=== PATIENT | female | born 1960 | race Hispanic/Latino ===

== ENCOUNTER 2020-07-28 09:36 | Outpatient (CLI) | payer BC ==
--- NOTE | 2020-07-28 12:35 | XRay Report ---
LEFT HIP 5 VIEW(S) INDICATION / CLINICAL INFORMATION: S72.22XADisplaced subtrochanteric fracture of left femur, initial COMPARISON: None available. FINDINGS: Left femoral intramedullary chelsey with proximal head/neck component is seen. There is no evid ence of periprosthetic fracture, dislocation, or hardware loosening. Heterotopic ossification seen al bowen the medial aspect of the proximal femur. There is mild bilateral femoroacetabular joint degenerat rich arthrosis. Signer Name: Yahir Wagner MD Signed: 07/28/2020 12:30 PM Workstation Name: [id number]
== END 2020-07-28 09:37 | disposition home or self-care (01) ==
LOC: XRAY 09:36
PROVIDERS: ATTEND Orthopaedic Surgery
DX: S72.22XD Displaced subtrochanteric fracture of left femur, subsequent encounter for closed fracture with routine healing (principal); M16.0 Bilateral primary osteoarthritis of hip; X58.XXXD Exposure to other specified factors, subsequent encounter
CPT/HCPCS: 73521

== ENCOUNTER 2020-09-09 09:58 | Outpatient (CLI) | payer BC ==
--- NOTE | 2020-09-09 11:11 | XRay Report ---
HISTORY:DISPLACED SUBTROCHANTERIC FRACTURE OF LEFT FEMUR COMPARISON: None. TECHNIQUE: AP lateral and obliques views were obtained FINDINGS: Exam is compared to July 28, 2020 Bones: Evidence of previous fracture intertrochanteric region left hip femur with medullary chelsey and h ip nail in place Joint spaces: Maintained. Soft tissues: No significant abnormality. Additional findings: None. IMPRESSION: 1. No interval change in the appearance of the surgical stabilization left hip fracture with intramed ullary chelsey Signer Name: Lester Mckay MD Signed: 09/09/2020 11:07 AM Workstation Name: [id number]
== END 2020-09-09 09:59 | disposition home or self-care (01) ==
LOC: XRAY 09:58
PROVIDERS: ATTEND Orthopaedic Surgery
DX: S72.22XA Displaced subtrochanteric fracture of left femur, initial encounter for closed fracture (principal); X58.XXXA Exposure to other specified factors, initial encounter; Y93.89 Activity, other specified; Y92.89 Other specified places as the place of occurrence of the external cause; Y99.8 Other external cause status

== ENCOUNTER 2020-11-27 11:34 | Emergency (ER) | payer BC ==
--- NOTE | 2020-11-27 11:46 | Event Note ---
ED Screening Note ED Screening Note: Patient is a 60-year-old female presents emergency room with complaints of a left hip wound that began in September. She states over the last 2 weeks it began having purulent drainage and a foul odor and has increased in pain. She states that she had a left hip arthroplasty on May [address] Coughlin. She has not seen anybody for this wound. She states that she does not have a primary care doctor. She has a past medical history of depression anxiety. Allergy to haloperidol. She denies any other past medical history. This initial assessment/diagnostic orders/clinical plan/treatment(s) is/are subject to change based on patients health status, clinical progression and re- assessment by fellow clinical providers in the ED. Further treatment and workup at subsequent clinical providers discretion. Patient/guardian urged not to elope from the ED as their condition may be serious if not clinically assessed and managed. Initial orders include: labs, XR
--- NOTE | 2020-11-27 12:22 | XRay Report ---
LEFT HIP 3 VIEW(S) INDICATION / CLINICAL INFORMATION: left hip wound COMPARISON: 09/09/2020 FINDINGS: BONES / JOINT(S): No acute fracture or subluxation. Intramedullary chelsey and transcervical screw fixati on of remote left proximal femoral trauma stable since prior exam without evidence of hardware loosen ing or failure. There has been minimal interval healing of the proximal femoral trauma. Mild bilatera l hip arthrosis. Moderate lumbar spondylosis. Partially visualized posterior fixation of lumbar spine . SOFT TISSUES: Superficial soft tissue swelling and edema noted over the left hip. ADDITIONAL FINDINGS: None. Signer Name: Lloyd Lazaro MD Signed: 11/27/2020 12:18 PM Workstation Name: [id number]
[2020-11-27 13:25] LABS: Basophils # (Auto) 0.1 K/mm3 (0.0-0.1); Basophils % (Auto) 1.2 % (0.0-1.8); Eosinophils # (Auto) 0.1 K/mm3 (0.0-0.4); Eosinophils % (Auto) 0.9 % (0.0-4.3); Hematocrit 39.5 % (30.3-42.9); Hemoglobin 13.5 gm/dl (10.1-14.3); Lymphocytes # (Auto) 1.1 K/mm3 (1.2-5.4); Lymphocytes % (Auto) 12.6 % (13.4-35.0); Mean Corpuscular HGB Conc 34 % (30-34); Mean Corpuscular Volume 88 fl (79-97); Monocytes # (Auto) 0.6 K/mm3 (0.0-0.8); Monocytes % (Auto) 7.3 % (0.0-7.3); Platelet Count 225 K/mm3 (140-440); Red Cell Distribution Width 17.6 % (13.2-15.2)
[2020-11-27 13:43] LABS: Alanine Aminotransferase 8 units/L (7-56); Albumin 3.9 g/dL (3.9-5); BUN/Creatinine Ratio 9; Blood Urea Nitrogen 8 mg/dL (7-17); Calcium 9.4 mg/dL (8.4-10.2); Hemolysis Index 2
[2020-11-27] MEDS ORDERED: HYDROcodone/ACETAMINOPHEN 10-325MG TAB PO ONE (17:28)
[2020-11-27] MEDS ORDERED: ONDANSETRON 4 MG ODT TAB PO ONE (17:29)
[2020-11-27] MEDS ORDERED: SULFAMETHOXAZOLE/TRIMETHOPRIM 800/160MG DS TAB PO ONE (17:29)
--- NOTE | 2020-11-27 17:33 | Emergency Department Report ---
ED General Adult HPI - General Chief complaint: Wound/Laceration Stated complaint: INFECTED SORE Time Seen by Provider: 11/27/20 11:44 Source: patient Mode of arrival: Ambulatory Limitations: No Limitations - History of Present Illness Initial comments: The patient presents to the emergency department the chief complaint of the left hip wound has been present since September with purulent drainage. Patient states she had her left hip replaced in May. Patient states that time she has pain in that left leg but is able to move it without issue. Patient denies fever, cough, chest pain, headache, abdominal pain. -: month(s) (2) Location: lower extremity Radiation: non-radiation, extremity Severity scale (0 -10): 5 Quality: aching Improves with: none Worsens with: none Associated Symptoms: denies other symptoms Treatments Prior to Arrival: none - Related Data Previous Rx's Medication Instructions Recorded Last Taken Type Naproxen [Naprosyn] 500 mg PO BID #20 tablet 05/11/20 Unknown Rx HYDROcodone/APAP 5-325 [Truman 1 each PO Q6HR PRN #12 tablet 11/27/20 Unknown Rx 5/325] Sulfamethoxazole/Trimethoprim 2 each PO BID #28 tablet 11/27/20 Unknown Rx [Bactrim DS TAB] Allergies Allergy/AdvReac Type Severity Reaction Status Date / Time haloperidol [From Haldol] Allergy Unknown Verified 05/11/20 14:59 ED Review of Systems ROS: Stated complaint: INFECTED SORE Other details as noted in HPI Constitutional: denies: chills, fever Eyes: denies: eye pain, eye discharge, vision change ENT: denies: ear pain, throat pain Respiratory: denies: cough, shortness of breath, wheezing Cardiovascular: denies: chest pain, palpitations Endocrine: no symptoms reported Gastrointestinal: denies: abdominal pain, nausea, diarrhea Genitourinary: denies: urgency, dysuria, discharge Musculoskeletal: other (left hip wound). denies: back pain, joint swelling, arthralgia Skin: denies: rash, lesions Neurological: denies: headache, weakness, paresthesias Psychiatric: denies: anxiety, depression Hematological/Lymphatic: denies: easy bleeding, easy bruising ED Past Medical Hx - Past Medical History Previous Medical History?: Yes Hx Psychiatric Treatment: Yes (BIPOLAR) - Surgical History Past Surgical History?: No - Social History Smoking Status: Never Smoker Substance Use Type: None - Medications Home Medications: Home Medications Medication Instructions Recorded Confirmed Last Taken Type Naproxen [Naprosyn] 500 mg PO BID #20 tablet 05/11/20 Unknown Rx HYDROcodone/APAP 5-325 [Truman 1 each PO Q6HR PRN #12 tablet 11/27/20 Unknown Rx 5/325] Sulfamethoxazole/Trimethoprim 2 each PO BID #28 tablet 11/27/20 Unknown Rx [Bactrim DS TAB] ED Physical Exam - General Limitations: No Limitations General appearance: alert, in no apparent distress - Head Head exam: Present: atraumatic, normocephalic - Eye Eye exam: Present: normal appearance, PERRL, EOMI - ENT ENT exam: Present: mucous membranes moist - Neck Neck exam: Present: normal inspection - Respiratory Respiratory exam: Present: normal lung sounds bilaterally. Absent: respiratory distress - Cardiovascular Cardiovascular Exam: Present: regular rate, normal rhythm. Absent: systolic murmur, diastolic murmur, rubs, gallop - GI/Abdominal GI/Abdominal exam: Present: soft, normal bowel sounds. Absent: distended, tenderness - Extremities Exam Extremities exam: Present: other (Stage I decubitus ulcer with healing tissue with mild purulent drainage from the left hip just inferior to the surgical site) - Back Exam Back exam: Present: normal inspection - Neurological Exam Neurological exam: Present: alert, oriented X3 - Psychiatric Psychiatric exam: Present: normal affect, normal mood - Skin Skin exam: Present: warm, dry, intact, normal color. Absent: rash ED Course Vital Signs 11/27/20 11:37 Temperature 97.7 F Pulse Rate 96 H Respiratory 18 Rate Blood Pressure 139/82 [Right] O2 Sat by Pulse 98 Oximetry ED Medical Decision Making - Lab Data Result diagrams: 11/27/20 12:53 11/27/20 12:53 Lab Results 11/27/20 11/27/20 11/27/20 Range/Units 12:53 12:53 12:53 WBC 8.5 (4.5-11.0) K/mm3 RBC 4.50 (3.65-5.03) M/mm3 Hgb 13.5 (10.1-14.3) gm/dl Hct 39.5 (30.3-42.9) % MCV 88 (79-97) fl MCH 30 (28-32) pg MCHC 34 (30-34) % RDW 17.6 H (13.2-15.2) % Plt Count 225 (140-440) K/mm3 Lymph % (Auto) 12.6 L (13.4-35.0) % [place] % (Auto) 7.3 (0.0-7.3) % Eos % (Auto) 0.9 (0.0-4.3) % Baso % (Auto) 1.2 (0.0-1.8) % Lymph # (Auto) 1.1 L (1.2-5.4) K/mm3 [place] # (Auto) 0.6 (0.0-0.8) K/mm3 Eos # (Auto) 0.1 (0.0-0.4) K/mm3 Baso # (Auto) 0.1 (0.0-0.1) K/mm3 Seg Neutrophils % 78.0 H (40.0-70.0) % Seg Neutrophils # 6.6 (1.8-7.7) K/mm3 Sodium 135 L (137-145) mmol/L Potassium 4.2 (3.6-5.0) mmol/L Chloride 97.4 L (98-107) mmol/L Carbon Dioxide 28 (22-30) mmol/L Anion Gap 14 mmol/L BUN 8 (7-17) mg/dL Creatinine 0.9 (0.6-1.2) mg/dL Estimated GFR > 60 ml/min BUN/Creatinine Ratio 9 % Glucose 93 (65-100) mg/dL Lactic Acid 1.30 (0.7-2.0) mmol/L Calcium 9.4 (8.4-10.2) mg/dL Total Bilirubin 0.40 (0.1-1.2) mg/dL AST 13 (5-40) units/L ALT 8 (7-56) units/L Alkaline Phosphatase 108 (35-129) units/L Total Protein 8.1 (6.3-8.2) g/dL Albumin 3.9 (3.9-5) g/dL Albumin/Globulin Ratio 0.9 % - Radiology Data Radiology results: report reviewed - Medical Decision Making Discussed plans with patient Critical care attestation.: If time is entered above; I have spent that time in minutes in the direct care of this critically ill patient, excluding procedure time. ED Disposition Clinical Impression: Leg wound, left Disposition: DC-01 TO HOME OR SELFCARE Is pt being admited?: No Does the pt Need Aspirin: No Condition: Stable Instructions: Sutured Wound Care Additional Instructions: return if worse Prescriptions: Sulfamethoxazole/Trimethoprim [Bactrim DS TAB] 2 each PO BID #28 tablet HYDROcodone/APAP 5-325 [Truman 5/325] 1 each PO Q6HR PRN #12 tablet PRN Reason: Pain Referrals: [facility] [Provider Group] - 3-5 Days [facility] [Provider Group] - 3-5 Days [facility] [Outside] - 3-5 Days ABDI HARMON MD [Staff Physician] - 3-5 Days [facility] [Primary Care Provider] - 3-5 Days LYDIA GRAYSON MD [Staff Physician] - 3-5 Days Time of Disposition: 17:31
[2020-11-27 18:02] VITALS: BP 144/73
== END 2020-11-27 18:01 | disposition home or self-care (01) ==
LOC: ED 11:34
DX: L89.221 Pressure ulcer of left hip, stage 1 (principal); F31.9 Bipolar disorder, unspecified; Z79.899 Other long term (current) drug therapy; Z88.8 Allergy status to other drugs, medicaments and biological substances
CPT/HCPCS: 36415; 80053; 82140; 85025; 87040; Q0162

== ENCOUNTER 2020-12-11 13:29 | Emergency (ER) | payer BC ==
[2020-12-11 13:53] VITALS: BP 141/70
--- NOTE | 2020-12-11 13:58 | Emergency Department Report ---
Chief Complaint: Extremity Injury, Lower Stated Complaint: LT HIP PAIN Time Seen by Provider: 12/11/20 13:39 - HPI History of Present Illness: 60-year-old female presents to the emergency room for left hip pain. Patient states that she has a sore on her left hip after having surgery by Dr. Coughlin in May. Patient is not taking anything for pain. Patient states that there is a hole there. She denies any fever chills no nausea no vomiting. Patient is currently walking on a cane which is her normal. - Exam Physical Exam: Patient is alert and oriented x3 no acute distress nontoxic in appearance. Patient is ambulatory with cane. Left hip full range of motion there is a nickel sized open wound with mild purulent discharge. No erythematous appreciated. MSE screening note: Focused history and physical exam performed. Due to findings the following was ordered: 60-year-old female presents to the emergency room for left hip pain. Patient states that she has a sore on her left hip after having surgery by Dr. Coughlin in May. Patient is not taking anything for pain. Patient states that there is a hole there. She denies any fever chills no nausea no vomiting. Patient is currently walking on a cane which is her normal. Call wound care clinic spoke to staff they states that patient can come at 9:00 AM at [facility] wound clinic. Patient is informed of her appointment. ED Disposition for [facility] [place]position: MED SCREENING EXAM-LEFT Is pt being admited?: No Does the pt Need Aspirin: No Condition: Stable Additional Instructions: Visit appointment for [facility] wound care clinic has been moved up to Monday, December 14, 2020 at 9 AM. Be sure to bring your insurance card in your ID. You can take Tylenol or ibuprofen for pain management.
== END 2020-12-11 17:48 | disposition left against medical advice (07) ==
LOC: ED 13:29
DX: M25.552 Pain in left hip (principal); Z53.21 Procedure and treatment not carried out due to patient leaving prior to being seen by health care provider

== ENCOUNTER 2020-12-14 08:44 | Outpatient (CLI) | payer BC ==
[2020-12-14] MEDS ORDERED: LIDOCAINE (4%) 40 MG/ML TOPICAL SOLN 50 ML BOTTLE TP ONE (09:46)
[2020-12-14] MEDS ORDERED: SODIUM CHLORIDE 0.9% IRR 500 ML BOTTLE IR ONE (10:30)
== END 2020-12-14 08:45 | disposition home or self-care (01) ==
LOC: WOUND 08:44
PROVIDERS: ATTEND Surgery
DX: T81.89XA Other complications of procedures, not elsewhere classified, initial encounter (principal); L98.492 Non-pressure chronic ulcer of skin of other sites with fat layer exposed; S71.002A Unspecified open wound, left hip, initial encounter; F41.9 Anxiety disorder, unspecified; F32.9 Major depressive disorder, single episode, unspecified; F17.210 Nicotine dependence, cigarettes, uncomplicated; Z90.49 Acquired absence of other specified parts of digestive tract; Z90.710 Acquired absence of both cervix and uterus; X58.XXXA Exposure to other specified factors, initial encounter; Y93.89 Activity, other specified; Y92.89 Other specified places as the place of occurrence of the external cause; Y99.8 Other external cause status; Y83.8 Other surgical procedures as the cause of abnormal reaction of the patient, or of later complication, without mention of misadventure at the time of the procedure; Y92.238 Other place in hospital as the place of occurrence of the external cause
CPT/HCPCS: 11042; G0463; 99204; 99214

== ENCOUNTER 2020-12-28 08:29 | Outpatient (CLI) | payer BC ==
[2020-12-28] MEDS ORDERED: LIDOCAINE (4%) 40 MG/ML TOPICAL SOLN 50 ML BOTTLE TP ONE (10:00)
== END 2020-12-28 08:30 | disposition home or self-care (01) ==
LOC: WOUND 08:29
PROVIDERS: ATTEND Surgery
DX: T81.89XD Other complications of procedures, not elsewhere classified, subsequent encounter (principal); L98.492 Non-pressure chronic ulcer of skin of other sites with fat layer exposed; S71.002D Unspecified open wound, left hip, subsequent encounter; F41.9 Anxiety disorder, unspecified; F32.9 Major depressive disorder, single episode, unspecified; F17.210 Nicotine dependence, cigarettes, uncomplicated; Z90.49 Acquired absence of other specified parts of digestive tract; Z90.710 Acquired absence of both cervix and uterus; X58.XXXD Exposure to other specified factors, subsequent encounter; Y83.8 Other surgical procedures as the cause of abnormal reaction of the patient, or of later complication, without mention of misadventure at the time of the procedure
CPT/HCPCS: 87075; 87116

== ENCOUNTER 2021-01-04 08:08 | Outpatient (CLI) | payer BC ==
[2021-01-04] MEDS ORDERED: LIDOCAINE (4%) 40 MG/ML TOPICAL SOLN 50 ML BOTTLE TP SCH (08:30)
== END 2021-01-04 08:09 | disposition home or self-care (01) ==
LOC: WOUND 08:08
PROVIDERS: ATTEND Surgery
DX: T81.89XD Other complications of procedures, not elsewhere classified, subsequent encounter (principal); L98.492 Non-pressure chronic ulcer of skin of other sites with fat layer exposed; S71.002D Unspecified open wound, left hip, subsequent encounter; F41.9 Anxiety disorder, unspecified; F32.9 Major depressive disorder, single episode, unspecified; Z90.49 Acquired absence of other specified parts of digestive tract; Z90.710 Acquired absence of both cervix and uterus; X58.XXXD Exposure to other specified factors, subsequent encounter; Y83.8 Other surgical procedures as the cause of abnormal reaction of the patient, or of later complication, without mention of misadventure at the time of the procedure

== ENCOUNTER 2021-01-18 10:33 | Outpatient (CLI) | payer BC ==
[2021-01-18] MEDS ORDERED: LIDOCAINE (4%) 40 MG/ML TOPICAL SOLN 50 ML BOTTLE TP ONE (10:56)
== END 2021-01-18 10:34 | disposition home or self-care (01) ==
LOC: WOUND 10:33
PROVIDERS: ATTEND Surgery
DX: T81.89XD Other complications of procedures, not elsewhere classified, subsequent encounter (principal); L98.492 Non-pressure chronic ulcer of skin of other sites with fat layer exposed; S71.002D Unspecified open wound, left hip, subsequent encounter; F41.9 Anxiety disorder, unspecified; F32.9 Major depressive disorder, single episode, unspecified; Z90.49 Acquired absence of other specified parts of digestive tract; Z90.710 Acquired absence of both cervix and uterus; X58.XXXD Exposure to other specified factors, subsequent encounter; Y83.8 Other surgical procedures as the cause of abnormal reaction of the patient, or of later complication, without mention of misadventure at the time of the procedure
CPT/HCPCS: 97605

== ENCOUNTER 2021-01-21 08:25 | Outpatient (CLI) | payer BC | END 2021-01-21 08:26 | disposition home or self-care (01) | LOC: WOUND 08:25 | PROVIDERS: ATTEND Surgery | DX: T81.89XD Other complications of procedures, not elsewhere classified, subsequent encounter (principal); S71.002D Unspecified open wound, left hip, subsequent encounter; F41.9 Anxiety disorder, unspecified; F32.9 Major depressive disorder, single episode, unspecified; Z90.49 Acquired absence of other specified parts of digestive tract; Z90.710 Acquired absence of both cervix and uterus; X58.XXXD Exposure to other specified factors, subsequent encounter; Y83.8 Other surgical procedures as the cause of abnormal reaction of the patient, or of later complication, without mention of misadventure at the time of the procedure | CPT/HCPCS: 97605 ==

== ENCOUNTER 2021-01-25 09:43 | Outpatient (CLI) | payer BC ==
[2021-01-25] MEDS ORDERED: LIDOCAINE (4%) 40 MG/ML TOPICAL SOLN 50 ML BOTTLE TP ONE (10:16)
== END 2021-01-25 09:44 | disposition home or self-care (01) ==
LOC: WOUND 09:43
PROVIDERS: ATTEND Surgery
DX: T81.89XD Other complications of procedures, not elsewhere classified, subsequent encounter (principal); S71.002D Unspecified open wound, left hip, subsequent encounter; F41.9 Anxiety disorder, unspecified; F32.9 Major depressive disorder, single episode, unspecified; Z90.49 Acquired absence of other specified parts of digestive tract; Z90.710 Acquired absence of both cervix and uterus; X58.XXXD Exposure to other specified factors, subsequent encounter; Y83.8 Other surgical procedures as the cause of abnormal reaction of the patient, or of later complication, without mention of misadventure at the time of the procedure

== ENCOUNTER 2021-04-29 05:47 | Inpatient (IN) | payer BC ==
[~2021-04-29 05:47] MED LIST: ceFAZolin/STERILE WATER 2 GM/20 ML SYRINGE IV NR
[2021-04-29] MEDS ORDERED: CELECOXIB 200 MG CAP PO NR (06:00)
[2021-04-29] MEDS ORDERED: ACETAMINOPHEN 500 MG TAB PO SCH (06:00)
[2021-04-29] MEDS ORDERED: MIDAZOLAM 2 MG/2 ML INJ IV NR (06:00)
[2021-04-29] MEDS ORDERED: GABAPENTIN 300 MG CAP PO NR (06:00)
[2021-04-29] MEDS ORDERED: SUCCINYLCHOLINE CHLORIDE 200 MG/10 ML INJ MDV ONE (07:00)
[2021-04-29] MEDS ORDERED: PHENYLEPHRINE/NS 1,000 MCG/10 ML SYRINGE (OR USE) IV ONE (07:00)
[2021-04-29] MEDS ORDERED: ROCURONIUM 50 MG/5 ML INJ IV ONE (07:00)
[2021-04-29] MEDS ORDERED: labetaloL 100 MG/20 ML INJ MDV IV ONE (07:00)
[2021-04-29] MEDS ORDERED: dexAMETHasone 20 MG/5 ML VIAL ONE (07:00)
[2021-04-29] MEDS ORDERED: NEOMY 40 MG/POLYMYXIN B 200,000 UNITS/ML (GU) AMPULE IR ONE ×3 (07:03→08:55)
[2021-04-29] MEDS ORDERED: ePHEDrine SULFATE 50 MG/1 ML INJ ONE (07:05)
[2021-04-29] MEDS ORDERED: LIDOCAINE MPF (2%) 20 MG/1 ML VIAL 5 ML ONE (07:05)
[2021-04-29] MEDS ORDERED: propofoL 200 MG/20 ML VIAL IV ONE (07:05)
[2021-04-29] MEDS ORDERED: ONDANSETRON 4 MG/2 ML INJ ONE (07:05)
[2021-04-29] MEDS ORDERED: fentaNYL 100 MCG/2 ML INJ ONE ×2 (07:05→08:31)
--- NOTE | 2021-04-29 07:11 | Anesthesia Consultation ---
Anesthesia Consult and Med Hx Date of service: 04/29/21 - Airway Anesthetic Teeth Evaluation: Edentulous ROM Head & Neck: Adequate Mental/Hyoid Distance: Inadequate Mallampati Class: Class III Intubation Access Assessment: Possibly Difficult (small mouth opening) - Pre-Operative Health Status ASA Pre-Surgery Classification: ASA3 Proposed Anesthetic Plan: General - Pulmonary Hx Smoking: Yes (long hx smoking 1/2 PPPD) Hx Respiratory Symptoms: No Hx Sleep Apnea: No (JONATHON PRE SCTRREN LOW RISK) - Cardiovascular System Hx Hypertension: No Hx Heart Attack/AMI: No Hx Percutaneous Transluminal Coronary Angioplasty (PTCA): No - Central Nervous System CVA: No Hx Psychiatric Problems: Yes (schizophrenia, PTSD, anxiety/depression) - Endocrine Hx Renal Disease: No Hx Liver Disease: No Hx Insulin Dependent Diabetes: No Hx Non-Insulin Dependent Diabetes: No Hx Thyroid Disease: No - Other Systems Hx Obesity: Yes (BMI 36) - Additional Comments Anesthesia Medical History Comments: No hx anesthetic complications.
--- NOTE | 2021-04-29 07:11 | Anesthesia Day of Surgery ---
Anesthesia Day of Surgery - Day of Surgery Patient Examined: Yes Patient H&P Reviewed: Yes Patient is NPO: Yes
[2021-04-29] MEDS: LACTATED RINGERS 1,000 ML IV SCH ×3 (07:15→23:16)
[2021-04-29 07:17] LABS: Hematocrit 35.4 % (30.3-42.9); Hemoglobin 11.5 gm/dl (10.1-14.3); Mean Corpuscular HGB Conc 32 % (30-34); Mean Corpuscular Volume 82 fl (79-97); Platelet Count 311 K/mm3 (140-440); Red Blood Count 4.31 M/mm3 (3.65-5.03)
[2021-04-29] MEDS ORDERED: KETOROLAC 30 MG/1 ML INJ ONE (07:21)
[2021-04-29] MEDS ORDERED: SODIUM CHLORIDE 0.9% 0 ML ONE (07:22)
[2021-04-29] MEDS ORDERED: SODIUM CHLORIDE 0.9% 50 ML ONE (07:22)
[2021-04-29] MEDS ORDERED: BUPIVACAINE/PF (0.5%) 5 MG/1 ML 10 ML VIAL INFILTRATI ONE ×2 (07:22→10:10)
[2021-04-29] MEDS ORDERED: ONDANSETRON 4 MG/2 ML INJ IV PRN (07:30)
[2021-04-29 07:37] LABS: BUN/Creatinine Ratio 12; Blood Urea Nitrogen 11 mg/dL (7-17); Calcium 9.1 mg/dL (8.4-10.2); Hemolysis Index 1
[2021-04-29] MEDS ORDERED: HYDROmorphone 1 MG/1 ML INJ ONE (08:13)
[2021-04-29] MEDS ORDERED: MORPHINE 10 MG/1 ML INJ ONE (08:18)
[2021-04-29] MEDS ORDERED: MORPHINE 10 MG/1 ML INJ IM ONE (10:10)
[2021-04-29] MEDS ORDERED: KETOROLAC 30 MG/1 ML INJ IV ONE (10:10)
[2021-04-29] MEDS ORDERED: SODIUM CHLORIDE 0.9% 100 ML IVPB IV ONE (10:10)
--- NOTE | 2021-04-29 10:52 | XRay Report ---
XR femur 1V LT Technique: Intraoperative fluoroscopic guidance was provided. Fluoroscopy time: 34 second. Fluoroscopy images: 4. Findings/Impression: Intraoperative fluoroscopic guidance for removal of left femoral hardware. Milana carrion see procedure report for further details. Signer Name: Ean Kilpatrick MD Signed: 04/29/2021 10:47 AM Workstation Name: [id number]
[2021-04-29] MEDS: HYDROmorphone 1 MG/1 ML INJ IV PRN ×2 (11:12→11:23)
--- NOTE | 2021-04-29 15:53 | Procedure Note ---
Date of procedure: 04/29/21 Pre-op diagnosis: infected left hip, s/p IM nail left femur Post-op diagnosis: same Procedure: Removal of hardware left femur Procedure The patient was brought to the OR and placed in the OR table in supine position following induction intubation by anesthesia patient was placed into the right lateral decubitus position care was taken to protect bony areas as well as an axillary roll placed in the right axilla next the left hip was then prepped and draped in the routine sterile manner. A timeout procedure was done to identify the patient and the correct operative site. Utilizing the previous incision this was then taken down sharply through skin and subcu using C arm visualization the IM nail was located after extensive debridement proximally the head of the nail was is seen the extraction device was then applied next the wound was extended distally and the helical blade was located again using the extraction device the helical blade was removed without incident next attention was turned to the distal screw again under C-arm visualization the head of the screw was identified the incision was enlarged followed by removal of the distal screw the patient was noted to have a fairly loose distal screw as well with the extraction device still attached to the IM nail the nail was removed easily next a 13.5 reamer was inserted within the canal and the canal was then debrided this was then followed by copious irrigation using pulse lavage following lavage the deep soft tissue were closed with #1 Vicryl followed by closure of the subcutaneous tissues with 0 and 2-0 Vicryl routine postop dressings were applied patient tolerated the procedure there were no complications she was sent to postanesthesia recovery in a stable condition Anesthesia: GETA Surgeon: LYDIA GRAYSON (Waleska Rawls, 1st assist) Estimated blood loss: other (300cc) Pathology: list (IM nail and fluid for C&S) Specimen disposition: to lab Condition: stable Disposition: PACU
--- NOTE | 2021-04-29 15:54 | Post Anesthesia Evaluation ---
- Post Anesthesia Evaluation Patient Participated: Yes Airway Patent: Yes Stable Respiratory Function: Yes Nausea/Vomiting: No Temp > 96.8F: Yes Pain Manageable: Yes Adequeate Hydration: Yes Anesthesia Complications: No
[2021-04-29] MEDS: MORPHINE 4 MG/1 ML INJ IV PRN ×2 (17:07→20:02)
[2021-04-29] MEDS: KETOROLAC 30 MG/1 ML INJ IV PRN (23:16)
[2021-04-30] MEDS: MORPHINE 4 MG/1 ML INJ IV PRN ×5 (04:57→22:04)
[2021-04-30 05:07] LABS: Hematocrit 26.5 % (30.3-42.9)
--- NOTE | 2021-04-30 09:23 | Event Note ---
Date: 04/30/21 Patient appeared to have shown up on my list. No consult noted. Notified floor. Will defer management to Orthopedic surgeon. Consult if hospitalist medicine needed. Will remove from list for now.
[2021-04-30] MEDS: KETOROLAC 30 MG/1 ML INJ IV PRN (12:22)
--- NOTE | 2021-04-30 15:23 | Progress Note ---
Assessment and Plan s/p removal infected IM nail left femur doing ok Subjective Date of service: 04/30/21 Interval history: c/o incisional pain, PT started today... Objective Vital signs: Vital Signs - 12hr 04/30/21 04/30/21 04/30/21 04:36 07:43 12:00 Temperature 98.3 F 98.0 F 98.9 F Pulse Rate 80 75 70 Respiratory 16 18 18 Rate Blood Pressure 117/46 Blood Pressure 120/54 118/76 [Left] O2 Sat by Pulse 95 95 92 Oximetry Incision: healing Weight bearing status: partial - Labs CBC & BMP: 04/30/21 04:29 04/29/21 07:05 Labs: Abnormal lab results 04/30/21 Range/Units 04:29 Hgb 9.0 L (10.1-14.3) gm/dl Hct 26.5 L D (30.3-42.9) %
[2021-04-30] MEDS: traZODone 100 MG TAB PO SCH (22:26)
[2021-04-30] MEDS: CYCLOBENZAPRINE 10 MG TAB PO PRN (22:26)
[2021-05-01] MEDS: KETOROLAC 30 MG/1 ML INJ IV PRN ×2 (00:20→17:28)
[2021-05-01] MEDS: oxyCODONE /ACETAMINOPHEN 5-325MG TAB PO PRN (08:18)
[2021-05-01] MEDS: MORPHINE 4 MG/1 ML INJ IV PRN ×3 (10:32→20:32)
[2021-05-01] MEDS: GABAPENTIN 300 MG CAP PO SCH ×2 (14:31→20:32)
[2021-05-01] MEDS: traZODone 100 MG TAB PO SCH (22:30)
[2021-05-02] MEDS: oxyCODONE /ACETAMINOPHEN 5-325MG TAB PO PRN (05:24)
[2021-05-02] MEDS: GABAPENTIN 300 MG CAP PO SCH ×3 (08:46→21:26)
[2021-05-02] MEDS: MORPHINE 4 MG/1 ML INJ IV PRN ×3 (10:03→21:26)
--- NOTE | 2021-05-02 11:41 | Progress Note ---
Assessment and Plan s/p removal infected IM nail left femur doing ok Subjective Date of service: 05/02/21 Interval history: Sitting up in the chair having breakfast, complains of left thigh pain otherwise okay Objective Vital signs: Vital Signs - 12hr 05/02/21 05/02/21 05/02/21 00:03 05:11 05:24 Temperature 97.7 F 97.7 F Pulse Rate 73 72 Respiratory 18 18 17 Rate Blood Pressure 107/49 128/59 O2 Sat by Pulse 95 94 Oximetry 05/02/21 05/02/21 06:24 07:46 Temperature 98.4 F Pulse Rate 69 Respiratory 17 18 Rate Blood Pressure 135/60 O2 Sat by Pulse 95 Oximetry - Labs CBC & BMP: 04/30/21 04:29 04/29/21 07:05
[2021-05-02] MEDS: KETOROLAC 30 MG/1 ML INJ IV PRN ×2 (13:02→19:10)
[2021-05-02] MEDS: traZODone 100 MG TAB PO SCH (21:26)
[2021-05-03] MEDS: CYCLOBENZAPRINE 10 MG TAB PO PRN (05:19)
[2021-05-03] MEDS: oxyCODONE /ACETAMINOPHEN 5-325MG TAB PO PRN ×2 (05:19→19:51)
[2021-05-03] MEDS: GABAPENTIN 300 MG CAP PO SCH ×2 (09:54→19:51)
--- NOTE | 2021-05-03 10:51 | Consultation ---
History of Present Illness - Reason for Consult Consult date: 05/03/21 Medical management Requesting physician: LYDIA COUGHLIN - History of Present Illness 36 YO Female with Obesity, PTSD, DASHA, Depression, Schizophremia, Nicotine Dependence, HTN admitted for removal of infected ortho hardware. Consult placed by Dr. Coughlin for medical management. Patient seen and evaluated in her room. Patient resting calmly. Patient denies fever, chills, chest pain, palpitation, productive cough, skin rash, recent ill contacts, or known exposure to COVID-19. No reported nursing events. Past History Past Medical History: hypertension, other (see HPI) Past Surgical History: Other (Ortho surgery) Social history: single. denies: smoking, alcohol abuse Family history: diabetes, hypertension Medications and Allergies Allergies Allergy/AdvReac Type Severity Reaction Status Date / Time haloperidol [From Haldol] Allergy Seizure Verified 04/26/21 13:02 Home Medications Medication Instructions Recorded Confirmed Last Taken Type Buspirone HCl [busPIRone] 15 mg PO DAILY 04/26/21 04/29/21 04/28/21 09:00 History Citalopram Hydrobromide 40 mg PO DAILY 04/26/21 04/29/21 04/28/21 09:00 History [Citalopram HBr] Citalopram Hydrobromide 40 mg PO DAILY 04/26/21 04/29/21 04/28/21 09:00 History [Citalopram HBr] Cyclobenzaprine [Flexeril] 10 mg PO TID PRN 04/26/21 04/26/21 Unknown History Gabapentin [Neurontin] 300 mg PO TID 04/26/21 04/29/21 04/28/21 17:00 History Hydroxyzine HCl [hydrOXYzine] 50 mg PO QID 04/26/21 04/29/21 04/28/21 21:00 History OLANZapine [Zyprexa] 5 mg PO QHS 04/26/21 04/29/21 04/28/21 21:00 History Trazodone HCl 200 mg PO QHS 04/26/21 04/29/21 04/28/21 21:00 History clonazePAM [KlonoPIN] 2 mg PO QHS 04/26/21 04/29/21 04/28/21 21:00 History Active Meds: Active Medications Clonazepam (Clonazepam 2 Mg Tab) 2 mg PO HS [facility] Last Admin: 05/02/21 21:26 Dose: 2 mg Documented by: Cyclobenzaprine HCl (Cyclobenzaprine 10 Mg Tab) 10 mg PO Q8H PRN PRN Reason: Muscle Spasm Last Admin: 05/03/21 05:19 Dose: 10 mg Documented by: Gabapentin (Gabapentin 300 Mg Cap) 300 mg PO TID [facility] Last Admin: 05/03/21 09:54 Dose: 300 mg Documented by: Ibuprofen (Ibuprofen 800 Mg Tab) 800 mg PO Q8H PRN PRN Reason: Pain, Moderate (4-6) Ketorolac Tromethamine (Ketorolac 30 Mg/1 Ml Inj) 15 mg IV Q6H PRN PRN Reason: Pain, Moderate (4-6) Stop: 05/04/21 14:21 Last Admin: 05/02/21 19:10 Dose: 15 mg Documented by: Morphine Sulfate (Morphine 4 Mg/1 Ml Inj) 4 mg IV Q4H PRN PRN Reason: Pain , Severe (7-10) Last Admin: 05/02/21 21:26 Dose: 4 mg Documented by: Oxycodone/Acetaminophen (Oxycodone /Acetaminophen 5-325mg Tab) 1 tab PO Q6H PRN PRN Reason: Pain, Moderate (4-6) Last Admin: 05/03/21 05:19 Dose: 1 tab Documented by: Trazodone HCl (Trazodone 100 Mg Tab) 200 mg PO QHS [facility] Last Admin: 05/02/21 21:26 Dose: 200 mg Documented by: Review of Systems Constitutional: no weight loss, no weight gain, no fever, no chills Ears, nose, mouth and throat: no ear pain, no ear discharge, no tinnitis, no decreased hearing, no nasal congestion, no sinus pressure Breasts: no change in shape, no swelling, no mass Cardiovascular: no chest pain, no orthopnea, no palpitations, no rapid/irregular heart beat Respiratory: no cough, no cough with sputum, no excessive sputum, no hemoptysis, no shortness of breath Gastrointestinal: no abdominal pain, no nausea, no vomiting, no constipation, no hematemesis Genitourinary Female: no pelvic pain, no flank pain, no dysuria, no urinary frequency, no urgency Rectal: no pain, no incontinence, no bleeding Musculoskeletal: no neck stiffness, no neck pain, no shooting arm pain, no arm numbness/tingling, no low back pain, no leg numbness/tingling Integumentary: no rash, no pruritis, no redness, no sores, no wounds Neurological: no head injury, no transient paralysis, no paralysis, no parathesias, no numbness, no seizures, no syncope, no tremors Psychiatric: anxiety, no memory loss, no change in sleep habits, no hypersomnia, no change in appetite, no disorientation Endocrine: no cold intolerance, no heat intolerance, no polyphagia, no excessive thirst, no polyuria Hematologic/Lymphatic: no easy bruising, no easy bleeding Allergic/Immunologic: no urticaria, no allergic rhinitis Exam - Constitutional Vitals: Temp Pulse Resp BP Pulse Ox 97.8 F 71 18 103/43 97 05/03/21 07:18 05/03/21 07:18 05/03/21 07:18 05/03/21 07:18 05/03/21 07:18 General appearance: Present: no acute distress, obese - EENT Eyes: Present: PERRL ENT: hearing intact, clear oral mucosa - Neck Neck: Present: supple, normal ROM - Respiratory Respiratory effort: normal Respiratory: bilateral: CTA - Cardiovascular Heart Sounds: Present: S1 & S2. Absent: rub, click - Extremities Extremities: pulses symmetrical, No edema Peripheral Pulses: within normal limits - Abdominal General gastrointestinal: Present: soft, non-tender, non-distended, normal bowel sounds Female genitourinary: Present: normal - Integumentary Integumentary: Present: clear, warm, dry - Musculoskeletal Musculoskeletal: gait normal, strength equal bilaterally - Psychiatric Psychiatric: appropriate mood/affect, intact judgment & insight - Neurologic Neurologic: CNII-XII intact, moves all extremities Results - Labs CBC & Chem 7: 04/30/21 04:29 04/29/21 07:05 Assessment and Plan - Patient Problems (1) HTN (hypertension) Current Visit: Yes Status: Acute Qualifiers: Hypertension type: essential hypertension Qualified Code(s): I10 - Essential (primary) hypertension Plan to address problem: Monitor BP q shift, continue medical management (2) Anxiety Current Visit: Yes Status: Acute Plan to address problem: Continue benzodiazepine therapy, (3) Obesity (BMI 30-39.9) Current Visit: Yes Status: Acute Plan to address problem: Balanced diet, increased physical activity at discharge (4) Depression Current Visit: Yes Status: Acute Qualifiers: Depression Type: major depressive disorder Plan to address problem: Continue medical management, outpatient psychiatry F/U.
[2021-05-03] MEDS: MORPHINE 4 MG/1 ML INJ IV PRN (11:52)
[2021-05-03] MEDS ORDERED: NON-FORMULARY EACH (Hydroxyzine Hcl [Hydroxyzine] 50 MG Tablet) PO SCH (14:00)
[2021-05-03] MEDS: KETOROLAC 30 MG/1 ML INJ IV PRN (15:37)
[2021-05-03] MEDS: hydrOXYzine HCL 25 MG TAB PO SCH (18:41)
[2021-05-03] MEDS: traZODone 100 MG TAB PO SCH (21:34)
[2021-05-04] MEDS: oxyCODONE /ACETAMINOPHEN 5-325MG TAB PO PRN ×3 (03:31→20:26)
[2021-05-04] MEDS: hydrOXYzine HCL 25 MG TAB PO SCH ×5 (05:23→22:29)
[2021-05-04] MEDS: CYCLOBENZAPRINE 10 MG TAB PO PRN (05:37)
--- NOTE | 2021-05-04 08:28 | Progress Note ---
Assessment and Plan Assessment and plan: (1) HTN (hypertension) Current Visit: Yes Status: Acute Qualifiers: Hypertension type: essential hypertension Qualified Code(s): I10 - Essential (primary) hypertension Plan to address problem: Monitor BP q shift, continue medical management (2) Anxiety Current Visit: Yes Status: Acute Plan to address problem: Continue benzodiazepine therapy, (3) Obesity (BMI 30-39.9) Current Visit: Yes Status: Acute Plan to address problem: Balanced diet, increased physical activity at discharge (4) Depression Current Visit: Yes Status: Acute Qualifiers: Depression Type: major depressive disorder Plan to address problem: Continue medical management, outpatient psychiatry F/U. Discharge planning as per primary/orthopedics. History Interval history: Patient was seen and evaluated this morning Patient does not have any complaints Hospitalist Physical - Physical exam Narrative exam: Not in cardiopulmonary distress. The patient appeared well nourished and normally developed. Vital signs as documented. Head exam is unremarkable. No scleral icterus . Neck is without jugular venous distension, thyromegaly, or carotid bruits. Lungs are clear to auscultation. Cardiac exam reveals regular rate and Rhythm. Abdominal exam reveals normal bowel sounds, nontender, no organomegaly. Extremities are nonedematous and both femoral and pedal pulses are normal. 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 No focal weakness. - Constitutional Vitals: Temp Pulse Resp BP Pulse Ox 97.6 F 60 16 106/46 98 05/04/21 07:12 05/04/21 07:12 05/04/21 07:12 05/04/21 07:12 05/04/21 07:12 General appearance: Present: no acute distress, obese Results - Labs CBC & Chem 7: 04/30/21 04:29 04/29/21 07:05 Labs: Laboratory Last Values WBC 7.7 K/mm3 (4.5-11.0) 04/29/21 07:05 RBC 4.31 M/mm3 (3.65-5.03) 04/29/21 07:05 Hgb 9.0 gm/dl (10.1-14.3) L 04/30/21 04:29 Hct 26.5 % (30.3-42.9) L D 04/30/21 04:29 MCV 82 fl (79-97) 04/29/21 07:05 MCH 27 pg (28-32) L 04/29/21 07:05 MCHC 32 % (30-34) 04/29/21 07:05 RDW 16.0 % (13.2-15.2) H 04/29/21 07:05 Plt Count 311 K/mm3 (140-440) 04/29/21 07:05 Sodium 138 mmol/L (137-145) 04/29/21 07:05 Potassium 3.9 mmol/L (3.6-5.0) 04/29/21 07:05 Chloride 102.8 mmol/L (98-107) 04/29/21 07:05 Carbon Dioxide 27 mmol/L (22-30) 04/29/21 07:05 Anion Gap 12 mmol/L 04/29/21 07:05 BUN 11 mg/dL (7-17) 04/29/21 07:05 Creatinine 0.9 mg/dL (0.6-1.2) 04/29/21 07:05 Estimated GFR > 60 ml/min 04/29/21 07:05 BUN/Creatinine Ratio 12 % 04/29/21 07:05 Glucose 94 mg/dL (65-100) 04/29/21 07:05 Calcium 9.1 mg/dL (8.4-10.2) 04/29/21 07:05 Land/IV: Voiding Method Bedpan Active Medications - Current Medications Current Medications: Generic Name Dose Route Start Last Admin Trade Name Freq PRN Reason Stop Dose Admin Buspirone HCl 10 mg 05/04/21 10:00 Buspirone 10 Mg Tab PO DAILY NIKKI Buspirone HCl 5 mg 05/04/21 10:00 Buspirone 5 Mg Tab PO DAILY NIKKI Citalopram Hydrobromide 40 mg 05/04/21 10:00 Citalopram 20 Mg Tab PO DAILY NIKKI Clonazepam 2 mg 05/03/21 22:00 05/03/21 21:34 Clonazepam 2 Mg Tab PO 2 mg QHS NIKKI Administration Cyclobenzaprine HCl 10 mg 05/03/21 15:30 05/04/21 05:37 Cyclobenzaprine 10 Mg Tab PO 10 mg TID PRN Administration Muscle Spasm Gabapentin 300 mg 05/03/21 20:00 05/03/21 19:51 Gabapentin 300 Mg Cap PO 300 mg TID NIKKI Administration Hydroxyzine HCl 50 mg 05/03/21 18:00 05/04/21 05:23 Hydroxyzine Hcl 25 Mg Tab PO Not Given QID NIKKI Ibuprofen 800 mg 04/29/21 14:22 Ibuprofen 800 Mg Tab PO Q8H PRN Pain, Moderate (4-6) Ketorolac Tromethamine 15 mg 04/29/21 14:22 05/03/21 15:37 Ketorolac 30 Mg/1 Ml Inj IV 05/04/21 14:21 15 mg Q6H PRN Administration Pain, Moderate (4-6) Morphine Sulfate 4 mg 04/29/21 14:22 05/03/21 11:52 Morphine 4 Mg/1 Ml Inj IV 4 mg Q4H PRN Administration Pain , Severe (7-10) Olanzapine 5 mg 05/03/21 22:00 05/04/21 05:22 Olanzapine 5 Mg Tab PO Not Given QHS NIKKI Oxycodone/Acetaminophen 1 tab 04/29/21 14:22 05/04/21 03:31 Oxycodone /Acetaminophen 5-325mg Tab PO 1 tab Q6H PRN Administration Pain, Moderate (4-6) Trazodone HCl 200 mg 05/03/21 22:00 05/03/21 21:34 Trazodone 100 Mg Tab PO 200 mg QHS NIKKI Administration Nutrition/Malnutrition Assess - Dietary Evaluation Nutrition/Malnutrition Findings: Nutrition Notes Start: 04/30/21 14:33 Freq: Status: Active Protocol: Document 04/30/21 14:33 CW (Rec: 04/30/21 14:36 CW [email or web address]) Nutrition Notes Need for Assessment 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 Logan score of 18. Pt reports having a good appetite adn eating well. Intake is approximately 75% of meals. Pt instructed to ensure she focuses on eating protein source to support healing. Current % PO Good (75-100%) Minimum of two criteria No physical signs of malnutrition Nutrition Intervention Anticipated Discharge Needs: Regular diet high in protein Revisit per MD consult or patient Sign Off request: Additional Comments S/O for excellent intake and appetite
[2021-05-04] MEDS: CITALOPRAM 20 MG TAB PO SCH (09:58)
[2021-05-04] MEDS: busPIRone 5 MG TAB PO SCH (09:59)
[2021-05-04] MEDS: busPIRone 10 MG TAB PO SCH (09:59)
[2021-05-04] MEDS: GABAPENTIN 300 MG CAP PO SCH ×3 (09:59→20:22)
[2021-05-04] MEDS ORDERED: CITALOPRAM HYDROBROMIDE 40 MG PO SCH (10:00)
[2021-05-04] MEDS ORDERED: NON-FORMULARY EACH (Buspirone Hcl [Buspirone] 15 MG Tablet) PO SCH (10:00)
--- NOTE | 2021-05-04 10:15 | XRay Report ---
LEFT FEMUR 5 VIEWS INDICATION / CLINICAL INFORMATION: s/p removal of hardware left femur. COMPARISON: None available. FINDINGS: Intramedullary nail and compression screw have been removed from the left femur. There is a fracture of the proximal left femur with marked angulation at fracture site. Signer Name: Jerman Wagner MD FACEdgardo Signed: 05/04/2021 10:10 AM Workstation Name: [employer]
--- NOTE | 2021-05-04 13:17 | Progress Note ---
Assessment and Plan awaiting placement to rehab continue PT and observation Subjective Date of service: 05/04/21 Interval history: resting in bed eating lunch, c/o pain otherwise ok Objective Vital signs: Vital Signs - 12hr 05/04/21 05/04/21 05/04/21 03:31 04:45 05:21 Temperature 97.2 F L Pulse Rate 66 68 Respiratory 17 16 17 Rate Blood Pressure Blood Pressure 91/34 101/46 [Left] O2 Sat by Pulse 96 Oximetry 05/04/21 07:12 Temperature 97.6 F Pulse Rate 60 Respiratory 16 Rate Blood Pressure 106/46 Blood Pressure [Left] O2 Sat by Pulse 98 Oximetry - Labs CBC & BMP: 04/30/21 04:29 04/29/21 07:05
[2021-05-04] MEDS: KETOROLAC 30 MG/1 ML INJ IV PRN (14:12)
[2021-05-04] MEDS: traZODone 100 MG TAB PO SCH (22:31)
--- NOTE | 2021-05-05 08:10 | Progress Note ---
Assessment and Plan Assessment and plan: (1) HTN (hypertension) Current Visit: Yes Status: Acute Qualifiers: Hypertension type: essential hypertension Qualified Code(s): I10 - Essential (primary) hypertension Plan to address problem: Monitor BP q shift, continue medical management (2) Anxiety Current Visit: Yes Status: Acute Plan to address problem: Continue benzodiazepine therapy, (3) Obesity (BMI 30-39.9) Current Visit: Yes Status: Acute Plan to address problem: Balanced diet, increased physical activity at discharge (4) Depression Current Visit: Yes Status: Acute Qualifiers: Depression Type: major depressive disorder Plan to address problem: Continue medical management, outpatient psychiatry F/U. Discharge planning as per primary/orthopedics. 05/05/2021 -Patient is medically stable and pending rehab placement. History Interval history: Patient was seen and evaluated this morning Patient does not have any complaints Hospitalist Physical - Physical exam Narrative exam: Not in cardiopulmonary distress. The patient appeared well nourished and normally developed. Vital signs as documented. Head exam is unremarkable. No scleral icterus . Neck is without jugular venous distension, thyromegaly, or carotid bruits. Lungs are clear to auscultation. Cardiac exam reveals regular rate and Rhythm. Abdominal exam reveals normal bowel sounds, nontender, no organomegaly. Extremities are nonedematous and both femoral and pedal pulses are normal. 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 No focal weakness. - Constitutional Vitals: Temp Pulse Resp BP Pulse Ox 97.5 F L 55 L 16 115/46 97 05/05/21 07:16 05/05/21 07:16 05/05/21 07:16 05/05/21 07:16 05/05/21 07:16 General appearance: Present: no acute distress, obese Results - Labs CBC & Chem 7: 04/30/21 04:29 04/29/21 07:05 Labs: Laboratory Last Values WBC 7.7 K/mm3 (4.5-11.0) 04/29/21 07:05 RBC 4.31 M/mm3 (3.65-5.03) 04/29/21 07:05 Hgb 9.0 gm/dl (10.1-14.3) L 04/30/21 04:29 Hct 26.5 % (30.3-42.9) L D 04/30/21 04:29 MCV 82 fl (79-97) 04/29/21 07:05 MCH 27 pg (28-32) L 04/29/21 07:05 MCHC 32 % (30-34) 04/29/21 07:05 RDW 16.0 % (13.2-15.2) H 04/29/21 07:05 Plt Count 311 K/mm3 (140-440) 04/29/21 07:05 Sodium 138 mmol/L (137-145) 04/29/21 07:05 Potassium 3.9 mmol/L (3.6-5.0) 04/29/21 07:05 Chloride 102.8 mmol/L (98-107) 04/29/21 07:05 Carbon Dioxide 27 mmol/L (22-30) 04/29/21 07:05 Anion Gap 12 mmol/L 04/29/21 07:05 BUN 11 mg/dL (7-17) 04/29/21 07:05 Creatinine 0.9 mg/dL (0.6-1.2) 04/29/21 07:05 Estimated GFR > 60 ml/min 04/29/21 07:05 BUN/Creatinine Ratio 12 % 04/29/21 07:05 Glucose 94 mg/dL (65-100) 04/29/21 07:05 Calcium 9.1 mg/dL (8.4-10.2) 04/29/21 07:05 Land/IV: Voiding Method External Female Catheter Active Medications - Current Medications Current Medications: Generic Name Dose Route Start Last Admin Trade Name Freq PRN Reason Stop Dose Admin Buspirone HCl 10 mg 05/04/21 10:00 05/04/21 09:59 Buspirone 10 Mg Tab PO 10 mg DAILY NIKKI Administration Buspirone HCl 5 mg 05/04/21 10:00 05/04/21 09:59 Buspirone 5 Mg Tab PO 5 mg DAILY NIKKI Administration Citalopram Hydrobromide 40 mg 05/04/21 10:00 05/04/21 09:58 Citalopram 20 Mg Tab PO 40 mg DAILY NIKKI Administration Clonazepam 2 mg 05/03/21 22:00 05/04/21 22:27 Clonazepam 2 Mg Tab PO 2 mg QHS NIKKI Administration Cyclobenzaprine HCl 10 mg 05/03/21 15:30 05/04/21 05:37 Cyclobenzaprine 10 Mg Tab PO 10 mg TID PRN Administration Muscle Spasm Gabapentin 300 mg 05/03/21 20:00 05/04/21 20:22 Gabapentin 300 Mg Cap PO 300 mg TID NIKKI Administration Hydroxyzine HCl 50 mg 05/03/21 18:00 05/04/21 22:29 Hydroxyzine Hcl 25 Mg Tab PO 50 mg QID NIKKI Administration Ibuprofen 800 mg 04/29/21 14:22 Ibuprofen 800 Mg Tab PO Q8H PRN Pain, Moderate (4-6) Morphine Sulfate 4 mg 04/29/21 14:22 05/03/21 11:52 Morphine 4 Mg/1 Ml Inj IV 4 mg Q4H PRN Administration Pain , Severe (7-10) Olanzapine 5 mg 05/03/21 22:00 05/04/21 22:27 Olanzapine 5 Mg Tab PO 5 mg QHS NIKKI Administration Oxycodone/Acetaminophen 1 tab 04/29/21 14:22 05/04/21 20:26 Oxycodone /Acetaminophen 5-325mg Tab PO 1 tab Q6H PRN Administration Pain, Moderate (4-6) Trazodone HCl 200 mg 05/03/21 22:00 05/04/21 22:31 Trazodone 100 Mg Tab PO 200 mg QHS NIKKI Administration Nutrition/Malnutrition Assess - Dietary Evaluation Nutrition/Malnutrition Findings: Nutrition Notes Start: 04/30/21 14:33 Freq: Status: Active Protocol: Document 04/30/21 14:33 CW (Rec: 04/30/21 14:36 CW [email or web address]) Nutrition Notes Need for Assessment generated from: applications administrator Initial or Follow up Brief Note Other Pertinent Diagnosis s/p surgery Current Diet Regular Diet Height 5 ft 1 in Weight 88.451 kg [place] Body Weight (kg) 47.72 BMI 36.8 Subjective/Other Information RN screen for Skin risk. Logan score of 18. Pt reports having a good appetite adn eating well. Intake is approximately 75% of meals. Pt instructed to ensure she focuses on eating protein source to support healing. Current % PO Good (75-100%) Minimum of two criteria No physical signs of malnutrition Nutrition Intervention Anticipated Discharge Needs: Regular diet high in protein Revisit per MD consult or patient Sign Off request: Additional Comments S/O for excellent intake and appetite
[2021-05-05] MEDS: CITALOPRAM 20 MG TAB PO SCH (10:11)
[2021-05-05] MEDS: busPIRone 5 MG TAB PO SCH (10:11)
[2021-05-05] MEDS: busPIRone 10 MG TAB PO SCH (10:11)
[2021-05-05] MEDS: GABAPENTIN 300 MG CAP PO SCH ×3 (10:12→21:10)
[2021-05-05] MEDS: oxyCODONE /ACETAMINOPHEN 5-325MG TAB PO PRN ×2 (10:12→17:57)
[2021-05-05] MEDS: hydrOXYzine HCL 25 MG TAB PO SCH ×4 (10:12→21:09)
[2021-05-05] MEDS: MORPHINE 4 MG/1 ML INJ IV PRN (14:49)
[2021-05-05] MEDS: traZODone 100 MG TAB PO SCH (21:10)
--- NOTE | 2021-05-06 09:01 | Progress Note ---
Assessment and Plan Assessment and plan: (1) HTN (hypertension) Current Visit: Yes Status: Acute Qualifiers: Hypertension type: essential hypertension Qualified Code(s): I10 - Essential (primary) hypertension Plan to address problem: Monitor BP q shift, continue medical management (2) Anxiety Current Visit: Yes Status: Acute Plan to address problem: Continue benzodiazepine therapy, (3) Obesity (BMI 30-39.9) Current Visit: Yes Status: Acute Plan to address problem: Balanced diet, increased physical activity at discharge (4) Depression Current Visit: Yes Status: Acute Qualifiers: Depression Type: major depressive disorder Plan to address problem: Continue medical management, outpatient psychiatry F/U. Discharge planning as per primary/orthopedics. 05/05/2021 -Patient is medically stable and pending rehab placement. 05/06/2021 -Pending rehab placement. History Interval history: Patient was seen and evaluated this morning Patient does not have any complaints Hospitalist Physical - Physical exam Narrative exam: Not in cardiopulmonary distress. The patient appeared well nourished and normally developed. Vital signs as documented. Head exam is unremarkable. No scleral icterus . Neck is without jugular venous distension, thyromegaly, or carotid bruits. Lungs are clear to auscultation. Cardiac exam reveals regular rate and Rhythm. Abdominal exam reveals normal bowel sounds, nontender, no organomegaly. Extremities are nonedematous and both femoral and pedal pulses are normal. 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 No focal weakness. - Constitutional Vitals: Temp Pulse Resp BP Pulse Ox 97.2 F L 59 L 18 109/46 98 05/06/21 07:34 05/06/21 07:34 05/06/21 07:34 05/06/21 07:34 05/06/21 07:34 General appearance: Present: no acute distress, obese Results - Labs CBC & Chem 7: 04/30/21 04:29 04/29/21 07:05 Labs: Laboratory Last Values WBC 7.7 K/mm3 (4.5-11.0) 04/29/21 07:05 RBC 4.31 M/mm3 (3.65-5.03) 04/29/21 07:05 Hgb 9.0 gm/dl (10.1-14.3) L 04/30/21 04:29 Hct 26.5 % (30.3-42.9) L D 04/30/21 04:29 MCV 82 fl (79-97) 04/29/21 07:05 MCH 27 pg (28-32) L 04/29/21 07:05 MCHC 32 % (30-34) 04/29/21 07:05 RDW 16.0 % (13.2-15.2) H 04/29/21 07:05 Plt Count 311 K/mm3 (140-440) 04/29/21 07:05 Sodium 138 mmol/L (137-145) 04/29/21 07:05 Potassium 3.9 mmol/L (3.6-5.0) 04/29/21 07:05 Chloride 102.8 mmol/L (98-107) 04/29/21 07:05 Carbon Dioxide 27 mmol/L (22-30) 04/29/21 07:05 Anion Gap 12 mmol/L 04/29/21 07:05 BUN 11 mg/dL (7-17) 04/29/21 07:05 Creatinine 0.9 mg/dL (0.6-1.2) 04/29/21 07:05 Estimated GFR > 60 ml/min 04/29/21 07:05 BUN/Creatinine Ratio 12 % 04/29/21 07:05 Glucose 94 mg/dL (65-100) 04/29/21 07:05 Calcium 9.1 mg/dL (8.4-10.2) 04/29/21 07:05 Microbiology: Microbiology 04/29/21 Unknown Hip - Left Anaerobic Culture - Final Land/IV: Voiding Method External Female Catheter Active Medications - Current Medications Current Medications: Generic Name Dose Route Start Last Admin Trade Name Freq PRN Reason Stop Dose Admin Buspirone HCl 10 mg 05/04/21 10:00 05/05/21 10:11 Buspirone 10 Mg Tab PO 10 mg DAILY NIKKI Administration Buspirone HCl 5 mg 05/04/21 10:00 05/05/21 10:11 Buspirone 5 Mg Tab PO 5 mg DAILY NIKKI Administration Citalopram Hydrobromide 40 mg 05/04/21 10:00 05/05/21 10:11 Citalopram 20 Mg Tab PO 40 mg DAILY NIKKI Administration Clonazepam 2 mg 05/03/21 22:00 05/05/21 21:09 Clonazepam 2 Mg Tab PO 2 mg QHS NIKKI Administration Cyclobenzaprine HCl 10 mg 05/03/21 15:30 05/04/21 05:37 Cyclobenzaprine 10 Mg Tab PO 10 mg TID PRN Administration Muscle Spasm Gabapentin 300 mg 05/03/21 20:00 05/05/21 21:10 Gabapentin 300 Mg Cap PO 300 mg TID NIKKI Administration Hydroxyzine HCl 50 mg 05/03/21 18:00 05/05/21 21:09 Hydroxyzine Hcl 25 Mg Tab PO 50 mg QID NIKKI Administration Ibuprofen 800 mg 04/29/21 14:22 Ibuprofen 800 Mg Tab PO Q8H PRN Pain, Moderate (4-6) Morphine Sulfate 4 mg 04/29/21 14:22 05/05/21 14:49 Morphine 4 Mg/1 Ml Inj IV 4 mg Q4H PRN Administration Pain , Severe (7-10) Olanzapine 5 mg 05/03/21 22:00 05/05/21 21:10 Olanzapine 5 Mg Tab PO 5 mg QHS NIKKI Administration Oxycodone/Acetaminophen 1 tab 04/29/21 14:22 05/05/21 17:57 Oxycodone /Acetaminophen 5-325mg Tab PO 1 tab Q6H PRN Administration Pain, Moderate (4-6) Trazodone HCl 200 mg 05/03/21 22:00 05/05/21 21:10 Trazodone 100 Mg Tab PO 200 mg QHS NIKKI Administration Nutrition/Malnutrition Assess - Dietary Evaluation Nutrition/Malnutrition Findings: Nutrition Notes Start: 04/30/21 14:33 Freq: Status: Active Protocol: Document 04/30/21 14:33 CW (Rec: 04/30/21 14:36 CW [id number]) Nutrition Notes Need for Assessment generated from: molecular biology professor Initial or Follow up Brief Note Other Pertinent Diagnosis s/p surgery Current Diet Regular Diet Height 5 ft 1 in Weight 88.451 kg [place] Body Weight (kg) 47.72 BMI 36.8 Subjective/Other Information RN screen for Skin risk. Logan score of 18. Pt reports having a good appetite adn eating well. Intake is approximately 75% of meals. Pt instructed to ensure she focuses on eating protein source to support healing. Current % PO Good (75-100%) Minimum of two criteria No physical signs of malnutrition Nutrition Intervention Anticipated Discharge Needs: Regular diet high in protein Revisit per MD consult or patient Sign Off request: Additional Comments S/O for excellent intake and appetite
[2021-05-06] MEDS: oxyCODONE /ACETAMINOPHEN 5-325MG TAB PO PRN ×2 (10:31→22:40)
[2021-05-06] MEDS: GABAPENTIN 300 MG CAP PO SCH ×3 (10:31→22:36)
[2021-05-06] MEDS: busPIRone 5 MG TAB PO SCH (10:31)
[2021-05-06] MEDS: CITALOPRAM 20 MG TAB PO SCH (10:31)
[2021-05-06] MEDS: busPIRone 10 MG TAB PO SCH (10:31)
[2021-05-06] MEDS: hydrOXYzine HCL 25 MG TAB PO SCH ×4 (10:32→22:32)
[2021-05-06] MEDS: CYCLOBENZAPRINE 10 MG TAB PO PRN (12:20)
[2021-05-06] MEDS: MORPHINE 4 MG/1 ML INJ IV PRN ×2 (14:33→15:40)
--- NOTE | 2021-05-06 17:41 | Progress Note ---
Assessment and Plan discussed treatment options with the patient, due to previous infection would defer putting new hardware into infected area at this time Subjective Date of service: 05/06/21 Interval history: c/o left hip pain Objective Vital signs: Vital Signs - 12hr 05/06/21 05/06/21 05/06/21 07:34 14:59 15:14 Temperature 97.2 F L 98.0 F 98 F Pulse Rate 59 L 77 76 Respiratory 18 18 18 Rate Blood Pressure 108/46 Blood Pressure 109/46 108/46 [Left] O2 Sat by Pulse 98 94 93 Oximetry Narrative Exam: plain xrays left hip reviewed and show interval fracture proximal femur - Labs CBC & BMP: 04/30/21 04:29 04/29/21 07:05
[2021-05-06] MEDS: traZODone 100 MG TAB PO SCH (22:33)
[2021-05-07] MEDS: GABAPENTIN 300 MG CAP PO SCH ×3 (10:18→21:45)
[2021-05-07] MEDS: CITALOPRAM 20 MG TAB PO SCH (11:16)
[2021-05-07] MEDS: busPIRone 10 MG TAB PO SCH (11:17)
[2021-05-07] MEDS: hydrOXYzine HCL 25 MG TAB PO SCH ×4 (11:17→21:45)
[2021-05-07] MEDS: busPIRone 5 MG TAB PO SCH (12:15)
[2021-05-07] MEDS: MORPHINE 4 MG/1 ML INJ IV PRN (12:15)
--- NOTE | 2021-05-07 13:00 | Progress Note ---
Assessment and Plan Assessment and plan: (1) HTN (hypertension) Current Visit: Yes Status: Acute Qualifiers: Hypertension type: essential hypertension Qualified Code(s): I10 - Essential (primary) hypertension Plan to address problem: Monitor BP q shift, continue medical management (2) Anxiety Current Visit: Yes Status: Acute Plan to address problem: Continue benzodiazepine therapy, (3) Obesity (BMI 30-39.9) Current Visit: Yes Status: Acute Plan to address problem: Balanced diet, increased physical activity at discharge (4) Depression Current Visit: Yes Status: Acute Qualifiers: Depression Type: major depressive disorder Plan to address problem: Continue medical management, outpatient psychiatry F/U. Discharge planning as per primary/orthopedics. 05/05/2021 -Patient is medically stable and pending rehab placement. 05/06/2021 -Pending rehab placement. History Interval history: Patient was seen and evaluated this morning Patient does not have any complaints Hospitalist Physical - Physical exam Narrative exam: Not in cardiopulmonary distress. The patient appeared well nourished and normally developed. Vital signs as documented. Head exam is unremarkable. No scleral icterus . Neck is without jugular venous distension, thyromegaly, or carotid bruits. Lungs are clear to auscultation. Cardiac exam reveals regular rate and Rhythm. Abdominal exam reveals normal bowel sounds, nontender, no organomegaly. Extremities are nonedematous and both femoral and pedal pulses are normal. ARCHEOLOGIST CLASSICAL: Alert and oriented 3. No focal weakness. - Constitutional Vitals: Temp Pulse Resp BP Pulse Ox 98.2 F 62 16 103/36 90 05/07/21 08:15 05/07/21 08:15 05/07/21 08:15 05/07/21 08:15 05/07/21 08:15 General appearance: Present: no acute distress, obese Results - Labs CBC & Chem 7: 04/30/21 04:29 04/29/21 07:05 Labs: Laboratory Last Values WBC 7.7 K/mm3 (4.5-11.0) 04/29/21 07:05 RBC 4.31 M/mm3 (3.65-5.03) 04/29/21 07:05 Hgb 9.0 gm/dl (10.1-14.3) L 04/30/21 04:29 Hct 26.5 % (30.3-42.9) L D 06/11/21 04:29 MCV 82 fl (79-97) 04/29/21 07:05 MCH 27 pg (28-32) L 04/29/21 07:05 MCHC 32 % (30-34) 04/29/21 07:05 RDW 16.0 % (13.2-15.2) H 04/29/21 07:05 Plt Count 311 K/mm3 (140-440) 04/29/21 07:05 Sodium 138 mmol/L (137-145) 04/29/21 07:05 Potassium 3.9 mmol/L (3.6-5.0) 04/29/21 07:05 Chloride 102.8 mmol/L (98-107) 04/29/21 07:05 Carbon Dioxide 27 mmol/L (22-30) 04/29/21 07:05 Anion Gap 12 mmol/L 04/29/21 07:05 BUN 11 mg/dL (7-17) 04/29/21 07:05 Creatinine 0.9 mg/dL (0.6-1.2) 04/29/21 07:05 Estimated GFR > 60 ml/min 04/29/21 07:05 BUN/Creatinine Ratio 12 % 04/29/21 07:05 Glucose 94 mg/dL (65-100) 04/29/21 07:05 Calcium 9.1 mg/dL (8.4-10.2) 04/29/21 07:05 Land/IV: Voiding Method External Female Catheter Active Medications - Current Medications Current Medications: Generic Name Dose Route Start Last Admin Trade Name Freq PRN Reason Stop Dose Admin Buspirone HCl 10 mg 05/04/21 10:00 05/07/21 11:17 Buspirone 10 Mg Tab PO 10 mg DAILY NIKKI Administration Buspirone HCl 5 mg 05/04/21 10:00 05/07/21 12:15 Buspirone 5 Mg Tab PO 5 mg DAILY NIKKI Administration Citalopram Hydrobromide 40 mg 05/04/21 10:00 05/07/21 11:16 Citalopram 20 Mg Tab PO 40 mg DAILY NIKKI Administration Clonazepam 2 mg 05/03/21 22:00 05/06/21 22:32 Clonazepam 2 Mg Tab PO 2 mg QHS NIKKI Administration Cyclobenzaprine HCl 10 mg 05/03/21 15:30 05/06/21 12:20 Cyclobenzaprine 10 Mg Tab PO 10 mg TID PRN Administration Muscle Spasm Gabapentin 300 mg 05/03/21 20:00 05/07/21 10:18 Gabapentin 300 Mg Cap PO 300 mg TID NIKKI Administration Hydroxyzine HCl 50 mg 05/03/21 18:00 05/07/21 11:17 Hydroxyzine Hcl 25 Mg Tab PO 50 mg QID NIKKI Administration Ibuprofen 800 mg 04/29/21 14:22 Ibuprofen 800 Mg Tab PO Q8H PRN Pain, Moderate (4-6) Morphine Sulfate 4 mg 04/29/21 14:22 05/07/21 12:15 Morphine 4 Mg/1 Ml Inj IV 4 mg Q4H PRN Administration Pain , Severe (7-10) Olanzapine 5 mg 05/03/21 22:00 05/06/21 22:33 Olanzapine 5 Mg Tab PO 5 mg QHS NIKKI Administration Oxycodone/Acetaminophen 1 tab 04/29/21 14:22 05/06/21 22:40 Oxycodone /Acetaminophen 5-325mg Tab PO 1 tab Q6H PRN Administration Pain, Moderate (4-6) Trazodone HCl 200 mg 05/03/21 22:00 05/06/21 22:33 Trazodone 100 Mg Tab PO 200 mg QHS NIKKI Administration Nutrition/Malnutrition Assess - Dietary Evaluation Nutrition/Malnutrition Findings: Nutrition Notes Start: 04/30/21 14:33 Freq: Status: Active Protocol: Document 05/07/21 10:23 CW (Rec: 05/07/21 10:33 [email or web address]) Nutrition Notes Need for Assessment generated from: LOS Initial or Follow up Assessment Current Diet NPO, Regular diet at dinner tonight Labs/Tests reviewed Pertinent Medications reviewed Height 5 ft 1 in Weight 88.451 kg [place] Body Weight (kg) 47.72 BMI 36.8 Weight change and time frame weight stable x5 months (past chart hx) (90 kg on 12/11/2020) Weight Status Obese Subjective/Other Information Screen for LOS. PO itnake has slightly decreased. Now at 50% of meals. Recommend ONS to increase caloric intake. Burn Absent Trauma Absent GI Symptoms None Skin Integrity/Comment Surgical wound Current % PO Fair (50-74%) Minimum of two criteria No physical signs of malnutrition #1 Nutrition Diagnosis Inadequate oral intake Etiology poor appetite As Evidenced by Signs and Symptoms PO intake of 50% of meals provided Is patient on ventilator? No Is Patient Ambulatory and/or Out of Bed Yes REE-([place]-ambulatory/OOB) [ 1809.457 NUTR.[id number]] Kcal/Kg value to use for calculation 16 Approximate Energy Requirements Using 1415 kcal/Kg Calculation Used for Recommendations Kcal/kg Additional Notes protein needs:85 - 102g (1.25 - 1.5 g/kgAdjBW 68.0855) fluid needs: 1 ml/kcal Nutrition Intervention Change Diet Order: diet advancement at dinner Add Supplement/Snack (indicate name/kcal Ensure Enlive BID /protein ) Provides kCal: 700 Provides Protein (gm) 40 Goal #1 Meet at least 75% of kcal and protein needs via PO Anticipated Discharge Needs: Cardiac Diet Follow-Up By: 05/11/21 Additional Comments F/U for ONS tolerance and stable intakes
--- NOTE | 2021-05-07 13:06 | Progress Note ---
Assessment and Plan Status post removal of infected hardware left hip now with interval fracture proximal femur We will obtain infectious disease consult for long-term IVAB therapy prior to surgical correction with prosthesis Subjective Date of service: 05/07/21 Interval history: No new complaints noted Objective Vital signs: Vital Signs - 12hr 05/07/21 05/07/21 05:28 08:15 Temperature 98.5 F 98.2 F Pulse Rate 56 L 62 Respiratory 18 16 Rate Blood Pressure 94/37 103/36 O2 Sat by Pulse 96 90 Oximetry - Labs CBC & BMP: 04/30/21 04:29 04/29/21 07:05
[2021-05-07] MEDS: oxyCODONE /ACETAMINOPHEN 5-325MG TAB PO PRN (15:15)
[2021-05-07] MEDS: CYCLOBENZAPRINE 10 MG TAB PO PRN (15:16)
[2021-05-07] MEDS: traZODone 100 MG TAB PO SCH (21:45)
[2021-05-07] MEDS: IBUPROFEN 800 MG TAB PO PRN (21:46)
--- NOTE | 2021-05-08 08:34 | Progress Note ---
Assessment and Plan Assessment and plan: (1) HTN (hypertension) Current Visit: Yes Status: Acute Qualifiers: Hypertension type: essential hypertension Qualified Code(s): I10 - Essential (primary) hypertension Plan to address problem: Monitor BP q shift, continue medical management (2) Anxiety Current Visit: Yes Status: Acute Plan to address problem: Continue benzodiazepine therapy, (3) Obesity (BMI 30-39.9) Current Visit: Yes Status: Acute Plan to address problem: Balanced diet, increased physical activity at discharge (4) Depression Current Visit: Yes Status: Acute Qualifiers: Depression Type: major depressive disorder Plan to address problem: Continue medical management, outpatient psychiatry F/U. Discharge planning as per primary/orthopedics. 05/05/2021 -Patient is medically stable and pending rehab placement. 05/06/2021 -Pending rehab placement. 05/06/21 -Status post hardware removal -Orthopedics is considering ID consult History Interval history: Patient was seen and evaluated this morning Patient is complaining pain in the left knee and hip Hospitalist Physical - Physical exam Narrative exam: Not in cardiopulmonary distress. The patient appeared well nourished and normally developed. Vital signs as documented. Head exam is unremarkable. No scleral icterus . Neck is without jugular venous distension, thyromegaly, or carotid bruits. Lungs are clear to auscultation. Cardiac exam reveals regular rate and Rhythm. Abdominal exam reveals normal bowel sounds, nontender, no organomegaly. Extremities are nonedematous and both femoral and pedal pulses are normal. 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 - Constitutional Vitals: Temp Pulse Resp BP Pulse Ox 98.8 F 68 18 104/44 97 05/08/21 07:19 05/08/21 07:19 05/08/21 07:19 05/08/21 07:19 05/08/21 07:19 General appearance: Present: no acute distress, obese Results - Labs CBC & Chem 7: 04/30/21 04:29 04/29/21 07:05 Labs: Laboratory Last Values WBC 7.7 K/mm3 (4.5-11.0) 04/29/21 07:05 RBC 4.31 M/mm3 (3.65-5.03) 04/29/21 07:05 Hgb 9.0 gm/dl (10.1-14.3) L 04/30/21 04:29 Hct 26.5 % (30.3-42.9) L D 04/30/21 04:29 MCV 82 fl (79-97) 04/29/21 07:05 MCH 27 pg (28-32) L 04/29/21 07:05 MCHC 32 % (30-34) 04/29/21 07:05 RDW 16.0 % (13.2-15.2) H 04/29/21 07:05 Plt Count 311 K/mm3 (140-440) 04/29/21 07:05 Sodium 138 mmol/L (137-145) 04/29/21 07:05 Potassium 3.9 mmol/L (3.6-5.0) 04/29/21 07:05 Chloride 102.8 mmol/L (98-107) 04/29/21 07:05 Carbon Dioxide 27 mmol/L (22-30) 04/29/21 07:05 Anion Gap 12 mmol/L 04/29/21 07:05 BUN 11 mg/dL (7-17) 04/29/21 07:05 Creatinine 0.9 mg/dL (0.6-1.2) 04/29/21 07:05 Estimated GFR > 60 ml/min 04/29/21 07:05 BUN/Creatinine Ratio 12 % 04/29/21 07:05 Glucose 94 mg/dL (65-100) 04/29/21 07:05 Calcium 9.1 mg/dL (8.4-10.2) 04/29/21 07:05 Land/IV: Voiding Method External Female Catheter Active Medications - Current Medications Current Medications: Generic Name Dose Route Start Last Admin Trade Name Freq PRN Reason Stop Dose Admin Buspirone HCl 10 mg 05/04/21 10:00 05/07/21 11:17 Buspirone 10 Mg Tab PO 10 mg DAILY NIKKI Administration Buspirone HCl 5 mg 05/04/21 10:00 05/07/21 12:15 Buspirone 5 Mg Tab PO 5 mg DAILY NIKKI Administration Citalopram Hydrobromide 40 mg 05/04/21 10:00 05/07/21 11:16 Citalopram 20 Mg Tab PO 40 mg DAILY NIKKI Administration Clonazepam 2 mg 05/03/21 22:00 05/07/21 21:44 Clonazepam 2 Mg Tab PO 2 mg QHS NIKKI Administration Cyclobenzaprine HCl 10 mg 05/03/21 15:30 05/07/21 15:16 Cyclobenzaprine 10 Mg Tab PO 10 mg TID PRN Administration Muscle Spasm Gabapentin 300 mg 05/03/21 20:00 05/07/21 21:45 Gabapentin 300 Mg Cap PO 300 mg TID NIKKI Administration Hydroxyzine HCl 50 mg 05/03/21 18:00 05/07/21 21:45 Hydroxyzine Hcl 25 Mg Tab PO 50 mg QID NIKKI Administration Ibuprofen 800 mg 04/29/21 14:22 05/07/21 21:46 Ibuprofen 800 Mg Tab PO 800 mg Q8H PRN Administration Pain, Moderate (4-6) Morphine Sulfate 4 mg 04/29/21 14:22 05/07/21 12:15 Morphine 4 Mg/1 Ml Inj IV 4 mg Q4H PRN Administration Pain , Severe (7-10) Olanzapine 5 mg 05/03/21 22:00 05/07/21 21:48 Olanzapine 5 Mg Tab PO 5 mg QHS NIKKI Administration Oxycodone/Acetaminophen 1 tab 04/29/21 14:22 05/07/21 15:15 Oxycodone /Acetaminophen 5-325mg Tab PO 1 tab Q6H PRN Administration Pain, Moderate (4-6) Trazodone HCl 200 mg 05/03/21 22:00 05/07/21 21:45 Trazodone 100 Mg Tab PO 200 mg QHS NIKKI Administration Nutrition/Malnutrition Assess - Dietary Evaluation Nutrition/Malnutrition Findings: Nutrition Notes Start: 04/30/21 14:33 Freq: Status: Active Protocol: Document 05/07/21 10:23 CW (Rec: 05/07/21 10:33 [id number]) Nutrition Notes Need for Assessment generated from: LOS Initial or Follow up Assessment Current Diet NPO, Regular diet at dinner tonight Labs/Tests reviewed Pertinent Medications reviewed Height 5 ft 1 in Weight 88.451 kg [place] Body Weight (kg) 47.72 BMI 36.8 Weight change and time frame weight stable x5 months (past chart hx) (90 kg on 12/11/2020) Weight Status Obese Subjective/Other Information Screen for LOS. PO intake has slightly decreased. Now at 50% of meals. Recommend ONS to increase caloric intake. Burn Absent Trauma Absent GI Symptoms None Skin Integrity/Comment Surgical wound Current % PO Fair (50-74%) Minimum of two criteria No physical signs of malnutrition #1 Nutrition Diagnosis Inadequate oral intake Etiology poor appetite As Evidenced by Signs and Symptoms PO intake of 50% of meals provided Is patient on ventilator? No Is Patient Ambulatory and/or Out of Bed Yes [facility]) [ 1809.457 NUTR.MSJOOB] Kcal/Kg value to use for calculation 16 Approximate Energy Requirements Using 1415 kcal/Kg Calculation Used for Recommendations Kcal/kg Additional Notes protein needs:85 - 102g (1.25 - 1.5 g/kgAdjBW 68.0855) fluid needs: 1 ml/kcal Nutrition Intervention Change Diet Order: diet advancement at dinner Add Supplement/Snack (indicate name/kcal Ensure Enlive BID /protein ) Provides kCal: 700 Provides Protein (gm) 40 Goal #1 Meet at least 75% of kcal and protein needs via PO Anticipated Discharge Needs: Cardiac Diet Follow-Up By: 05/11/21 Additional Comments F/U for ONS tolerance and stable intakes
[2021-05-08] MEDS: busPIRone 10 MG TAB PO SCH (10:16)
[2021-05-08] MEDS: busPIRone 5 MG TAB PO SCH (10:16)
[2021-05-08] MEDS: hydrOXYzine HCL 25 MG TAB PO SCH ×4 (10:17→21:51)
[2021-05-08] MEDS: CITALOPRAM 20 MG TAB PO SCH (10:17)
[2021-05-08] MEDS: GABAPENTIN 300 MG CAP PO SCH ×3 (10:18→20:38)
--- NOTE | 2021-05-08 12:04 | Consultation ---
History of Present Illness - Reason for Consult Consult date: 05/08/21 Left hip infected IM femoral hardware Requesting physician: DEJAH DUNCAN - History of Present Illness 60-year-old female with history of PTSD, generalized anxiety, depression, schizophrenia, tobacco dependence, hypertension, admitted on 04/29/2020 for suspected infected left hip hardware. Patient reports she fell down in May 2020 and experienced left femoral fracture and underwent intramedullary nail placement. Details are unclear since patient is not the best historian and there is not documentation previous surgical procedures. Patient was complaining of persistent left hip pain. It seems like she has another fall was admitted for removal of the hardware. Patient denies any fever, chills, nausea, vomiting, diarrhea. Patient was taken to the OR on 04/29/2021 for infected left hip intramedullary nail removal. OR cultures did not grow. ID consulted for management of intravenous antibiotics before total hip replacement. Review of Systems: positive in bold print General: fever, chills, malaise Cutaneous: rash, pruritus Head: headaches or injury Eyes: changes in vision, eye pain, double vision Ears: ear pain, ear discharge, ringing or hearing loss Nose: nose bleeding, stuffiness Mouth & throat: bleeding gums, horseness, no dental problems, or swollen glands Neck: no pain, node enlargement/lumps, tyroid enlargement or tenderness Respiratory: SOB, cough, REEVES, wheezing, sputum, hemoptysis, pleuritic chest pain Cardiovascular: chest pain, leg edema, cyanosis, REEVES, orthopnea Musculoskeletal: Left hip pain Gastrointestinal: nausea, vomiting, hematemesis, diarrhea, constipation, melena, bright red blood in stools, fecal incontinence, jaundice Genitourinary/Reproductive: frequent urination, dysuria, hematuria, incontinence Neurogical: seizures, headaches, weakness, paresthesias, loss of speech or vision; memory loss, vertigo, tremors, numbness Psychiatric: stable mood; excessive anxiety, sadness or moodiness Past History Past Medical History: hypertension, other (see HPI) Past Surgical History: Other (Ortho surgery) Social history: single. denies: smoking, alcohol abuse Family history: diabetes, hypertension Medications and Allergies Allergies Allergy/AdvReac Type Severity Reaction Status Date / Time haloperidol [From Haldol] Allergy Seizure Verified 04/26/21 13:02 Home Medications Medication Instructions Recorded Confirmed Last Taken Type Buspirone HCl [busPIRone] 15 mg PO DAILY 04/26/21 04/29/21 04/28/21 09:00 History Citalopram Hydrobromide 40 mg PO DAILY 04/26/21 04/29/21 04/28/21 09:00 History [Citalopram HBr] Citalopram Hydrobromide 40 mg PO DAILY 04/26/21 04/29/21 04/28/21 09:00 History [Citalopram HBr] Cyclobenzaprine [Flexeril] 10 mg PO TID PRN 04/26/21 04/26/21 Unknown History Gabapentin [Neurontin] 300 mg PO TID 04/26/21 04/29/21 04/28/21 17:00 History Hydroxyzine HCl [hydrOXYzine] 50 mg PO QID 04/26/21 04/29/21 04/28/21 21:00 History OLANZapine [Zyprexa] 5 mg PO QHS 04/26/21 04/29/21 04/28/21 21:00 History Trazodone HCl 200 mg PO QHS 04/26/21 04/29/21 04/28/21 21:00 History clonazePAM [KlonoPIN] 2 mg PO QHS 04/26/21 04/29/21 04/28/21 21:00 History Active Meds: Active Medications Buspirone HCl (Buspirone 10 Mg Tab) 10 mg PO DAILY [facility] Last Admin: 05/08/21 10:16 Dose: 10 mg Documented by: Buspirone HCl (Buspirone 5 Mg Tab) 5 mg PO DAILY [facility] Last Admin: 05/08/21 10:16 Dose: 5 mg Documented by: Citalopram Hydrobromide (Citalopram 20 Mg Tab) 40 mg PO DAILY [facility] Last Admin: 05/08/21 10:17 Dose: 40 mg Documented by: Clonazepam (Clonazepam 2 Mg Tab) 2 mg PO QHS [facility] Last Admin: 05/07/21 21:44 Dose: 2 mg Documented by: Cyclobenzaprine HCl (Cyclobenzaprine 10 Mg Tab) 10 mg PO TID PRN PRN Reason: Muscle Spasm Last Admin: 05/07/21 15:16 Dose: 10 mg Documented by: Gabapentin (Gabapentin 300 Mg Cap) 300 mg PO TID [facility] Last Admin: 05/08/21 10:18 Dose: 300 mg Documented by: Hydroxyzine HCl (Hydroxyzine Hcl 25 Mg Tab) 50 mg PO QID [facility] Last Admin: 05/08/21 10:17 Dose: 50 mg Documented by: Ibuprofen (Ibuprofen 800 Mg Tab) 800 mg PO Q8H PRN PRN Reason: Pain, Moderate (4-6) Last Admin: 05/07/21 21:46 Dose: 800 mg Documented by: Morphine Sulfate (Morphine 4 Mg/1 Ml Inj) 4 mg IV Q4H PRN PRN Reason: Pain , Severe (7-10) Last Admin: 05/07/21 12:15 Dose: 4 mg Documented by: Olanzapine (Olanzapine 5 Mg Tab) 5 mg PO QHS [facility] Last Admin: 05/07/21 21:48 Dose: 5 mg Documented by: Oxycodone/Acetaminophen (Oxycodone /Acetaminophen 5-325mg Tab) 1 tab PO Q6H PRN PRN Reason: Pain, Moderate (4-6) Last Admin: 05/07/21 15:15 Dose: 1 tab Documented by: Trazodone HCl (Trazodone 100 Mg Tab) 200 mg PO QHS [facility] Last Admin: 05/07/21 21:45 Dose: 200 mg Documented by: Physical Examination - Physical Exam Narrative exam: General appearance: Alert in NAD pleasant Eyes: anicteric sclerae, moist conjunctivae; no lid-lag; PERRLA HENT: Normocephalic, Atraumatic; normal external ears, nares open, oropharynx clear with moist mucous membranes and no oral thrush; normal hard and soft palate. Neck: supple, tracheal midline, no JVD Lungs: CTA, with normal respiratory effort and no intercostal retractions CV: RRR no murmur Abdomen: Soft, non-tender; no masses or hepatosplenomegaly Extremities: Left hip tenderness, surgical wound covered with dressing Skin: No rash. Psych: no agitated Neuro: alert and oriented x 3. Moving all extermities - Constitutional Vitals: Vital Signs Temp Pulse Resp BP Pulse Ox 98.8 F 68 18 104/44 97 05/08/21 07:19 05/08/21 07:19 05/08/21 07:19 05/08/21 07:19 05/08/21 07:19 Temperature -Last 24 Hours Temperature 98.8 F Temperature 97.7 F Temperature 98.2 F Temperature 97.8 F Temperature 97.3 F Results - Labs CBC & Chem 7: 04/30/21 04:29 04/29/21 07:05 Assessment and Plan Cultures: OR left hip culture 04/29/2021 no growth Assessment: 60-year-old female with history of PTSD, generalized anxiety, depression, schizophrenia, tobacco dependence, hypertension, admitted on 04/29/2020 for suspected infected left hip hardware: #Presumed left hip hardware infection: Initially she experienced left femoral fracture after a fall in May 2020 and underwent intramedullary nail placement. Details are unclear since patient is not the best historian and there is not documentation previous surgical procedures. Patient was complaining of persistent left hip pain. It seems like she has another fall was admitted for removal of the hardware. S/p OR on 04/29/2021 for infected left hip intramedullary nail removal. OR cultures did not grow. Dr Coughlin requesting long-term IVAB therapy prior to surgical correction with prosthesis. Recommendations: -Check CRP, CBC, CMP, UA -Start vancomycin 1 g IV q 12h and cefepime 2 g IV q12 hour for now -Anticipate to discharge on vancomcyin 1 g IV q 12h and cefepime 2 g IV q12 hour total 6 weeks until 06/19/2021 -Target vancomycin trough 10 to 20 mcg/dL -Educated about abx side effects and PICC line complications -ID clinic at [facility] in 2 week Will follow. Gabriela Gaviria MD Infectious Diseases Sales Account Executive [facility] M [phone] O [phone]
[2021-05-08 13:49] LABS: Basophils % (Auto) 0.6 % (0.0-1.8); Eosinophils # (Auto) 0.3 K/mm3 (0.0-0.4); Eosinophils % (Auto) 3.6 % (0.0-4.3); Hematocrit 29.9 % (30.3-42.9); Hemoglobin 9.9 gm/dl (10.1-14.3); Lymphocytes % (Auto) 13.6 % (13.4-35.0); Mean Corpuscular HGB Conc 33 % (30-34); Mean Corpuscular Volume 85 fl (79-97); Monocytes # (Auto) 0.5 K/mm3 (0.0-0.8); Platelet Count 247 K/mm3 (140-440); Red Blood Count 3.54 M/mm3 (3.65-5.03); Red Cell Distribution Width 17.8 % (13.2-15.2)
[2021-05-08 13:53] LABS: Alanine Aminotransferase 5 units/L (7-56); Albumin 3.2 g/dL (3.9-5); BUN/Creatinine Ratio 20; Blood Urea Nitrogen 16 mg/dL (7-17); Calcium 9.1 mg/dL (8.4-10.2); Hemolysis Index 1
[2021-05-08] MEDS: oxyCODONE /ACETAMINOPHEN 5-325MG TAB PO PRN (13:56)
[2021-05-08 18:06] LABS: Amorphous Crystals,Urine Few; Bilirubin,Urine NEG (Negative); Blood,Urine NEG (Negative); Color,Urine Yellow (Yellow); Protein,Urine <15 mg/dL mg/dL (Negative); Urobilinogen,Urine < 2.0 mg/dL (<2.0)
[2021-05-08] MEDS: CYCLOBENZAPRINE 10 MG TAB PO PRN (18:39)
[2021-05-08] MEDS: MORPHINE 4 MG/1 ML INJ IV PRN (20:36)
[2021-05-08] MEDS: traZODone 100 MG TAB PO SCH (21:37)
[2021-05-09] MEDS: oxyCODONE /ACETAMINOPHEN 5-325MG TAB PO PRN ×4 (05:39→23:05)
[2021-05-09] MEDS: CYCLOBENZAPRINE 10 MG TAB PO PRN (06:16)
[2021-05-09] MEDS ORDERED: VANCOMYCIN 1,750 MG in SODIUM CHLORIDE 0.9% 500 ML 500 ML IV ONE (08:00)
[2021-05-09] MEDS ORDERED: VANCOMYCIN PHARMACY TO DOSE IV SCH (08:00)
--- NOTE | 2021-05-09 09:34 | Progress Note ---
Assessment and Plan Assessment and plan: (1) HTN (hypertension) Current Visit: Yes Status: Acute Qualifiers: Hypertension type: essential hypertension Qualified Code(s): I10 - Essential (primary) hypertension Plan to address problem: Monitor BP q shift, continue medical management (2) Anxiety Current Visit: Yes Status: Acute Plan to address problem: Continue benzodiazepine therapy, (3) Obesity (BMI 30-39.9) Current Visit: Yes Status: Acute Plan to address problem: Balanced diet, increased physical activity at discharge (4) Depression Current Visit: Yes Status: Acute Qualifiers: Depression Type: major depressive disorder Plan to address problem: Continue medical management, outpatient psychiatry F/U. Discharge planning as per primary/orthopedics. 05/05/2021 -Patient is medically stable and pending rehab placement. 05/06/2021 -Pending rehab placement. 05/08/21 -Status post hardware removal -Orthopedics is considering ID consult 05/09/21 -Patient is on IV vancomycin and cefepime and will continue for 6 weeks per ID recommendations -Disposition is per general surgery History Interval history: Patient was seen and evaluated this morning Patient is complaining pain in the left knee and hip Hospitalist Physical - Physical exam Narrative exam: Not in cardiopulmonary distress. The patient appeared well nourished and normally developed. Vital signs as documented. Head exam is unremarkable. No scleral icterus . Neck is without jugular venous distension, thyromegaly, or carotid bruits. Lungs are clear to auscultation. Cardiac exam reveals regular rate and Rhythm. Abdominal exam reveals normal bowel sounds, nontender, no organomegaly. Extremities are nonedematous and both femoral and pedal pulses are normal. 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 No focal weakness. - Constitutional Vitals: Temp Pulse Resp BP Pulse Ox 98.1 F 61 24 110/60 98 05/09/21 08:42 05/09/21 08:42 05/09/21 08:42 05/09/21 08:42 05/09/21 08:42 General appearance: Present: no acute distress, obese Results - Labs CBC & Chem 7: 05/08/21 13:13 05/08/21 13:13 Labs: Laboratory Last Values WBC 7.0 K/mm3 (4.5-11.0) 05/08/21 13:13 RBC 3.54 M/mm3 (3.65-5.03) L 05/08/21 13:13 Hgb 9.9 gm/dl (10.1-14.3) L 05/08/21 13:13 Hct 29.9 % (30.3-42.9) L 05/08/21 13:13 MCV 85 fl (79-97) 05/08/21 13:13 MCH 28 pg (28-32) 05/08/21 13:13 MCHC 33 % (30-34) 05/08/21 13:13 RDW 17.8 % (13.2-15.2) H 05/08/21 13:13 Plt Count 247 K/mm3 (140-440) 05/08/21 13:13 Lymph % (Auto) 13.6 % (13.4-35.0) 05/08/21 13:13 [place] % (Auto) 7.0 % (0.0-7.3) 05/08/21 13:13 Eos % (Auto) 3.6 % (0.0-4.3) 05/08/21 13:13 Baso % (Auto) 0.6 % (0.0-1.8) 05/08/21 13:13 Lymph # (Auto) 1.0 K/mm3 (1.2-5.4) L 05/08/21 13:13 [place] # (Auto) 0.5 K/mm3 (0.0-0.8) 05/08/21 13:13 Eos # (Auto) 0.3 K/mm3 (0.0-0.4) 05/08/21 13:13 Baso # (Auto) 0.0 K/mm3 (0.0-0.1) 05/08/21 13:13 Seg Neutrophils % 75.2 % (40.0-70.0) H 05/08/21 13:13 Seg Neutrophils # 5.3 K/mm3 (1.8-7.7) 05/08/21 13:13 Sodium 141 mmol/L (137-145) 05/08/21 13:13 Potassium 4.1 mmol/L (3.6-5.0) 05/08/21 13:13 Chloride 102.4 mmol/L (98-107) 05/08/21 13:13 Carbon Dioxide 31 mmol/L (22-30) H 05/08/21 13:13 Anion Gap 12 mmol/L 05/08/21 13:13 BUN 16 mg/dL (7-17) 05/08/21 13:13 Creatinine 0.8 mg/dL (0.6-1.2) 05/08/21 13:13 Estimated GFR > 60 ml/min 05/08/21 13:13 BUN/Creatinine Ratio 20 % 05/08/21 13:13 Glucose 128 mg/dL (65-100) H 05/08/21 13:13 Calcium 9.1 mg/dL (8.4-10.2) 05/08/21 13:13 Total Bilirubin 0.20 mg/dL (0.1-1.2) 05/08/21 13:13 AST 12 units/L (5-40) 05/08/21 13:13 ALT 5 units/L (7-56) L 05/08/21 13:13 Alkaline Phosphatase 142 units/L (35-129) H 05/08/21 13:13 C-Reactive Protein 2.70 mg/dL (0.00-1.30) H 05/08/21 13:13 Total Protein 6.5 g/dL (6.3-8.2) 05/08/21 13:13 Albumin 3.2 g/dL (3.9-5) L 05/08/21 13:13 Albumin/Globulin Ratio 1.0 % 05/08/21 13:13 Urine Color Yellow (Yellow) 05/08/21 Unknown Urine Turbidity Cloudy (Clear) 05/08/21 Unknown Urine pH 8.0 (5.0-7.0) H 05/08/21 Unknown Ur Specific [place] 1.012 (1.003-1.030) 05/08/21 Unknown Urine Protein <15 mg/dl mg/dL (Negative) 05/08/21 Unknown Urine Glucose (UA) Neg mg/dL (Negative) 05/08/21 Unknown Urine Ketones Neg mg/dL (Negative) 05/08/21 Unknown Urine Blood Neg (Negative) 05/08/21 Unknown Urine Nitrite Neg (Negative) 05/08/21 Unknown Urine Bilirubin Neg (Negative) 05/08/21 Unknown Urine Urobilinogen < 2.0 mg/dL (<2.0) 05/08/21 Unknown Ur Leukocyte Esterase Neg (Negative) 05/08/21 Unknown Urine WBC (Auto) 1.0 /HPF (0.0-6.0) 05/08/21 Unknown Urine RBC (Auto) 2.0 /HPF (0.0-6.0) 05/08/21 Unknown U Epithel Cells (Auto) < 1.0 /HPF (0-13.0) 05/08/21 Unknown Amorphous Crystals Few 05/08/21 Unknown Land/IV: Voiding Method External Female Catheter Active Medications - Current Medications Current Medications: Generic Name Dose Route Start Last Admin Trade Name Freq PRN Reason Stop Dose Admin Buspirone HCl 10 mg 05/04/21 10:00 05/08/21 10:16 Buspirone 10 Mg Tab PO 10 mg DAILY NIKKI Administration Buspirone HCl 5 mg 05/04/21 10:00 05/08/21 10:16 Buspirone 5 Mg Tab PO 5 mg DAILY NIKKI Administration Citalopram Hydrobromide 40 mg 05/04/21 10:00 05/08/21 10:17 Citalopram 20 Mg Tab PO 40 mg DAILY NIKKI Administration Clonazepam 2 mg 05/03/21 22:00 05/08/21 21:37 Clonazepam 2 Mg Tab PO 2 mg QHS NIKKI Administration Cyclobenzaprine HCl 10 mg 05/03/21 15:30 05/09/21 06:16 Cyclobenzaprine 10 Mg Tab PO 10 mg TID PRN Administration Muscle Spasm Gabapentin 300 mg 05/03/21 20:00 05/08/21 20:38 Gabapentin 300 Mg Cap PO 300 mg TID NIKKI Administration Hydroxyzine HCl 50 mg 05/03/21 18:00 05/08/21 21:51 Hydroxyzine Hcl 25 Mg Tab PO 50 mg QID NIKKI Administration Cefepime HCl 2 gm in 100 mls @ 200 mls/hr 05/09/21 08:00 Cefepime/Ns 2 Gm/100 Ml IV Q12H [facility] Protocol Vancomycin HCl 1,750 mg/ 535 mls @ 333.333 mls/hr 05/09/21 08:00 Sodium Chloride IV 05/09/21 09:36 ONCE ONE Vancomycin HCl 1,500 mg/ 530 mls @ 333.333 mls/hr 05/10/21 10:00 Sodium Chloride IV Q24H [facility] Ibuprofen 800 mg 04/29/21 14:22 05/07/21 21:46 Ibuprofen 800 Mg Tab PO 800 mg Q8H PRN Administration Pain, Moderate (4-6) Morphine Sulfate 4 mg 04/29/21 14:22 05/08/21 20:36 Morphine 4 Mg/1 Ml Inj IV 4 mg Q4H PRN Administration Pain , Severe (7-10) Olanzapine 5 mg 05/03/21 22:00 05/08/21 21:37 Olanzapine 5 Mg Tab PO 5 mg QHS NIKKI Administration Oxycodone/Acetaminophen 1 tab 04/29/21 14:22 05/09/21 05:39 Oxycodone /Acetaminophen 5-325mg Tab PO 1 tab Q6H PRN Administration Pain, Moderate (4-6) Trazodone HCl 200 mg 05/03/21 22:00 05/08/21 21:37 Trazodone 100 Mg Tab PO 200 mg QHS NIKKI Administration Nutrition/Malnutrition Assess - Dietary Evaluation Nutrition/Malnutrition Findings: Nutrition Notes Start: 04/30/21 14:33 Freq: Status: Active Protocol: Document 05/07/21 10:23 CW (Rec: 05/07/21 10:33 CW [id number]) Nutrition Notes Need for Assessment generated from: LOS Initial or Follow up Assessment Current Diet NPO, Regular diet at dinner tonight Labs/Tests reviewed Pertinent Medications reviewed Height 5 ft 1 in Weight 88.451 kg [place] Body Weight (kg) 47.72 BMI 36.8 Weight change and time frame weight stable x5 months (past chart hx) (90 kg on 12/11/2020) Weight Status Obese Subjective/Other Information Screen for LOS. PO intake has slightly decreased. Now at 50% of meals. Recommend ONS to increase caloric intake. Burn Absent Trauma Absent GI Symptoms None Skin Integrity/Comment Surgical wound Current % PO Fair (50-74%) Minimum of two criteria No physical signs of malnutrition #1 Nutrition Diagnosis Inadequate oral intake Etiology poor appetite As Evidenced by Signs and Symptoms PO intake of 50% of meals provided Is patient on ventilator? No Is Patient Ambulatory and/or Out of Bed Yes REE-([place]-ambulatory/OOB) [ 1809.457 NUTR.MSJOOB] Kcal/Kg value to use for calculation 16 Approximate Energy Requirements Using 1415 kcal/Kg Calculation Used for Recommendations Kcal/kg Additional Notes protein needs:85 - 102g (1.25 - 1.5 g/kgAdjBW 68.0855) fluid needs: 1 ml/kcal Nutrition Intervention Change Diet Order: diet advancement at dinner Add Supplement/Snack (indicate name/kcal Ensure Enlive BID /protein ) Provides kCal: 700 Provides Protein (gm) 40 Goal #1 Meet at least 75% of kcal and protein needs via PO Anticipated Discharge Needs: Cardiac Diet Follow-Up By: 05/11/21 Additional Comments F/U for ONS tolerance and stable intakes
[2021-05-09] MEDS: busPIRone 5 MG TAB PO SCH (11:18)
[2021-05-09] MEDS: hydrOXYzine HCL 25 MG TAB PO SCH ×4 (11:18→21:33)
[2021-05-09] MEDS: CITALOPRAM 20 MG TAB PO SCH (11:18)
[2021-05-09] MEDS: GABAPENTIN 300 MG CAP PO SCH ×3 (11:18→21:34)
[2021-05-09] MEDS: busPIRone 10 MG TAB PO SCH (11:19)
[2021-05-09] MEDS: CEFEPIME/NS 2 GM/100 ML 2 GM/100 ML BAG IV SCH ×2 (11:19→21:33)
[2021-05-09] MEDS: traZODone 100 MG TAB PO SCH (21:33)
[2021-05-10] MEDS: oxyCODONE /ACETAMINOPHEN 5-325MG TAB PO PRN ×3 (06:03→21:24)
[2021-05-10] MEDS: CYCLOBENZAPRINE 10 MG TAB PO PRN (06:03)
[2021-05-10] MEDS: CEFEPIME/NS 2 GM/100 ML 2 GM/100 ML BAG IV SCH ×2 (08:00→21:30)
[2021-05-10] MEDS: VANCOMYCIN 1,500 MG in SODIUM CHLORIDE 0.9% 500 ML 500 ML IV SCH (12:03)
[2021-05-10] MEDS: busPIRone 10 MG TAB PO SCH (12:04)
[2021-05-10] MEDS: hydrOXYzine HCL 25 MG TAB PO SCH ×4 (12:04→21:24)
[2021-05-10] MEDS: busPIRone 5 MG TAB PO SCH (12:04)
[2021-05-10] MEDS: GABAPENTIN 300 MG CAP PO SCH ×3 (12:05→21:24)
[2021-05-10] MEDS: CITALOPRAM 20 MG TAB PO SCH (12:06)
--- NOTE | 2021-05-10 14:10 | Progress Note ---
Assessment and Plan Assessment and plan: (1) HTN (hypertension) Current Visit: Yes Status: Acute Qualifiers: Hypertension type: essential hypertension Qualified Code(s): I10 - Essential (primary) hypertension Plan to address problem: Monitor BP q shift, continue medical management (2) Anxiety Current Visit: Yes Status: Acute Plan to address problem: Continue benzodiazepine therapy, (3) Obesity (BMI 30-39.9) Current Visit: Yes Status: Acute Plan to address problem: Balanced diet, increased physical activity at discharge (4) Depression Current Visit: Yes Status: Acute Qualifiers: Depression Type: major depressive disorder Plan to address problem: Continue medical management, outpatient psychiatry F/U. Discharge planning as per primary/orthopedics. 05/05/2021 -Patient is medically stable and pending rehab placement. 05/06/2021 -Pending rehab placement. 05/08/21 -Status post hardware removal -Orthopedics is considering ID consult 05/09/21 -Patient is on IV vancomycin and cefepime and will continue for 6 weeks per ID recommendations -Disposition is per orthopedics 05/10/2021; patient is on IV vancomycin and cefepime per ID recommendations. Disposition is per orthopedics. History Interval history: Patient was seen and evaluated this morning Patient is complaining pain in the left knee and hip Hospitalist Physical - Physical exam Narrative exam: Not in cardiopulmonary distress. The patient appeared well nourished and normally developed. Vital signs as documented. Head exam is unremarkable. No scleral icterus . Neck is without jugular venous distension, thyromegaly, or carotid bruits. Lungs are clear to auscultation. Cardiac exam reveals regular rate and Rhythm. Abdominal exam reveals normal bowel sounds, nontender, no organomegaly. Extremities are nonedematous and both femoral and pedal pulses are normal. 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 No focal weakness. - Constitutional Vitals: Temp Pulse Resp BP Pulse Ox 98.4 F 81 20 112/45 98 05/10/21 07:37 05/10/21 07:37 05/10/21 07:37 05/10/21 07:37 05/10/21 09:42 General appearance: Present: no acute distress, obese Results - Labs CBC & Chem 7: 05/08/21 13:13 05/08/21 13:13 Labs: Laboratory Last Values WBC 7.0 K/mm3 (4.5-11.0) 05/08/21 13:13 RBC 3.54 M/mm3 (3.65-5.03) L 05/08/21 13:13 Hgb 9.9 gm/dl (10.1-14.3) L 05/08/21 13:13 Hct 29.9 % (30.3-42.9) L 05/08/21 13:13 MCV 85 fl (79-97) 05/08/21 13:13 MCH 28 pg (28-32) 05/08/21 13:13 MCHC 33 % (30-34) 05/08/21 13:13 RDW 17.8 % (13.2-15.2) H 05/08/21 13:13 Plt Count 247 K/mm3 (140-440) 05/08/21 13:13 Lymph % (Auto) 13.6 % (13.4-35.0) 05/08/21 13:13 [place] % (Auto) 7.0 % (0.0-7.3) 05/08/21 13:13 Eos % (Auto) 3.6 % (0.0-4.3) 05/08/21 13:13 Baso % (Auto) 0.6 % (0.0-1.8) 05/08/21 13:13 Lymph # (Auto) 1.0 K/mm3 (1.2-5.4) L 05/08/21 13:13 [place] # (Auto) 0.5 K/mm3 (0.0-0.8) 05/08/21 13:13 Eos # (Auto) 0.3 K/mm3 (0.0-0.4) 05/08/21 13:13 Baso # (Auto) 0.0 K/mm3 (0.0-0.1) 05/08/21 13:13 Seg Neutrophils % 75.2 % (40.0-70.0) H 05/08/21 13:13 Seg Neutrophils # 5.3 K/mm3 (1.8-7.7) 05/08/21 13:13 Sodium 141 mmol/L (137-145) 05/08/21 13:13 Potassium 4.1 mmol/L (3.6-5.0) 05/08/21 13:13 Chloride 102.4 mmol/L (98-107) 05/08/21 13:13 Carbon Dioxide 31 mmol/L (22-30) H 05/08/21 13:13 Anion Gap 12 mmol/L 05/08/21 13:13 BUN 16 mg/dL (7-17) 05/08/21 13:13 Creatinine 0.8 mg/dL (0.6-1.2) 05/08/21 13:13 Estimated GFR > 60 ml/min 05/08/21 13:13 BUN/Creatinine Ratio 20 % 05/08/21 13:13 Glucose 128 mg/dL (65-100) H 05/08/21 13:13 Calcium 9.1 mg/dL (8.4-10.2) 05/08/21 13:13 Total Bilirubin 0.20 mg/dL (0.1-1.2) 05/08/21 13:13 AST 12 units/L (5-40) 05/08/21 13:13 ALT 5 units/L (7-56) L 05/08/21 13:13 Alkaline Phosphatase 142 units/L (35-129) H 05/08/21 13:13 C-Reactive Protein 2.70 mg/dL (0.00-1.30) H 05/08/21 13:13 Total Protein 6.5 g/dL (6.3-8.2) 05/08/21 13:13 Albumin 3.2 g/dL (3.9-5) L 05/08/21 13:13 Albumin/Globulin Ratio 1.0 % 05/08/21 13:13 Urine Color Yellow (Yellow) 05/08/21 Unknown Urine Turbidity Cloudy (Clear) 05/08/21 Unknown Urine pH 8.0 (5.0-7.0) H 05/08/21 Unknown Ur Specific [place] 1.012 (1.003-1.030) 05/08/21 Unknown Urine Protein <15 mg/dl mg/dL (Negative) 05/08/21 Unknown Urine Glucose (UA) Neg mg/dL (Negative) 05/08/21 Unknown Urine Ketones Neg mg/dL (Negative) 05/08/21 Unknown Urine Blood Neg (Negative) 05/08/21 Unknown Urine Nitrite Neg (Negative) 05/08/21 Unknown Urine Bilirubin Neg (Negative) 05/08/21 Unknown Urine Urobilinogen < 2.0 mg/dL (<2.0) 05/08/21 Unknown Ur Leukocyte Esterase Neg (Negative) 05/08/21 Unknown Urine WBC (Auto) 1.0 /HPF (0.0-6.0) 05/08/21 Unknown Urine RBC (Auto) 2.0 /HPF (0.0-6.0) 05/08/21 Unknown U Epithel Cells (Auto) < 1.0 /HPF (0-13.0) 05/08/21 Unknown Amorphous Crystals Few 05/08/21 Unknown Land/IV: Voiding Method External Female Catheter Active Medications - Current Medications Current Medications: Generic Name Dose Route Start Last Admin Trade Name Freq PRN Reason Stop Dose Admin Buspirone HCl 10 mg 05/04/21 10:00 05/10/21 12:04 Buspirone 10 Mg Tab PO 10 mg DAILY NIKKI Administration Buspirone HCl 5 mg 05/04/21 10:00 05/10/21 12:04 Buspirone 5 Mg Tab PO 5 mg DAILY NIKKI Administration Citalopram Hydrobromide 40 mg 05/04/21 10:00 05/10/21 12:06 Citalopram 20 Mg Tab PO 40 mg DAILY NIKKI Administration Clonazepam 2 mg 05/03/21 22:00 05/09/21 21:33 Clonazepam 2 Mg Tab PO 2 mg QHS NIKKI Administration Cyclobenzaprine HCl 10 mg 05/03/21 15:30 05/10/21 06:03 Cyclobenzaprine 10 Mg Tab PO 10 mg TID PRN Administration Muscle Spasm Gabapentin 300 mg 05/03/21 20:00 05/10/21 12:05 Gabapentin 300 Mg Cap PO 300 mg TID NIKKI Administration Hydroxyzine HCl 50 mg 05/03/21 18:00 05/10/21 12:04 Hydroxyzine Hcl 25 Mg Tab PO 50 mg QID NIKKI Administration Cefepime HCl 2 gm in 100 mls @ 200 mls/hr 05/09/21 08:00 05/10/21 08:00 Cefepime/Ns 2 Gm/100 Ml IV 06/19/21 20:29 200 mls/hr Q12H NIKKI Administration Protocol Vancomycin HCl 1,500 mg/ 530 mls @ 333.333 mls/hr 05/10/21 10:00 05/10/21 12:03 Sodium Chloride IV 333.333 mls/hr Q24H NIKKI Administration Ibuprofen 800 mg 04/29/21 14:22 05/07/21 21:46 Ibuprofen 800 Mg Tab PO 800 mg Q8H PRN Administration Pain, Moderate (4-6) Morphine Sulfate 4 mg 04/29/21 14:22 05/08/21 20:36 Morphine 4 Mg/1 Ml Inj IV 4 mg Q4H PRN Administration Pain , Severe (7-10) Olanzapine 5 mg 05/03/21 22:00 05/09/21 21:34 Olanzapine 5 Mg Tab PO 5 mg QHS NIKKI Administration Oxycodone/Acetaminophen 1 tab 04/29/21 14:22 05/10/21 12:20 Oxycodone /Acetaminophen 5-325mg Tab PO 1 tab Q6H PRN Administration Pain, Moderate (4-6) Trazodone HCl 200 mg 05/03/21 22:00 05/09/21 21:33 Trazodone 100 Mg Tab PO 200 mg QHS NIKKI Administration Nutrition/Malnutrition Assess - Dietary Evaluation Nutrition/Malnutrition Findings: Nutrition Notes Start: 04/30/21 14:33 Freq: Status: Active Protocol: Document 05/07/21 10:23 CW (Rec: 05/07/21 10:33 CW [id number]) Nutrition Notes Need for Assessment generated from: LOS Initial or Follow up Assessment Current Diet NPO, Regular diet at dinner tonight Labs/Tests reviewed Pertinent Medications reviewed Height 5 ft 1 in Weight 88.451 kg [place] Body Weight (kg) 47.72 BMI 36.8 Weight change and time frame weight stable x5 months (past chart hx) (90 kg on 12/11/2020) Weight Status Obese Subjective/Other Information Screen for LOS. PO intake has slightly decreased. Now at 50% of meals. Recommend ONS to increase caloric intake. Burn Absent Trauma Absent GI Symptoms None Skin Integrity/Comment Surgical wound Current % PO Fair (50-74%) Minimum of two criteria No physical signs of malnutrition #1 Nutrition Diagnosis Inadequate oral intake Etiology poor appetite As Evidenced by Signs and Symptoms PO intake of 50% of meals provided Is patient on ventilator? No Is Patient Ambulatory and/or Out of Bed Yes REE-([place]-St. Jeor-ambulatory/OOB) [ 1809.457 NUTR.MSJOOB] Kcal/Kg value to use for calculation 16 Approximate Energy Requirements Using 1415 kcal/Kg Calculation Used for Recommendations Kcal/kg Additional Notes protein needs:85 - 102g (1.25 - 1.5 g/kgAdjBW 68.0855) fluid needs: 1 ml/kcal Nutrition Intervention Change Diet Order: diet advancement at dinner Add Supplement/Snack (indicate name/kcal Ensure Enlive BID /protein ) Provides kCal: 700 Provides Protein (gm) 40 Goal #1 Meet at least 75% of kcal and protein needs via PO Anticipated Discharge Needs: Cardiac Diet Follow-Up By: 05/11/21 Additional Comments F/U for ONS tolerance and stable intakes
--- NOTE | 2021-05-10 14:23 | Event Note ---
Date: 05/10/21 Okay for discharge from ID standpoint once IV antibiotics have been arranged by CM and PICC line is placed. Orders were already placed by Dr. Cee. ID will sign off. Please call with questions
[2021-05-10] MEDS: traZODone 100 MG TAB PO SCH (21:24)
[2021-05-11 07:51] LABS: Blood Urea Nitrogen 15 mg/dL (7-17); Calcium 8.7 mg/dL (8.4-10.2); Hemolysis Index 2
[2021-05-11 08:34] LABS: BUN/Creatinine Ratio 21
--- NOTE | 2021-05-11 08:37 | Progress Note ---
Assessment and Plan Assessment and plan: (1) HTN (hypertension) Current Visit: Yes Status: Acute Qualifiers: Hypertension type: essential hypertension Qualified Code(s): I10 - Essential (primary) hypertension Plan to address problem: Monitor BP q shift, continue medical management (2) Anxiety Current Visit: Yes Status: Acute Plan to address problem: Continue benzodiazepine therapy, (3) Obesity (BMI 30-39.9) Current Visit: Yes Status: Acute Plan to address problem: Balanced diet, increased physical activity at discharge (4) Depression Current Visit: Yes Status: Acute Qualifiers: Depression Type: major depressive disorder Plan to address problem: Continue medical management, outpatient psychiatry F/U. Discharge planning as per primary/orthopedics. 05/05/2021 -Patient is medically stable and pending rehab placement. 05/06/2021 -Pending rehab placement. 05/08/21 -Status post hardware removal -Orthopedics is considering ID consult 05/09/21 -Patient is on IV vancomycin and cefepime and will continue for 6 weeks per ID recommendations -Disposition is per orthopedics 05/10/2021; patient is on IV vancomycin and cefepime per ID recommendations. Disposition is per orthopedics. 05/11: Patient seen and examined, cleared for discharge, per patient she does not have anyone to care for her. CM following and arrange. History Interval history: Patient seen and examined. Resting comfortable. Hospitalist Physical - Physical exam Narrative exam: Not in cardiopulmonary distress. The patient appeared well nourished and normally developed. Vital signs as documented. Head exam is unremarkable. No scleral icterus . Neck is without jugular venous distension, thyromegaly, or carotid bruits. Lungs are clear to auscultation. Cardiac exam reveals regular rate and Rhythm. Abdominal exam reveals normal bowel sounds, nontender, no organomegaly. Extremities are nonedematous and both femoral and pedal pulses are normal. 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 No focal weakness. - Constitutional Vitals: Temp Pulse Resp BP Pulse Ox 97.9 F 83 16 114/54 95 05/11/21 05:07 05/11/21 05:07 05/11/21 05:07 05/11/21 05:07 05/11/21 05:07 General appearance: Present: no acute distress, obese Results - Labs CBC & Chem 7: 05/08/21 13:13 05/11/21 06:37 Labs: Laboratory Last Values WBC 7.0 K/mm3 (4.5-11.0) 05/08/21 13:13 RBC 3.54 M/mm3 (3.65-5.03) L 05/08/21 13:13 Hgb 9.9 gm/dl (10.1-14.3) L 05/08/21 13:13 Hct 29.9 % (30.3-42.9) L 05/08/21 13:13 MCV 85 fl (79-97) 05/08/21 13:13 MCH 28 pg (28-32) 05/08/21 13:13 MCHC 33 % (30-34) 05/08/21 13:13 RDW 17.8 % (13.2-15.2) H 05/08/21 13:13 Plt Count 247 K/mm3 (140-440) 05/08/21 13:13 Lymph % (Auto) 13.6 % (13.4-35.0) 05/08/21 13:13 [place] % (Auto) 7.0 % (0.0-7.3) 05/08/21 13:13 Eos % (Auto) 3.6 % (0.0-4.3) 05/08/21 13:13 Baso % (Auto) 0.6 % (0.0-1.8) 05/08/21 13:13 Lymph # (Auto) 1.0 K/mm3 (1.2-5.4) L 05/08/21 13:13 [place] # (Auto) 0.5 K/mm3 (0.0-0.8) 05/08/21 13:13 Eos # (Auto) 0.3 K/mm3 (0.0-0.4) 05/08/21 13:13 Baso # (Auto) 0.0 K/mm3 (0.0-0.1) 05/08/21 13:13 Seg Neutrophils % 75.2 % (40.0-70.0) H 05/08/21 13:13 Seg Neutrophils # 5.3 K/mm3 (1.8-7.7) 05/08/21 13:13 Sodium 138 mmol/L (137-145) 05/11/21 06:37 Potassium 3.9 mmol/L (3.6-5.0) 05/11/21 06:37 Chloride 100.3 mmol/L (98-107) 05/11/21 06:37 Carbon Dioxide 31 mmol/L (22-30) H 05/11/21 06:37 Anion Gap 11 mmol/L 05/11/21 06:37 BUN 15 mg/dL (7-17) 05/11/21 06:37 Creatinine 0.7 mg/dL (0.6-1.2) 05/11/21 06:37 Estimated GFR > 60 ml/min 05/11/21 06:37 BUN/Creatinine Ratio 21 % 05/11/21 06:37 Glucose 95 mg/dL (65-100) 05/11/21 06:37 Calcium 8.7 mg/dL (8.4-10.2) 05/11/21 06:37 Total Bilirubin 0.20 mg/dL (0.1-1.2) 05/08/21 13:13 AST 12 units/L (5-40) 05/08/21 13:13 ALT 5 units/L (7-56) L 05/08/21 13:13 Alkaline Phosphatase 142 units/L (35-129) H 05/08/21 13:13 C-Reactive Protein 2.70 mg/dL (0.00-1.30) H 05/08/21 13:13 Total Protein 6.5 g/dL (6.3-8.2) 05/08/21 13:13 Albumin 3.2 g/dL (3.9-5) L 05/08/21 13:13 Albumin/Globulin Ratio 1.0 % 05/08/21 13:13 Urine Color Yellow (Yellow) 05/08/21 Unknown Urine Turbidity Cloudy (Clear) 05/08/21 Unknown Urine pH 8.0 (5.0-7.0) H 05/08/21 Unknown Ur Specific [place] 1.012 (1.003-1.030) 05/08/21 Unknown Urine Protein <15 mg/dl mg/dL (Negative) 05/08/21 Unknown Urine Glucose (UA) Neg mg/dL (Negative) 05/08/21 Unknown Urine Ketones Neg mg/dL (Negative) 05/08/21 Unknown Urine Blood Neg (Negative) 05/08/21 Unknown Urine Nitrite Neg (Negative) 05/08/21 Unknown Urine Bilirubin Neg (Negative) 05/08/21 Unknown Urine Urobilinogen < 2.0 mg/dL (<2.0) 05/08/21 Unknown Ur Leukocyte Esterase Neg (Negative) 05/08/21 Unknown Urine WBC (Auto) 1.0 /HPF (0.0-6.0) 05/08/21 Unknown Urine RBC (Auto) 2.0 /HPF (0.0-6.0) 05/08/21 Unknown U Epithel Cells (Auto) < 1.0 /HPF (0-13.0) 05/08/21 Unknown Amorphous Crystals Few 05/08/21 Unknown Land/IV: Voiding Method External Female Catheter Active Medications - Current Medications Current Medications: Generic Name Dose Route Start Last Admin Trade Name Freq PRN Reason Stop Dose Admin Buspirone HCl 10 mg 05/04/21 10:00 05/10/21 12:04 Buspirone 10 Mg Tab PO 10 mg DAILY NIKKI Administration Buspirone HCl 5 mg 05/04/21 10:00 05/10/21 12:04 Buspirone 5 Mg Tab PO 5 mg DAILY NIKKI Administration Citalopram Hydrobromide 40 mg 05/04/21 10:00 05/10/21 12:06 Citalopram 20 Mg Tab PO 40 mg DAILY NIKKI Administration Clonazepam 2 mg 05/03/21 22:00 05/10/21 21:24 Clonazepam 2 Mg Tab PO 2 mg QHS NIKKI Administration Cyclobenzaprine HCl 10 mg 05/03/21 15:30 05/10/21 06:03 Cyclobenzaprine 10 Mg Tab PO 10 mg TID PRN Administration Muscle Spasm Gabapentin 300 mg 05/03/21 20:00 05/10/21 21:24 Gabapentin 300 Mg Cap PO 300 mg TID NIKKI Administration Hydroxyzine HCl 50 mg 05/03/21 18:00 05/10/21 21:24 Hydroxyzine Hcl 25 Mg Tab PO 50 mg QID NIKKI Administration Cefepime HCl 2 gm in 100 mls @ 200 mls/hr 05/09/21 08:00 05/10/21 21:30 Cefepime/Ns 2 Gm/100 Ml IV 06/19/21 20:29 200 mls/hr Q12H NIKKI Administration Protocol Vancomycin HCl 1,500 mg/ 530 mls @ 333.333 mls/hr 05/10/21 10:00 05/10/21 12:03 Sodium Chloride IV 333.333 mls/hr Q24H NIKKI Administration Ibuprofen 800 mg 04/29/21 14:22 05/07/21 21:46 Ibuprofen 800 Mg Tab PO 800 mg Q8H PRN Administration Pain, Moderate (4-6) Morphine Sulfate 4 mg 04/29/21 14:22 05/08/21 20:36 Morphine 4 Mg/1 Ml Inj IV 4 mg Q4H PRN Administration Pain , Severe (7-10) Olanzapine 5 mg 05/03/21 22:00 05/10/21 21:30 Olanzapine 5 Mg Tab PO 5 mg QHS NIKKI Administration Oxycodone/Acetaminophen 1 tab 04/29/21 14:22 05/10/21 21:24 Oxycodone /Acetaminophen 5-325mg Tab PO 1 tab Q6H PRN Administration Pain, Moderate (4-6) Trazodone HCl 200 mg 05/03/21 22:00 05/10/21 21:24 Trazodone 100 Mg Tab PO 200 mg QHS NIKKI Administration Nutrition/Malnutrition Assess - Dietary Evaluation Nutrition/Malnutrition Findings: Nutrition Notes Start: 04/30/21 14:33 Freq: Status: Active Protocol: Document 05/07/21 10:23 CW (Rec: 05/07/21 10:33 CW [email or web address]) Nutrition Notes Need for Assessment generated from: LOS Initial or Follow up Assessment Current Diet NPO, Regular diet at dinner tonight Labs/Tests reviewed Pertinent Medications reviewed Height 5 ft 1 in Weight 88.451 kg [place] Body Weight (kg) 47.72 BMI 36.8 Weight change and time frame weight stable x5 months (past chart hx) (90 kg on 12/11/2020) Weight Status Obese Subjective/Other Information Screen for LOS. PO intake has slightly decreased. Now at 50% of meals. Recommend ONS to increase caloric intake. Burn Absent Trauma Absent GI Symptoms None Skin Integrity/Comment Surgical wound Current % PO Fair (50-74%) Minimum of two criteria No physical signs of malnutrition #1 Nutrition Diagnosis Inadequate oral intake Etiology poor appetite As Evidenced by Signs and Symptoms PO intake of 50% of meals provided Is patient on ventilator? No Is Patient Ambulatory and/or Out of Bed Yes REE-([place]-St. Jeor-ambulatory/OOB) [ 1809.457 NUTR.MSJOOB] Kcal/Kg value to use for calculation 16 Approximate Energy Requirements Using 1415 kcal/Kg Calculation Used for Recommendations Kcal/kg Additional Notes protein needs:85 - 102g (1.25 - 1.5 g/kgAdjBW 68.0855) fluid needs: 1 ml/kcal Nutrition Intervention Change Diet Order: diet advancement at dinner Add Supplement/Snack (indicate name/kcal Ensure Enlive BID /protein ) Provides kCal: 700 Provides Protein (gm) 40 Goal #1 Meet at least 75% of kcal and protein needs via PO Anticipated Discharge Needs: Cardiac Diet Follow-Up By: 05/11/21 Additional Comments F/U for ONS tolerance and stable intakes
[2021-05-11] MEDS: CEFEPIME/NS 2 GM/100 ML 2 GM/100 ML BAG IV SCH (09:00)
[2021-05-11] MEDS: GABAPENTIN 300 MG CAP PO SCH ×3 (09:31→19:46)
[2021-05-11] MEDS: busPIRone 10 MG TAB PO SCH (10:31)
[2021-05-11] MEDS: busPIRone 5 MG TAB PO SCH (10:31)
[2021-05-11] MEDS: CITALOPRAM 20 MG TAB PO SCH (10:31)
[2021-05-11] MEDS: hydrOXYzine HCL 25 MG TAB PO SCH ×3 (10:32→22:04)
[2021-05-11] MEDS: oxyCODONE /ACETAMINOPHEN 5-325MG TAB PO PRN (10:32)
[2021-05-11] MEDS: VANCOMYCIN 1,500 MG in SODIUM CHLORIDE 0.9% 500 ML 500 ML IV SCH (10:38)
[2021-05-11] MEDS: MORPHINE 4 MG/1 ML INJ IV PRN (16:59)
[2021-05-11] MEDS: CYCLOBENZAPRINE 10 MG TAB PO PRN (19:46)
[2021-05-11] MEDS: traZODone 100 MG TAB PO SCH (22:04)
[2021-05-12] MEDS: hydrOXYzine HCL 25 MG TAB PO SCH ×5 (06:23→21:37)
[2021-05-12] MEDS: CEFEPIME/NS 2 GM/100 ML 2 GM/100 ML BAG IV SCH ×3 (06:24→21:36)
[2021-05-12] MEDS: busPIRone 10 MG TAB PO SCH (10:18)
[2021-05-12] MEDS: CITALOPRAM 20 MG TAB PO SCH (10:18)
[2021-05-12] MEDS: GABAPENTIN 300 MG CAP PO SCH ×3 (10:18→21:36)
[2021-05-12] MEDS: busPIRone 5 MG TAB PO SCH (10:18)
[2021-05-12] MEDS ORDERED: MORPHINE 4 MG/1 ML INJ IV PRN (10:52)
[2021-05-12] MEDS ORDERED: SODIUM CHLORIDE 0.9% 1000 ML 1,000 ML IV ONE (11:00)
[2021-05-12] MEDS ORDERED: MORPHINE 2 MG/1 ML INJ IV PRN (12:00)
[2021-05-12] MEDS: VANCOMYCIN 1,500 MG in SODIUM CHLORIDE 0.9% 500 ML 500 ML IV SCH (13:28)
--- NOTE | 2021-05-12 13:58 | Progress Note ---
Assessment and Plan Assessment and plan: (1) HTN (hypertension) Current Visit: Yes Status: Acute Qualifiers: Hypertension type: essential hypertension Qualified Code(s): I10 - Essential (primary) hypertension Plan to address problem: Monitor BP q shift, continue medical management (2) Anxiety Current Visit: Yes Status: Acute Plan to address problem: Continue benzodiazepine therapy, (3) Obesity (BMI 30-39.9) Current Visit: Yes Status: Acute Plan to address problem: Balanced diet, increased physical activity at discharge (4) Depression Current Visit: Yes Status: Acute Qualifiers: Depression Type: major depressive disorder Plan to address problem: Continue medical management, outpatient psychiatry F/U. Discharge planning as per primary/orthopedics. 05/05/2021 -Patient is medically stable and pending rehab placement. 05/06/2021 -Pending rehab placement. 05/08/21 -Status post hardware removal -Orthopedics is considering ID consult 05/09/21 -Patient is on IV vancomycin and cefepime and will continue for 6 weeks per ID recommendations -Disposition is per orthopedics 05/10/2021; patient is on IV vancomycin and cefepime per ID recommendations. Disposition is per orthopedics. 05/11: Patient seen and examined, cleared for discharge, per patient she does not have anyone to care for her. CM following and arrange. 05/12: Patient with mild low BP today, will continue fluids, awaiting discharge placement. History Interval history: Patient seen and examined. Resting comfortable. Hospitalist Physical - Physical exam Narrative exam: Not in cardiopulmonary distress. The patient appeared well nourished and normally developed. Vital signs as documented. Head exam is unremarkable. No scleral icterus . Neck is without jugular venous distension, thyromegaly, or carotid bruits. Lungs are clear to auscultation. Cardiac exam reveals regular rate and Rhythm. Abdominal exam reveals normal bowel sounds, nontender, no organomegaly. Extremities are nonedematous and both femoral and pedal pulses are normal. 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 - Constitutional Vitals: Temp Pulse Resp BP Pulse Ox 97.6 F 86 18 107/48 96 05/12/21 12:00 05/12/21 12:00 05/12/21 12:00 05/12/21 12:00 05/12/21 12:00 General appearance: Present: no acute distress, obese Results - Labs CBC & Chem 7: 05/08/21 13:13 05/11/21 06:37 Labs: Laboratory Last Values WBC 7.0 K/mm3 (4.5-11.0) 05/08/21 13:13 RBC 3.54 M/mm3 (3.65-5.03) L 05/08/21 13:13 Hgb 9.9 gm/dl (10.1-14.3) L 05/08/21 13:13 Hct 29.9 % (30.3-42.9) L 05/08/21 13:13 MCV 85 fl (79-97) 05/08/21 13:13 MCH 28 pg (28-32) 05/08/21 13:13 MCHC 33 % (30-34) 05/08/21 13:13 RDW 17.8 % (13.2-15.2) H 05/08/21 13:13 Plt Count 247 K/mm3 (140-440) 05/08/21 13:13 Lymph % (Auto) 13.6 % (13.4-35.0) 05/08/21 13:13 [place] % (Auto) 7.0 % (0.0-7.3) 05/08/21 13:13 Eos % (Auto) 3.6 % (0.0-4.3) 05/08/21 13:13 Baso % (Auto) 0.6 % (0.0-1.8) 05/08/21 13:13 Lymph # (Auto) 1.0 K/mm3 (1.2-5.4) L 05/08/21 13:13 [place] # (Auto) 0.5 K/mm3 (0.0-0.8) 05/08/21 13:13 Eos # (Auto) 0.3 K/mm3 (0.0-0.4) 05/08/21 13:13 Baso # (Auto) 0.0 K/mm3 (0.0-0.1) 05/08/21 13:13 Seg Neutrophils % 75.2 % (40.0-70.0) H 05/08/21 13:13 Seg Neutrophils # 5.3 K/mm3 (1.8-7.7) 05/08/21 13:13 Sodium 138 mmol/L (137-145) 05/11/21 06:37 Potassium 3.9 mmol/L (3.6-5.0) 05/11/21 06:37 Chloride 100.3 mmol/L (98-107) 05/11/21 06:37 Carbon Dioxide 31 mmol/L (22-30) H 05/11/21 06:37 Anion Gap 11 mmol/L 05/11/21 06:37 BUN 15 mg/dL (7-17) 05/11/21 06:37 Creatinine 0.7 mg/dL (0.6-1.2) 05/11/21 06:37 Estimated GFR > 60 ml/min 05/11/21 06:37 BUN/Creatinine Ratio 21 % 05/11/21 06:37 Glucose 95 mg/dL (65-100) 05/11/21 06:37 Calcium 8.7 mg/dL (8.4-10.2) 05/11/21 06:37 Total Bilirubin 0.20 mg/dL (0.1-1.2) 05/08/21 13:13 AST 12 units/L (5-40) 05/08/21 13:13 ALT 5 units/L (7-56) L 05/08/21 13:13 Alkaline Phosphatase 142 units/L (35-129) H 05/08/21 13:13 C-Reactive Protein 2.70 mg/dL (0.00-1.30) H 05/08/21 13:13 Total Protein 6.5 g/dL (6.3-8.2) 05/08/21 13:13 Albumin 3.2 g/dL (3.9-5) L 05/08/21 13:13 Albumin/Globulin Ratio 1.0 % 05/08/21 13:13 Urine Color Yellow (Yellow) 05/08/21 Unknown Urine Turbidity Cloudy (Clear) 05/08/21 Unknown Urine pH 8.0 (5.0-7.0) H 05/08/21 Unknown Ur Specific [place] 1.012 (1.003-1.030) 05/08/21 Unknown Urine Protein <15 mg/dl mg/dL (Negative) 05/08/21 Unknown Urine Glucose (UA) Neg mg/dL (Negative) 05/08/21 Unknown Urine Ketones Neg mg/dL (Negative) 05/08/21 Unknown Urine Blood Neg (Negative) 05/08/21 Unknown Urine Nitrite Neg (Negative) 05/08/21 Unknown Urine Bilirubin Neg (Negative) 05/08/21 Unknown Urine Urobilinogen < 2.0 mg/dL (<2.0) 05/08/21 Unknown Ur Leukocyte Esterase Neg (Negative) 05/08/21 Unknown Urine WBC (Auto) 1.0 /HPF (0.0-6.0) 05/08/21 Unknown Urine RBC (Auto) 2.0 /HPF (0.0-6.0) 05/08/21 Unknown U Epithel Cells (Auto) < 1.0 /HPF (0-13.0) 05/08/21 Unknown Amorphous Crystals Few 05/08/21 Unknown Vancomycin Trough 14.6 ug/mL (5.0-20.0) 05/12/21 10:04 [place]/IV: Voiding Method External Female Catheter Active Medications - Current Medications Current Medications: Generic Name Dose Route Start Last Admin Trade Name Freq PRN Reason Stop Dose Admin Buspirone HCl 10 mg 05/04/21 10:00 05/12/21 10:18 Buspirone 10 Mg Tab PO 10 mg DAILY NIKKI Administration Buspirone HCl 5 mg 05/04/21 10:00 05/12/21 10:18 Buspirone 5 Mg Tab PO 5 mg DAILY NIKKI Administration Citalopram Hydrobromide 40 mg 05/04/21 10:00 05/12/21 10:18 Citalopram 20 Mg Tab PO 40 mg DAILY NIKKI Administration Clonazepam 2 mg 05/03/21 22:00 05/11/21 22:04 Clonazepam 2 Mg Tab PO 2 mg QHS NKIKI Administration Cyclobenzaprine HCl 10 mg 05/03/21 15:30 05/11/21 19:46 Cyclobenzaprine 10 Mg Tab PO 10 mg TID PRN Administration Muscle Spasm Gabapentin 300 mg 05/03/21 20:00 05/12/21 10:18 Gabapentin 300 Mg Cap PO 300 mg TID NIKKI Administration Hydroxyzine HCl 50 mg 05/03/21 18:00 05/12/21 10:18 Hydroxyzine Hcl 25 Mg Tab PO 50 mg QID NIKKI Administration Cefepime HCl 2 gm in 100 mls @ 200 mls/hr 05/09/21 08:00 05/12/21 10:17 Cefepime/Ns 2 Gm/100 Ml IV 06/19/21 20:29 200 mls/hr Q12H NIKKI Administration Protocol Vancomycin HCl 1,500 mg/ 530 mls @ 333.333 mls/hr 05/10/21 10:00 05/12/21 13:28 Sodium Chloride IV 333.333 mls/hr Q24H NIKKI Administration Ibuprofen 800 mg 04/29/21 14:22 05/07/21 21:46 Ibuprofen 800 Mg Tab PO 800 mg Q8H PRN Administration Pain, Moderate (4-6) Morphine Sulfate 2 mg 05/12/21 12:00 Morphine 2 Mg/1 Ml Inj IV Q4H PRN Pain , Severe (7-10) Olanzapine 5 mg 05/03/21 22:00 05/11/21 22:04 Olanzapine 5 Mg Tab PO 5 mg QHS NIKKI Administration Oxycodone/Acetaminophen 1 tab 04/29/21 14:22 05/11/21 10:32 Oxycodone /Acetaminophen 5-325mg Tab PO 1 tab Q6H PRN Administration Pain, Moderate (4-6) Trazodone HCl 200 mg 05/03/21 22:00 05/11/21 22:04 Trazodone 100 Mg Tab PO 200 mg QHS NIKKI Administration Nutrition/Malnutrition Assess - Dietary Evaluation Nutrition/Malnutrition Findings: Nutrition Notes Start: 04/30/21 14:33 Freq: Status: Active Protocol: Document 05/11/21 11:26 (Rec: 05/11/21 11:29 [email or web address]) Nutrition Notes Initial or Follow up Reassessment Current Diagnosis Hypertension Current Diet Regular Labs/Tests Reviewed Pertinent Medications reviewed Height 5 ft 1 in Weight 88.451 kg [place] Body Weight (kg) 47.72 BMI 36.8 Weight Status Obese Subjective/Other Information FU for intakes. Pt eating 50% of most meals and when she eats 0% of meal (typically breakfast) she is drinking an ONS. Percent of energy/protein needs met: 81%/52% Burn Absent Trauma Absent GI Symptoms None Skin Integrity/Comment Surgical wound Current % PO Fair (50-74%) Minimum of two criteria No physical signs of malnutrition #1 Nutrition Diagnosis Inadequate oral intake Diagnosis Progress(for reassessment Continues documentation) Is patient on ventilator? No Is Patient Ambulatory and/or Out of Bed Yes REE-(Bleck[place]-St. Jeor-ambulatory/OOB) [ 1809.457 NUTR.MSJOOB] Kcal/Kg value to use for calculation 16 Approximate Energy Requirements Using 1415 kcal/Kg Calculation Used for Recommendations Kcal/kg Additional Notes protein needs:85 - 102g (1.25 - 1.5 g/kgAdjBW 68.0855) fluid needs: 1 ml/kcal Nutrition Intervention Add Supplement/Snack (indicate name/kcal Ensure Enlive BID /protein ) Provides kCal: 700 Provides Protein (gm) 40 Goal #1 Meet at least 75% of kcal and protein needs via PO Anticipated Discharge Needs: Cardiac Diet Follow-Up By: 05/13/21 Additional Comments F/U for ONS tolerance and stable intakes
[2021-05-12] MEDS: oxyCODONE /ACETAMINOPHEN 5-325MG TAB PO PRN ×2 (17:16→21:37)
[2021-05-12] MEDS: traZODone 100 MG TAB PO SCH (21:36)
[2021-05-13] MEDS: CITALOPRAM 20 MG TAB PO SCH (09:00)
[2021-05-13] MEDS: oxyCODONE /ACETAMINOPHEN 5-325MG TAB PO PRN ×2 (09:00→14:36)
[2021-05-13] MEDS: busPIRone 5 MG TAB PO SCH (09:00)
[2021-05-13] MEDS: GABAPENTIN 300 MG CAP PO SCH ×3 (09:01→21:23)
[2021-05-13] MEDS: hydrOXYzine HCL 25 MG TAB PO SCH ×4 (09:01→21:23)
[2021-05-13] MEDS: CEFEPIME/NS 2 GM/100 ML 2 GM/100 ML BAG IV SCH ×2 (09:01→21:23)
--- NOTE | 2021-05-13 09:11 | Progress Note ---
Assessment and Plan Assessment and plan: (1) HTN (hypertension) Current Visit: Yes Status: Acute Qualifiers: Hypertension type: essential hypertension Qualified Code(s): I10 - Essential (primary) hypertension Plan to address problem: Monitor BP q shift, continue medical management (2) Anxiety Current Visit: Yes Status: Acute Plan to address problem: Continue benzodiazepine therapy, (3) Obesity (BMI 30-39.9) Current Visit: Yes Status: Acute Plan to address problem: Balanced diet, increased physical activity at discharge (4) Depression Current Visit: Yes Status: Acute Qualifiers: Depression Type: major depressive disorder Plan to address problem: Continue medical management, outpatient psychiatry F/U. Discharge planning as per primary/orthopedics. 05/05/2021 -Patient is medically stable and pending rehab placement. 05/06/2021 -Pending rehab placement. 05/08/21 -Status post hardware removal -Orthopedics is considering ID consult 05/09/21 -Patient is on IV vancomycin and cefepime and will continue for 6 weeks per ID recommendations -Disposition is per orthopedics 05/10/2021; patient is on IV vancomycin and cefepime per ID recommendations. Disposition is per orthopedics. 05/11: Patient seen and examined, cleared for discharge, per patient she does not have anyone to care for her. CM following and arrange. 05/12: Patient with mild low BP today, will continue fluids, awaiting discharge placement. 05/13: Patient in no acute distress, BP still low ?secondary to pain meds, No dizziness reported. Awaiting placment. will give IV fluid bolus and recheck History Interval history: Patient seen and examined. Resting comfortable. NO DIZZINESS Hospitalist Physical - Physical exam Narrative exam: Not in cardiopulmonary distress. The patient appeared well nourished and normally developed. Vital signs as documented. Head exam is unremarkable. No scleral icterus . Neck is without jugular venous distension, thyromegaly, or carotid bruits. Lungs are clear to auscultation. Cardiac exam reveals regular rate and Rhythm. Abdominal exam reveals normal bowel sounds, nontender, no organomegaly. Extremities are nonedematous and both femoral and pedal pulses are normal. 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 - Constitutional Vitals: Temp Pulse Resp BP Pulse Ox 98.5 F 76 18 102/46 91 05/13/21 08:12 05/13/21 08:12 05/13/21 08:12 05/13/21 08:12 05/13/21 08:12 General appearance: Present: no acute distress, obese Results - Labs CBC & Chem 7: 05/08/21 13:13 05/11/21 06:37 Labs: Laboratory Last Values WBC 7.0 K/mm3 (4.5-11.0) 05/08/21 13:13 RBC 3.54 M/mm3 (3.65-5.03) L 05/08/21 13:13 Hgb 9.9 gm/dl (10.1-14.3) L 05/08/21 13:13 Hct 29.9 % (30.3-42.9) L 05/08/21 13:13 MCV 85 fl (79-97) 05/08/21 13:13 MCH 28 pg (28-32) 05/08/21 13:13 MCHC 33 % (30-34) 05/08/21 13:13 RDW 17.8 % (13.2-15.2) H 05/08/21 13:13 Plt Count 247 K/mm3 (140-440) 05/08/21 13:13 Lymph % (Auto) 13.6 % (13.4-35.0) 05/08/21 13:13 [place] % (Auto) 7.0 % (0.0-7.3) 05/08/21 13:13 Eos % (Auto) 3.6 % (0.0-4.3) 05/08/21 13:13 Baso % (Auto) 0.6 % (0.0-1.8) 05/08/21 13:13 Lymph # (Auto) 1.0 K/mm3 (1.2-5.4) L 05/08/21 13:13 [place] # (Auto) 0.5 K/mm3 (0.0-0.8) 05/08/21 13:13 Eos # (Auto) 0.3 K/mm3 (0.0-0.4) 05/08/21 13:13 Baso # (Auto) 0.0 K/mm3 (0.0-0.1) 05/08/21 13:13 Seg Neutrophils % 75.2 % (40.0-70.0) H 05/08/21 13:13 Seg Neutrophils # 5.3 K/mm3 (1.8-7.7) 05/08/21 13:13 Sodium 138 mmol/L (137-145) 05/11/21 06:37 Potassium 3.9 mmol/L (3.6-5.0) 05/11/21 06:37 Chloride 100.3 mmol/L (98-107) 05/11/21 06:37 Carbon Dioxide 31 mmol/L (22-30) H 05/11/21 06:37 Anion Gap 11 mmol/L 05/11/21 06:37 BUN 15 mg/dL (7-17) 05/11/21 06:37 Creatinine 0.7 mg/dL (0.6-1.2) 05/11/21 06:37 Estimated GFR > 60 ml/min 05/11/21 06:37 BUN/Creatinine Ratio 21 % 05/11/21 06:37 Glucose 95 mg/dL (65-100) 05/11/21 06:37 Calcium 8.7 mg/dL (8.4-10.2) 05/11/21 06:37 Total Bilirubin 0.20 mg/dL (0.1-1.2) 05/08/21 13:13 AST 12 units/L (5-40) 05/08/21 13:13 ALT 5 units/L (7-56) L 05/08/21 13:13 Alkaline Phosphatase 142 units/L (35-129) H 05/08/21 13:13 C-Reactive Protein 2.70 mg/dL (0.00-1.30) H 05/08/21 13:13 Total Protein 6.5 g/dL (6.3-8.2) 05/08/21 13:13 Albumin 3.2 g/dL (3.9-5) L 05/08/21 13:13 Albumin/Globulin Ratio 1.0 % 05/08/21 13:13 Urine Color Yellow (Yellow) 05/08/21 Unknown Urine Turbidity Cloudy (Clear) 05/08/21 Unknown Urine pH 8.0 (5.0-7.0) H 05/08/21 Unknown Ur Specific [place] 1.012 (1.003-1.030) 05/08/21 Unknown Urine Protein <15 mg/dl mg/dL (Negative) 05/08/21 Unknown Urine Glucose (UA) Neg mg/dL (Negative) 05/08/21 Unknown Urine Ketones Neg mg/dL (Negative) 05/08/21 Unknown Urine Blood Neg (Negative) 05/08/21 Unknown Urine Nitrite Neg (Negative) 05/08/21 Unknown Urine Bilirubin Neg (Negative) 05/08/21 Unknown Urine Urobilinogen < 2.0 mg/dL (<2.0) 05/08/21 Unknown Ur Leukocyte Esterase Neg (Negative) 05/08/21 Unknown Urine WBC (Auto) 1.0 /HPF (0.0-6.0) 05/08/21 Unknown Urine RBC (Auto) 2.0 /HPF (0.0-6.0) 05/08/21 Unknown U Epithel Cells (Auto) < 1.0 /HPF (0-13.0) 05/08/21 Unknown Amorphous Crystals Few 05/08/21 Unknown Vancomycin Trough 14.6 ug/mL (5.0-20.0) 05/12/21 10:04 [place]/IV: Voiding Method External Female Catheter Active Medications - Current Medications Current Medications: Generic Name Dose Route Start Last Admin Trade Name Freq PRN Reason Stop Dose Admin Buspirone HCl 10 mg 05/04/21 10:00 05/12/21 10:18 Buspirone 10 Mg Tab PO 10 mg DAILY NIKKI Administration Buspirone HCl 5 mg 05/04/21 10:00 05/13/21 09:00 Buspirone 5 Mg Tab PO 5 mg DAILY NIKKI Administration Citalopram Hydrobromide 40 mg 05/04/21 10:00 05/13/21 09:00 Citalopram 20 Mg Tab PO 40 mg DAILY NIKKI Administration Clonazepam 2 mg 05/03/21 22:00 05/12/21 21:36 Clonazepam 2 Mg Tab PO 2 mg QHS NIKKI Administration Cyclobenzaprine HCl 10 mg 05/03/21 15:30 05/11/21 19:46 Cyclobenzaprine 10 Mg Tab PO 10 mg TID PRN Administration Muscle Spasm Gabapentin 300 mg 05/03/21 20:00 05/13/21 09:01 Gabapentin 300 Mg Cap PO 300 mg TID NIKKI Administration Hydroxyzine HCl 50 mg 05/03/21 18:00 05/13/21 09:01 Hydroxyzine Hcl 25 Mg Tab PO 50 mg QID NIKKI Administration Cefepime HCl 2 gm in 100 mls @ 200 mls/hr 05/09/21 08:00 05/13/21 09:01 Cefepime/Ns 2 Gm/100 Ml IV 06/19/21 20:29 200 mls/hr Q12H NIKKI Administration Protocol Vancomycin HCl 1,500 mg/ 530 mls @ 333.333 mls/hr 05/10/21 10:00 05/12/21 13:28 Sodium Chloride IV 333.333 mls/hr Q24H NIKKI Administration Ibuprofen 800 mg 04/29/21 14:22 05/07/21 21:46 Ibuprofen 800 Mg Tab PO 800 mg Q8H PRN Administration Pain, Moderate (4-6) Morphine Sulfate 2 mg 05/12/21 12:00 05/12/21 14:33 Morphine 2 Mg/1 Ml Inj IV 2 mg Q4H PRN Administration Pain , Severe (7-10) Olanzapine 5 mg 05/03/21 22:00 05/12/21 21:39 Olanzapine 5 Mg Tab PO 5 mg QHS NIKKI Administration Oxycodone/Acetaminophen 1 tab 04/29/21 14:22 05/13/21 09:00 Oxycodone /Acetaminophen 5-325mg Tab PO 1 tab Q6H PRN Administration Pain, Moderate (4-6) Trazodone HCl 200 mg 05/03/21 22:00 05/12/21 21:36 Trazodone 100 Mg Tab PO 200 mg QHS NIKKI Administration Nutrition/Malnutrition Assess - Dietary Evaluation Nutrition/Malnutrition Findings: Nutrition Notes Start: 04/30/21 14:33 Freq: Status: Active Protocol: Document 05/11/21 11:26 (Rec: 05/11/21 11:29 [email or web address]) Nutrition Notes Initial or Follow up Reassessment Current Diagnosis Hypertension Current Diet Regular Labs/Tests Reviewed Pertinent Medications reviewed Height 5 ft 1 in Weight 88.451 kg [place] Body Weight (kg) 47.72 BMI 36.8 Weight Status Obese Subjective/Other Information FU for intakes. Pt eating 50% of most meals and when she eats 0% of meal, typically breakfast, she is drinking an ONS. Percent of energy/protein needs met: 81%/52% Burn Absent Trauma Absent GI Symptoms None Skin Integrity/Comment Surgical wound Current % PO Fair (50-74%) Minimum of two criteria No physical signs of malnutrition #1 Nutrition Diagnosis Inadequate oral intake Diagnosis Progress(for reassessment Continues documentation) Is patient on ventilator? No Is Patient Ambulatory and/or Out of Bed Yes [facility]EE-([facility]-ambulatory/OOB) [ 1809.457 NUTR.MSJOOB] Kcal/Kg value to use for calculation 16 Approximate Energy Requirements Using 1415 kcal/Kg Calculation Used for Recommendations Kcal/kg Additional Notes protein needs:85 - 102g (1.25 - 1.5 g/kgAdjBW 68.0855) fluid needs: 1 ml/kcal Nutrition Intervention Add Supplement/Snack (indicate name/kcal Ensure Enlive BID /protein ) Provides kCal: 700 Provides Protein (gm) 40 Goal #1 Meet at least 75% of kcal and protein needs via PO Anticipated Discharge Needs: Cardiac Diet Follow-Up By: 05/13/21 Additional Comments F/U for ONS tolerance and stable intakes
[2021-05-13] MEDS: VANCOMYCIN 1,500 MG in SODIUM CHLORIDE 0.9% 500 ML 500 ML IV SCH (10:51)
[2021-05-13] MEDS: busPIRone 10 MG TAB PO SCH (10:52)
[2021-05-13] MEDS ORDERED: SODIUM CHLORIDE 0.9% 500 ML 500 ML IV ONE ×2 (12:37→16:14)
[2021-05-13 18:49] LABS: Basophils % (Auto) 0.6 % (0.0-1.8); Eosinophils # (Auto) 0.4 K/mm3 (0.0-0.4); Eosinophils % (Auto) 6.6 % (0.0-4.3); Hematocrit 26.1 % (30.3-42.9); Hemoglobin 8.6 gm/dl (10.1-14.3); Lymphocytes % (Auto) 16.5 % (13.4-35.0); Mean Corpuscular HGB Conc 33 % (30-34); Mean Corpuscular Volume 85 fl (79-97); Monocytes # (Auto) 0.4 K/mm3 (0.0-0.8); Monocytes % (Auto) 7.1 % (0.0-7.3); Platelet Count 220 K/mm3 (140-440); Red Blood Count 3.07 M/mm3 (3.65-5.03); Red Cell Distribution Width 18.8 % (13.2-15.2)
[2021-05-13] MEDS: traZODone 100 MG TAB PO SCH (21:23)
[2021-05-13] MEDS: IBUPROFEN 800 MG TAB PO PRN (22:19)
[2021-05-14] MEDS: busPIRone 5 MG TAB PO SCH (09:47)
[2021-05-14] MEDS: hydrOXYzine HCL 25 MG TAB PO SCH ×4 (09:47→22:12)
[2021-05-14] MEDS: CEFEPIME/NS 2 GM/100 ML 2 GM/100 ML BAG IV SCH ×2 (09:47→22:11)
[2021-05-14] MEDS: CITALOPRAM 20 MG TAB PO SCH (09:47)
[2021-05-14] MEDS: oxyCODONE /ACETAMINOPHEN 5-325MG TAB PO PRN ×2 (09:47→15:44)
[2021-05-14] MEDS: GABAPENTIN 300 MG CAP PO SCH ×3 (09:47→19:55)
--- NOTE | 2021-05-14 12:21 | Progress Note ---
Assessment and Plan Assessment and plan: (1) HTN (hypertension) Current Visit: Yes Status: Acute Qualifiers: Hypertension type: essential hypertension Qualified Code(s): I10 - Essential (primary) hypertension Plan to address problem: Monitor BP q shift, continue medical management (2) Anxiety Current Visit: Yes Status: Acute Plan to address problem: Continue benzodiazepine therapy, (3) Obesity (BMI 30-39.9) Current Visit: Yes Status: Acute Plan to address problem: Balanced diet, increased physical activity at discharge (4) Depression Current Visit: Yes Status: Acute Qualifiers: Depression Type: major depressive disorder Plan to address problem: Continue medical management, outpatient psychiatry F/U. Discharge planning as per primary/orthopedics. 05/05/2021 -Patient is medically stable and pending rehab placement. 05/06/2021 -Pending rehab placement. 05/08/21 -Status post hardware removal -Orthopedics is considering ID consult 05/09/21 -Patient is on IV vancomycin and cefepime and will continue for 6 weeks per ID recommendations -Disposition is per orthopedics 05/10/2021; patient is on IV vancomycin and cefepime per ID recommendations. Disposition is per orthopedics. 05/11: Patient seen and examined, cleared for discharge, per patient she does not have anyone to care for her. CM following and arrange. 05/12: Patient with mild low BP today, will continue fluids, awaiting discharge placement. 05/13: Patient in no acute distress, BP still low ?secondary to pain meds, No dizziness reported. Awaiting placment. will give IV fluid bolus and recheck 05/14/21 patient is seen and examined. Patient complained of left leg pain .no dizziness. Continue current management. Physical therapy ordered. Patient is waiting for placement. History Interval history: Patient is seen and examined. Lab and medication reviewed Patient complained of left leg pain. BP is 97 / 49. Pulse 59 No other complain Hospitalist Physical - Constitutional Vitals: Temp Pulse Resp BP Pulse Ox 97.0 F L 72 16 100/42 92 05/14/21 10:36 05/14/21 10:36 05/14/21 10:47 05/14/21 10:36 05/14/21 10:36 General appearance: Present: no acute distress, obese Results - Labs CBC & Chem 7: 05/13/21 18:20 05/11/21 06:37 Labs: Laboratory Last Values WBC 6.4 K/mm3 (4.5-11.0) 05/13/21 18:20 RBC 3.07 M/mm3 (3.65-5.03) L 05/13/21 18:20 Hgb 8.6 gm/dl (10.1-14.3) L 05/13/21 18:20 Hct 26.1 % (30.3-42.9) L 05/13/21 18:20 MCV 85 fl (79-97) 05/13/21 18:20 MCH 28 pg (28-32) 05/13/21 18:20 MCHC 33 % (30-34) 05/13/21 18:20 RDW 18.8 % (13.2-15.2) H 05/13/21 18:20 Plt Count 220 K/mm3 (140-440) 05/13/21 18:20 Lymph % (Auto) 16.5 % (13.4-35.0) 05/13/21 18:20 [place] % (Auto) 7.1 % (0.0-7.3) 05/13/21 18:20 Eos % (Auto) 6.6 % (0.0-4.3) H 05/13/21 18:20 Baso % (Auto) 0.6 % (0.0-1.8) 05/13/21 18:20 Lymph # (Auto) 1.0 K/mm3 (1.2-5.4) L 05/13/21 18:20 [place] # (Auto) 0.4 K/mm3 (0.0-0.8) 05/13/21 18:20 Eos # (Auto) 0.4 K/mm3 (0.0-0.4) 05/13/21 18:20 Baso # (Auto) 0.0 K/mm3 (0.0-0.1) 05/13/21 18:20 Seg Neutrophils % 69.2 % (40.0-70.0) 05/13/21 18:20 Seg Neutrophils # 4.4 K/mm3 (1.8-7.7) 05/13/21 18:20 Sodium 138 mmol/L (137-145) 05/11/21 06:37 Potassium 3.9 mmol/L (3.6-5.0) 05/11/21 06:37 Chloride 100.3 mmol/L (98-107) 05/11/21 06:37 Carbon Dioxide 31 mmol/L (22-30) H 05/11/21 06:37 Anion Gap 11 mmol/L 05/11/21 06:37 BUN 15 mg/dL (7-17) 05/11/21 06:37 Creatinine 0.7 mg/dL (0.6-1.2) 05/11/21 06:37 Estimated GFR > 60 ml/min 05/11/21 06:37 BUN/Creatinine Ratio 21 % 05/11/21 06:37 Glucose 95 mg/dL (65-100) 05/11/21 06:37 Calcium 8.7 mg/dL (8.4-10.2) 05/11/21 06:37 Total Bilirubin 0.20 mg/dL (0.1-1.2) 05/08/21 13:13 AST 12 units/L (5-40) 05/08/21 13:13 ALT 5 units/L (7-56) L 05/08/21 13:13 Alkaline Phosphatase 142 units/L (35-129) H 05/08/21 13:13 C-Reactive Protein 2.70 mg/dL (0.00-1.30) H 05/08/21 13:13 Total Protein 6.5 g/dL (6.3-8.2) 05/08/21 13:13 Albumin 3.2 g/dL (3.9-5) L 05/08/21 13:13 Albumin/Globulin Ratio 1.0 % 05/08/21 13:13 Urine Color Yellow (Yellow) 05/08/21 Unknown Urine Turbidity Cloudy (Clear) 05/08/21 Unknown Urine pH 8.0 (5.0-7.0) H 05/08/21 Unknown Ur Specific [place] 1.012 (1.003-1.030) 05/08/21 Unknown Urine Protein <15 mg/dl mg/dL (Negative) 05/08/21 Unknown Urine Glucose (UA) Neg mg/dL (Negative) 05/08/21 Unknown Urine Ketones Neg mg/dL (Negative) 05/08/21 Unknown Urine Blood Neg (Negative) 05/08/21 Unknown Urine Nitrite Neg (Negative) 05/08/21 Unknown Urine Bilirubin Neg (Negative) 05/08/21 Unknown Urine Urobilinogen < 2.0 mg/dL (<2.0) 05/08/21 Unknown Ur Leukocyte Esterase Neg (Negative) 05/08/21 Unknown Urine WBC (Auto) 1.0 /HPF (0.0-6.0) 05/08/21 Unknown Urine RBC (Auto) 2.0 /HPF (0.0-6.0) 05/08/21 Unknown U Epithel Cells (Auto) < 1.0 /HPF (0-13.0) 05/08/21 Unknown Amorphous Crystals Few 05/08/21 Unknown Vancomycin Trough 14.6 ug/mL (5.0-20.0) 05/12/21 10:04 Coronavirus (PCR) Negative (Negative) 05/12/21 Unknown Land/IV: Voiding Method External Female Catheter Active Medications - Current Medications Current Medications: Generic Name Dose Route Start Last Admin Trade Name Freq PRN Reason Stop Dose Admin Buspirone HCl 10 mg 05/04/21 10:00 05/13/21 10:52 Buspirone 10 Mg Tab PO 10 mg DAILY NIKKI Administration Buspirone HCl 5 mg 05/04/21 10:00 05/14/21 09:47 Buspirone 5 Mg Tab PO 5 mg DAILY NIKKI Administration Citalopram Hydrobromide 40 mg 05/04/21 10:00 05/14/21 09:47 Citalopram 20 Mg Tab PO 40 mg DAILY NIKKI Administration Clonazepam 2 mg 05/03/21 22:00 05/13/21 21:23 Clonazepam 2 Mg Tab PO 2 mg QHS NIKKI Administration Cyclobenzaprine HCl 10 mg 05/03/21 15:30 05/11/21 19:46 Cyclobenzaprine 10 Mg Tab PO 10 mg TID PRN Administration Muscle Spasm Gabapentin 300 mg 05/03/21 20:00 05/14/21 09:47 Gabapentin 300 Mg Cap PO 300 mg TID NIKKI Administration Hydroxyzine HCl 50 mg 05/03/21 18:00 05/14/21 09:47 Hydroxyzine Hcl 25 Mg Tab PO 50 mg QID NIKKI Administration Cefepime HCl 2 gm in 100 mls @ 200 mls/hr 05/09/21 08:00 05/14/21 09:47 Cefepime/Ns 2 Gm/100 Ml IV 06/19/21 20:29 200 mls/hr Q12H NIKKI Administration Protocol Vancomycin HCl 1,500 mg/ 530 mls @ 333.333 mls/hr 05/10/21 10:00 05/13/21 10:51 Sodium Chloride IV 333.333 mls/hr Q24H NIKKI Administration Ibuprofen 800 mg 04/29/21 14:22 05/13/21 22:19 Ibuprofen 800 Mg Tab PO 800 mg Q8H PRN Administration Pain, Moderate (4-6) Morphine Sulfate 2 mg 05/12/21 12:00 05/12/21 14:33 Morphine 2 Mg/1 Ml Inj IV 2 mg Q4H PRN Administration Pain , Severe (7-10) Olanzapine 5 mg 05/03/21 22:00 05/13/21 21:24 Olanzapine 5 Mg Tab PO 5 mg QHS NIKKI Administration Oxycodone/Acetaminophen 1 tab 04/29/21 14:22 05/14/21 09:47 Oxycodone /Acetaminophen 5-325mg Tab PO 1 tab Q6H PRN Administration Pain, Moderate (4-6) Trazodone HCl 200 mg 05/03/21 22:00 05/13/21 21:23 Trazodone 100 Mg Tab PO 200 mg QHS NIKKI Administration Nutrition/Malnutrition Assess - Dietary Evaluation Nutrition/Malnutrition Findings: Nutrition Notes Start: 04/30/21 14:33 Freq: Status: Active Protocol: Document 05/13/21 14:14 VICKIE (Rec: 05/13/21 14:17 VICKIE [email or web address]) Nutrition Notes Initial or Follow up Reassessment Current Diagnosis Hypertension Other Pertinent Diagnosis anxiety, depression Current Diet Regular Labs/Tests Reviewed Pertinent Medications reviewed Height 5 ft 1 in Weight 88.451 kg [place] Body Weight (kg) 47.72 BMI 36.8 Weight Status Obese Subjective/Other Information FU for intakes. Pt drinking 50 % of ONS and 50% of lunch and dinner. For breakfast this AM, she ate 25%. Percent of energy/protein needs met: 89%/65% Burn Absent Trauma Absent Current % PO Fair (50-74%) Minimum of two criteria No physical signs of malnutrition #1 Nutrition Diagnosis Inadequate oral intake Diagnosis Progress(for reassessment Continues documentation) Is patient on ventilator? No Is Patient Ambulatory and/or Out of Bed Yes REE-([place]-ambulatory/OOB) [ 1809.457 NUTR.MSJOOB] Kcal/Kg value to use for calculation 16 Approximate Energy Requirements Using 1415 kcal/Kg Calculation Used for Recommendations Kcal/kg Additional Notes protein needs:85 - 102g (1.25 - 1.5 g/kgAdjBW 68.0855) fluid needs: 1 ml/kcal Nutrition Intervention Change Diet Order: Continue Add Supplement/Snack (indicate name/kcal Ensure Enlive BID /protein ) Provides kCal: 700 Provides Protein (gm) 40 Goal #1 Meet at least 75% of kcal and protein needs via PO Anticipated Discharge Needs: Cardiac Diet Follow-Up By: 05/18/21 Additional Comments F/U for ONS tolerance and stable intakes - Malnutrition Assessment Minimum of two criteria: No - Attestation Statement I have reviewed and agreed w/ Malnutrition eval & tx plan: No
[2021-05-14] MEDS: busPIRone 10 MG TAB PO SCH (13:09)
[2021-05-14] MEDS: VANCOMYCIN 1,500 MG in SODIUM CHLORIDE 0.9% 500 ML 500 ML IV SCH (13:09)
[2021-05-14] MEDS: CYCLOBENZAPRINE 10 MG TAB PO PRN (18:46)
[2021-05-14] MEDS: IBUPROFEN 800 MG TAB PO PRN ×2 (20:07→23:10)
[2021-05-14] MEDS: traZODone 100 MG TAB PO SCH (22:11)
[2021-05-15] MEDS: oxyCODONE /ACETAMINOPHEN 5-325MG TAB PO PRN ×3 (03:33→16:20)
[2021-05-15] MEDS: CEFEPIME/NS 2 GM/100 ML 2 GM/100 ML BAG IV SCH ×2 (10:20→20:13)
[2021-05-15] MEDS: busPIRone 5 MG TAB PO SCH (10:20)
[2021-05-15] MEDS: hydrOXYzine HCL 25 MG TAB PO SCH ×4 (10:21→22:27)
[2021-05-15] MEDS: CITALOPRAM 20 MG TAB PO SCH (10:21)
[2021-05-15] MEDS: busPIRone 10 MG TAB PO SCH (10:21)
[2021-05-15] MEDS: GABAPENTIN 300 MG CAP PO SCH ×3 (10:21→20:13)
[2021-05-15] MEDS: VANCOMYCIN 1,500 MG in SODIUM CHLORIDE 0.9% 500 ML 500 ML IV SCH (11:09)
--- NOTE | 2021-05-15 12:02 | Progress Note ---
Assessment and Plan Assessment and plan: (1) HTN (hypertension) Current Visit: Yes Status: Acute Qualifiers: Hypertension type: essential hypertension Qualified Code(s): I10 - Essential (primary) hypertension Plan to address problem: Monitor BP q shift, continue medical management (2) Anxiety Current Visit: Yes Status: Acute Plan to address problem: Continue benzodiazepine therapy, (3) Obesity (BMI 30-39.9) Current Visit: Yes Status: Acute Plan to address problem: Balanced diet, increased physical activity at discharge (4) Depression Current Visit: Yes Status: Acute Qualifiers: Depression Type: major depressive disorder Plan to address problem: Continue medical management, outpatient psychiatry F/U. Discharge planning as per primary/orthopedics. 05/05/2021 -Patient is medically stable and pending rehab placement. 05/06/2021 -Pending rehab placement. 05/08/21 -Status post hardware removal -Orthopedics is considering ID consult 05/09/21 -Patient is on IV vancomycin and cefepime and will continue for 6 weeks per ID recommendations -Disposition is per orthopedics 05/10/2021; patient is on IV vancomycin and cefepime per ID recommendations. Disposition is per orthopedics. 05/11: Patient seen and examined, cleared for discharge, per patient she does not have anyone to care for her. CM following and arrange. 05/12: Patient with mild low BP today, will continue fluids, awaiting discharge placement. 05/13: Patient in no acute distress, BP still low ?secondary to pain meds, No dizziness reported. Awaiting placment. will give IV fluid bolus and recheck 05/14/21 patient is seen and examined. Patient complained of left leg pain .no dizziness. Continue current management. Physical therapy ordered. Patient is waiting for placement. 05/15/21 patient is seen and examined. Patient complained of left leg pain .BP stable 112/48 . physical therapy ordered. Pain management. Patient is waiting for placement. History Interval history: Patient is seen and examined. Lab and medication reviewed Patient complained of left leg pain. Hospitalist Physical - Constitutional Vitals: Temp Pulse Resp BP Pulse Ox 97.4 F L 77 16 112/48 97 05/15/21 11:38 05/15/21 11:38 05/15/21 11:38 05/15/21 11:38 05/15/21 11:38 General appearance: Present: no acute distress, obese - EENT Eyes: Present: PERRL, EOM intact ENT: hearing intact, clear oral mucosa, dentition normal - Neck Neck: Present: supple, normal ROM - Respiratory Respiratory effort: normal Respiratory: bilateral: diminished - Cardiovascular Rhythm: regular Heart Sounds: Present: S1 & S2 - Extremities Extremities: no ischemia Peripheral Pulses: within normal limits - Abdominal General gastrointestinal: soft, non-tender, normal bowel sounds - Integumentary Integumentary: Present: clear, warm, dry - Psychiatric Psychiatric: appropriate mood/affect, intact judgment & insight - Neurologic Neurologic: CNII-XII intact, moves all extremities - Allied Health Allied health notes reviewed: PT Results - Labs CBC & Chem 7: 05/13/21 18:20 05/11/21 06:37 Labs: Laboratory Last Values WBC 6.4 K/mm3 (4.5-11.0) 05/13/21 18:20 RBC 3.07 M/mm3 (3.65-5.03) L 05/13/21 18:20 Hgb 8.6 gm/dl (10.1-14.3) L 05/13/21 18:20 Hct 26.1 % (30.3-42.9) L 05/13/21 18:20 MCV 85 fl (79-97) 05/13/21 18:20 MCH 28 pg (28-32) 05/13/21 18:20 MCHC 33 % (30-34) 05/13/21 18:20 RDW 18.8 % (13.2-15.2) H 05/13/21 18:20 Plt Count 220 K/mm3 (140-440) 05/13/21 18:20 Lymph % (Auto) 16.5 % (13.4-35.0) 05/13/21 18:20 [place] % (Auto) 7.1 % (0.0-7.3) 05/13/21 18:20 Eos % (Auto) 6.6 % (0.0-4.3) H 05/13/21 18:20 Baso % (Auto) 0.6 % (0.0-1.8) 05/13/21 18:20 Lymph # (Auto) 1.0 K/mm3 (1.2-5.4) L 05/13/21 18:20 [place] # (Auto) 0.4 K/mm3 (0.0-0.8) 05/13/21 18:20 Eos # (Auto) 0.4 K/mm3 (0.0-0.4) 05/13/21 18:20 Baso # (Auto) 0.0 K/mm3 (0.0-0.1) 05/13/21 18:20 Seg Neutrophils % 69.2 % (40.0-70.0) 05/13/21 18:20 Seg Neutrophils # 4.4 K/mm3 (1.8-7.7) 05/13/21 18:20 Sodium 138 mmol/L (137-145) 05/11/21 06:37 Potassium 3.9 mmol/L (3.6-5.0) 05/11/21 06:37 Chloride 100.3 mmol/L (98-107) 05/11/21 06:37 Carbon Dioxide 31 mmol/L (22-30) H 05/11/21 06:37 Anion Gap 11 mmol/L 05/11/21 06:37 BUN 15 mg/dL (7-17) 05/11/21 06:37 Creatinine 0.7 mg/dL (0.6-1.2) 05/11/21 06:37 Estimated GFR > 60 ml/min 05/11/21 06:37 BUN/Creatinine Ratio 21 % 05/11/21 06:37 Glucose 95 mg/dL (65-100) 05/11/21 06:37 Calcium 8.7 mg/dL (8.4-10.2) 05/11/21 06:37 Total Bilirubin 0.20 mg/dL (0.1-1.2) 05/08/21 13:13 AST 12 units/L (5-40) 05/08/21 13:13 ALT 5 units/L (7-56) L 05/08/21 13:13 Alkaline Phosphatase 142 units/L (35-129) H 05/08/21 13:13 C-Reactive Protein 2.70 mg/dL (0.00-1.30) H 05/08/21 13:13 Total Protein 6.5 g/dL (6.3-8.2) 05/08/21 13:13 Albumin 3.2 g/dL (3.9-5) L 05/08/21 13:13 Albumin/Globulin Ratio 1.0 % 05/08/21 13:13 Urine Color Yellow (Yellow) 05/08/21 Unknown Urine Turbidity Cloudy (Clear) 05/08/21 Unknown Urine pH 8.0 (5.0-7.0) H 05/08/21 Unknown Ur Specific [place] 1.012 (1.003-1.030) 05/08/21 Unknown Urine Protein <15 mg/dl mg/dL (Negative) 05/08/21 Unknown Urine Glucose (UA) Neg mg/dL (Negative) 05/08/21 Unknown Urine Ketones Neg mg/dL (Negative) 05/08/21 Unknown Urine Blood Neg (Negative) 05/08/21 Unknown Urine Nitrite Neg (Negative) 05/08/21 Unknown Urine Bilirubin Neg (Negative) 05/08/21 Unknown Urine Urobilinogen < 2.0 mg/dL (<2.0) 05/08/21 Unknown Ur Leukocyte Esterase Neg (Negative) 05/08/21 Unknown Urine WBC (Auto) 1.0 /HPF (0.0-6.0) 05/08/21 Unknown Urine RBC (Auto) 2.0 /HPF (0.0-6.0) 05/08/21 Unknown U Epithel Cells (Auto) < 1.0 /HPF (0-13.0) 05/08/21 Unknown Amorphous Crystals Few 05/08/21 Unknown Vancomycin Trough 14.6 ug/mL (5.0-20.0) 05/12/21 10:04 Coronavirus (PCR) Negative (Negative) 05/12/21 Unknown Land/IV: Voiding Method External Female Catheter Active Medications - Current Medications Current Medications: Generic Name Dose Route Start Last Admin Trade Name Freq PRN Reason Stop Dose Admin Buspirone HCl 10 mg 05/04/21 10:00 05/15/21 10:21 Buspirone 10 Mg Tab PO 10 mg DAILY NIKKI Administration Buspirone HCl 5 mg 05/04/21 10:00 05/15/21 10:20 Buspirone 5 Mg Tab PO 5 mg DAILY NIKKI Administration Citalopram Hydrobromide 40 mg 05/04/21 10:00 05/15/21 10:21 Citalopram 20 Mg Tab PO 40 mg DAILY NIKKI Administration Clonazepam 2 mg 05/03/21 22:00 05/14/21 22:11 Clonazepam 2 Mg Tab PO 2 mg QHS NIKKI Administration Cyclobenzaprine HCl 10 mg 05/03/21 15:30 05/14/21 18:46 Cyclobenzaprine 10 Mg Tab PO 10 mg TID PRN Administration Muscle Spasm Gabapentin 300 mg 05/03/21 20:00 05/15/21 10:21 Gabapentin 300 Mg Cap PO 300 mg TID NIKKI Administration Hydroxyzine HCl 50 mg 05/03/21 18:00 05/15/21 10:21 Hydroxyzine Hcl 25 Mg Tab PO 50 mg QID NIKKI Administration Cefepime HCl 2 gm in 100 mls @ 200 mls/hr 05/09/21 08:00 05/15/21 10:20 Cefepime/Ns 2 Gm/100 Ml IV 06/19/21 20:29 200 mls/hr Q12H NIKKI Administration Protocol Vancomycin HCl 1,500 mg/ 530 mls @ 333.333 mls/hr 05/10/21 10:00 05/15/21 11:09 Sodium Chloride IV 333.333 mls/hr Q24H NIKKI Administration Ibuprofen 800 mg 04/29/21 14:22 05/14/21 20:07 Ibuprofen 800 Mg Tab PO 800 mg Q8H PRN Administration Pain, Moderate (4-6) Morphine Sulfate 2 mg 05/12/21 12:00 05/12/21 14:33 Morphine 2 Mg/1 Ml Inj IV 2 mg Q4H PRN Administration Pain , Severe (7-10) Olanzapine 5 mg 05/03/21 22:00 05/14/21 22:11 Olanzapine 5 Mg Tab PO 5 mg QHS NIKKI Administration Oxycodone/Acetaminophen 1 tab 04/29/21 14:22 05/15/21 10:21 Oxycodone /Acetaminophen 5-325mg Tab PO 1 tab Q6H PRN Administration Pain, Moderate (4-6) Trazodone HCl 200 mg 05/03/21 22:00 05/14/21 22:11 Trazodone 100 Mg Tab PO 200 mg QHS NIKKI Administration Nutrition/Malnutrition Assess - Dietary Evaluation Nutrition/Malnutrition Findings: Nutrition Notes Start: 04/30/21 14:33 Freq: Status: Active Protocol: Document 05/13/21 14:14 VICKIE (Rec: 05/13/21 14:17 VICKIE [email or web address]) Nutrition Notes Initial or Follow up Reassessment Current Diagnosis Hypertension Other Pertinent Diagnosis anxiety, depression Current Diet Regular Labs/Tests Reviewed Pertinent Medications reviewed Height 5 ft 1 in Weight 88.451 kg [place] Body Weight (kg) 47.72 BMI 36.8 Weight Status Obese Subjective/Other Information FU for intakes. Pt drinking 50 % of ONS and 50% of lunch and dinner. For breakfast this AM, she ate 25%. Percent of energy/protein needs met: 89%/65% Burn Absent Trauma Absent Current % PO Fair (50-74%) Minimum of two criteria No physical signs of malnutrition #1 Nutrition Diagnosis Inadequate oral intake Diagnosis Progress(for reassessment Continues documentation) Is patient on ventilator? No Is Patient Ambulatory and/or Out of Bed Yes REE-([place] or-ambulatory/OOB) [ 1809.457 NUTR.MSJOOB] Kcal/Kg value to use for calculation 16 Approximate Energy Requirements Using 1415 kcal/Kg Calculation Used for Recommendations Kcal/kg Additional Notes protein needs:85 - 102g (1.25 - 1.5 g/kgAdjBW 68.0855) fluid needs: 1 ml/kcal Nutrition Intervention Change Diet Order: Continue Add Supplement/Snack (indicate name/kcal Ensure Enlive BID /protein ) Provides kCal: 700 Provides Protein (gm) 40 Goal #1 Meet at least 75% of kcal and protein needs via PO Anticipated Discharge Needs: Cardiac Diet Follow-Up By: 05/18/21 Additional Comments F/U for ONS tolerance and stable intakes - Malnutrition Assessment Minimum of two criteria: Yes - Attestation Statement I have reviewed and agreed w/ Malnutrition eval & tx plan: Yes
[2021-05-15] MEDS: CYCLOBENZAPRINE 10 MG TAB PO PRN (12:44)
[2021-05-15] MEDS: traZODone 100 MG TAB PO SCH (22:28)
[2021-05-15] MEDS: IBUPROFEN 800 MG TAB PO PRN (23:10)
[2021-05-16] MEDS: oxyCODONE /ACETAMINOPHEN 5-325MG TAB PO PRN ×3 (00:32→13:14)
[2021-05-16] MEDS: busPIRone 5 MG TAB PO SCH (09:04)
[2021-05-16] MEDS: hydrOXYzine HCL 25 MG TAB PO SCH ×4 (09:04→22:10)
[2021-05-16] MEDS: GABAPENTIN 300 MG CAP PO SCH ×3 (09:05→20:21)
[2021-05-16] MEDS: CITALOPRAM 20 MG TAB PO SCH (09:05)
[2021-05-16] MEDS: busPIRone 10 MG TAB PO SCH (09:05)
--- NOTE | 2021-05-16 09:25 | Progress Note ---
Assessment and Plan Assessment and plan: (1) HTN (hypertension)/Hypotension/Bradycardia Current Visit: Yes Status: Acute Qualifiers: Hypertension type: essential hypertension Qualified Code(s): I10 - Essential (primary) hypertension Plan to address problem: Monitor BP q shift, continue medical management (2) Anxiety Current Visit: Yes Status: Acute Plan to address problem: Continue benzodiazepine therapy, (3) Obesity (BMI 30-39.9) Current Visit: Yes Status: Acute Plan to address problem: Balanced diet, increased physical activity at discharge (4) Depression Current Visit: Yes Status: Acute Qualifiers: Depression Type: major depressive disorder Plan to address problem: Continue medical management, outpatient psychiatry F/U. Discharge planning as per primary/orthopedics. 05/05/2021 -Patient is medically stable and pending rehab placement. 05/06/2021 -Pending rehab placement. 05/08/21 -Status post hardware removal -Orthopedics is considering ID consult 05/09/21 -Patient is on IV vancomycin and cefepime and will continue for 6 weeks per ID recommendations -Disposition is per orthopedics 05/10/2021; patient is on IV vancomycin and cefepime per ID recommendations. Disposition is per orthopedics. 05/11: Patient seen and examined, cleared for discharge, per patient she does not have anyone to care for her. CM following and arrange. 05/12: Patient with mild low BP today, will continue fluids, awaiting discharge placement. 05/13: Patient in no acute distress, BP still low ?secondary to pain meds, No dizziness reported. Awaiting placement. will give IV fluid bolus and recheck 05/14/21 patient is seen and examined. Patient complained of left leg pain .no dizziness. Continue current management. Physical therapy ordered. Patient is waiting for placement. 05/15/21 patient is seen and examined. Patient complained of left leg pain .BP stable 112/48 . physical therapy ordered. Pain management. Patient is waiting for placement. 05/16: Patient with persistent Hypotension and Brdaycardia, while these may be medication related, will check Echocardiogram and also start patient on Midorine. Still awaiting placement. COnitnue and complete abx. No other symptoms reported. Repeat labs PRN patient thinks he may have low blood pressure will check with orthopedic surgeon's office History Interval history: Patient seen and examined. Resting comfortable. NO DIZZINESS. She thinks her blood pressure may run low at home. Hospitalist Physical - Physical exam Narrative exam: Not in cardiopulmonary distress. The patient appeared well nourished and normally developed. Vital signs as documented. Head exam is unremarkable. No scleral icterus . Neck is without jugular venous distension, thyromegaly, or carotid bruits. Lungs are clear to auscultation. Cardiac exam reveals regular rate and Rhythm. Abdominal exam reveals normal bowel sounds, nontender, no organomegaly. Extremities are nonedematous and both femoral and pedal pulses are normal. 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 No focal weakness. - Constitutional Vitals: Temp Pulse Resp BP Pulse Ox 97.8 F 51 L 16 88/35 94 05/16/21 07:12 05/16/21 07:12 05/16/21 07:12 05/16/21 07:12 05/16/21 07:12 General appearance: Present: no acute distress, obese Results - Labs CBC & Chem 7: 05/13/21 18:20 05/11/21 06:37 Labs: Laboratory Last Values WBC 6.4 K/mm3 (4.5-11.0) 05/13/21 18:20 RBC 3.07 M/mm3 (3.65-5.03) L 05/13/21 18:20 Hgb 8.6 gm/dl (10.1-14.3) L 05/13/21 18:20 Hct 26.1 % (30.3-42.9) L 05/13/21 18:20 MCV 85 fl (79-97) 05/13/21 18:20 MCH 28 pg (28-32) 05/13/21 18:20 MCHC 33 % (30-34) 05/13/21 18:20 RDW 18.8 % (13.2-15.2) H 05/13/21 18:20 Plt Count 220 K/mm3 (140-440) 05/13/21 18:20 Lymph % (Auto) 16.5 % (13.4-35.0) 05/13/21 18:20 [place] % (Auto) 7.1 % (0.0-7.3) 05/13/21 18:20 Eos % (Auto) 6.6 % (0.0-4.3) H 05/13/21 18:20 Baso % (Auto) 0.6 % (0.0-1.8) 05/13/21 18:20 Lymph # (Auto) 1.0 K/mm3 (1.2-5.4) L 05/13/21 18:20 [place] # (Auto) 0.4 K/mm3 (0.0-0.8) 05/13/21 18:20 Eos # (Auto) 0.4 K/mm3 (0.0-0.4) 05/13/21 18:20 Baso # (Auto) 0.0 K/mm3 (0.0-0.1) 05/13/21 18:20 Seg Neutrophils % 69.2 % (40.0-70.0) 05/13/21 18:20 Seg Neutrophils # 4.4 K/mm3 (1.8-7.7) 05/13/21 18:20 Sodium 138 mmol/L (137-145) 05/11/21 06:37 Potassium 3.9 mmol/L (3.6-5.0) 05/11/21 06:37 Chloride 100.3 mmol/L (98-107) 05/11/21 06:37 Carbon Dioxide 31 mmol/L (22-30) H 05/11/21 06:37 Anion Gap 11 mmol/L 05/11/21 06:37 BUN 15 mg/dL (7-17) 05/11/21 06:37 Creatinine 0.7 mg/dL (0.6-1.2) 05/11/21 06:37 Estimated GFR > 60 ml/min 05/11/21 06:37 BUN/Creatinine Ratio 21 % 05/11/21 06:37 Glucose 95 mg/dL (65-100) 05/11/21 06:37 Calcium 8.7 mg/dL (8.4-10.2) 05/11/21 06:37 Total Bilirubin 0.20 mg/dL (0.1-1.2) 05/08/21 13:13 AST 12 units/L (5-40) 05/08/21 13:13 ALT 5 units/L (7-56) L 05/08/21 13:13 Alkaline Phosphatase 142 units/L (35-129) H 05/08/21 13:13 C-Reactive Protein 2.70 mg/dL (0.00-1.30) H 05/08/21 13:13 Total Protein 6.5 g/dL (6.3-8.2) 05/08/21 13:13 Albumin 3.2 g/dL (3.9-5) L 05/08/21 13:13 Albumin/Globulin Ratio 1.0 % 05/08/21 13:13 Urine Color Yellow (Yellow) 05/08/21 Unknown Urine Turbidity Cloudy (Clear) 05/08/21 Unknown Urine pH 8.0 (5.0-7.0) H 05/08/21 Unknown Ur Specific [place] 1.012 (1.003-1.030) 05/08/21 Unknown Urine Protein <15 mg/dl mg/dL (Negative) 05/08/21 Unknown Urine Glucose (UA) Neg mg/dL (Negative) 05/08/21 Unknown Urine Ketones Neg mg/dL (Negative) 05/08/21 Unknown Urine Blood Neg (Negative) 05/08/21 Unknown Urine Nitrite Neg (Negative) 05/08/21 Unknown Urine Bilirubin Neg (Negative) 05/08/21 Unknown Urine Urobilinogen < 2.0 mg/dL (<2.0) 05/08/21 Unknown Ur Leukocyte Esterase Neg (Negative) 05/08/21 Unknown Urine WBC (Auto) 1.0 /HPF (0.0-6.0) 05/08/21 Unknown Urine RBC (Auto) 2.0 /HPF (0.0-6.0) 05/08/21 Unknown U Epithel Cells (Auto) < 1.0 /HPF (0-13.0) 05/08/21 Unknown Amorphous Crystals Few 05/08/21 Unknown Vancomycin Trough 14.6 ug/mL (5.0-20.0) 05/12/21 10:04 Coronavirus (PCR) Negative (Negative) 05/12/21 Unknown [place]/IV: Voiding Method External Female Catheter Active Medications - Current Medications Current Medications: Generic Name Dose Route Start Last Admin Trade Name Freq PRN Reason Stop Dose Admin Buspirone HCl 10 mg 05/04/21 10:00 05/16/21 09:05 Buspirone 10 Mg Tab PO 10 mg DAILY NIKKI Administration Buspirone HCl 5 mg 05/04/21 10:00 05/16/21 09:04 Buspirone 5 Mg Tab PO 5 mg DAILY NIKKI Administration Citalopram Hydrobromide 40 mg 05/04/21 10:00 05/16/21 09:05 Citalopram 20 Mg Tab PO 40 mg DAILY NIKKI Administration Clonazepam 2 mg 05/03/21 22:00 05/15/21 22:28 Clonazepam 2 Mg Tab PO 2 mg QHS NIKKI Administration Cyclobenzaprine HCl 10 mg 05/03/21 15:30 05/15/21 12:44 Cyclobenzaprine 10 Mg Tab PO 10 mg TID PRN Administration Muscle Spasm Gabapentin 300 mg 05/03/21 20:00 05/16/21 09:05 Gabapentin 300 Mg Cap PO 300 mg TID NIKKI Administration Hydroxyzine HCl 50 mg 05/03/21 18:00 05/16/21 09:04 Hydroxyzine Hcl 25 Mg Tab PO 50 mg QID NIKKI Administration Cefepime HCl 2 gm in 100 mls @ 200 mls/hr 05/09/21 08:00 05/15/21 20:13 Cefepime/Ns 2 Gm/100 Ml IV 06/19/21 20:29 200 mls/hr Q12H NIKKI Administration Protocol Vancomycin HCl 1,500 mg/ 530 mls @ 333.333 mls/hr 05/10/21 10:00 05/15/21 11:09 Sodium Chloride IV 333.333 mls/hr Q24H NIKKI Administration Ibuprofen 800 mg 04/29/21 14:22 05/15/21 23:10 Ibuprofen 800 Mg Tab PO 800 mg Q8H PRN Administration Pain, Moderate (4-6) Midodrine 5 mg 05/16/21 10:00 Midodrine 5 Mg Tab PO TID NIKKI Morphine Sulfate 2 mg 05/12/21 12:00 05/12/21 14:33 Morphine 2 Mg/1 Ml Inj IV 2 mg Q4H PRN Administration Pain , Severe (7-10) Olanzapine 5 mg 05/03/21 22:00 05/15/21 22:28 Olanzapine 5 Mg Tab PO 5 mg QHS NIKKI Administration Oxycodone/Acetaminophen 1 tab 04/29/21 14:22 05/16/21 06:28 Oxycodone /Acetaminophen 5-325mg Tab PO 1 tab Q6H PRN Administration Pain, Moderate (4-6) Trazodone HCl 200 mg 05/03/21 22:00 05/15/21 22:28 Trazodone 100 Mg Tab PO 200 mg QHS NIKKI Administration Nutrition/Malnutrition Assess - Dietary Evaluation Nutrition/Malnutrition Findings: Nutrition Notes Start: 04/30/21 14:33 Freq: Status: Active Protocol: Document 05/13/21 14:14 VICKIE (Rec: 05/13/21 14:17 VICKIE [id number]) Nutrition Notes Initial or Follow up Reassessment Current Diagnosis Hypertension Other Pertinent Diagnosis anxiety, depression Current Diet Regular Labs/Tests Reviewed Pertinent Medications reviewed Height 5 ft 1 in Weight 88.451 kg [place] Body Weight (kg) 47.72 BMI 36.8 Weight Status Obese Subjective/Other Information FU for intakes. Pt drinking 50 % of ONS and 50% of lunch and dinner. For breakfast this AM, she ate 25%. Percent of energy/protein needs met: 89%/65% Burn Absent Trauma Absent Current % PO Fair (50-74%) Minimum of two criteria No physical signs of malnutrition #1 Nutrition Diagnosis Inadequate oral intake Diagnosis Progress(for reassessment Continues documentation) Is patient on ventilator? No Is Patient Ambulatory and/or Out of Bed Yes REE-([place] [facility]-ambulatory/OOB) [ 1809.457 NUTR.MSJOOB] Kcal/Kg value to use for calculation 16 Approximate Energy Requirements Using 1415 kcal/Kg Calculation Used for Recommendations Kcal/kg Additional Notes protein needs:85 - 102g (1.25 - 1.5 g/kgAdjBW 68.0855) fluid needs: 1 ml/kcal Nutrition Intervention Change Diet Order: Continue Add Supplement/Snack (indicate name/kcal Ensure Enlive BID /protein ) Provides kCal: 700 Provides Protein (gm) 40 Goal #1 Meet at least 75% of kcal and protein needs via PO Anticipated Discharge Needs: Cardiac Diet Follow-Up By: 05/18/21 Additional Comments F/U for ONS tolerance and stable intakes
[2021-05-16] MEDS: CEFEPIME/NS 2 GM/100 ML 2 GM/100 ML BAG IV SCH ×2 (10:07→22:16)
[2021-05-16] MEDS: VANCOMYCIN 1,500 MG in SODIUM CHLORIDE 0.9% 500 ML 500 ML IV SCH (10:07)
[2021-05-16] MEDS: MIDODRINE 5 MG TAB PO SCH ×3 (10:10→20:21)
[2021-05-16] MEDS: CYCLOBENZAPRINE 10 MG TAB PO PRN (20:21)
[2021-05-16] MEDS: traZODone 100 MG TAB PO SCH (22:09)
[2021-05-17] MEDS: oxyCODONE /ACETAMINOPHEN 5-325MG TAB PO PRN ×3 (07:16→18:48)
[2021-05-17 08:18] LABS: Blood Urea Nitrogen 17 mg/dL (7-17); Calcium 9.1 mg/dL (8.4-10.2); Hemolysis Index 0
[2021-05-17 08:27] LABS: BUN/Creatinine Ratio 24
[2021-05-17] MEDS: busPIRone 10 MG TAB PO SCH (10:39)
[2021-05-17] MEDS: busPIRone 5 MG TAB PO SCH (10:39)
[2021-05-17] MEDS: GABAPENTIN 300 MG CAP PO SCH ×3 (10:39→21:54)
[2021-05-17] MEDS: MIDODRINE 5 MG TAB PO SCH ×3 (10:39→21:54)
[2021-05-17] MEDS: hydrOXYzine HCL 25 MG TAB PO SCH ×4 (10:39→21:54)
[2021-05-17] MEDS: CITALOPRAM 20 MG TAB PO SCH (10:39)
[2021-05-17] MEDS: CEFEPIME/NS 2 GM/100 ML 2 GM/100 ML BAG IV SCH ×2 (10:40→22:01)
[2021-05-17] MEDS: VANCOMYCIN 1,500 MG in SODIUM CHLORIDE 0.9% 500 ML 500 ML IV SCH (11:26)
--- NOTE | 2021-05-17 12:47 | Progress Note ---
Assessment and Plan Assessment and plan: (1) HTN (hypertension)/Hypotension/Bradycardia Current Visit: Yes Status: Acute Qualifiers: Hypertension type: essential hypertension Qualified Code(s): I10 - Essential (primary) hypertension Plan to address problem: Monitor BP q shift, continue medical management (2) Anxiety Current Visit: Yes Status: Acute Plan to address problem: Continue benzodiazepine therapy, (3) Obesity (BMI 30-39.9) Current Visit: Yes Status: Acute Plan to address problem: Balanced diet, increased physical activity at discharge (4) Depression Current Visit: Yes Status: Acute Qualifiers: Depression Type: major depressive disorder Plan to address problem: Continue medical management, outpatient psychiatry F/U. Discharge planning as per primary/orthopedics. 05/05/2021 -Patient is medically stable and pending rehab placement. 05/06/2021 -Pending rehab placement. 05/08/21 -Status post hardware removal -Orthopedics is considering ID consult 05/09/21 -Patient is on IV vancomycin and cefepime and will continue for 6 weeks per ID recommendations -Disposition is per orthopedics 05/10/2021; patient is on IV vancomycin and cefepime per ID recommendations. Disposition is per orthopedics. 05/11: Patient seen and examined, cleared for discharge, per patient she does not have anyone to care for her. CM following and arrange. 05/12: Patient with mild low BP today, will continue fluids, awaiting discharge placement. 05/13: Patient in no acute distress, BP still low ?secondary to pain meds, No dizziness reported. Awaiting placement. will give IV fluid bolus and recheck 05/14/21 patient is seen and examined. Patient complained of left leg pain .no dizziness. Continue current management. Physical therapy ordered. Patient is waiting for placement. 05/15/21 patient is seen and examined. Patient complained of left leg pain .BP stable 112/48 . physical therapy ordered. Pain management. Patient is waiting for placement. 05/16: Patient with persistent Hypotension and Brdaycardia, while these may be medication related, will check Echocardiogram and also start patient on Midorine. Still awaiting placement. COnitnue and complete abx. No other symptoms reported. Repeat labs PRN patient thinks he may have low blood pressure will check with orthopedic surgeon's office 05/17: Continue supportive care, BP better with addition of Midodrine, Clinical stable for discharge once placement is available. History Interval history: Patient seen and examined. Resting comfortable. No new complaints Hospitalist Physical - Physical exam Narrative exam: Not in cardiopulmonary distress. The patient appeared well nourished and normally developed. Vital signs as documented. Head exam is unremarkable. No scleral icterus . Neck is without jugular venous distension, thyromegaly, or carotid bruits. Lungs are clear to auscultation. Cardiac exam reveals regular rate and Rhythm. Abdominal exam reveals normal bowel sounds, nontender, no organomegaly. Extremities are nonedematous and both femoral and pedal pulses are normal. 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 No focal weakness. - Constitutional Vitals: Temp Pulse Resp BP Pulse Ox 98.1 F 57 L 18 112/42 94 05/17/21 11:26 05/17/21 11:26 05/17/21 11:26 05/17/21 11:26 05/17/21 11:26 General appearance: Present: no acute distress, obese Results - Labs CBC & Chem 7: 05/13/21 18:20 05/17/21 07:47 Labs: Laboratory Last Values WBC 6.4 K/mm3 (4.5-11.0) 05/13/21 18:20 RBC 3.07 M/mm3 (3.65-5.03) L 05/13/21 18:20 Hgb 8.6 gm/dl (10.1-14.3) L 05/13/21 18:20 Hct 26.1 % (30.3-42.9) L 05/13/21 18:20 MCV 85 fl (79-97) 05/13/21 18:20 MCH 28 pg (28-32) 05/13/21 18:20 MCHC 33 % (30-34) 05/13/21 18:20 RDW 18.8 % (13.2-15.2) H 05/13/21 18:20 Plt Count 220 K/mm3 (140-440) 05/13/21 18:20 Lymph % (Auto) 16.5 % (13.4-35.0) 05/13/21 18:20 [place] % (Auto) 7.1 % (0.0-7.3) 05/13/21 18:20 Eos % (Auto) 6.6 % (0.0-4.3) H 05/13/21 18:20 Baso % (Auto) 0.6 % (0.0-1.8) 05/13/21 18:20 Lymph # (Auto) 1.0 K/mm3 (1.2-5.4) L 05/13/21 18:20 [place] # (Auto) 0.4 K/mm3 (0.0-0.8) 05/13/21 18:20 Eos # (Auto) 0.4 K/mm3 (0.0-0.4) 05/13/21 18:20 Baso # (Auto) 0.0 K/mm3 (0.0-0.1) 05/13/21 18:20 Seg Neutrophils % 69.2 % (40.0-70.0) 05/13/21 18:20 Seg Neutrophils # 4.4 K/mm3 (1.8-7.7) 05/13/21 18:20 Sodium 137 mmol/L (137-145) 05/17/21 07:47 Potassium 4.2 mmol/L (3.6-5.0) 05/17/21 07:47 Chloride 99.4 mmol/L (98-107) 05/17/21 07:47 Carbon Dioxide 33 mmol/L (22-30) H 05/17/21 07:47 Anion Gap 9 mmol/L 05/17/21 07:47 BUN 17 mg/dL (7-17) 05/17/21 07:47 Creatinine 0.7 mg/dL (0.6-1.2) 05/17/21 07:47 Estimated GFR > 60 ml/min 05/17/21 07:47 BUN/Creatinine Ratio 24 % 05/17/21 07:47 Glucose 82 mg/dL (65-100) 05/17/21 07:47 Calcium 9.1 mg/dL (8.4-10.2) 05/17/21 07:47 Total Bilirubin 0.20 mg/dL (0.1-1.2) 05/08/21 13:13 AST 12 units/L (5-40) 05/08/21 13:13 ALT 5 units/L (7-56) L 05/08/21 13:13 Alkaline Phosphatase 142 units/L (35-129) H 05/08/21 13:13 C-Reactive Protein 2.70 mg/dL (0.00-1.30) H 05/08/21 13:13 Total Protein 6.5 g/dL (6.3-8.2) 05/08/21 13:13 Albumin 3.2 g/dL (3.9-5) L 05/08/21 13:13 Albumin/Globulin Ratio 1.0 % 05/08/21 13:13 Urine Color Yellow (Yellow) 05/08/21 Unknown Urine Turbidity Cloudy (Clear) 05/08/21 Unknown Urine pH 8.0 (5.0-7.0) H 05/08/21 Unknown Ur Specific [place] 1.012 (1.003-1.030) 05/08/21 Unknown Urine Protein <15 mg/dl mg/dL (Negative) 05/08/21 Unknown Urine Glucose (UA) Neg mg/dL (Negative) 05/08/21 Unknown Urine Ketones Neg mg/dL (Negative) 05/08/21 Unknown Urine Blood Neg (Negative) 05/08/21 Unknown Urine Nitrite Neg (Negative) 05/08/21 Unknown Urine Bilirubin Neg (Negative) 05/08/21 Unknown Urine Urobilinogen < 2.0 mg/dL (<2.0) 05/08/21 Unknown Ur Leukocyte Esterase Neg (Negative) 05/08/21 Unknown Urine WBC (Auto) 1.0 /HPF (0.0-6.0) 05/08/21 Unknown Urine RBC (Auto) 2.0 /HPF (0.0-6.0) 05/08/21 Unknown U Epithel Cells (Auto) < 1.0 /HPF (0-13.0) 05/08/21 Unknown Amorphous Crystals Few 05/08/21 Unknown Vancomycin Trough 14.6 ug/mL (5.0-20.0) 05/12/21 10:04 Coronavirus (PCR) Negative (Negative) 05/12/21 Unknown [place]/IV: Voiding Method External Female Catheter Active Medications - Current Medications Current Medications: Generic Name Dose Route Start Last Admin Trade Name Freq PRN Reason Stop Dose Admin Buspirone HCl 10 mg 05/04/21 10:00 05/17/21 10:39 Buspirone 10 Mg Tab PO 10 mg DAILY NIKKI Administration Buspirone HCl 5 mg 05/04/21 10:00 05/17/21 10:39 Buspirone 5 Mg Tab PO 5 mg DAILY NIKKI Administration Citalopram Hydrobromide 40 mg 05/04/21 10:00 05/17/21 10:39 Citalopram 20 Mg Tab PO 40 mg DAILY NIKKI Administration Clonazepam 2 mg 05/03/21 22:00 05/16/21 22:11 Clonazepam 2 Mg Tab PO 2 mg QHS NIKKI Administration Cyclobenzaprine HCl 10 mg 05/03/21 15:30 05/16/21 20:21 Cyclobenzaprine 10 Mg Tab PO 10 mg TID PRN Administration Muscle Spasm Gabapentin 300 mg 05/03/21 20:00 05/17/21 10:39 Gabapentin 300 Mg Cap PO 300 mg TID NIKKI Administration Hydroxyzine HCl 50 mg 05/03/21 18:00 05/17/21 10:39 Hydroxyzine Hcl 25 Mg Tab PO 50 mg QID NIKKI Administration Cefepime HCl 2 gm in 100 mls @ 200 mls/hr 05/09/21 08:00 05/17/21 10:40 Cefepime/Ns 2 Gm/100 Ml IV 06/19/21 20:29 200 mls/hr Q12H NIKKI Administration Protocol Vancomycin HCl 1,500 mg/ 530 mls @ 333.333 mls/hr 05/10/21 10:00 05/17/21 11:26 Sodium Chloride IV 333.333 mls/hr Q24H NIKKI Administration Ibuprofen 800 mg 04/29/21 14:22 05/15/21 23:10 Ibuprofen 800 Mg Tab PO 800 mg Q8H PRN Administration Pain, Moderate (4-6) Midodrine 5 mg 05/16/21 10:00 05/17/21 10:39 Midodrine 5 Mg Tab PO 5 mg TID NIKKI Administration Morphine Sulfate 2 mg 05/12/21 12:00 05/12/21 14:33 Morphine 2 Mg/1 Ml Inj IV 2 mg Q4H PRN Administration Pain , Severe (7-10) Olanzapine 5 mg 05/03/21 22:00 05/16/21 22:10 Olanzapine 5 Mg Tab PO 5 mg QHS NIKKI Administration Oxycodone/Acetaminophen 1 tab 04/29/21 14:22 05/17/21 07:16 Oxycodone /Acetaminophen 5-325mg Tab PO 1 tab Q6H PRN Administration Pain, Moderate (4-6) Trazodone HCl 200 mg 05/03/21 22:00 05/16/21 22:09 Trazodone 100 Mg Tab PO 200 mg QHS NIKKI Administration Nutrition/Malnutrition Assess - Dietary Evaluation Nutrition/Malnutrition Findings: Nutrition Notes Start: 04/30/21 14:33 Freq: Status: Active Protocol: Document 05/13/21 14:14 (Rec: 05/13/21 14:17 [id number]) Nutrition Notes Initial or Follow up Reassessment Current Diagnosis Hypertension Other Pertinent Diagnosis anxiety, depression Current Diet Regular Labs/Tests Reviewed Pertinent Medications reviewed Height 5 ft 1 in Weight 88.451 kg [place] Body Weight (kg) 47.72 BMI 36.8 Weight Status Obese Subjective/Other Information FU for intakes. Pt drinking 50 % of ONS and 50% of lunch and dinner. For breakfast this AM, she ate 25%. Percent of energy/protein needs met: 89%/65% Burn Absent Trauma Absent Current % PO Fair (50-74%) Minimum of two criteria No physical signs of malnutrition #1 Nutrition Diagnosis Inadequate oral intake Diagnosis Progress(for reassessment Continues documentation) Is patient on ventilator? No Is Patient Ambulatory and/or Out of Bed Yes REE-([place]-ambulatory/OOB) [ 1809.457 NUTR.MSJOOB] Kcal/Kg value to use for calculation 16 Approximate Energy Requirements Using 1415 kcal/Kg Calculation Used for Recommendations Kcal/kg Additional Notes protein needs:85 - 102g (1.25 - 1.5 g/kgAdjBW 68.0855) fluid needs: 1 ml/kcal Nutrition Intervention Change Diet Order: Continue Add Supplement/Snack (indicate name/kcal Ensure Enlive BID /protein ) Provides kCal: 700 Provides Protein (gm) 40 Goal #1 Meet at least 75% of kcal and protein needs via PO Anticipated Discharge Needs: Cardiac Diet Follow-Up By: 05/18/21 Additional Comments F/U for ONS tolerance and stable intakes
--- NOTE | 2021-05-17 13:37 | Progress Note ---
Assessment and Plan Status post removal of infected hardware left hip now with interval fracture proximal femur awaiting placement, continue observation Subjective Date of service: 05/17/21 Interval history: no significant change, awaiting placement Objective Vital signs: Vital Signs - 12hr 05/17/21 05/17/21 05/17/21 04:30 07:54 08:16 Temperature 98.4 F 98.3 F Pulse Rate 75 66 Respiratory 16 18 18 Rate Blood Pressure 124/55 102/48 O2 Sat by Pulse 93 91 Oximetry 05/17/21 11:26 Temperature 98.1 F Pulse Rate 57 L Respiratory 18 Rate Blood Pressure 112/42 O2 Sat by Pulse 94 Oximetry - Labs CBC & BMP: 05/13/21 18:20 05/17/21 07:47 Labs: Abnormal lab results 05/17/21 Range/Units 07:47 Carbon Dioxide 33 H (22-30) mmol/L
[2021-05-17] MEDS: traZODone 100 MG TAB PO SCH (21:54)
[2021-05-18] MEDS: oxyCODONE /ACETAMINOPHEN 5-325MG TAB PO PRN ×3 (06:09→21:23)
[2021-05-18] MEDS: CEFEPIME/NS 2 GM/100 ML 2 GM/100 ML BAG IV SCH ×2 (08:33→21:04)
[2021-05-18] MEDS: MIDODRINE 5 MG TAB PO SCH ×3 (08:33→21:11)
[2021-05-18] MEDS: GABAPENTIN 300 MG CAP PO SCH ×3 (08:33→21:05)
--- NOTE | 2021-05-18 08:47 | Progress Note ---
Assessment and Plan Assessment and plan: (1) HTN (hypertension) Current Visit: Yes Status: Acute Qualifiers: Hypertension type: essential hypertension Qualified Code(s): I10 - Essential (primary) hypertension Plan to address problem: Monitor BP q shift, continue medical management (2) Anxiety Current Visit: Yes Status: Acute Plan to address problem: Continue benzodiazepine therapy, (3) Obesity (BMI 30-39.9) Current Visit: Yes Status: Acute Plan to address problem: Balanced diet, increased physical activity at discharge (4) Depression Current Visit: Yes Status: Acute Qualifiers: Depression Type: major depressive disorder Plan to address problem: Continue medical management, outpatient psychiatry F/U. Discharge planning as per primary/orthopedics. 05/05/2021 -Patient is medically stable and pending rehab placement. 05/06/2021 -Pending rehab placement. 05/08/21 -Status post hardware removal -Orthopedics is considering ID consult 05/09/21 -Patient is on IV vancomycin and cefepime and will continue for 6 weeks per ID recommendations -Disposition is per orthopedics 05/10/2021; patient is on IV vancomycin and cefepime per ID recommendations. Disposition is per orthopedics. 05/11: Patient seen and examined, cleared for discharge, per patient she does not have anyone to care for her. CM following and arrange. 05/12: Patient with mild low BP today, will continue fluids, awaiting discharge placement. 05/13: Patient in no acute distress, BP still low ?secondary to pain meds, No dizziness reported. Awaiting placement. will give IV fluid bolus and recheck 05/14/21 patient is seen and examined. Patient complained of left leg pain .no dizziness. Continue current management. Physical therapy ordered. Patient is waiting for placement. 05/15/21 patient is seen and examined. Patient complained of left leg pain .BP stable 112/48 . physical therapy ordered. Pain management. Patient is waiting for placement. 05/16: Patient with persistent Hypotension and Brdaycardia, while these may be medication related, will check Echocardiogram and also start patient on Midorine. Still awaiting placement. COnitnue and complete abx. No other symptoms reported. Repeat labs PRN patient thinks he may have low blood pressure will check with orthopedic surgeon's office 05/17: Continue supportive care, BP better with addition of Midodrine, Clinical stable for discharge once placement is available. 05/18/2021; patient is medically stable and discharge is per orthopedics. ID arranged outpatient antibiotics. Pending insurance authorization for placement. History Interval history: Patient was seen and evaluated this morning Patient did not have new complaints Hospitalist Physical - Physical exam Narrative exam: Not in cardiopulmonary distress. The patient appeared well nourished and normally developed. Vital signs as documented. Head exam is unremarkable. No scleral icterus . Neck is without jugular venous distension, thyromegaly, or carotid bruits. Lungs are clear to auscultation. Cardiac exam reveals regular rate and Rhythm. Abdominal exam reveals normal bowel sounds, nontender, no organomegaly. Extremities are nonedematous and both femoral and pedal pulses are normal. 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 - Constitutional Vitals: Temp Pulse Resp BP Pulse Ox 98.0 F 55 L 18 112/35 95 05/18/21 08:16 05/18/21 08:16 05/18/21 08:16 05/18/21 08:16 05/18/21 08:16 General appearance: Present: no acute distress, obese Results - Labs CBC & Chem 7: 05/13/21 18:20 05/17/21 07:47 Labs: Laboratory Last Values WBC 6.4 K/mm3 (4.5-11.0) 05/13/21 18:20 RBC 3.07 M/mm3 (3.65-5.03) L 05/13/21 18:20 Hgb 8.6 gm/dl (10.1-14.3) L 05/13/21 18:20 Hct 26.1 % (30.3-42.9) L 05/13/21 18:20 MCV 85 fl (79-97) 05/13/21 18:20 MCH 28 pg (28-32) 05/13/21 18:20 MCHC 33 % (30-34) 05/13/21 18:20 RDW 18.8 % (13.2-15.2) H 05/13/21 18:20 Plt Count 220 K/mm3 (140-440) 05/13/21 18:20 Lymph % (Auto) 16.5 % (13.4-35.0) 05/13/21 18:20 [place] % (Auto) 7.1 % (0.0-7.3) 05/13/21 18:20 Eos % (Auto) 6.6 % (0.0-4.3) H 05/13/21 18:20 Baso % (Auto) 0.6 % (0.0-1.8) 05/13/21 18:20 Lymph # (Auto) 1.0 K/mm3 (1.2-5.4) L 05/13/21 18:20 [place] # (Auto) 0.4 K/mm3 (0.0-0.8) 05/13/21 18:20 Eos # (Auto) 0.4 K/mm3 (0.0-0.4) 05/13/21 18:20 Baso # (Auto) 0.0 K/mm3 (0.0-0.1) 05/13/21 18:20 Seg Neutrophils % 69.2 % (40.0-70.0) 05/13/21 18:20 Seg Neutrophils # 4.4 K/mm3 (1.8-7.7) 05/13/21 18:20 Sodium 137 mmol/L (137-145) 05/17/21 07:47 Potassium 4.2 mmol/L (3.6-5.0) 05/17/21 07:47 Chloride 99.4 mmol/L (98-107) 05/17/21 07:47 Carbon Dioxide 33 mmol/L (22-30) H 05/17/21 07:47 Anion Gap 9 mmol/L 05/17/21 07:47 BUN 17 mg/dL (7-17) 05/17/21 07:47 Creatinine 0.7 mg/dL (0.6-1.2) 05/17/21 07:47 Estimated GFR > 60 ml/min 05/17/21 07:47 BUN/Creatinine Ratio 24 % 05/17/21 07:47 Glucose 82 mg/dL (65-100) 05/17/21 07:47 Calcium 9.1 mg/dL (8.4-10.2) 05/17/21 07:47 Total Bilirubin 0.20 mg/dL (0.1-1.2) 05/08/21 13:13 AST 12 units/L (5-40) 05/08/21 13:13 ALT 5 units/L (7-56) L 05/08/21 13:13 Alkaline Phosphatase 142 units/L (35-129) H 05/08/21 13:13 C-Reactive Protein 2.70 mg/dL (0.00-1.30) H 05/08/21 13:13 Total Protein 6.5 g/dL (6.3-8.2) 05/08/21 13:13 Albumin 3.2 g/dL (3.9-5) L 05/08/21 13:13 Albumin/Globulin Ratio 1.0 % 05/08/21 13:13 Urine Color Yellow (Yellow) 05/08/21 Unknown Urine Turbidity Cloudy (Clear) 05/08/21 Unknown Urine pH 8.0 (5.0-7.0) H 05/08/21 Unknown Ur Specific [place] 1.012 (1.003-1.030) 05/08/21 Unknown Urine Protein <15 mg/dl mg/dL (Negative) 05/08/21 Unknown Urine Glucose (UA) Neg mg/dL (Negative) 05/08/21 Unknown Urine Ketones Neg mg/dL (Negative) 05/08/21 Unknown Urine Blood Neg (Negative) 05/08/21 Unknown Urine Nitrite Neg (Negative) 05/08/21 Unknown Urine Bilirubin Neg (Negative) 05/08/21 Unknown Urine Urobilinogen < 2.0 mg/dL (<2.0) 05/08/21 Unknown Ur Leukocyte Esterase Neg (Negative) 05/08/21 Unknown Urine WBC (Auto) 1.0 /HPF (0.0-6.0) 05/08/21 Unknown Urine RBC (Auto) 2.0 /HPF (0.0-6.0) 05/08/21 Unknown U Epithel Cells (Auto) < 1.0 /HPF (0-13.0) 05/08/21 Unknown Amorphous Crystals Few 05/08/21 Unknown Vancomycin Trough 14.6 ug/mL (5.0-20.0) 05/12/21 10:04 Coronavirus (PCR) Negative (Negative) 05/12/21 Unknown [place]/IV: Voiding Method External Female Catheter Active Medications - Current Medications Current Medications: Generic Name Dose Route Start Last Admin Trade Name Freq PRN Reason Stop Dose Admin Buspirone HCl 10 mg 05/04/21 10:00 05/17/21 10:39 Buspirone 10 Mg Tab PO 10 mg DAILY NIKKI Administration Buspirone HCl 5 mg 05/04/21 10:00 05/17/21 10:39 Buspirone 5 Mg Tab PO 5 mg DAILY NIKKI Administration Citalopram Hydrobromide 40 mg 05/04/21 10:00 05/17/21 10:39 Citalopram 20 Mg Tab PO 40 mg DAILY NIKKI Administration Clonazepam 2 mg 05/03/21 22:00 05/17/21 21:54 Clonazepam 2 Mg Tab PO 2 mg QHS NIKKI Administration Cyclobenzaprine HCl 10 mg 05/03/21 15:30 05/16/21 20:21 Cyclobenzaprine 10 Mg Tab PO 10 mg TID PRN Administration Muscle Spasm Gabapentin 300 mg 05/03/21 20:00 05/18/21 08:33 Gabapentin 300 Mg Cap PO 300 mg TID NIKKI Administration Hydroxyzine HCl 50 mg 05/03/21 18:00 05/17/21 21:54 Hydroxyzine Hcl 25 Mg Tab PO 50 mg QID NIKKI Administration Cefepime HCl 2 gm in 100 mls @ 200 mls/hr 05/09/21 08:00 05/18/21 08:33 Cefepime/Ns 2 Gm/100 Ml IV 06/19/21 20:29 200 mls/hr Q12H NIKKI Administration Protocol Vancomycin HCl 1,500 mg/ 530 mls @ 333.333 mls/hr 05/10/21 10:00 05/17/21 11:26 Sodium Chloride IV 333.333 mls/hr Q24H NIKKI Administration Ibuprofen 800 mg 04/29/21 14:22 05/15/21 23:10 Ibuprofen 800 Mg Tab PO 800 mg Q8H PRN Administration Pain, Moderate (4-6) Midodrine 5 mg 05/16/21 10:00 05/18/21 08:33 Midodrine 5 Mg Tab PO 5 mg TID NIKKI Administration Morphine Sulfate 2 mg 05/12/21 12:00 05/12/21 14:33 Morphine 2 Mg/1 Ml Inj IV 2 mg Q4H PRN Administration Pain , Severe (7-10) Olanzapine 5 mg 05/03/21 22:00 05/17/21 21:55 Olanzapine 5 Mg Tab PO 5 mg QHS NIKKI Administration Oxycodone/Acetaminophen 1 tab 04/29/21 14:22 05/18/21 06:09 Oxycodone /Acetaminophen 5-325mg Tab PO 1 tab Q6H PRN Administration Pain, Moderate (4-6) Trazodone HCl 200 mg 05/03/21 22:00 05/17/21 21:54 Trazodone 100 Mg Tab PO 200 mg QHS NIKKI Administration Nutrition/Malnutrition Assess - Dietary Evaluation Nutrition/Malnutrition Findings: Nutrition Notes Start: 04/30/21 14:33 Freq: Status: Active Protocol: Document 05/13/21 14:14 (Rec: 05/13/21 14:17 [email or web address]) Nutrition Notes Initial or Follow up Reassessment Current Diagnosis Hypertension Other Pertinent Diagnosis anxiety, depression Current Diet Regular Labs/Tests Reviewed Pertinent Medications reviewed Height 5 ft 1 in Weight 88.451 kg [place] Body Weight (kg) 47.72 BMI 36.8 Weight Status Obese Subjective/Other Information FU for intakes. Pt drinking 50 % of ONS and 50% of lunch and dinner. For breakfast this AM, she ate 25%. Percent of energy/protein needs met: 89%/65% Burn Absent Trauma Absent Current % PO Fair (50-74%) Minimum of two criteria No physical signs of malnutrition #1 Nutrition Diagnosis Inadequate oral intake Diagnosis Progress(for reassessment Continues documentation) Is patient on ventilator? No Is Patient Ambulatory and/or Out of Bed Yes [facility] [ 1809.457 NUTR.MSJOOB] Kcal/Kg value to use for calculation 16 Approximate Energy Requirements Using 1415 kcal/Kg Calculation Used for Recommendations Kcal/kg Additional Notes protein needs:85 - 102g (1.25 - 1.5 g/kgAdjBW 68.0855) fluid needs: 1 ml/kcal Nutrition Intervention Change Diet Order: Continue Add Supplement/Snack (indicate name/kcal Ensure Enlive BID /protein ) Provides kCal: 700 Provides Protein (gm) 40 Goal #1 Meet at least 75% of kcal and protein needs via PO Anticipated Discharge Needs: Cardiac Diet Follow-Up By: 05/18/21 Additional Comments F/U for ONS tolerance and stable intakes
[2021-05-18] MEDS: VANCOMYCIN 1,500 MG in SODIUM CHLORIDE 0.9% 500 ML 500 ML IV SCH (09:10)
[2021-05-18] MEDS: busPIRone 5 MG TAB PO SCH (09:10)
[2021-05-18] MEDS: busPIRone 10 MG TAB PO SCH (09:11)
[2021-05-18] MEDS: hydrOXYzine HCL 25 MG TAB PO SCH ×4 (09:11→21:11)
[2021-05-18] MEDS: CITALOPRAM 20 MG TAB PO SCH (09:11)
[2021-05-18] MEDS: traZODone 100 MG TAB PO SCH (21:10)
[2021-05-19] MEDS: oxyCODONE /ACETAMINOPHEN 5-325MG TAB PO PRN ×3 (05:34→18:30)
--- NOTE | 2021-05-19 08:24 | Progress Note ---
Assessment and Plan Assessment and plan: (1) HTN (hypertension) Current Visit: Yes Status: Acute Qualifiers: Hypertension type: essential hypertension Qualified Code(s): I10 - Essential (primary) hypertension Plan to address problem: Monitor BP q shift, continue medical management (2) Anxiety Current Visit: Yes Status: Acute Plan to address problem: Continue benzodiazepine therapy, (3) Obesity (BMI 30-39.9) Current Visit: Yes Status: Acute Plan to address problem: Balanced diet, increased physical activity at discharge (4) Depression Current Visit: Yes Status: Acute Qualifiers: Depression Type: major depressive disorder Plan to address problem: Continue medical management, outpatient psychiatry F/U. Discharge planning as per primary/orthopedics. 05/05/2021 -Patient is medically stable and pending rehab placement. 05/06/2021 -Pending rehab placement. 05/08/21 -Status post hardware removal -Orthopedics is considering ID consult 05/09/21 -Patient is on IV vancomycin and cefepime and will continue for 6 weeks per ID recommendations -Disposition is per orthopedics 05/10/2021; patient is on IV vancomycin and cefepime per ID recommendations. Disposition is per orthopedics. 05/11: Patient seen and examined, cleared for discharge, per patient she does not have anyone to care for her. CM following and arrange. 05/12: Patient with mild low BP today, will continue fluids, awaiting discharge placement. 05/13: Patient in no acute distress, BP still low ?secondary to pain meds, No dizziness reported. Awaiting placement. will give IV fluid bolus and recheck 05/14/21 patient is seen and examined. Patient complained of left leg pain .no dizziness. Continue current management. Physical therapy ordered. Patient is waiting for placement. 05/15/21 patient is seen and examined. Patient complained of left leg pain .BP stable 112/48 . physical therapy ordered. Pain management. Patient is waiting for placement. 05/16: Patient with persistent Hypotension and Brdaycardia, while these may be medication related, will check Echocardiogram and also start patient on Midorine. Still awaiting placement. COnitnue and complete abx. No other symptoms reported. Repeat labs PRN patient thinks he may have low blood pressure will check with orthopedic surgeon's office 05/17: Continue supportive care, BP better with addition of Midodrine, Clinical stable for discharge once placement is available. 05/18/2021; patient is medically stable and discharge is per orthopedics. ID arranged outpatient antibiotics. Pending insurance authorization for placement. 05/19/2020; pending insurance authorization for placement. History Interval history: Patient was seen and evaluated this morning Patient did not have new complaints Hospitalist Physical - Physical exam Narrative exam: Not in cardiopulmonary distress. The patient appeared well nourished and normally developed. Vital signs as documented. Head exam is unremarkable. No scleral icterus . Neck is without jugular venous distension, thyromegaly, or carotid bruits. Lungs are clear to auscultation. Cardiac exam reveals regular rate and Rhythm. Abdominal exam reveals normal bowel sounds, nontender, no organomegaly. Extremities are nonedematous and both femoral and pedal pulses are normal. 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 - Constitutional Vitals: Temp Pulse Resp BP Pulse Ox 98.1 F 56 L 18 120/54 96 05/19/21 07:46 05/19/21 07:46 05/19/21 07:46 05/19/21 07:48 05/19/21 07:46 General appearance: Present: no acute distress, obese Results - Labs CBC & Chem 7: 05/13/21 18:20 05/17/21 07:47 Labs: Laboratory Last Values WBC 6.4 K/mm3 (4.5-11.0) 05/13/21 18:20 RBC 3.07 M/mm3 (3.65-5.03) L 05/13/21 18:20 Hgb 8.6 gm/dl (10.1-14.3) L 05/13/21 18:20 Hct 26.1 % (30.3-42.9) L 05/13/21 18:20 MCV 85 fl (79-97) 05/13/21 18:20 MCH 28 pg (28-32) 05/13/21 18:20 MCHC 33 % (30-34) 05/13/21 18:20 RDW 18.8 % (13.2-15.2) H 05/13/21 18:20 Plt Count 220 K/mm3 (140-440) 05/13/21 18:20 Lymph % (Auto) 16.5 % (13.4-35.0) 05/13/21 18:20 [place] % (Auto) 7.1 % (0.0-7.3) 05/13/21 18:20 Eos % (Auto) 6.6 % (0.0-4.3) H 05/13/21 18:20 Baso % (Auto) 0.6 % (0.0-1.8) 05/13/21 18:20 Lymph # (Auto) 1.0 K/mm3 (1.2-5.4) L 05/13/21 18:20 [place] # (Auto) 0.4 K/mm3 (0.0-0.8) 05/13/21 18:20 Eos # (Auto) 0.4 K/mm3 (0.0-0.4) 05/13/21 18:20 Baso # (Auto) 0.0 K/mm3 (0.0-0.1) 05/13/21 18:20 Seg Neutrophils % 69.2 % (40.0-70.0) 05/13/21 18:20 Seg Neutrophils # 4.4 K/mm3 (1.8-7.7) 05/13/21 18:20 Sodium 137 mmol/L (137-145) 05/17/21 07:47 Potassium 4.2 mmol/L (3.6-5.0) 05/17/21 07:47 Chloride 99.4 mmol/L (98-107) 05/17/21 07:47 Carbon Dioxide 33 mmol/L (22-30) H 05/17/21 07:47 Anion Gap 9 mmol/L 05/17/21 07:47 BUN 17 mg/dL (7-17) 05/17/21 07:47 Creatinine 0.7 mg/dL (0.6-1.2) 05/17/21 07:47 Estimated GFR > 60 ml/min 05/17/21 07:47 BUN/Creatinine Ratio 24 % 05/17/21 07:47 Glucose 82 mg/dL (65-100) 05/17/21 07:47 Calcium 9.1 mg/dL (8.4-10.2) 05/17/21 07:47 Total Bilirubin 0.20 mg/dL (0.1-1.2) 05/08/21 13:13 AST 12 units/L (5-40) 05/08/21 13:13 ALT 5 units/L (7-56) L 05/08/21 13:13 Alkaline Phosphatase 142 units/L (35-129) H 05/08/21 13:13 C-Reactive Protein 2.70 mg/dL (0.00-1.30) H 05/08/21 13:13 Total Protein 6.5 g/dL (6.3-8.2) 05/08/21 13:13 Albumin 3.2 g/dL (3.9-5) L 05/08/21 13:13 Albumin/Globulin Ratio 1.0 % 05/08/21 13:13 Urine Color Yellow (Yellow) 05/08/21 Unknown Urine Turbidity Cloudy (Clear) 05/08/21 Unknown Urine pH 8.0 (5.0-7.0) H 05/08/21 Unknown Ur Specific [place] 1.012 (1.003-1.030) 05/08/21 Unknown Urine Protein <15 mg/dl mg/dL (Negative) 05/08/21 Unknown Urine Glucose (UA) Neg mg/dL (Negative) 05/08/21 Unknown Urine Ketones Neg mg/dL (Negative) 05/08/21 Unknown Urine Blood Neg (Negative) 05/08/21 Unknown Urine Nitrite Neg (Negative) 05/08/21 Unknown Urine Bilirubin Neg (Negative) 05/08/21 Unknown Urine Urobilinogen < 2.0 mg/dL (<2.0) 05/08/21 Unknown Ur Leukocyte Esterase Neg (Negative) 05/08/21 Unknown Urine WBC (Auto) 1.0 /HPF (0.0-6.0) 05/08/21 Unknown Urine RBC (Auto) 2.0 /HPF (0.0-6.0) 05/08/21 Unknown U Epithel Cells (Auto) < 1.0 /HPF (0-13.0) 05/08/21 Unknown Amorphous Crystals Few 05/08/21 Unknown Vancomycin Trough 14.6 ug/mL (5.0-20.0) 05/12/21 10:04 Coronavirus (PCR) Negative (Negative) 05/12/21 Unknown [place]/IV: Voiding Method External Female Catheter Active Medications - Current Medications Current Medications: Generic Name Dose Route Start Last Admin Trade Name Freq PRN Reason Stop Dose Admin Buspirone HCl 10 mg 05/04/21 10:00 05/18/21 09:11 Buspirone 10 Mg Tab PO 10 mg DAILY NIKKI Administration Buspirone HCl 5 mg 05/04/21 10:00 05/18/21 09:10 Buspirone 5 Mg Tab PO 5 mg DAILY NIKKI Administration Citalopram Hydrobromide 40 mg 05/04/21 10:00 05/18/21 09:11 Citalopram 20 Mg Tab PO 40 mg DAILY NIKKI Administration Clonazepam 2 mg 05/03/21 22:00 05/18/21 21:11 Clonazepam 2 Mg Tab PO 2 mg QHS NIKKI Administration Cyclobenzaprine HCl 10 mg 05/03/21 15:30 05/16/21 20:21 Cyclobenzaprine 10 Mg Tab PO 10 mg TID PRN Administration Muscle Spasm Gabapentin 300 mg 05/03/21 20:00 05/18/21 21:05 Gabapentin 300 Mg Cap PO 300 mg TID NIKKI Administration Hydroxyzine HCl 50 mg 05/03/21 18:00 05/18/21 21:11 Hydroxyzine Hcl 25 Mg Tab PO 50 mg QID NIKKI Administration Cefepime HCl 2 gm in 100 mls @ 200 mls/hr 05/09/21 08:00 05/18/21 21:04 Cefepime/Ns 2 Gm/100 Ml IV 06/19/21 20:29 200 mls/hr Q12H NIKKI Administration Protocol Vancomycin HCl 1,500 mg/ 530 mls @ 333.333 mls/hr 05/10/21 10:00 05/18/21 09:10 Sodium Chloride IV 333.333 mls/hr Q24H NIKKI Administration Ibuprofen 800 mg 04/29/21 14:22 05/15/21 23:10 Ibuprofen 800 Mg Tab PO 800 mg Q8H PRN Administration Pain, Moderate (4-6) Midodrine 5 mg 05/16/21 10:00 05/18/21 21:11 Midodrine 5 Mg Tab PO 5 mg TID NIKKI Administration Morphine Sulfate 2 mg 05/12/21 12:00 05/12/21 14:33 Morphine 2 Mg/1 Ml Inj IV 2 mg Q4H PRN Administration Pain , Severe (7-10) Olanzapine 5 mg 05/03/21 22:00 05/18/21 21:11 Olanzapine 5 Mg Tab PO 5 mg QHS NIKKI Administration Oxycodone/Acetaminophen 1 tab 04/29/21 14:22 05/19/21 05:34 Oxycodone /Acetaminophen 5-325mg Tab PO 1 tab Q6H PRN Administration Pain, Moderate (4-6) Trazodone HCl 200 mg 05/03/21 22:00 05/18/21 21:10 Trazodone 100 Mg Tab PO 200 mg QHS NIKKI Administration Nutrition/Malnutrition Assess - Dietary Evaluation Nutrition/Malnutrition Findings: Nutrition Notes Start: 04/30/21 14:33 Freq: Status: Active Protocol: Document 05/18/21 10:43 (Rec: 05/18/21 10:49 [email or web address]) Nutrition Notes Initial or Follow up Reassessment Current Diagnosis Hypertension Other Pertinent Diagnosis anxiety, depression Current Diet Regular Labs/Tests Reviewed Pertinent Medications reviewed Height 5 ft 1 in Weight 88.451 kg [place] Body Weight (kg) 47.72 BMI 36.8 Weight Status Obese Subjective/Other Information FU for intakes. Pt drinking 100% of ONS and 50% meals. Percent of energy/protein needs met: 100%/100% Burn Absent Trauma Absent Current % PO Fair (50-74%) Minimum of two criteria No physical signs of malnutrition #1 Nutrition Diagnosis Inadequate oral intake As Evidenced by Signs and Symptoms pt meeting 100%/100% of needs Diagnosis Progress(for reassessment Improved documentation) Is patient on ventilator? No Is Patient Ambulatory and/or Out of Bed Yes REE-([facility]-ambulatory/OOB) [ 1809.457 NUTR.MSJOOB] Kcal/Kg value to use for calculation 16 Approximate Energy Requirements Using 1415 kcal/Kg Calculation Used for Recommendations Kcal/kg Additional Notes protein needs:85 - 102g (1.25 - 1.5 g/kgAdjBW 68.0855) fluid needs: 1 ml/kcal Nutrition Intervention Change Diet Order: Continue Add Supplement/Snack (indicate name/kcal Ensure Enlive BID /protein ) Provides kCal: 700 Provides Protein (gm) 40 Goal #1 Meet at least 75% of kcal and protein needs via PO Anticipated Discharge Needs: Cardiac Diet Follow-Up By: 05/25/21 Additional Comments F/U for ONS tolerance and stable intakes
[2021-05-19] MEDS: CEFEPIME/NS 2 GM/100 ML 2 GM/100 ML BAG IV SCH ×2 (08:56→20:03)
[2021-05-19] MEDS: MIDODRINE 5 MG TAB PO SCH ×3 (08:57→20:11)
[2021-05-19] MEDS: GABAPENTIN 300 MG CAP PO SCH ×3 (08:57→20:10)
[2021-05-19] MEDS: hydrOXYzine HCL 25 MG TAB PO SCH ×4 (09:00→21:38)
[2021-05-19] MEDS: CITALOPRAM 20 MG TAB PO SCH (09:00)
[2021-05-19] MEDS: VANCOMYCIN 1,500 MG in SODIUM CHLORIDE 0.9% 500 ML 500 ML IV SCH (09:00)
[2021-05-19] MEDS: busPIRone 5 MG TAB PO SCH (09:00)
[2021-05-19] MEDS: busPIRone 10 MG TAB PO SCH (09:00)
[2021-05-19 10:50] LABS: BUN/Creatinine Ratio 24; Blood Urea Nitrogen 19 mg/dL (7-17); Calcium 9.1 mg/dL (8.4-10.2); Hemolysis Index 0
[2021-05-19] MEDS: traZODone 100 MG TAB PO SCH (21:39)
[2021-05-19] MEDS: CYCLOBENZAPRINE 10 MG TAB PO PRN (22:30)
[2021-05-20] MEDS: oxyCODONE /ACETAMINOPHEN 5-325MG TAB PO PRN ×4 (00:50→20:03)
[2021-05-20] MEDS: CEFEPIME/NS 2 GM/100 ML 2 GM/100 ML BAG IV SCH ×2 (08:57→19:52)
[2021-05-20] MEDS: MIDODRINE 5 MG TAB PO SCH ×3 (08:58→18:42)
[2021-05-20] MEDS: GABAPENTIN 300 MG CAP PO SCH ×3 (08:58→19:52)
[2021-05-20] MEDS: hydrOXYzine HCL 25 MG TAB PO SCH ×4 (08:59→21:57)
[2021-05-20] MEDS: busPIRone 10 MG TAB PO SCH (08:59)
[2021-05-20] MEDS: CITALOPRAM 20 MG TAB PO SCH (08:59)
[2021-05-20] MEDS: busPIRone 5 MG TAB PO SCH (08:59)
[2021-05-20] MEDS: VANCOMYCIN 1,500 MG in SODIUM CHLORIDE 0.9% 500 ML 500 ML IV SCH (09:03)
--- NOTE | 2021-05-20 13:49 | Progress Note ---
Assessment and Plan (1) HTN (hypertension) Current Visit: Yes Status: Acute Qualifiers: Hypertension type: essential hypertension Qualified Code(s): I10 - Essential (primary) hypertension Plan to address problem: Monitor BP q shift, continue medical management (2) Anxiety Current Visit: Yes Status: Acute Plan to address problem: Continue benzodiazepine therapy, (3) Obesity (BMI 30-39.9) Current Visit: Yes Status: Acute Plan to address problem: Balanced diet, increased physical activity at discharge (4) Depression Current Visit: Yes Status: Acute Qualifiers: Depression Type: major depressive disorder Plan to address problem: Continue medical management, outpatient psychiatry F/U. Subjective Date of service: 05/20/21 Principal diagnosis: Sepsis infected joint. Interval history: Patient feels good today awaiting placement. Pain fairly well controlled. 05/05/2021 -Patient is medically stable and pending rehab placement. 05/06/2021 -Pending rehab placement. 05/08/21 -Status post hardware removal -Orthopedics is considering ID consult 05/09/21 -Patient is on IV vancomycin and cefepime and will continue for 6 weeks per ID recommendations -Disposition is per orthopedics 05/10/2021; patient is on IV vancomycin and cefepime per ID recommendations. Disposition is per orthopedics. 05/11: Patient seen and examined, cleared for discharge, per patient she does not have anyone to care for her. CM following and arrange. 05/12: Patient with mild low BP today, will continue fluids, awaiting discharge placement. 05/13: Patient in no acute distress, BP still low ?secondary to pain meds, No dizziness reported. Awaiting placement. will give IV fluid bolus and recheck 05/14/21 patient is seen and examined. Patient complained of left leg pain .no dizziness. Continue current management. Physical therapy ordered. Patient is waiting for placement. 05/15/21 patient is seen and examined. Patient complained of left leg pain .BP stable 112/48 . physical therapy ordered. Pain management. Patient is waiting for placement. 05/16: Patient with persistent Hypotension and Brdaycardia, while these may be medication related, will check Echocardiogram and also start patient on Midorine. Still awaiting placement. COnitnue and complete abx. No other symptoms reported. Repeat labs PRN patient thinks he may have low blood pressure will check with orthopedic surgeon's office 05/17: Continue supportive care, BP better with addition of Midodrine, Clinical stable for discharge once placement is available. 05/18/2021; patient is medically stable and discharge is per orthopedics. ID arranged outpatient antibiotics. Pending insurance authorization for placement. 05/19/2020; pending insurance authorization for placement. 05/20/2021 still pending authorization for placement. Objective - Constitutional Vitals: Vital Signs - 12hr 05/20/21 05/20/21 05/20/21 04:03 07:52 11:38 Temperature 97.9 F 97.4 F L 98.0 F Pulse Rate 53 L 60 56 L Respiratory 16 16 18 Rate Blood Pressure 108/46 103/47 94/44 O2 Sat by Pulse 94 93 95 Oximetry General appearance: Present: no acute distress, well-nourished - EENT Eyes: PERRL, EOM intact ENT: hearing intact, clear oral mucosa Ears: bilateral: normal - Neck Neck: supple, normal ROM - Respiratory Respiratory effort: normal Respiratory: bilateral: CTA - Breasts Breasts: normal - Cardiovascular Rhythm: regular Heart Sounds: Present: S1 & S2. Absent: gallop, rub Extremities: pulses intact, No edema, normal color, Full ROM Extremity abnormal: other (Surgical site bandaged no drainage.) - Gastrointestinal General gastrointestinal: Present: soft, non-tender, non-distended, normal bowel sounds - Genitourinary Female genitourinary: normal - Integumentary Integumentary: clear, warm, dry - Musculoskeletal Musculoskeletal: 1, strength equal bilaterally - Neurologic Neurologic: moves all extremities - Psychiatric Psychiatric: memory intact, appropriate mood/affect, intact judgment & insight - Labs CBC & Chem 7: 05/13/21 18:20 05/19/21 09:17
--- NOTE | 2021-05-20 16:07 | Progress Note ---
Assessment and Plan Status post removal of infected hardware left hip now with interval fracture proximal femur awaiting placement, continue observation Subjective Date of service: 05/20/21 Principal diagnosis: Sepsis infected joint. Objective Vital signs: Vital Signs - 12hr 05/20/21 05/20/21 07:52 11:38 Temperature 97.4 F L 98.0 F Pulse Rate 60 56 L Respiratory 16 18 Rate Blood Pressure 103/47 94/44 O2 Sat by Pulse 93 95 Oximetry - Labs CBC & BMP: 05/13/21 18:20 05/19/21 09:17
[2021-05-20] MEDS: traZODone 100 MG TAB PO SCH (21:58)
[2021-05-21] MEDS: MIDODRINE 5 MG TAB PO SCH ×2 (06:33→09:33)
[2021-05-21 07:35] VITALS: BP 107/51
[2021-05-21] MEDS: CEFEPIME/NS 2 GM/100 ML 2 GM/100 ML BAG IV SCH (09:32)
[2021-05-21] MEDS: CITALOPRAM 20 MG TAB PO SCH (09:33)
[2021-05-21] MEDS: GABAPENTIN 300 MG CAP PO SCH (09:33)
[2021-05-21] MEDS: hydrOXYzine HCL 25 MG TAB PO SCH (09:33)
[2021-05-21] MEDS: busPIRone 10 MG TAB PO SCH (09:33)
[2021-05-21] MEDS: busPIRone 5 MG TAB PO SCH (09:33)
[2021-05-21] MEDS: oxyCODONE /ACETAMINOPHEN 5-325MG TAB PO PRN (09:34)
[2021-05-21] MEDS: VANCOMYCIN 1,500 MG in SODIUM CHLORIDE 0.9% 500 ML 500 ML IV SCH (10:29)
--- NOTE | 2021-07-20 11:00 | Discharge Summary ---
Providers - Providers Date of Admission: 05/01/21 10:55 Date of discharge: 05/21/21 Attending physician: LYDIA GRAYSON MD 05/01/21 11:16 Physical Therapy Evaluation and Treat [CONS] Routine Comment: Reason For Exam: non weight bearing .only for tranferring , 05/01/21 11:25 Consult to Physician [CONS] Routine Comment: Consulting Provider: CARLOS HENDRIX Physician Instructions: Reason For Exam: medical management 05/08/21 10:37 Consult to Physician [CONS] Routine Comment: Consulting Provider: JOSE BERNSTEIN Physician Instructions: Reason For Exam: Status post infected hardware removal 05/08/21 12:21 Consult to Case Management [CONS] Stat Services Needed at Discharge: Other Notified:: gas operations analyst Additional Physician Instructions: [facility] ([facility]) [address] [place] [address] OUTPATIENT PARENTERAL ANTIBIOTIC THERAPY (OPAT) ORDERS Diagnoses: left hip hardware infection Administer: vancomcyin 1 g IV q 12h and cefepime 2 g IV q12 hour total 6 weeks until 06/19/2021.keep vancomycin trough 10 to 20 mcg/dL. Remove PICC line after last dose unless otherwise instructed. Line: Maintain IV access with weekly dressing changes and locks per protocol. Labs: Every Monday CBC, AST, ALT, Creatinine, CPK, vancomcyin trough. Please fax results to [phone] and call [phone] for critical lab results. Gabriela Cee MD Infectious Diseases Junior Software Developer [facility] ([facility]) O: [phone] F: [phone] 05/08/21 12:22 Consult to PICC Line RN [CONS] Stat Reason For Exam: IV antibiotics Type Line:: PICC 05/10/21 09:00 Consult to Wound/ET Nurse [CONS] Routine Reason For Exam: wound eval, see R abd fold also 05/14/21 12:21 Physical Therapy Evaluation and Treat [CONS] Routine Comment: Reason For Exam: Gait training 05/20/21 16:06 Occupational Therapy Evaluate and Treat [CONS] Routine Comment: Reason For Exam: Debility Primary care physician: SPORTS BETTING MANAGER Hospitalization Condition: Fair Procedures: Removal of infected hardware left hip Hospital course: 61 y/o female admitted for removal of chronically infected left hip, hx of previous IM nail May for fracture left hip. Treated conservatively for months without improvement therefore decision made to remove implant before sepsis became real possibility. Following admission to the hospital, taken to the OR where the IM nail removed without difficulty. Post op while undergoing therapy session began complaining of increased left hip pain, plain xrays taken reveal interval fracture left proximal femur. Infectious disease consult placed and patient started on IVAB. Arrangement made with case management services for long-term IVAB and placement in SNF... Disposition: [facility] Final Discharge Diagnosis (Prints w/discharge instructions): Infected left hip Core Measure Documentation - Palliative Care Palliative Care/ Comfort Measures: Not Applicable - Core Measures Any of the following diagnoses?: none - VTE Discharge Requirements Deep Vein Thrombosis/Pulmonary Embolism Present on Admission: No Has pt received <5 days of overlap therapy or INR<2.0: Yes Anticoagulant overlap therapy prescribed at discharge: Yes Contraindication No Overlap Therapy order at DC: Medical Contraindication - Acute NE Discharge Requirements Aspirin at discharge: No Reason for no aspirin on DC: Medical contraindication - Heart Failure Discharge Requirements CORINNE/ARB for LVSD if EF <40%: Not Applicable - Stroke Discharge Requirements Statin for LDL = or >70 mg/dl on DC: Not Applicable Exam - Physical Exam Narrative exam: plain xrays left hip reviewed and show interval fracture proximal femur - Constitutional Vitals: Temp Pulse Resp BP Pulse Ox 97.7 F 53 L 16 107/51 98 05/21/21 07:11 05/21/21 07:11 05/21/21 07:11 05/21/21 07:11 05/21/21 07:11 Plan Activity: advance as tolerated, fall precautions Weight Bearing Status: Non-Weight Bearing Diet: low fat, low carbohydrate Wound: change dressing Special Instructions: physical therapy, occupational therapy Durable Medical Equipment Needed Upon Discharge: Wheelchair, Bedside Commode Follow up with: PRIMARY CARE, [Primary Care Provider] - 7 Days
== END 2021-05-21 10:38 | DRG 498 ==
LOC: OR 05:47 → 3B-SURG 12:23 → OBSVTOIN 12:23 → INTOOBSV 12:23 → OBSVTOIN 05-01 10:55
PROVIDERS: ADMIT Orthopaedic Surgery; ATTEND Orthopaedic Surgery
PROC: 0QP704Z Removal of Internal Fixation Device from Left Upper Femur, Open Approach (ICD-10-PCS; principal; 2021-04-29)
PROC: 02HV33Z Insertion of Infusion Device into Superior Vena Cava, Percutaneous Approach (ICD-10-PCS; 2021-05-09)
DX: T84.52XA Infection and inflammatory reaction due to internal left hip prosthesis, initial encounter (principal); R71.0 Precipitous drop in hematocrit; I10 Essential (primary) hypertension; E66.9 Obesity, unspecified; F32.9 Major depressive disorder, single episode, unspecified; Z20.822 Contact with and (suspected) exposure to COVID-19; F41.9 Anxiety disorder, unspecified; F17.200 Nicotine dependence, unspecified, uncomplicated; Y83.8 Other surgical procedures as the cause of abnormal reaction of the patient, or of later complication, without mention of misadventure at the time of the procedure; Z79.899 Other long term (current) drug therapy; Z68.36 Body mass index [BMI] 36.0-36.9, adult; Z82.49 Family history of ischemic heart disease and other diseases of the circulatory system; Z83.3 Family history of diabetes mellitus; Y92.89 Other specified places as the place of occurrence of the external cause
CPT/HCPCS: 36415; 80048; 80053; 80202; 81001; 85014; 85018; 85025; 85027; 86140; 87075; 87116; 93306; G0378; J0330; J0690; J0692; J1100; J1170; J1885; J2250; J2270; J2370; J2405; J2704; J3010; J3370; J7030; J7040; J7120; U0003

== ENCOUNTER 2021-05-21 08:58 | Inpatient (IN) | payer BC ==
--- NOTE | 2021-05-21 09:42 | History and Physical Report ---
History of Present Illness Date: 05/21/21 Date of admission: 05/21/2021 Chief Complaint: Infection of IM nail at left hip History of present illness: 60-year-old female with a previous history of left IM nail with noted drainage and poor wound healing. Patient was admitted for further treatment and underwent explant of a previously placed IM nail. Patient tolerated procedure well. Infectious disease was consulted and placed the patient on IV antibiotics for approximately 6 weeks ending on 06/19. Patient is nonweightbearing at this time on the left lower extremity. Will need to clarify length of time with orthopedics. On examination, patient still has slight drainage at the proximal incision site of the left hip. I have alerted nursing. Patient was seen previously for the original hip fracture. We were initially asked to consider her for acute inpatient rehab however due to the prolonged period of time of nonweightbearing we opted to allow the primary team to pursue nursing home facility. Apparently her insurance does not like the idea of a nursing home facility for her and would prefer for her to undergo acute inpatient rehabilitation. Patient will not likely be able to be independent with mobility until she is able to weight-bear on her left lower extremity and will not be able to go home independently until the antibiotics are complete which is scheduled for 06/19/2021. We will take the patient on and continue to work with her for transfers, wound care, ADLs and mobility in order to improve her ability to transition home once IV antibiotics are complete. After the patient was medically stabilized they were transferred for further rehabilitation. All available medical records have been reviewed. Plan of care was discussed with patient. Past History Past Medical History: other (Depression, PTSD, fibromyalgia, scoliosis, hypotension) Past Surgical History: appendectomy, cholecystectomy, hysterectomy, Other (IM nail left hip, now status post explant, back surgery) Social history: other (Lives alone in a mcc, smoking). denies: alcohol abuse, IV drug use Family history: CAD, cancer, hypertension Medications and Allergies Allergies Allergy/AdvReac Type Severity Reaction Status Date / Time haloperidol [From Haldol] Allergy Seizure Verified 04/26/21 13:02 Home Medications Medication Instructions Recorded Confirmed Last Taken Type Buspirone HCl [busPIRone] 15 mg PO DAILY 04/26/21 04/29/21 04/28/21 09:00 History Citalopram Hydrobromide 40 mg PO DAILY 04/26/21 04/29/21 04/28/21 09:00 History [Citalopram HBr] Citalopram Hydrobromide 40 mg PO DAILY 04/26/21 04/29/21 04/28/21 09:00 History [Citalopram HBr] Cyclobenzaprine [Flexeril] 10 mg PO TID PRN 04/26/21 04/26/21 Unknown History Gabapentin [Neurontin] 300 mg PO TID 04/26/21 04/29/21 04/28/21 17:00 History Hydroxyzine HCl [hydrOXYzine] 50 mg PO QID 04/26/21 04/29/21 04/28/21 21:00 History OLANZapine [Zyprexa] 5 mg PO QHS 04/26/21 04/29/21 04/28/21 21:00 History Trazodone HCl 200 mg PO QHS 04/26/21 04/29/21 04/28/21 21:00 History clonazePAM [KlonoPIN] 2 mg PO QHS 04/26/21 04/29/21 04/28/21 21:00 History Review of Systems All systems: negative (ROS negative for 10 systems except as noted below with pertinent positives and negatives.) Constitutional: fatigue, no fever, no anorexia Ears, nose, mouth and throat: no decreased hearing, no dysphagia Cardiovascular: no chest pain, no palpitations Respiratory: no cough, no shortness of breath Gastrointestinal: no abdominal pain, no nausea, no vomiting, no diarrhea Musculoskeletal: limitation of motion, no shooting arm pain, no shooting leg pain Integumentary: wounds, no pruritis, no redness Neurological: no tingling, no seizures, no tremors Psychiatric: anxiety, sadness/tearfullness, other (PTSD) Exam - Exam Narrative exam: MUSCULOSKELETAL SPECIALTY EXAM CONSTITUTIONAL: Well developed, well nourished, appropriately groomed, obese LYMPHATIC: No appreciable abnormalities palpable in neck RESPIRATORY: Clear to auscultation bilaterally, no increased work of breathing CARDIOVASCULAR: Regular Rate/ Rhythm, no swelling, edema or tenderness in BUE or BLE. Pulses palpable in all extremities. All extremities warm. GI: + bowel sounds, soft, NTTP, nondistended. INTEGUMENTARY: Surgical wounds on left lower extremity, drainage noted at the superior incision. Normal, no lesion, rash, masses or bruising noted in extremities. MUSCULOSKELETAL: BUE and BLE normal without defect, crepitus, subluxation, effusion, arthritic changes or TTP. BUE 4+/5, good ROM, with normal tone. RLE 4-/5 good ROM, with normal tone. Left lower extremity weak with decreased range of motion, 3/5 at best NEURO: CN 2-12 grossly intact. Sensation intact in all extremities. Reflexes 2+ bilaterally at biceps, brachioradialis and right patella. No clonus at ankles. Coordination intact in BUE. No tremor noted in 4 extremities. POSTURE and GAIT: Sitting posture good. Balance and gait deferred until seen with therapy. PSYCH: Alert, oriented x3, affect appears blunted. Insight appears intact. Assessment and Plan Assessment and plan: Patient was assessed and evaluated for Acute Inpatient Rehab Unit. Due to the patients above-mentioned medical complexity, along with decreased functional mobility and self care, this patient continues to require and be appropriate for a comprehensive, multidisciplinary [id number] rehabilitation program. These needs cannot be met in an outpatient or other less intensive setting. The patient would continue to benefit from skilled therapy intervention for at least 3 hours per day, five days a week, with techniques specific to the needs of the patient to improve function, activities of daily living, and reintegration into the community. The patient continues to require: -- OT to improve ROM, self-care, and learn use of adaptive equipment -- PT to improve strength and balance, functional transfers, and ambulation with energy conservation techniques to improve functional mobility -- 24 hour RN to ensure and prevent skin breakdown, promote progressive independence while ensuring safety, ensure education regarding medications, and incorporation of the rehabilitation at the bedside -- 24 hour Drain Layer to coordinate this interdisciplinary program, and to manage/prevent complications as a result of the patients medical comorbidities. -Plan of care by day 4 -Weekly team conferences With such a program, there is a reasonable certainty that the goals individualized for this patient can be achieved within the specified length of stay. Infection of left hip IM nail status post explant: Continue IV antibiotics. Patient is nonweightbearing. Wound care for continued monitoring of wound and appropriate dressing changes. Patient currently has drainage from the superior aspect of the incision. Will discuss with orthopedics (Dr. Coughlin) his timeline for resuming weightbearing. Anemia: Postoperative, continue to monitor for improvement. Transfuse for hemoglobin less than 7. Will check anemia panel next week. PTSD: Combined with aspects of anxiety as well. Patient is on several medications including buspirone, clonazepam, hydroxyzine, Zyprexa. Continue current medications and monitor patient for any further issues. Known issue from patient's previous stay with us. Pain: Postsurgical, fairly well controlled on current medications. Patient does still have IV pain medications in addition to oral pain medications. We will look to wean down IV medications and stop them completely. Will also wean down oral opioids. Monitor and adjust as needed for functional pain control Fibromyalgia: Continue gabapentin and citalopram. Monitor Insomnia: Continue trazodone, monitor for effectiveness. Patient is currently on max dose of effective use of trazodone for insomnia. Hypotension: Continue midodrine and monitor for improvement in blood pressure. ADL dysfunction: OT will work on improving ability to perform ADLs (including assistive devices) to increase independence and decrease caregiver burden and improve functional transfers and mobility training. Difficulty walking: PT will work on gait training and proper use of assistive devices and advance as appropriate to use of stairs and outside ambulation on uneven surfaces. Unsteadiness on feet: PT will work on improving static and dynamic sitting and standing balance as well as proper use of assistive devices to decrease risk of falls. Abnormality of gait: PT will work to improve safety and efficiency of gait through neuromotor training and gait training along with instruction on proper use of assistive devices. Muscle weakness: PT & OT will work on strengthening exercises to improve functional strength including mixture of closed and open kinetic chain exercises. Debility: PT & OT will work on improving overall functional status to improve participation with ADLs, mobility and social involvement. Fatigue: PT & OT will work on improving endurance through aerobic exercises and therapeutic activity while monitoring patients tolerance for activity and vital signs as needed. DVT ppx: Patient not on anticoagulation currently due to anemia. We will reassess and look to restart chemical prophylaxis if able. Continue mechanical prophylaxis Pain: Continue physical modalities in therapy and pain medications as needed to achieve functional pain control. Sleep: Monitor and address as needed. Bowel: Monitor and address as needed. Appetite: Monitor and address as needed. Discharge planning: Pending therapy progress and care plan meeting. Will continue discussion with therapy team, SW, patient and family. Restrictions/ Precautions: Falls, infection, nonweightbearing left lower extremity WB status: Nonweightbearing left lower extremity Functional Hx: ADLs: Independent Cognition: Independent Mobility: RW Barriers to Discharge: Decreased mobility and ability to perform self care, balance deficits, weakness Estimated Length of Stay: 1418 days or longer depending on insurance companies desire for us to keep the patient throughout her needed antibiotics course. Last date for antibiotics is 06/19/2021 Discharge Destination: Home POST ADMISSION PHYSICIAN EVALUATION I have examined the patient and find that functional status, medical condition and appropriateness for IRF admission are essentially unchanged from those described in the preadmission screening. Will monitor for worsening wound infection, pain, antibiotics management, anemia, DVT/PE, bowel and bladder complications and complications due to hypotension and electrolyte abnormalities. Will attempt to avoid occurrence of these issues or treat them if they present themselves.
[2021-05-21] MEDS ORDERED: VANCOMYCIN PHARMACY TO DOSE IV SCH (12:00)
[2021-05-21] MEDS ORDERED: ONDANSETRON 4 MG ODT TAB PO PRN (12:30)
[2021-05-21] MEDS ORDERED: MORPHINE 2 MG/1 ML INJ IV PRN (12:30)
[2021-05-21] MEDS ORDERED: IBUPROFEN 800 MG TAB PO PRN (12:30)
[2021-05-21] MEDS: busPIRone 10 MG TAB PO SCH (12:37)
[2021-05-21] MEDS: CITALOPRAM 20 MG TAB PO SCH (12:38)
[2021-05-21] MEDS: GABAPENTIN 300 MG CAP PO SCH ×3 (12:54→22:11)
[2021-05-21] MEDS: MIDODRINE 2.5 MG TAB PO SCH ×2 (13:00→17:06)
[2021-05-21] MEDS ORDERED: POLYETHYLENE GLYCOL 3350 17 GM POWDER PO PRN (13:00)
[2021-05-21] MEDS ORDERED: ACETAMINOPHEN 325 MG TAB PO PRN (13:00)
[2021-05-21] MEDS ORDERED: ALBUTEROL 2.5 MG/3 ML NEBU IH PRN (13:00)
[2021-05-21] MEDS ORDERED: CEFEPIME/NS 2 GM/100 ML 2 GM/100 ML BAG IV ONE (13:00)
[2021-05-21] MEDS ORDERED: VANCOMYCIN 1,750 MG in SODIUM CHLORIDE 0.9% 500 ML 500 ML IV ONE (13:00)
[2021-05-21] MEDS ORDERED: hydrALAZINE 20 MG/1 ML INJ IV PRN (14:00)
[2021-05-21] MEDS: oxyCODONE /ACETAMINOPHEN 5-325MG TAB PO PRN (17:06)
[2021-05-21] MEDS ORDERED: traZODone 50 MG TAB PO SCH (22:00)
[2021-05-21] MEDS: CEFEPIME/NS 2 GM/100 ML 2 GM/100 ML BAG IV SCH (22:10)
[2021-05-21] MEDS: traZODone 100 MG TAB PO SCH (22:11)
[2021-05-22] MEDS: GABAPENTIN 300 MG CAP PO SCH ×3 (05:44→22:11)
[2021-05-22 07:28] LABS: Basophils % (Auto) 0.9 % (0.0-1.8); Eosinophils # (Auto) 0.5 K/mm3 (0.0-0.4); Eosinophils % (Auto) 9.4 % (0.0-4.3); Hemoglobin 9.6 gm/dl (10.1-14.3); Lymphocytes # (Auto) 1.4 K/mm3 (1.2-5.4); Lymphocytes % (Auto) 27.4 % (13.4-35.0); Mean Corpuscular HGB Conc 32 % (30-34); Mean Corpuscular Volume 85 fl (79-97); Monocytes # (Auto) 0.6 K/mm3 (0.0-0.8); Monocytes % (Auto) 10.9 % (0.0-7.3); Platelet Count 193 K/mm3 (140-440); Red Blood Count 3.55 M/mm3 (3.65-5.03); Red Cell Distribution Width 18.8 % (13.2-15.2)
[2021-05-22 07:42] LABS: Alanine Aminotransferase 8 units/L (7-56); Albumin 3.2 g/dL (3.9-5); BUN/Creatinine Ratio 26; Blood Urea Nitrogen 21 mg/dL (7-17); Calcium 9.5 mg/dL (8.4-10.2); Hemolysis Index 1
[2021-05-22] MEDS: MIDODRINE 2.5 MG TAB PO SCH ×3 (08:29→16:01)
[2021-05-22] MEDS: oxyCODONE /ACETAMINOPHEN 5-325MG TAB PO PRN ×3 (08:31→22:30)
[2021-05-22] MEDS ORDERED: VANCOMYCIN 1,500 MG in SODIUM CHLORIDE 0.9% 500 ML 500 ML IV SCH (10:00)
[2021-05-22] MEDS: CEFEPIME/NS 2 GM/100 ML 2 GM/100 ML BAG IV SCH ×2 (10:05→22:11)
[2021-05-22] MEDS: busPIRone 10 MG TAB PO SCH (10:05)
[2021-05-22] MEDS: VANCOMYCIN 1,250 MG in SODIUM CHLORIDE 0.9% 250ML 250 ML IV SCH (14:05)
--- NOTE | 2021-05-22 20:21 | IRU Plan of Care ---
Interdisciplinary Plan of Care - IP IRU INTERDISC[facility]LIN[facility] PLAN: [facility]hab Unit Plan of Care IRU Interdisciplinary Care Plan Start: 05/21/21 15:13 Freq: Status: Complete Protocol: Document 05/21/21 15:15 LUCIA (Rec: 05/21/21 16:00 LUCIA [id number]) Interdisciplinary Problem List Interdisciplinary Problem List Interdisciplinary Problem List Impaired Bathing/Grooming, Query Text:Answers will Trigger Problems Impaired Dressing,Impaired and Outcomes on Worklist. Mobility,Impaired Transfers, Impaired Problem Solving, Impaired Home Management, Impaired Safety Impaired Strength, Balance, ROM, Activity tolerance, Bed mobility, mobility, gait, MSK Pain IRU Interdisciplinary Care Plan Therapy Services Therapy Services Will Include: Occupational Therapy, Physical Therapy Query Text:Patient will be seen for a minimum of 3 hours of daily therapy 5 out of 7 days a week. Therapy intensity may be adjusted within a 7 consecutive day period to effectively serve the individual needs of the patient. Treatment Frequency/Intensity/Duration Treatment Frequency 5x/wk Treatment Intensity 180 mins/day Treatment Duration 10-14 days Problem Area: Eating/Swallowing Eating/Swallowing Outcomes Eating/Swallowing Interventions Problem Area: Bathing/Grooming Bathing/Grooming Outcomes Improve [place] w/ Grooming,Improve [place] w/ Bathing Bathing/Grooming Interventions ADL Training,Use of Assistive Devices,Therapeutic Exercise, Therapeutic Activity, Neuromuscular Re-Education, Balance Work,Activity Tolerance Work,Patient/ Caregiver Education Problem Area: Dressing Dressing Outcomes Improve [place] w/ UB Dressing,Improve [place] w/ LB Dressing Dressing Interventions ADL Training,Use of Assistive Devices,Neuromuscular Re- Education,Therapeutic Exercise ,Balance Work,Patient/ Caregiver Education Problem Area: Mobility Mobility Outcomes Improve [place] w/ Bed Mobility,Improve [place] w/ Ambulation Mobility Interventions Therapeutic Exercise, Neuromuscular Re-Ed.,Visual/ Perceptual Training,Activity Tolerance Work,Modalities,Use of Assistive Devices,Patient/ Caregiver Education,Bed Mobility Work,Household Mobility Work,W/C Mobility Work Problem Area: Transfers Transfers Outcomes Improve [place] w/ Bed Transfers,Improve [place] w/ Toilet Transfers,Improve [place] w/ Tub/Shower Transfers Transfers Interventions Transfer Training,Therapeutic Exercise,Neuromuscular Re- Education,Visual/Perceptual Training,Activity Tolerance Work,Use of Assistive Devices, Patient/Caregiver Education Problem Area: Bowel/Bladder Managment Bowel/Bladder Outcomes Bowel/Bladder Interventions Problem Area: Toileting Toileting Outcomes Improve [place] w/ Toileting Toileting Interventions ADL Training,Balance Work,Use of Assistive Devices,Patient/ Caregiver Education Problem Area: Nutrition Nutrition Outcomes Nutrition Interventions Problem Area: Comprehension Comprehension Outcomes Comprehension Interventions Problem Area: Expression Expression Outcomes Expression Interventions Problem Area: Problem Solving Problem Solving Outcomes Improve Problem Solving Problem Solving Interventions Cognitive Training,Visual/ Perceptual Training,Safety Education,Patient/Caregiver Education Problem Area: Memory Memory Outcomes Memory Interventions Problem Area: Pain Management Pain Management Outcomes Maintain functional pain control and work to de-escalate pain medications Pain Management Interventions Problem Area: Knowledge Deficits Knowledge Deficits Outcomes Knowledge Deficits Interventions Problem Area: Skin/Tissue Integrity Skin/Tissue Integrity Outcomes Monitor draining wound and keep dressed and clean until healed Skin/Tissue Integrity Interventions Problem Area: Social Interaction Social Interaction Outcomes Social Interaction Interventions Problem Area: Adjustment to Disability Adjustment to Disability Outcomes Adjustment to Disability Interventions Problem Area: Discharge Concerns Discharge Concerns Outcomes Discharge Concerns Interventions Problem Area: Community Reintegration Community Reintegration Outcomes Community Reintegration Interventions Problem Area: Home Management Home Management Outcomes Improve [place] w/ Home Management Home Management Interventions Money Management Tasks,Meal Preparation,Clothing Care, Activity Tolerance Work, Leisure Skills Development, House Cleaning,Patient/ Caregiver Education Problem Area: Safety Safety Outcomes Provide Safe Environment, Perform Selfcare Safely, Demonstrate Good Safety w/ Transfers/Mobility Safety Interventions Identify Fall Risk,[place] Pt. to Environment,Reduce Environmental Hazards,Neuro Check Assessment,Implement Mechanical Devices, i.e. Chair Alarm (Post Fall Update),Re- Educate Patient/Caregiver for Safety (Post Fall Update) Problem Area: Medication Education Medication Education Outcomes Medication Education Interventions Problem Area: Diabetes Education Diabetes Education Outcomes Diabetes Education Interventions Problem Area: Oxygenation Oxygenation Outcomes Oxygenation Interventions Problem Area: Cardiovascular Cardiovascular Outcomes Cardiovascular Interventions Physician Only Medical Prognosis and Rehabilitation Good Medical Prognosis, good rehab potential Potential (Completed by Physician) This plan of care has been developed based on the findings from the pre- admission assessment, post admission physician evaluation, information gathered from the assessments from all therapy disciplines and other pertinent clinicians. The plan of care has been reviewed and discussed in collaboration with the interdisciplinary team. The plan of care will be reviewed and updated at least weekly.
[2021-05-22] MEDS: traZODone 100 MG TAB PO SCH (22:11)
[2021-05-23] MEDS: GABAPENTIN 300 MG CAP PO SCH ×3 (05:42→22:27)
[2021-05-23] MEDS: oxyCODONE /ACETAMINOPHEN 5-325MG TAB PO PRN ×3 (06:04→20:00)
[2021-05-23] MEDS: MIDODRINE 2.5 MG TAB PO SCH ×3 (09:19→17:29)
[2021-05-23] MEDS: busPIRone 10 MG TAB PO SCH (09:19)
[2021-05-23] MEDS: CEFEPIME/NS 2 GM/100 ML 2 GM/100 ML BAG IV SCH ×2 (09:19→21:54)
[2021-05-23] MEDS: CITALOPRAM 20 MG TAB PO SCH (09:20)
[2021-05-23] MEDS: VANCOMYCIN 1,250 MG in SODIUM CHLORIDE 0.9% 250ML 250 ML IV SCH (13:50)
[2021-05-23] MEDS: traZODone 100 MG TAB PO SCH (21:55)
[2021-05-24] MEDS: GABAPENTIN 300 MG CAP PO SCH ×3 (05:39→22:21)
[2021-05-24] MEDS: oxyCODONE /ACETAMINOPHEN 5-325MG TAB PO PRN ×3 (05:40→19:12)
[2021-05-24 08:08] LABS: Hematocrit 31.6 % (30.3-42.9); Hemoglobin 10.4 gm/dl (10.1-14.3); Mean Corpuscular HGB Conc 33 % (30-34); Mean Corpuscular Volume 84 fl (79-97); Platelet Count 185 K/mm3 (140-440); Red Blood Count 3.75 M/mm3 (3.65-5.03); Red Cell Distribution Width 18.9 % (13.2-15.2)
[2021-05-24 08:41] LABS: Blood Urea Nitrogen 19 mg/dL (7-17); Calcium 9.6 mg/dL (8.4-10.2); Hemolysis Index 1
[2021-05-24 08:56] LABS: BUN/Creatinine Ratio 27
[2021-05-24] MEDS: MIDODRINE 2.5 MG TAB PO SCH (08:58)
[2021-05-24] MEDS: CITALOPRAM 20 MG TAB PO SCH (08:58)
[2021-05-24] MEDS: busPIRone 10 MG TAB PO SCH (08:59)
[2021-05-24] MEDS: CEFEPIME/NS 2 GM/100 ML 2 GM/100 ML BAG IV SCH ×2 (09:01→21:15)
[2021-05-24] MEDS: MIDODRINE 5 MG TAB PO SCH ×2 (13:09→17:11)
[2021-05-24] MEDS: VANCOMYCIN 1,250 MG in SODIUM CHLORIDE 0.9% 250ML 250 ML IV SCH (15:16)
[2021-05-24] MEDS: traZODone 100 MG TAB PO SCH (21:16)
[2021-05-25] MEDS: GABAPENTIN 300 MG CAP PO SCH ×3 (07:34→21:15)
[2021-05-25] MEDS: CEFEPIME/NS 2 GM/100 ML 2 GM/100 ML BAG IV SCH ×2 (08:15→21:16)
[2021-05-25] MEDS: oxyCODONE /ACETAMINOPHEN 5-325MG TAB PO PRN ×2 (08:16→18:35)
[2021-05-25] MEDS: MIDODRINE 5 MG TAB PO SCH ×3 (08:16→15:14)
[2021-05-25] MEDS: CITALOPRAM 20 MG TAB PO SCH (08:16)
[2021-05-25] MEDS: busPIRone 10 MG TAB PO SCH (11:46)
[2021-05-25] MEDS: IBUPROFEN 400 MG TAB PO PRN (11:46)
[2021-05-25] MEDS: VANCOMYCIN 1,250 MG in SODIUM CHLORIDE 0.9% 250ML 250 ML IV SCH (14:25)
--- NOTE | 2021-05-25 19:57 | Progress Note ---
Subjective Date of service: 05/25/21 Principal diagnosis: Infection of IM nail at left hip Interval history: 60-year-old female with a previous history of left IM nail with noted drainage and poor wound healing. Patient was admitted for further treatment and underwent explant of a previously placed IM nail. Patient tolerated procedure well. Infectious disease was consulted and placed the patient on IV antibiotics for approximately 6 weeks ending on 06/19. Patient is nonweightbearing at this time on the left lower extremity. Will need to clarify length of time with orthopedics. On examination, patient still has slight drainage at the proximal incision site of the left hip. I have alerted nursing. Patient was seen previously for the original hip fracture. We were initially asked to consider her for acute inpatient rehab however due to the prolonged period of time of nonweightbearing we opted to allow the primary team to pursue group home facility. Apparently her insurance does not like the idea of a group home facility for her and would prefer for her to undergo acute inpatient rehabilitation. Patient will not likely be able to be independent with mobility until she is able to weight-bear on her left lower extremity and will not be able to go home independently until the antibiotics are complete which is scheduled for 06/19/2021. We will take the patient on and continue to work with her for transfers, wound care, ADLs and mobility in order to improve her ability to transition home once IV antibiotics are complete. Interval History: Patient is participating in therapy and making reasonable progress. Taking rest breaks as needed. +BM. Denies palpitations, dyspnea, cough, N/V. Infection of left hip status post explant of IM nail: Continue IV antibiotics. Slight drainage seen from the superior aspect of the incision. Awaiting weightbearing upgrade per Ortho. Anemia: Improved and normalized currently. Continue to monitor and transfuse for hemoglobin less than 7. PTSD: Continue medications. Monitor for any episodes Pain: Patient has been weaned off of IV pain medications and is taking oral medications only currently. Continue to monitor for functional pain control and adjust as needed with the goal of weaning down medications as before. Fibromyalgia: Continue medications and monitor for any worsening symptoms Insomnia: Seems improved on current medications. Continue to monitor and adjust medications as needed. Hypotension: Continue medications, blood pressure within reasonable range currently. All records, vitals, labs and medications were reviewed. No other issues per patient, nursing or therapy. Patient discussed during team conference, making slower progress. We will continue IV antibiotics and monitor for opportunity to escalate weightbearing. Patient still having slight drainage out of wound. In discussion with the patient, she thinks that she will need another place to live at discharge, her current place is not handicap accessible. She is asking about possible group home facility stay which is where we originally suggested that she go. Insurance company did not want to send her to a SNF and instead opted for acute rehab. We will try and figure out a solution as we get closer to discharge. Objective - Exam Narrative Exam: MUSCULOSKELETAL SPECIALTY EXAM CONSTITUTIONAL: Well developed, well nourished, appropriately groomed, obese RESPIRATORY: Clear to auscultation bilaterally, no increased work of breathing CARDIOVASCULAR: Regular Rate/ Rhythm, no swelling, edema or tenderness in BUE or BLE. All extremities warm. GI: + bowel sounds, soft, NTTP, nondistended. INTEGUMENTARY: Surgical wounds on left lower extremity, drainage noted at the superior incision. Normal, no lesion, rash, masses or bruising noted in extremities. MUSCULOSKELETAL: BUE and BLE normal without defect, crepitus, subluxation, effusion, arthritic changes or TTP. BUE 4+/5, good ROM, with normal tone. RLE 4-/5 good ROM, with normal tone. Left lower extremity weak with decreased range of motion, 3/5 at best NEURO: CN 2-12 grossly intact. Sensation intact in all extremities. Coordination intact in BUE. No tremor noted in 4 extremities. POSTURE and GAIT: Sitting posture good. Balance and gait deferred until seen with therapy. PSYCH: Alert, oriented x3, affect appears blunted. Insight appears intact. - Constitutional Vitals: Vital Signs - 12hr 05/25/21 05/25/21 05/25/21 08:16 16:00 18:35 Respiratory 18 18 18 Rate - Allied health notes Allied health notes reviewed: nursing, PT, OT FIMS assessment as documented by PT/OT/ST: Social interaction/Memory/Problem solving Social Interaction FIM Score 6. Mod. [place] (Mostly appropriate. May need meds. No supv.) Memory FIM Score 6. Modified [place](Mild difficulty remembering people/routines.) Problem Solving FIM Score 6. Mod. [place] (Mild difficulty or needs more time w/ complex.) Transfers Mode of Locomotion: Wheelchair Bed/Chair/Wheelchair Transfers 5. Supervision (Needs supv. or set-up for FIM Score sliding board, foot rests.) Locomotion- walk/wheelchair Ambulation Distance 4 Dressing-lower body Lower Body Dressing Device Superintendent Local/Stick Patient retrieves clothing No items: Patient applies/removes LE No: n/a prosthesis or orthosis: Lower Body Dressing FIM Score 3. Moderate Assistance (Patient = 50% or more) - Labs CBC & Chem 7: 05/24/21 07:30 05/24/21 07:30 Labs: Laboratory Results - last 72 hr 05/24/21 05/24/21 07:30 07:30 WBC 5.1 RBC 3.75 Hgb 10.4 Hct 31.6 MCV 84 MCH 28 MCHC 33 RDW 18.9 H Plt Count 185 Sodium 139 Potassium 4.3 Chloride 101.4 Carbon Dioxide 30 Anion Gap 12 BUN 19 H Creatinine 0.7 Estimated GFR > 60 BUN/Creatinine Ratio 27 Glucose 80 Calcium 9.6 Assessment and Plan Infection of left hip IM nail status post explant: Continue IV antibiotics. Patient is nonweightbearing. Wound care for continued monitoring of wound and appropriate dressing changes. Patient currently has drainage from the superior aspect of the incision. Will discuss with orthopedics (Dr. Coughlin) his timeline for resuming weightbearing. Anemia: Postoperative, continue to monitor for improvement. Transfuse for hemoglobin less than 7. Will check anemia panel next week. PTSD: Combined with aspects of anxiety as well. Patient is on several medications including buspirone, clonazepam, hydroxyzine, Zyprexa. Continue current medications and monitor patient for any further issues. Known issue from patient's previous stay with us. Pain: Postsurgical, fairly well controlled on current medications. Patient does still have IV pain medications in addition to oral pain medications. We will look to wean down IV medications and stop them completely. Will also wean down oral opioids. Monitor and adjust as needed for functional pain control Fibromyalgia: Continue gabapentin and citalopram. Monitor Insomnia: Continue trazodone, monitor for effectiveness. Patient is currently on max dose of effective use of trazodone for insomnia. Hypotension: Continue midodrine and monitor for improvement in blood pressure. ADL dysfunction: OT will work on improving ability to perform ADLs (including assistive devices) to increase independence and decrease caregiver burden and improve functional transfers and mobility training. Difficulty walking: PT will work on gait training and proper use of assistive devices and advance as appropriate to use of stairs and outside ambulation on uneven surfaces. Unsteadiness on feet: PT will work on improving static and dynamic sitting and standing balance as well as proper use of assistive devices to decrease risk of falls. Abnormality of gait: PT will work to improve safety and efficiency of gait through neuromotor training and gait training along with instruction on proper use of assistive devices. Muscle weakness: PT & OT will work on strengthening exercises to improve functional strength including mixture of closed and open kinetic chain exercises. Debility: PT & OT will work on improving overall functional status to improve participation with ADLs, mobility and social involvement. Fatigue: PT & OT will work on improving endurance through aerobic exercises and therapeutic activity while monitoring patients tolerance for activity and vital signs as needed. DVT ppx: Patient not on anticoagulation currently due to anemia. We will reassess and look to restart chemical prophylaxis if able. Continue mechanical prophylaxis Pain: Continue physical modalities in therapy and pain medications as needed to achieve functional pain control. Sleep: Monitor and address as needed. Bowel: Monitor and address as needed. Appetite: Monitor and address as needed. Discharge planning: Pending therapy progress and care plan meeting. Will continue discussion with therapy team, SW, patient and family. Restrictions/ Precautions: Falls, infection, nonweightbearing left lower extremity WB status: Nonweightbearing left lower extremity Functional Hx: ADLs: Independent Cognition: Independent Mobility: RW Barriers to Discharge: Decreased mobility and ability to perform self care, balance deficits, weakness Estimated Length of Stay: 1418 days or longer depending on insurance companies desire for us to keep the patient throughout her needed antibiotics course. Last date for antibiotics is 06/19/2021 Discharge Destination: Home
[2021-05-25] MEDS: CYCLOBENZAPRINE 10 MG TAB PO PRN (21:15)
[2021-05-25] MEDS: traZODone 100 MG TAB PO SCH (21:15)
[2021-05-26] MEDS: GABAPENTIN 300 MG CAP PO SCH ×3 (06:39→21:58)
--- NOTE | 2021-05-26 07:27 | Progress Note ---
Subjective Date of service: 05/26/21 Principal diagnosis: Infection of IM nail at left hip Interval history: 60-year-old female with a previous history of left IM nail with noted drainage and poor wound healing. Patient was admitted for further treatment and underwent explant of a previously placed IM nail. Patient tolerated procedure well. Infectious disease was consulted and placed the patient on IV antibiotics for approximately 6 weeks ending on 06/19. Patient is nonweightbearing at this time on the left lower extremity. Will need to clarify length of time with orthopedics. On examination, patient still has slight drainage at the proximal incision site of the left hip. I have alerted nursing. Patient was seen previously for the original hip fracture. We were initially asked to consider her for acute inpatient rehab however due to the prolonged period of time of nonweightbearing we opted to allow the primary team to pursue retirement facility. Apparently her insurance does not like the idea of a retirement facility for her and would prefer for her to undergo acute inpatient rehabilitation. Patient will not likely be able to be independent with mobility until she is able to weight-bear on her left lower extremity and will not be able to go home independently until the antibiotics are complete which is scheduled for 06/19/2021. We will take the patient on and continue to work with her for transfers, wound care, ADLs and mobility in order to improve her ability to transition home once IV antibiotics are complete. Interval History: Patient is participating in therapy and making reasonable progress. Taking rest breaks as needed. +BM. Denies palpitations, dyspnea, cough, N/V. Infection of left hip status post explant of IM nail: Continue IV antibiotics. Slight drainage seen from the superior aspect of the incision. Awaiting weightbearing upgrade per Ortho. Anemia: Improved and normalized currently. Continue to monitor and transfuse for hemoglobin less than 7. PTSD: Continue medications. Monitor for any episodes Pain: Continue to monitor for functional pain control and adjust as needed with the goal of weaning down medications. Fibromyalgia: Continue medications and monitor for any worsening symptoms Insomnia: Seems improved on current medications. Continue to monitor and adjust medications as needed. Hypotension: Continue medications, blood pressure within reasonable range currently. All records, vitals, labs and medications were reviewed. No other issues per patient, nursing or therapy. Objective - Exam Narrative Exam: MUSCULOSKELETAL SPECIALTY EXAM CONSTITUTIONAL: Well developed, well nourished, appropriately groomed, obese RESPIRATORY: Clear to auscultation bilaterally, no increased work of breathing CARDIOVASCULAR: Regular Rate/ Rhythm, no swelling, edema or tenderness in BUE or BLE. All extremities warm. GI: + bowel sounds, soft, NTTP, nondistended. INTEGUMENTARY: Surgical wounds on left lower extremity, drainage noted at the superior incision. Normal, no lesion, rash, masses or bruising noted in extremities. MUSCULOSKELETAL: BUE and BLE normal without defect, crepitus, subluxation, effusion, arthritic changes or TTP. BUE 4+/5, good ROM, with normal tone. RLE 4-/5 good ROM, with normal tone. Left lower extremity weak with decreased range of motion, 3/5 at best NEURO: CN 2-12 grossly intact. Sensation intact in all extremities. Coordination intact in BUE. No tremor noted in 4 extremities. POSTURE and GAIT: Sitting posture good. PSYCH: Alert, oriented x3, affect appears blunted. Insight appears intact. - Constitutional Vitals: Vital Signs - 12hr 05/25/21 19:41 Temperature 97.6 F Pulse Rate 68 Respiratory 18 Rate Blood Pressure 126/50 O2 Sat by Pulse 95 Oximetry - Allied health notes Allied health notes reviewed: nursing, PT, OT FIMS assessment as documented by PT/OT/ST: Social interaction/Memory/Problem solving Social Interaction FIM Score 6. Mod. [place] (Mostly appropriate. May need meds. No supv.) Memory FIM Score 6. Modified [place](Mild difficulty remembering people/routines.) Problem Solving FIM Score 6. Mod. [place] (Mild difficulty or needs more time w/ complex.) Transfers Mode of Locomotion: Wheelchair Bed/Chair/Wheelchair Transfers 5. Supervision (Needs supv. or set-up for FIM Score sliding board, foot rests.) Locomotion- walk/wheelchair Ambulation Distance 4 Dressing-lower body Lower Body Dressing Device Business Operations Director/Stick Patient retrieves clothing No items: Patient applies/removes LE No: n/a prosthesis or orthosis: Lower Body Dressing FIM Score 3. Moderate Assistance (Patient = 50% or more) - Labs CBC & Chem 7: 05/24/21 07:30 05/24/21 07:30 Labs: Laboratory Results - last 72 hr 05/24/21 05/24/21 07:30 07:30 WBC 5.1 RBC 3.75 Hgb 10.4 Hct 31.6 MCV 84 MCH 28 MCHC 33 RDW 18.9 H Plt Count 185 Sodium 139 Potassium 4.3 Chloride 101.4 Carbon Dioxide 30 Anion Gap 12 BUN 19 H Creatinine 0.7 Estimated GFR > 60 BUN/Creatinine Ratio 27 Glucose 80 Calcium 9.6 Assessment and Plan Infection of left hip IM nail status post explant: Continue IV antibiotics. Patient is nonweightbearing. Wound care for continued monitoring of wound and appropriate dressing changes. Patient currently has drainage from the superior aspect of the incision. Will discuss with orthopedics (Dr. Coughlin) his timeline for resuming weightbearing. Anemia: Postoperative, continue to monitor for improvement. Transfuse for he moglobin less than 7. Will check anemia panel next week. PTSD: Combined with aspects of anxiety as well. Patient is on several medications including buspirone, clonazepam, hydroxyzine, Zyprexa. Continue current medications and monitor patient for any further issues. Known issue from patient's previous stay with us. Pain: Postsurgical, fairly well controlled on current medications. Patient does still have IV pain medications in addition to oral pain medications. We will look to wean down IV medications and stop them completely. Will also wean down oral opioids. Monitor and adjust as needed for functional pain control Fibromyalgia: Continue gabapentin and citalopram. Monitor Insomnia: Continue trazodone, monitor for effectiveness. Patient is currently on max dose of effective use of trazodone for insomnia. Hypotension: Continue midodrine and monitor for improvement in blood pressure. ADL dysfunction: OT will work on improving ability to perform ADLs (including assistive devices) to increase independence and decrease caregiver burden and improve functional transfers and mobility training. Difficulty walking: PT will work on gait training and proper use of assistive de vices and advance as appropriate to use of stairs and outside ambulation on uneven surfaces. Unsteadiness on feet: PT will work on improving static and dynamic sitting and standing balance as well as proper use of assistive devices to decrease risk of falls. Abnormality of gait: PT will work to improve safety and efficiency of gait through neuromotor training and gait training along with instruction on proper use of assistive devices. Muscle weakness: PT & OT will work on strengthening exercises to improve functional strength including mixture of closed and open kinetic chain exercises. Debility: PT & OT will work on improving overall functional status to improve participation with ADLs, mobility and social involvement. Fatigue: PT & OT will work on improving endurance through aerobic exercises and therapeutic activity while monitoring patients tolerance for activity and vital signs as needed. DVT ppx: Patient not on anticoagulation currently due to anemia. We will reassess and look to restart chemical prophylaxis if able. Continue mechanical prophylaxis Pain: Continue physical modalities in therapy and pain medications as needed to achieve functional pain control. Sleep: Monitor and address as needed. Bowel: Monitor and address as needed. Appetite: Monitor and address as needed. Discharge planning: Pending therapy progress and care plan meeting. Will continue discussion with therapy team, SW, patient and family. Restrictions/ Precautions: Falls, infection, nonweightbearing left lower extremity WB status: Nonweightbearing left lower extremity Functional Hx: ADLs: Independent Cognition: Independent Mobility: RW Barriers to Discharge: Decreased mobility and ability to perform self care, balance deficits, weakness Estimated Length of Stay: 1418 days or longer depending on insurance companies desire for us to keep the patient throughout her needed antibiotics course. Last date for antibiotics is 06/19/2021 Discharge Destination: Home
[2021-05-26] MEDS: oxyCODONE /ACETAMINOPHEN 5-325MG TAB PO PRN ×2 (10:23→18:08)
[2021-05-26] MEDS: CITALOPRAM 20 MG TAB PO SCH (10:23)
[2021-05-26] MEDS: CEFEPIME/NS 2 GM/100 ML 2 GM/100 ML BAG IV SCH ×2 (10:23→21:58)
[2021-05-26] MEDS: busPIRone 10 MG TAB PO SCH (10:23)
[2021-05-26] MEDS: MIDODRINE 5 MG TAB PO SCH ×3 (10:23→18:08)
[2021-05-26] MEDS: VANCOMYCIN 1,250 MG in SODIUM CHLORIDE 0.9% 250ML 250 ML IV SCH (15:06)
[2021-05-26] MEDS: IBUPROFEN 400 MG TAB PO PRN (15:15)
[2021-05-26] MEDS: traZODone 100 MG TAB PO SCH (21:58)
[2021-05-27] MEDS: oxyCODONE /ACETAMINOPHEN 5-325MG TAB PO PRN ×3 (04:27→19:35)
[2021-05-27] MEDS: GABAPENTIN 300 MG CAP PO SCH ×3 (06:41→22:02)
[2021-05-27] MEDS: CITALOPRAM 20 MG TAB PO SCH (09:12)
[2021-05-27] MEDS: MIDODRINE 5 MG TAB PO SCH ×3 (09:12→18:45)
[2021-05-27] MEDS: busPIRone 10 MG TAB PO SCH (09:12)
[2021-05-27] MEDS: CEFEPIME/NS 2 GM/100 ML 2 GM/100 ML BAG IV SCH ×2 (09:12→22:08)
--- NOTE | 2021-05-27 09:40 | Progress Note ---
Subjective Date of service: 05/27/21 Principal diagnosis: Infection of IM nail at left hip Interval history: 60-year-old female with a previous history of left IM nail with noted drainage and poor wound healing. Patient was admitted for further treatment and underwent explant of a previously placed IM nail. Patient tolerated procedure well. Infectious disease was consulted and placed the patient on IV antibiotics for approximately 6 weeks ending on 06/19. Patient is nonweightbearing at this time on the left lower extremity. Will need to clarify length of time with orthopedics. On examination, patient still has slight drainage at the proximal incision site of the left hip. I have alerted nursing. Patient was seen previously for the original hip fracture. We were initially asked to consider her for acute inpatient rehab however due to the prolonged period of time of nonweightbearing we opted to allow the primary team to pursue [facility] facility. Apparently her insurance does not like the idea of a [facility] facility for her and would prefer for her to undergo acute inpatient rehabilitation. Patient will not likely be able to be independent with mobility until she is able to weight-bear on her left lower extremity and will not be able to go home independently until the antibiotics are complete which is scheduled for 06/19/2021. We will take the patient on and continue to work with her for transfers, wound care, ADLs and mobility in order to improve her ability to transition home once IV antibiotics are complete. Interval History: Patient is participating in therapy and making reasonable progress. Taking rest breaks as needed. +BM. Denies palpitations, dyspnea, cough, N/V. Patient discussed that she will need alternative arrangements more than likely because the personal long term that she lives and does not necessarily handicap accessible. Will discuss with therapy/social work team. Infection of left hip status post explant of IM nail: Continue IV antibiotics. Slight drainage seen from the superior aspect of the incision. Awaiting weightbearing upgrade per Ortho. Anemia: Improved and normalized currently. Continue to monitor and transfuse for hemoglobin less than 7. PTSD: Continue medications. Monitor for any episodes Pain: Continue to monitor for functional pain control and adjust as needed with the goal of weaning down medications. Morphine discontinued Fibromyalgia: Continue medications and monitor for any worsening symptoms Insomnia: Seems improved on current medications. Continue to monitor and adjust medications as needed. Hypotension: Continue medications, blood pressure within reasonable range cur rently. All records, vitals, labs and medications were reviewed. No other issues per patient, nursing or therapy. Objective - Exam Narrative Exam: MUSCULOSKELETAL SPECIALTY EXAM CONSTITUTIONAL: Well developed, well nourished, appropriately groomed, obese RESPIRATORY: Clear to auscultation bilaterally, no increased work of breathing CARDIOVASCULAR: Regular Rate/ Rhythm, no swelling, edema or tenderness in BUE or BLE. All extremities warm. GI: + bowel sounds, soft, NTTP, nondistended. INTEGUMENTARY: Surgical wounds on left lower extremity, decreased drainage noted at the superior incision. Normal, no lesion, rash, masses or bruising noted in extremities. MUSCULOSKELETAL: BUE and BLE normal without defect, crepitus, subluxation, effusion, arthritic changes or TTP. BUE 4+/5, good ROM, with normal tone. RLE 4-/5 good ROM, with normal tone. Left lower extremity weak with decreased range of motion, 4-/5 NEURO: CN 2-12 grossly intact. Sensation intact in all extremities. Coordination intact in BUE. No tremor noted in 4 extremities. POSTURE and GAIT: Sitting posture good. PSYCH: Alert, oriented x3, affect appears blunted. Insight appears intact. - Constitutional Vitals: Vital Signs - 12hr 05/27/21 05/27/21 06:08 08:00 Temperature 97.9 F 98.6 F Pulse Rate 67 61 Respiratory 18 18 Rate Blood Pressure 140/69 113/62 O2 Sat by Pulse 96 94 Oximetry - Allied health notes Allied health notes reviewed: nursing, PT, OT FIMS assessment as documented by PT/OT/ST: Social interaction/Memory/Problem solving Social Interaction FIM Score 6. Mod. [place] (Mostly appropriate. May need meds. No supv.) Memory FIM Score 6. Modified [place](Mild difficulty remembering people/routines.) Problem Solving FIM Score 6. Mod. [place] (Mild difficulty or needs more time w/ complex.) Transfers Mode of Locomotion: Wheelchair Bed/Chair/Wheelchair Transfers 5. Supervision (Needs supv. or set-up for FIM Score sliding board, foot rests.) Locomotion- walk/wheelchair Ambulation Distance 4 Dressing-lower body Lower Body Dressing Device Academic Affairs Specialist/Stick Patient retrieves clothing No items: Patient applies/removes LE No: n/a prosthesis or orthosis: Lower Body Dressing FIM Score 3. Moderate Assistance (Patient = 50% or more) - Labs CBC & Chem 7: 05/24/21 07:30 05/24/21 07:30 Assessment and Plan Infection of left hip IM nail status post explant: Continue IV antibiotics. Patient is nonweightbearing. Wound care for continued monitoring of wound and appropriate dressing changes. Patient currently has drainage from the superior aspect of the incision. Will discuss with orthopedics (Dr. Coughlin) his timeline for resuming weightbearing. Anemia: Postoperative, continue to monitor for improvement. Transfuse for hemoglobin less than 7. Will check anemia panel next week. PTSD: Combined with aspects of anxiety as well. Patient is on several medications including buspirone, clonazepam, hydroxyzine, Zyprexa. Continue current medications and monitor patient for any further issues. Known issue from patient's previous stay with us. Pain: Postsurgical, fairly well controlled on current medications. IV morphine discontinued, patient. Will wean down oral opioids. Monitor and adjust as needed for functional pain control Fibromyalgia: Continue gabapentin and citalopram. Monitor Insomnia: Continue trazodone, monitor for effectiveness. Patient is currently on max dose of effective use of trazodone for insomnia. Hypotension: Continue midodrine and monitor for improvement in blood pressure. ADL dysfunction: OT will work on improving ability to perform ADLs (including assistive devices) to increase independence and decrease caregiver burden and improve functional transfers and mobility training. Difficulty walking: PT will work on gait training and proper use of assistive devices and advance as appropriate to use of stairs and outside ambulation on uneven surfaces. Unsteadiness on feet: PT will work on improving static and dynamic sitting and standing balance as well as proper use of assistive devices to decrease risk of falls. Abnormality of gait: PT will work to improve safety and efficiency of gait through neuromotor training and gait training along with instruction on proper use of assistive devices. Muscle weakness: PT & OT will work on strengthening exercises to improve functional strength including mixture of closed and open kinetic chain exercises. Debility: PT & OT will work on improving overall functional status to improve participation with ADLs, mobility and social involvement. Fatigue: PT & OT will work on improving endurance through aerobic exercises and therapeutic activity while monitoring patients tolerance for activity and vital signs as needed. DVT ppx: Patient not on anticoagulation currently due to anemia. We will reassess and look to restart chemical prophylaxis if able. Continue mechanical prophylaxis Pain: Continue physical modalities in therapy and pain medications as needed to achieve functional pain control. Sleep: Monitor and address as needed. Bowel: Monitor and address as needed. Appetite: Monitor and address as needed. Discharge planning: Pending therapy progress and care plan meeting. Will continue discussion with therapy team, SW, patient and family. Restrictions/ Precautions: Falls, infection, nonweightbearing left lower extremity WB status: Nonweightbearing left lower extremity Functional Hx: ADLs: Independent Cognition: Independent Mobility: RW Barriers to Discharge: Decreased mobility and ability to perform self care, balance deficits, weakness Estimated Length of Stay: 1418 days or longer depending on insurance companies desire for us to keep the patient throughout her needed antibiotics course. Last date for antibiotics is 06/19/2021 Discharge Destination: Home
[2021-05-27] MEDS: VANCOMYCIN 1,250 MG in SODIUM CHLORIDE 0.9% 250ML 250 ML IV SCH (15:44)
[2021-05-27] MEDS: traZODone 100 MG TAB PO SCH (22:02)
[2021-05-28] MEDS: GABAPENTIN 300 MG CAP PO SCH ×3 (05:35→21:45)
[2021-05-28] MEDS: MIDODRINE 5 MG TAB PO SCH ×3 (08:47→16:27)
--- NOTE | 2021-05-28 08:57 | Progress Note ---
Subjective Date of service: 05/28/21 Principal diagnosis: Infection of IM nail at left hip Interval history: 60-year-old female with a previous history of left IM nail with noted drainage and poor wound healing. Patient was admitted for further treatment and underwent explant of a previously placed IM nail. Patient tolerated procedure well. Infectious disease was consulted and placed the patient on IV antibiotics for approximately 6 weeks ending on 06/19. Patient is nonweightbearing at this time on the left lower extremity. Will need to clarify length of time with orthopedics. On examination, patient still has slight drainage at the proximal incision site of the left hip. I have alerted nursing. Patient was seen previously for the original hip fracture. We were initially asked to consider her for acute inpatient rehab however due to the prolonged period of time of nonweightbearing we opted to allow the primary team to pursue [facility] facility. Apparently her insurance does not like the idea of a [facility] facility for her and would prefer for her to undergo acute inpatient rehabilitation. Patient will not likely be able to be independent with mobility until she is able to weight-bear on her left lower extremity and will not be able to go home independently until the antibiotics are complete which is scheduled for 06/19/2021. We will take the patient on and continue to work with her for transfers, wound care, ADLs and mobility in order to improve her ability to transition home once IV antibiotics are complete. Interval History: Patient is participating in therapy and making reasonable progress. Taking rest breaks as needed. +BM. Denies palpitations, dyspnea, cough, N/V. Patient discussed that she will need alternative arrangements more than likely because the personal retirement that she lives and does not necessarily handicap accessible. Will discuss with therapy/social work team. No acute events overnight, tolerating therapy Infection of left hip status post explant of IM nail: Continue IV antibiotics. Decreased drainage seen from the superior aspect of the incision. Awaiting weightbearing upgrade per Ortho. Anemia: Improved and normalized currently. Continue to monitor and transfuse for hemoglobin less than 7. PTSD: Continue medications. Monitor for any episodes Pain: Continue to monitor for functional pain control and adjust as needed with the goal of weaning down medications. Morphine discontinued Fibromyalgia: Continue medications and monitor for any worsening symptoms Insomnia: Seems improved on current medications. Continue to monitor and adjust medications as needed. Hypotension: Continue medications, blood pressure within reasonable range currently. All records, vitals, labs and medications were reviewed. No other issues per patient, nursing or therapy. Objective - Exam Narrative Exam: MUSCULOSKELETAL SPECIALTY EXAM CONSTITUTIONAL: Well developed, well nourished, appropriately groomed, obese RESPIRATORY: Clear to auscultation bilaterally, no increased work of breathing CARDIOVASCULAR: Regular Rate/ Rhythm, no swelling, edema or tenderness in BUE or BLE. All extremities warm. GI: + bowel sounds, soft, NTTP, nondistended. INTEGUMENTARY: Surgical wounds on left lower extremity, decreased drainage noted at the superior incision. Normal, no lesion, rash, masses or bruising noted in extremities. MUSCULOSKELETAL: BUE and BLE normal without defect, crepitus, subluxation, effusion, arthritic changes or TTP. BUE 4+/5, good ROM, with normal tone. RLE 4-/5 good ROM, with normal tone. Left lower extremity weak with decreased range of motion, 4-/5 NEURO: CN 2-12 grossly intact. Sensation intact in all extremities. Coordination intact in BUE. No tremor noted in 4 extremities. POSTURE and GAIT: Sitting posture good. PSYCH: Alert, oriented x3, affect appears blunted. Insight appears intact. - Constitutional Vitals: Vital Signs - 12hr 05/27/21 05/28/21 05/28/21 22:00 05:27 07:52 Temperature 97.8 F 98.0 F Pulse Rate 57 L 56 L Respiratory 18 18 Rate Respiratory 17 Rate [Left Hip] Blood Pressure 129/51 169/67 O2 Sat by Pulse 94 96 Oximetry 05/28/21 08:09 Temperature Pulse Rate 61 Respiratory Rate Respiratory Rate [Left Hip] Blood Pressure 133/52 O2 Sat by Pulse 95 Oximetry - Allied health notes Allied health notes reviewed: nursing, PT, OT FIMS assessment as documented by PT/OT/ST: Social interaction/Memory/Problem solving Social Interaction FIM Score 6. Mod. [place] (Mostly appropriate. May need meds. No supv.) Memory FIM Score 6. Modified [place](Mild difficulty remembering people/routines.) Problem Solving FIM Score 6. Mod. [place] (Mild difficulty or needs more time w/ complex.) Transfers Mode of Locomotion: Wheelchair Bed/Chair/Wheelchair Transfers 4. Minimal Assistance (Patient = 75% or more. FIM Score Needs touching.) Locomotion- walk/wheelchair Ambulation Distance 4 Dressing-lower body Lower Body Dressing Device Applications Systems Engineer/Stick Patient retrieves clothing No items: Patient applies/removes LE No: n/a prosthesis or orthosis: Lower Body Dressing FIM Score 3. Moderate Assistance (Patient = 50% or more) - Labs CBC & Chem 7: 05/24/21 07:30 05/24/21 07:30 Labs: Laboratory Results - last 72 hr 05/27/21 15:16 Vancomycin Trough 13.3 Assessment and Plan Infection of left hip IM nail status post explant: Continue IV antibiotics. Patient is nonweightbearing. Wound care for continued monitoring of wound and appropriate dressing changes. Patient currently has drainage from the superior aspect of the incision. Will discuss with orthopedics (Dr. Coughlin) his timeline for resuming weightbearing. Anemia: Postoperative, continue to monitor for improvement. Transfuse for hemoglobin less than 7. Will check anemia panel next week. PTSD: Combined with aspects of anxiety as well. Patient is on several medications including buspirone, clonazepam, hydroxyzine, Zyprexa. Continue current medications and monitor patient for any further issues. Known issue from patient's previous stay with us. Pain: Postsurgical, fairly well controlled on current medications. IV morphine discontinued, patient. Will wean down oral opioids. Monitor and adjust as needed for functional pain control Fibromyalgia: Continue gabapentin and citalopram. Monitor Insomnia: Continue trazodone, monitor for effectiveness. Patient is currently on max dose of effective use of trazodone for insomnia. Hypotension: Continue midodrine and monitor for improvement in blood pressure. ADL dysfunction: OT will work on improving ability to perform ADLs (including assistive devices) to increase independence and decrease caregiver burden and improve functional transfers and mobility training. Difficulty walking: PT will work on gait training and proper use of assistive devices and advance as appropriate to use of stairs and outside ambulation on uneven surfaces. Unsteadiness on feet: PT will work on improving static and dynamic sitting and s tanding balance as well as proper use of assistive devices to decrease risk of falls. Abnormality of gait: PT will work to improve safety and efficiency of gait through neuromotor training and gait training along with instruction on proper use of assistive devices. Muscle weakness: PT & OT will work on strengthening exercises to improve functional strength including mixture of closed and open kinetic chain exercises. Debility: PT & OT will work on improving overall functional status to improve participation with ADLs, mobility and social involvement. Fatigue: PT & OT will work on improving endurance through aerobic exercises and therapeutic activity while monitoring patients tolerance for activity and vital signs as needed. DVT ppx: Patient not on anticoagulation currently due to anemia. We will reassess and look to restart chemical prophylaxis if able. Continue mechanical prophylaxis Pain: Continue physical modalities in therapy and pain medications as needed to achieve functional pain control. Sleep: Monitor and address as needed. Bowel: Monitor and address as needed. Appetite: Monitor and address as needed. Discharge planning: Pending therapy progress and care plan meeting. Will continue discussion with therapy team, SW, patient and family. Restrictions/ Precautions: Falls, infection, nonweightbearing left lower extremity WB status: Nonweightbearing left lower extremity Functional Hx: ADLs: Independent Cognition: Independent Mobility: RW Barriers to Discharge: Decreased mobility and ability to perform self care, balance deficits, weakness Estimated Length of Stay: 1418 days or longer depending on insurance companies desire for us to keep the patient throughout her needed antibiotics course. Last date for antibiotics is 06/19/2021 Discharge Destination: Home
[2021-05-28] MEDS: busPIRone 10 MG TAB PO SCH (09:11)
[2021-05-28] MEDS: CITALOPRAM 20 MG TAB PO SCH (09:11)
[2021-05-28] MEDS: CEFEPIME/NS 2 GM/100 ML 2 GM/100 ML BAG IV SCH ×2 (09:11→21:45)
[2021-05-28] MEDS: oxyCODONE /ACETAMINOPHEN 5-325MG TAB PO PRN ×3 (09:11→21:44)
[2021-05-28 14:17] LABS: Hematocrit 32.3 % (30.3-42.9); Hemoglobin 10.4 gm/dl (10.1-14.3); Mean Corpuscular HGB Conc 32 % (30-34); Mean Corpuscular Volume 86 fl (79-97); Platelet Count 150 K/mm3 (140-440); Red Blood Count 3.78 M/mm3 (3.65-5.03); Red Cell Distribution Width 19.2 % (13.2-15.2)
[2021-05-28 14:43] LABS: BUN/Creatinine Ratio 19; Blood Urea Nitrogen 15 mg/dL (7-17); Calcium 9.1 mg/dL (8.4-10.2); Hemolysis Index 2
[2021-05-28] MEDS: VANCOMYCIN 1,250 MG in SODIUM CHLORIDE 0.9% 250ML 250 ML IV SCH (16:11)
[2021-05-28] MEDS: traZODone 100 MG TAB PO SCH (21:45)
[2021-05-29] MEDS: GABAPENTIN 300 MG CAP PO SCH ×3 (05:34→22:22)
[2021-05-29] MEDS ORDERED: ENOXAPARIN 30 MG/0.3 ML INJ SUB-Q SCH (08:00)
[2021-05-29] MEDS: CITALOPRAM 20 MG TAB PO SCH (08:59)
[2021-05-29] MEDS: ENOXAPARIN 40 MG/0.4 ML INJ SUB-Q SCH (08:59)
[2021-05-29] MEDS: CEFEPIME/NS 2 GM/100 ML 2 GM/100 ML BAG IV SCH ×2 (09:00→22:26)
[2021-05-29] MEDS: busPIRone 10 MG TAB PO SCH (09:00)
[2021-05-29] MEDS: MIDODRINE 5 MG TAB PO SCH ×3 (09:01→17:02)
[2021-05-29] MEDS: oxyCODONE /ACETAMINOPHEN 5-325MG TAB PO PRN ×3 (09:56→22:21)
[2021-05-29] MEDS: VANCOMYCIN 1,250 MG in SODIUM CHLORIDE 0.9% 250ML 250 ML IV SCH (14:27)
[2021-05-29] MEDS: traZODone 100 MG TAB PO SCH (22:21)
[2021-05-30] MEDS: GABAPENTIN 300 MG CAP PO SCH ×3 (05:43→22:37)
[2021-05-30] MEDS: ENOXAPARIN 40 MG/0.4 ML INJ SUB-Q SCH (09:29)
[2021-05-30] MEDS: CEFEPIME/NS 2 GM/100 ML 2 GM/100 ML BAG IV SCH ×2 (09:29→21:20)
[2021-05-30] MEDS: MIDODRINE 5 MG TAB PO SCH ×3 (09:30→16:20)
[2021-05-30] MEDS: CITALOPRAM 20 MG TAB PO SCH (09:30)
[2021-05-30] MEDS: busPIRone 10 MG TAB PO SCH (09:30)
[2021-05-30] MEDS: oxyCODONE /ACETAMINOPHEN 5-325MG TAB PO PRN ×2 (12:33→19:57)
[2021-05-30] MEDS: VANCOMYCIN 1,250 MG in SODIUM CHLORIDE 0.9% 250ML 250 ML IV SCH (14:17)
[2021-05-30] MEDS: traZODone 100 MG TAB PO SCH (21:20)
[2021-05-31] MEDS: oxyCODONE /ACETAMINOPHEN 5-325MG TAB PO PRN ×3 (03:59→23:46)
[2021-05-31] MEDS: GABAPENTIN 300 MG CAP PO SCH ×3 (06:15→21:08)
[2021-05-31 08:23] LABS: Hematocrit 33.2 % (30.3-42.9); Hemoglobin 10.7 gm/dl (10.1-14.3); Mean Corpuscular HGB Conc 32 % (30-34); Mean Corpuscular Volume 86 fl (79-97); Platelet Count 150 K/mm3 (140-440); Red Blood Count 3.86 M/mm3 (3.65-5.03); Red Cell Distribution Width 19.5 % (13.2-15.2)
[2021-05-31 08:57] LABS: Blood Urea Nitrogen 17 mg/dL (7-17); Calcium 9.2 mg/dL (8.4-10.2); Hemolysis Index 2
[2021-05-31 08:58] LABS: BUN/Creatinine Ratio 28
--- NOTE | 2021-05-31 08:59 | Progress Note ---
Subjective Date of service: 05/31/21 Principal diagnosis: Infection of IM nail at left hip Interval history: 60-year-old female with a previous history of left IM nail with noted drainage and poor wound healing. Patient was admitted for further treatment and underwent explant of a previously placed IM nail. Patient tolerated procedure well. Infectious disease was consulted and placed the patient on IV antibiotics for approximately 6 weeks ending on 06/19. Patient is nonweightbearing at this time on the left lower extremity. Will need to clarify length of time with orthopedics. On examination, patient still has slight drainage at the proximal incision site of the left hip. I have alerted nursing. Patient was seen previously for the original hip fracture. We were initially asked to consider her for acute inpatient rehab however due to the prolonged period of time of nonweightbearing we opted to allow the primary team to pursue group home facility. Apparently her insurance does not like the idea of a group home facility for her and would prefer for her to undergo acute inpatient rehabilitation. Patient will not likely be able to be independent with mobility until she is able to weight-bear on her left lower extremity and will not be able to go home independently until the antibiotics are complete which is scheduled for 06/19/2021. We will take the patient on and continue to work with her for transfers, wound care, ADLs and mobility in order to improve her ability to transition home once IV antibiotics are complete. Interval History: Patient is participating in therapy and making reasonable progress. Taking rest breaks as needed. +BM. Denies palpitations, dyspnea, cough, N/V. Patient discussed that she will need alternative arrangements more than likely because the personal long term that she lives and does not necessarily handicap accessible. No acute events overnight, tolerating therapy Infection of left hip status post explant of IM nail: Continue IV antibiotics. Decreased drainage seen from the superior aspect of the incision. Awaiting weightbearing upgrade per Ortho. CRP and WBCs within normal limits. Anemia: Improved and normalized currently. Continue to monitor and transfuse for hemoglobin less than 7. Stable currently. PTSD: Continue medications. Monitor for any episodes Pain: Continue to monitor for functional pain control and adjust as needed with the goal of weaning down medications. Morphine discontinued Fibromyalgia: Continue medications and monitor for any worsening symptoms Insomnia: Seems improved on current medications. Continue to monitor and adjust medications as needed. Hypotension: Continue medications, blood pressure within reasonable range currently. All records, vitals, labs and medications were reviewed. No other issues per patient, nursing or therapy. Objective - Exam Narrative Exam: MUSCULOSKELETAL SPECIALTY EXAM CONSTITUTIONAL: Well developed, well nourished, appropriately groomed, obese RESPIRATORY: Clear to auscultation bilaterally, no increased work of breathing CARDIOVASCULAR: Regular Rate/ Rhythm, no swelling, edema or tenderness in BUE or BLE. All extremities warm. GI: + bowel sounds, soft, NTTP, nondistended. INTEGUMENTARY: Surgical wounds on left lower extremity, decreased drainage noted at the superior incision. Normal, no lesion, rash, masses or bruising noted in extremities. MUSCULOSKELETAL: BUE and BLE normal without defect, crepitus, subluxation, effusion, arthritic changes or TTP. BUE 4+/5, good ROM, with normal tone. RLE 4-/5 good ROM, with normal tone. Left lower extremity weak with decreased range of motion, 4-/5 NEURO: CN 2-12 grossly intact. Sensation intact in all extremities. Coordination intact in BUE. No tremor noted in 4 extremities. POSTURE and GAIT: Sitting posture good. PSYCH: Alert, oriented x3, affect appears blunted. Insight appears intact. - Constitutional Vitals: Vital Signs - 12hr 05/31/21 05/31/21 03:26 07:34 Temperature 97.5 F L Pulse Rate 57 L 58 L Respiratory 16 Rate Blood Pressure 120/52 123/56 O2 Sat by Pulse 94 95 Oximetry - Allied health notes Allied health notes reviewed: nursing, PT, OT FIMS assessment as documented by PT/OT/ST: Grooming Patient cleans teeth/dentures: Yes Patient wall/brushes hair: Yes Patient washes, rinses and Yes dries face: Patient washes, rinses and Yes dries hands: Patient performs (no make-up/ / (100%) shaving): Grooming FIM Score 6. Modified [place] (Needs equipment/device . Extra time.) Social interaction/Memory/Problem solving Social Interaction FIM Score 6. Mod. [place] (Mostly appropriate. May need meds. No supv.) Memory FIM Score 6. Modified [place](Mild difficulty remembering people/routines.) Problem Solving FIM Score 6. Mod. [place] (Mild difficulty or needs more time w/ complex.) Transfers Mode of Locomotion: Wheelchair Bed/Chair/Wheelchair Transfers 4. Minimal Assistance (Patient = 75% or more. FIM Score Needs touching.) Locomotion- walk/wheelchair Ambulation Distance 4 Dressing-Upper body Patient retrieves clothing Yes items: Upper Body Dressing FIM Score 6. Modified [place] (Needs equipment, velcro or pros./orth.) Dressing-lower body Lower Body Dressing Device Data Coordinator/Stick Patient retrieves clothing Yes items: Patient applies/removes LE No: n/a prosthesis or orthosis: Lower Body Dressing FIM Score 4. Minimal Assistance (Patient = 75% or more. Needs touching.) - Labs CBC & Chem 7: 05/31/21 06:56 05/31/21 06:56 Labs: Laboratory Results - last 72 hr 05/28/21 05/28/21 05/31/21 13:23 13:23 06:56 WBC 5.6 5.2 RBC 3.78 3.86 Hgb 10.4 10.7 Hct 32.3 33.2 MCV 86 86 MCH 28 28 MCHC 32 32 RDW 19.2 H 19.5 H Plt Count 150 150 Sodium 141 Potassium 4.4 Chloride 104.2 Carbon Dioxide 28 Anion Gap 13 BUN 15 Creatinine 0.8 Estimated GFR > 60 BUN/Creatinine Ratio 19 Glucose 143 H Calcium 9.1 C-Reactive Protein 0.90 05/31/21 06:56 WBC RBC Hgb Hct MCV MCH MCHC RDW Plt Count Sodium 139 Potassium 3.9 Chloride 102.3 Carbon Dioxide 27 Anion Gap 14 BUN 17 Creatinine 0.6 Estimated GFR > 60 BUN/Creatinine Ratio 28 Glucose 73 Calcium 9.2 C-Reactive Protein Assessment and Plan Infection of left hip IM nail status post explant: Continue IV antibiotics. Patient is nonweightbearing. Wound care for continued monitoring of wound and appropriate dressing changes. Will discuss with orthopedics (Dr. Coughlin) his timeline for resuming weightbearing. Anemia: Postoperative, continue to monitor for improvement. Transfuse for hemoglobin less than 7. PTSD: Combined with aspects of anxiety as well. Patient is on several medications including buspirone, clonazepam, hydroxyzine, Zyprexa. Continue current medications and monitor patient for any further issues. Known issue fro m patient's previous stay with us. Pain: Postsurgical, fairly well controlled on current medications. Will wean down oral opioids. Monitor and adjust as needed for functional pain control Fibromyalgia: Continue gabapentin and citalopram. Monitor Insomnia: Continue trazodone, monitor for effectiveness. Patient is currently on max dose of effective use of trazodone for insomnia. Hypotension: Continue midodrine and monitor for improvement in blood pressure. ADL dysfunction: OT will work on improving ability to perform ADLs (including assistive devices) to increase independence and decrease caregiver burden and improve functional transfers and mobility training. Difficulty walking: PT will work on gait training and proper use of assistive devices and advance as appropriate to use of stairs and outside ambulation on uneven surfaces. Unsteadiness on feet: PT will work on improving static and dynamic sitting and standing balance as well as proper use of assistive devices to decrease risk of falls. Abnormality of gait: PT will work to improve safety and efficiency of gait through neuromotor training and gait training along with instruction on proper use of assistive devices. Muscle weakness: PT & OT will work on strengthening exercises to improve functional strength including mixture of closed and open kinetic chain exercises. Debility: PT & OT will work on improving overall functional status to improve participation with ADLs, mobility and social involvement. Fatigue: PT & OT will work on improving endurance through aerobic exercises and therapeutic activity while monitoring patients tolerance for activity and vital signs as needed. DVT ppx: Patient not on anticoagulation currently due to anemia. We will reassess and look to restart chemical prophylaxis if able. Continue mechanical prophylaxis Pain: Continue physical modalities in therapy and pain medications as needed to achieve functional pain control. Sleep: Monitor and address as needed. Bowel: Monitor and address as needed. Appetite: Monitor and address as needed. Discharge planning: Pending therapy progress and care plan meeting. Will continue discussion with therapy team, SW, patient and family. Restrictions/ Precautions: Falls, infection, nonweightbearing left lower extremity WB status: Nonweightbearing left lower extremity Functional Hx: ADLs: Independent Cognition: Independent Mobility: RW Barriers to Discharge: Decreased mobility and ability to perform self care, balance deficits, weakness Estimated Length of Stay: 1418 days or longer depending on insurance companies desire for us to keep the patient throughout her needed antibiotics course. Last date for antibiotics is 06/19/2021 Discharge Destination: Home
[2021-05-31] MEDS: MIDODRINE 5 MG TAB PO SCH ×3 (09:35→17:27)
[2021-05-31] MEDS: CITALOPRAM 20 MG TAB PO SCH (09:54)
[2021-05-31] MEDS: CEFEPIME/NS 2 GM/100 ML 2 GM/100 ML BAG IV SCH ×2 (10:05→21:07)
[2021-05-31] MEDS: busPIRone 10 MG TAB PO SCH (10:55)
[2021-05-31] MEDS: ENOXAPARIN 40 MG/0.4 ML INJ SUB-Q SCH (10:57)
[2021-05-31] MEDS: VANCOMYCIN 1,250 MG in SODIUM CHLORIDE 0.9% 250ML 250 ML IV SCH (15:29)
[2021-05-31] MEDS: traZODone 100 MG TAB PO SCH (21:08)
[2021-06-01] MEDS: GABAPENTIN 300 MG CAP PO SCH ×3 (06:25→21:01)
[2021-06-01] MEDS: MIDODRINE 5 MG TAB PO SCH ×3 (09:19→16:55)
--- NOTE | 2021-06-01 09:32 | Progress Note ---
Subjective Date of service: 06/01/21 Principal diagnosis: Infection of IM nail at left hip Interval history: 60-year-old female with a previous history of left IM nail with noted drainage and poor wound healing. Patient was admitted for further treatment and underwent explant of a previously placed IM nail. Patient tolerated procedure well. Infectious disease was consulted and placed the patient on IV antibiotics for approximately 6 weeks ending on 06/19. Patient is nonweightbearing at this time on the left lower extremity. Will need to clarify length of time with orthopedics. On examination, patient still has slight drainage at the proximal incision site of the left hip. I have alerted nursing. Patient was seen previously for the original hip fracture. We were initially asked to consider her for acute inpatient rehab however due to the prolonged period of time of nonweightbearing we opted to allow the primary team to pursue longterm facility. Apparently her insurance does not like the idea of a longterm facility for her and would prefer for her to undergo acute inpatient rehabilitation. Patient will not likely be able to be independent with mobility until she is able to weight-bear on her left lower extremity and will not be able to go home independently until the antibiotics are complete which is scheduled for 06/19/2021. We will take the patient on and continue to work with her for transfers, wound care, ADLs and mobility in order to improve her ability to transition home once IV antibiotics are complete. Interval History: Patient is participating in therapy and making reasonable progress. Taking rest breaks as needed. +BM. Denies palpitations, dyspnea, cough, N/V. Infection of left hip status post explant of IM nail: Continue IV antibiotics. No drainage seen from the superior aspect of the incision. Awaiting weightbearing upgrade per Ortho. Anemia: Improved and normalized currently. Continue to monitor and transfuse for hemoglobin less than 7. Stable currently. PTSD: Continue medications. Monitor for any episodes Pain: Continue to monitor for functional pain control and adjust as needed with the goal of weaning down medications. Morphine discontinued Fibromyalgia: Continue medications and monitor for any worsening symptoms Insomnia: Seems improved on current medications. Continue to monitor and adjust medications as needed. Hypotension: Continue medications, blood pressure within reasonable range curr ently. All records, vitals, labs and medications were reviewed. No other issues per patient, nursing or therapy. Patient discussed during team conference. Not being completely compliant with weightbearing status and is inconsistent with safety issues. Have requested weightbearing status evaluation by orthopedics. No signs of infection. Attempting to determine how long insurance is wanting us to keep the patient, if they want us to keep her throughout the remainder of her antibiotics or if they prefer us to discharge her to a longterm facility at some point. We will continue working with the patient as long as we can to improve mobility and ADL. Objective - Exam Narrative Exam: MUSCULOSKELETAL SPECIALTY EXAM CONSTITUTIONAL: Well developed, well nourished, appropriately groomed, obese RESPIRATORY: Clear to auscultation bilaterally, no increased work of breathing CARDIOVASCULAR: Regular Rate/ Rhythm, no swelling, edema or tenderness in BUE or BLE. All extremities warm. GI: + bowel sounds, soft, NTTP, nondistended. INTEGUMENTARY: Surgical wounds on left lower extremity, no drainage noted at the superior incision. Otherwise, normal, no lesion, rash, masses or bruising noted in extremities. MUSCULOSKELETAL: BUE and BLE normal without defect, crepitus, subluxation, effusion, arthritic changes or TTP. BUE 4+/5, good ROM, with normal tone. RLE 4-/5 good ROM, with normal tone. Left lower extremity weak with decreased range of motion, 4-/5 NEURO: CN 2-12 grossly intact. Sensation intact in all extremities. Coordination intact in BUE. No tremor noted in 4 extremities. POSTURE and GAIT: Sitting posture good. PSYCH: Alert, oriented x3, affect appears blunted. Insight appears intact. - Constitutional Vitals: Vital Signs - 12hr 06/01/21 06/01/21 04:12 07:53 Temperature 97.4 F L 97.3 F L Pulse Rate 55 L 61 Respiratory 16 18 Rate Blood Pressure 135/52 122/53 O2 Sat by Pulse 93 94 Oximetry - Allied health notes Allied health notes reviewed: nursing, PT, OT FIMS assessment as documented by PT/OT/ST: Grooming Patient cleans teeth/dentures: Yes Patient wall/brushes hair: Yes Patient washes, rinses and Yes dries face: Patient washes, rinses and Yes dries hands: Patient performs (no make-up/ 4/4 (100%) shaving): Grooming FIM Score 5. Supervision ([place] applies toothpaste or opens containers.) Toileting Toileting Device Commode over Toilet Patient able to: Adjust clothes before,Clean self Patient able to perform: 2/3 (67%) Toileting FIM Score 3. Moderate Assistance (Patient = 50% or more. Some lifting.) Social interaction/Memory/Problem solving Social Interaction FIM Score 6. Mod. [place] (Mostly appropriate. May need meds. No supv.) Memory FIM Score 6. Modified [place](Mild difficulty remembering people/routines.) Problem Solving FIM Score 5. [place] (Needs cueing <10% to solve routine problems.) Transfers Mode of Locomotion: Wheelchair Bed/Chair/Wheelchair Transfers 3. Moderate Assistance (Patient = 50% or more. FIM Score Some lifting.) Toilet Transfers FIM Score 3. Moderate Assistance (Patient = 50% or more. Some lifting.) Locomotion- walk/wheelchair Ambulation Distance 4 Eating Eating FIM Score 5. Supervision/Set-Up (Needs help w/ containers, cutting meat, etc.) Dressing-Upper body Patient retrieves clothing Yes items: Upper Body Dressing FIM Score 6. Modified [place] (Needs equipment, velcro or pros./orth.) Dressing-lower body Lower Body Dressing Device Staff Electrical Engineer/Stick Patient retrieves clothing Yes items: Patient applies/removes LE No: n/a prosthesis or orthosis: Lower Body Dressing FIM Score 3. Moderate Assistance (Patient = 50% or more) - Labs CBC & Chem 7: 05/31/21 06:56 05/31/21 06:56 Labs: Laboratory Results - last 72 hr 05/31/21 05/31/21 06:56 06:56 WBC 5.2 RBC 3.86 Hgb 10.7 Hct 33.2 MCV 86 MCH 28 MCHC 32 RDW 19.5 H Plt Count 150 Sodium 139 Potassium 3.9 Chloride 102.3 Carbon Dioxide 27 Anion Gap 14 BUN 17 Creatinine 0.6 Estimated GFR > 60 BUN/Creatinine Ratio 28 Glucose 73 Calcium 9.2 Assessment and Plan Infection of left hip IM nail status post explant: Continue IV antibiotics. Patient is nonweightbearing. Wound care for continued monitoring of wound and appropriate dressing changes. Will discuss with orthopedics (Dr. Coughlin) his timeline for resuming weightbearing. Anemia: Postoperative, continue to monitor for improvement. Transfuse for hemoglobin less than 7. PTSD: Combined with aspects of anxiety as well. Patient is on several medications including buspirone, clonazepam, hydroxyzine, Zyprexa. Continue current medications and monitor patient for any further issues. Known issue from patient's previous stay with us. Pain: Postsurgical, fairly well controlled on current medications. Will wean down oral opioids. Monitor and adjust as needed for functional pain control Fibromyalgia: Continue gabapentin and citalopram. Monitor Insomnia: Continue trazodone, monitor for effectiveness. Patient is currently on max dose of effective use of trazodone for insomnia. Hypotension: Continue midodrine and monitor for improvement in blood pressure. ADL dysfunction: OT will work on improving ability to perform ADLs (including assistive devices) to increase independence and decrease caregiver burden and improve functional transfers and mobility training. Difficulty walking: PT will work on gait training and proper use of assistive devices and advance as appropriate to use of stairs and outside ambulation on uneven surfaces. Unsteadiness on feet: PT will work on improving static and dynamic sitting and standing balance as well as proper use of assistive devices to decrease risk of falls. Abnormality of gait: PT will work to improve safety and efficiency of gait through neuromotor training and gait training along with instruction on proper use of assistive devices. Muscle weakness: PT & OT will work on strengthening exercises to improve functional strength including mixture of closed and open kinetic chain exercises. Debility: PT & OT will work on improving overall functional status to improve participation with ADLs, mobility and social involvement. Fatigue: PT & OT will work on improving endurance through aerobic exercises and therapeutic activity while monitoring patients tolerance for activity and vital signs as needed. DVT ppx: Patient not on anticoagulation currently due to anemia. We will reassess and look to restart chemical prophylaxis if able. Continue mechanical prophylaxis Pain: Continue physical modalities in therapy and pain medications as needed to achieve functional pain control. Sleep: Monitor and address as needed. Bowel: Monitor and address as needed. Appetite: Monitor and address as needed. Discharge planning: Pending therapy progress and care plan meeting. Will continue discussion with therapy team, SW, patient and family. Restrictions/ Precautions: Falls, infection, nonweightbearing left lower extremity WB status: Nonweightbearing left lower extremity Functional Hx: ADLs: Independent Cognition: Independent Mobility: RW Barriers to Discharge: Decreased mobility and ability to perform self care, balance deficits, weakness Estimated Length of Stay: 1418 days or longer depending on insurance companies desire for us to keep the patient throughout her needed antibiotics course. Last date for antibiotics is 06/19/2021 Discharge Destination: Home
[2021-06-01] MEDS: oxyCODONE /ACETAMINOPHEN 5-325MG TAB PO PRN ×2 (10:17→18:54)
[2021-06-01] MEDS: CITALOPRAM 20 MG TAB PO SCH (10:17)
[2021-06-01] MEDS: ENOXAPARIN 40 MG/0.4 ML INJ SUB-Q SCH (10:19)
[2021-06-01] MEDS: CEFEPIME/NS 2 GM/100 ML 2 GM/100 ML BAG IV SCH ×2 (10:19→20:57)
[2021-06-01] MEDS: busPIRone 10 MG TAB PO SCH (10:56)
[2021-06-01] MEDS: VANCOMYCIN 1,250 MG in SODIUM CHLORIDE 0.9% 250ML 250 ML IV SCH (18:57)
[2021-06-01] MEDS: traZODone 100 MG TAB PO SCH (20:55)
[2021-06-02] MEDS: GABAPENTIN 300 MG CAP PO SCH ×3 (06:11→22:08)
[2021-06-02] MEDS: oxyCODONE /ACETAMINOPHEN 5-325MG TAB PO PRN ×3 (09:03→23:10)
[2021-06-02] MEDS: ENOXAPARIN 40 MG/0.4 ML INJ SUB-Q SCH (09:03)
[2021-06-02] MEDS: CEFEPIME/NS 2 GM/100 ML 2 GM/100 ML BAG IV SCH ×2 (09:03→22:05)
[2021-06-02] MEDS: CITALOPRAM 20 MG TAB PO SCH (09:03)
[2021-06-02] MEDS: MIDODRINE 5 MG TAB PO SCH ×3 (09:04→16:11)
[2021-06-02] MEDS: busPIRone 10 MG TAB PO SCH (09:04)
[2021-06-02] MEDS: IBUPROFEN 400 MG TAB PO PRN (13:33)
--- NOTE | 2021-06-02 13:51 | Progress Note ---
Subjective Date of service: 06/02/21 Principal diagnosis: Infection of IM nail at left hip Interval history: 60-year-old female with a previous history of left IM nail with noted drainage and poor wound healing. Patient was admitted for further treatment and underwent explant of a previously placed IM nail. Patient tolerated procedure well. Infectious disease was consulted and placed the patient on IV antibiotics for approximately 6 weeks ending on 06/19. Patient is nonweightbearing at this time on the left lower extremity. Will need to clarify length of time with orthopedics. On examination, patient still has slight drainage at the proximal incision site of the left hip. I have alerted nursing. Patient was seen previously for the original hip fracture. We were initially asked to consider her for acute inpatient rehab however due to the prolonged period of time of nonweightbearing we opted to allow the primary team to pursue long-term facility. Apparently her insurance does not like the idea of a long-term facility for her and would prefer for her to undergo acute inpatient rehabilitation. Patient will not likely be able to be independent with mobility until she is able to weight-bear on her left lower extremity and will not be able to go home independently until the antibiotics are complete which is scheduled for 06/19/2021. We will take the patient on and continue to work with her for transfers, wound care, ADLs and mobility in order to improve her ability to transition home once IV antibiotics are complete. Interval History: Patient is participating in therapy and making reasonable progress. Taking rest breaks as needed. +BM. Denies palpitations, dyspnea, cough, N/V. Not fully abiding by weightbearing precautions. Decreased safety awareness and decreased following of weightbearing precautions Infection of left hip status post explant of IM nail: Continue IV antibiotics. No drainage seen from the superior aspect of the incision. Awaiting weightbearing upgrade per Ortho, patient stated that Dr. Coughlin did come and see her on 06/01, will contact him for further orders on weightbearing. Anemia: Improved and normalized currently. Continue to monitor and transfuse for hemoglobin less than 7. Stable currently. PTSD: Continue medications. Monitor for any episodes Pain: Continue to monitor for functional pain control and adjust as needed with the goal of weaning down medications. Morphine discontinued Fibromyalgia: Continue medications and monitor for any worsening symptoms Insomnia: Seems improved on current medications. Continue to monitor and adjust medications as needed. Hypotension: Continue medications, blood pressure within reasonable range currently. All records, vitals, labs and medications were reviewed. No other issues per patient, nursing or therapy. Objective - Exam Narrative Exam: MUSCULOSKELETAL SPECIALTY EXAM CONSTITUTIONAL: Well developed, well nourished, appropriately groomed, obese RESPIRATORY: Clear to auscultation bilaterally, no increased work of breathing CARDIOVASCULAR: Regular Rate/ Rhythm, no swelling, edema or tenderness in BUE or BLE. All extremities warm. GI: + bowel sounds, soft, NTTP, nondistended. INTEGUMENTARY: Surgical wounds on left lower extremity, no drainage noted at the superior incision. Otherwise, normal, no lesion, rash, masses or bruising noted in extremities. MUSCULOSKELETAL: BUE and BLE normal without defect, crepitus, subluxation, effusion, arthritic changes or TTP. BUE 4+/5, good ROM, with normal tone. RLE 4-/5 good ROM, with normal tone. Left lower extremity weak with decreased range of motion, 4-/5 NEURO: CN 2-12 grossly intact. Sensation intact in all extremities. Coordination intact in BUE. No tremor noted in 4 extremities. POSTURE and GAIT: Sitting posture good. Able to take some steps with rolling walker however not fully abiding by weightbearing precautions all the time. PSYCH: Alert, oriented x3, affect appears blunted. Insight appears intact. - Constitutional Vitals: Vital Signs - 12hr 06/02/21 06/02/21 06/02/21 06:29 06:32 07:13 Temperature 98.3 F 98.3 F 97.4 F L Pulse Rate 54 L 55 L 50 L Respiratory 18 18 16 Rate Blood Pressure 141/56 112/54 Blood Pressure 141/56 [Right] O2 Sat by Pulse 91 90 94 Oximetry 06/02/21 12:07 Temperature 97.2 F L Pulse Rate 64 Respiratory 16 Rate Blood Pressure 147/60 Blood Pressure [Right] O2 Sat by Pulse 91 Oximetry - Allied health notes Allied health notes reviewed: nursing, PT, OT FIMS assessment as documented by PT/OT/ST: Grooming Patient cleans teeth/dentures: Yes Patient wall/brushes hair: Yes Patient washes, rinses and Yes dries face: Patient washes, rinses and Yes dries hands: Patient performs (no make-up/ /4 (100%) shaving): Grooming FIM Score 5. Supervision ([place] applies toothpaste or opens containers.) Toileting Toileting Device Commode over Toilet Patient able to: Adjust clothes before,Clean self Patient able to perform: 2/3 (67%) Toileting FIM Score 4. Minimal Assistance (Patient = 75% or more. Needs touching.) Social interaction/Memory/Problem solving Social Interaction FIM Score 5. Supervision (Needs supv. <10%. Needs encouragement to participate.) Memory FIM Score 6. Modified [place](Mild difficulty remembering people/routines.) Problem Solving FIM Score 5. Supervision (Needs cueing <10% to solve routine problems.) Transfers Mode of Locomotion: Wheelchair Bed/Chair/Wheelchair Transfers 4. Minimal Assistance (Patient = 75% or more. FIM Score Needs touching.) Toilet Transfers FIM Score 4. Minimal Assistance (Patient = 75% or more. Needs touching.) Locomotion- walk/wheelchair Ambulation Distance 4 Eating Eating FIM Score 6. Modified [place] (Special consistency or uses device.) Dressing-Upper body Patient retrieves clothing Yes items: Upper Body Dressing FIM Score 6. Modified [place] (Needs equipment, velcro or pros./orth.) Dressing-lower body Lower Body Dressing Device Fence Making Machine Operator/Stick,Sock Aid Patient retrieves clothing Yes items: Patient applies/removes LE No: n/a prosthesis or orthosis: Lower Body Dressing FIM Score 4. Minimal Assistance (Patient = 75% or more. Needs touching.) - Labs CBC & Chem 7: 05/31/21 06:56 05/31/21 06:56 Labs: Laboratory Results - last 72 hr 05/31/21 05/31/21 06:56 06:56 WBC 5.2 RBC 3.86 Hgb 10.7 Hct 33.2 MCV 86 MCH 28 MCHC 32 RDW 19.5 H Plt Count 150 Sodium 139 Potassium 3.9 Chloride 102.3 Carbon Dioxide 27 Anion Gap 14 BUN 17 Creatinine 0.6 Estimated GFR > 60 BUN/Creatinine Ratio 28 Glucose 73 Calcium 9.2 Assessment and Plan Infection of left hip IM nail status post explant: Continue IV antibiotics. Patient is nonweightbearing. Wound care for continued monitoring of wound and appropriate dressing changes. Will discuss with orthopedics (Dr. Coughlin) his timeline for resuming weightbearing. Anemia: Postoperative, continue to monitor for improvement. Transfuse for hemoglobin less than 7. PTSD: Combined with aspects of anxiety as well. Patient is on several medications including buspirone, clonazepam, hydroxyzine, Zyprexa. Continue current medications and monitor patient for any further issues. Known issue from patient's previous stay with us. Pain: Postsurgical, fairly well controlled on current medications. Will wean down oral opioids. Monitor and adjust as needed for functional pain control Fibromyalgia: Continue gabapentin and citalopram. Monitor Insomnia: Continue trazodone, monitor for effectiveness. Patient is currently on max dose of effective use of trazodone for insomnia. Hypotension: Continue midodrine and monitor for improvement in blood pressure. ADL dysfunction: OT will work on improving ability to perform ADLs (including assistive devices) to increase independence and decrease caregiver burden and improve functional transfers and mobility training. Difficulty walking: PT will work on gait training and proper use of assistive devices and advance as appropriate to use of stairs and outside ambulation on uneven surfaces. Unsteadiness on feet: PT will work on improving static and dynamic sitting and standing balance as well as proper use of assistive devices to decrease risk of falls. Abnormality of gait: PT will work to improve safety and efficiency of gait through neuromotor training and gait training along with instruction on proper use of assistive devices. Muscle weakness: PT & OT will work on strengthening exercises to improve functional strength including mixture of closed and open kinetic chain exercises. Debility: PT & OT will work on improving overall functional status to improve participation with ADLs, mobility and social involvement. Fatigue: PT & OT will work on improving endurance through aerobic exercises and therapeutic activity while monitoring patients tolerance for activity and vital signs as needed. Decreased safety awareness: Continue to give patient reminders for following weightbearing precautions. DVT ppx: Patient not on anticoagulation currently due to anemia. We will reassess and look to restart chemical prophylaxis if able. Continue mechanical prophylaxis Pain: Continue physical modalities in therapy and pain medications as needed to achieve functional pain control. Sleep: Monitor and address as needed. Bowel: Monitor and address as needed. Appetite: Monitor and address as needed. Discharge planning: Pending therapy progress and care plan meeting. Will continue discussion with therapy team, SW, patient and family. Restrictions/ Precautions: Falls, infection, nonweightbearing left lower extremity WB status: Nonweightbearing left lower extremity Functional Hx: ADLs: Independent Cognition: Independent Mobility: RW Barriers to Discharge: Decreased mobility and ability to perform self care, balance deficits, weakness Estimated Length of Stay: 1418 days or longer depending on insurance companies desire for us to keep the patient throughout her needed antibiotics course. Last date for antibiotics is 06/19/2021 Discharge Destination: Home
[2021-06-02] MEDS: VANCOMYCIN 1,250 MG in SODIUM CHLORIDE 0.9% 250ML 250 ML IV SCH (16:08)
[2021-06-02] MEDS: traZODone 100 MG TAB PO SCH (22:10)
[2021-06-02] MEDS: CYCLOBENZAPRINE 10 MG TAB PO PRN (22:11)
[2021-06-03] MEDS: GABAPENTIN 300 MG CAP PO SCH ×3 (07:11→21:45)
[2021-06-03] MEDS: CEFEPIME/NS 2 GM/100 ML 2 GM/100 ML BAG IV SCH ×2 (08:47→21:53)
[2021-06-03] MEDS: MIDODRINE 5 MG TAB PO SCH ×3 (08:49→15:28)
[2021-06-03] MEDS: CITALOPRAM 20 MG TAB PO SCH (08:49)
--- NOTE | 2021-06-03 08:52 | Progress Note ---
Subjective Date of service: 06/03/21 Principal diagnosis: Infection of IM nail at left hip Interval history: 60-year-old female with a previous history of left IM nail with noted drainage and poor wound healing. Patient was admitted for further treatment and underwent explant of a previously placed IM nail. Patient tolerated procedure well. Infectious disease was consulted and placed the patient on IV antibiotics for approximately 6 weeks ending on 06/19. Patient is nonweightbearing at this time on the left lower extremity. Will need to clarify length of time with orthopedics. On examination, patient still has slight drainage at the proximal incision site of the left hip. I have alerted nursing. Patient was seen previously for the original hip fracture. We were initially asked to consider her for acute inpatient rehab however due to the prolonged period of time of nonweightbearing we opted to allow the primary team to pursue detention facility. Apparently her insurance does not like the idea of a detention facility for her and would prefer for her to undergo acute inpatient rehabilitation. Patient will not likely be able to be independent with mobility until she is able to weight-bear on her left lower extremity and will not be able to go home independently until the antibiotics are complete which is scheduled for 06/19/2021. We will take the patient on and continue to work with her for transfers, wound care, ADLs and mobility in order to improve her ability to transition home once IV antibiotics are complete. Interval History: Patient is participating in therapy and making reasonable progress. Taking rest breaks as needed. +BM. Denies palpitations, dyspnea, cough, N/V. Not fully abiding by weightbearing precautions. Decreased safety awareness and decreased following of weightbearing precautions Infection of left hip status post explant of IM nail: Continue IV antibiotics through 06/19. No drainage seen from the superior aspect of the incision. Awaiting weightbearing upgrade per Ortho, patient stated that Dr. Coughlin did come and see her on 06/01, will contact him for further orders on weightbearing. Anemia: Improved and normalized currently. Continue to monitor and transfuse for hemoglobin less than 7. Stable currently. PTSD: Continue medications. Monitor for any episodes Pain: Continue to monitor for functional pain control and adjust as needed with the goal of weaning down medications. Morphine discontinued Fibromyalgia: Continue medications and monitor for any worsening symptoms Insomnia: Seems improved on current medications. Continue to monitor and adjust medications as needed. Hypotension: Continue medications, blood pressure within reasonable range currently. All records, vitals, labs and medications were reviewed. No other issues per patient, nursing or therapy. Objective - Exam Narrative Exam: MUSCULOSKELETAL SPECIALTY EXAM CONSTITUTIONAL: Well developed, well nourished, appropriately groomed, obese RESPIRATORY: Clear to auscultation bilaterally, no increased work of breathing CARDIOVASCULAR: Regular Rate/ Rhythm, no swelling, edema or tenderness in BUE or BLE. All extremities warm. GI: + bowel sounds, soft, NTTP, nondistended. INTEGUMENTARY: Surgical wounds on left lower extremity, no drainage noted at the superior incision. Otherwise, normal, no lesion, rash, masses or bruising noted in extremities. MUSCULOSKELETAL: BUE and BLE normal without defect, crepitus, subluxation, effusion, arthritic c hanges or TTP. BUE 4+/5, good ROM, with normal tone. RLE 4-/5 good ROM, with normal tone. Left lower extremity weak with decreased range of motion, 4-/5 NEURO: CN 2-12 grossly intact. Sensation intact in all extremities. Coordination intact in BUE. No tremor noted in 4 extremities. POSTURE and GAIT: Sitting posture good. Able to take some steps with rolling walker however not fully abiding by weightbearing precautions all the time. PSYCH: Alert, oriented x3, affect appears blunted. Insight appears intact. - Constitutional Vitals: Vital Signs - 12hr 06/03/21 05:03 Temperature 97.7 F Pulse Rate 57 L Respiratory 16 Rate Blood Pressure 139/56 O2 Sat by Pulse 93 Oximetry - Allied health notes Allied health notes reviewed: nursing, PT, OT FIMS assessment as documented by PT/OT/ST: Grooming Patient cleans teeth/dentures: Yes Patient wall/brushes hair: Yes Patient washes, rinses and Yes dries face: Patient washes, rinses and Yes dries hands: Patient performs (no make-up/ 4/4 (100%) shaving): Grooming FIM Score 5. Supervision ([place] applies toothpaste or opens containers.) Toileting Toileting Device Commode over Toilet Patient able to: Adjust clothes before,Clean self Patient able to perform: 2/3 (67%) Toileting FIM Score 4. Minimal Assistance (Patient = 75% or more. Needs touching.) Social interaction/Memory/Problem solving Social Interaction FIM Score 6. Mod. [place] (Mostly appropriate. May need meds. No supv.) Memory FIM Score 6. Modified [place](Mild difficulty remembering people/routines.) Problem Solving FIM Score 6. Mod. [place] (Mild difficulty or needs more time w/ complex.) Transfers Mode of Locomotion: Wheelchair Bed/Chair/Wheelchair Transfers 4. Minimal Assistance (Patient = 75% or more. FIM Score Needs touching.) Toilet Transfers FIM Score 4. Minimal Assistance (Patient = 75% or more. Needs touching.) Locomotion- walk/wheelchair Ambulation Distance 4 Eating Eating FIM Score 6. Modified [place] (Special consistency or uses device.) Dressing-Upper body Patient retrieves clothing Yes items: Upper Body Dressing FIM Score 6. Modified [place] (Needs equipment, velcro or pros./orth.) Dressing-lower body Lower Body Dressing Device Skip Loader/Stick,Sock Aid Patient retrieves clothing Yes items: Patient applies/removes LE No: n/a prosthesis or orthosis: Lower Body Dressing FIM Score 4. Minimal Assistance (Patient = 75% or more. Needs touching.) - Labs CBC & Chem 7: 05/31/21 06:56 05/31/21 06:56 Labs: Laboratory Results - last 72 hr 05/31/21 06:56 Sodium 139 Potassium 3.9 Chloride 102.3 Carbon Dioxide 27 Anion Gap 14 BUN 17 Creatinine 0.6 Estimated GFR > 60 BUN/Creatinine Ratio 28 Glucose 73 Calcium 9.2 Assessment and Plan Infection of left hip IM nail status post explant: Continue IV antibiotics. Patient is nonweightbearing. Wound care for continued monitoring of wound and appropriate dressing changes. Will discuss with orthopedics (Dr. Coughlin) his timeline for resuming weightbearing. Anemia: Postoperative, continue to monitor for improvement. Transfuse for hemoglobin less than 7. PTSD: Combined with aspects of anxiety as well. Patient is on several medications including buspirone, clonazepam, hydroxyzine, Zyprexa. Continue current medications and monitor patient for any further issues. Known issue from patient's previous stay with us. Pain: Postsurgical, fairly well controlled on current medications. Will wean down oral opioids. Monitor and adjust as needed for functional pain control Fibromyalgia: Continue gabapentin and citalopram. Monitor Insomnia: Continue trazodone, monitor for effectiveness. Patient is currently on max dose of effective use of trazodone for insomnia. Hypotension: Continue midodrine and monitor for improvement in blood pressure. ADL dysfunction: OT will work on improving ability to perform ADLs (including assistive devices) to increase independence and decrease caregiver burden and improve functional transfers and mobility training. Difficulty walking: PT will work on gait training and proper use of assistive devices and advance as appropriate to use of stairs and outside ambulation on uneven surfaces. Unsteadiness on feet: PT will work on improving static and dynamic sitting and standing balance as well as proper use of assistive devices to decrease risk of falls. Abnormality of gait: PT will work to improve safety and efficiency of gait thro [facility] neuromotor training and gait training along with instruction on proper use of assistive devices. Muscle weakness: PT & OT will work on strengthening exercises to improve functional strength including mixture of closed and open kinetic chain exercises. Debility: PT & OT will work on improving overall functional status to improve participation with ADLs, mobility and social involvement. Fatigue: PT & OT will work on improving endurance through aerobic exercises and therapeutic activity while monitoring patients tolerance for activity and vital signs as needed. Decreased safety awareness: Continue to give patient reminders for following weightbearing precautions. DVT ppx: Lovenox Pain: Continue physical modalities in therapy and pain medications as needed to achieve functional pain control. Sleep: Monitor and address as needed. Bowel: Monitor and address as needed. Appetite: Monitor and address as needed. Discharge planning: Pending therapy progress and care plan meeting. Will continue discussion with therapy team, SW, patient and family. Restrictions/ Precautions: Falls, infection, nonweightbearing left lower extremity WB status: Nonweightbearing left lower extremity Functional Hx: ADLs: Independent Cognition: Independent Mobility: RW Barriers to Discharge: Decreased mobility and ability to perform self care, balance deficits, weakness Estimated Length of Stay: 1418 days or longer depending on insurance companies desire for us to keep the patient throughout her needed antibiotics course. Last date for antibiotics is 06/19/2021 Discharge Destination: Home
[2021-06-03] MEDS: oxyCODONE /ACETAMINOPHEN 5-325MG TAB PO PRN ×3 (09:16→21:44)
[2021-06-03] MEDS: ENOXAPARIN 40 MG/0.4 ML INJ SUB-Q SCH (09:16)
[2021-06-03] MEDS: busPIRone 10 MG TAB PO SCH (09:19)
[2021-06-03] MEDS: VANCOMYCIN 1,250 MG in SODIUM CHLORIDE 0.9% 250ML 250 ML IV SCH (15:28)
[2021-06-03 16:33] LABS: BUN/Creatinine Ratio 26; Blood Urea Nitrogen 21 mg/dL (7-17); Hemolysis Index 11
[2021-06-03] MEDS: traZODone 100 MG TAB PO SCH (21:45)
[2021-06-04] MEDS: GABAPENTIN 300 MG CAP PO SCH ×3 (06:32→21:40)
[2021-06-04] MEDS: MIDODRINE 5 MG TAB PO SCH ×3 (08:24→16:17)
[2021-06-04] MEDS: CITALOPRAM 20 MG TAB PO SCH (08:24)
[2021-06-04] MEDS: oxyCODONE /ACETAMINOPHEN 5-325MG TAB PO PRN ×2 (08:34→17:27)
[2021-06-04] MEDS: CEFEPIME/NS 2 GM/100 ML 2 GM/100 ML BAG IV SCH ×2 (08:36→21:40)
[2021-06-04] MEDS: ENOXAPARIN 40 MG/0.4 ML INJ SUB-Q SCH (11:18)
[2021-06-04] MEDS: busPIRone 10 MG TAB PO SCH (11:18)
--- NOTE | 2021-06-04 13:03 | Progress Note ---
Subjective Date of service: 06/04/21 Principal diagnosis: Infection of IM nail at left hip Interval history: 60-year-old female with a previous history of left IM nail with noted drainage and poor wound healing. Patient was admitted for further treatment and underwent explant of a previously placed IM nail. Patient tolerated procedure well. Infectious disease was consulted and placed the patient on IV antibiotics for approximately 6 weeks ending on 06/19. Patient is nonweightbearing at this time on the left lower extremity. Will need to clarify length of time with orthopedics. On examination, patient still has slight drainage at the proximal incision site of the left hip. I have alerted nursing. Patient was seen previously for the original hip fracture. We were initially asked to consider her for acute inpatient rehab however due to the prolonged period of time of nonweightbearing we opted to allow the primary team to pursue fci facility. Apparently her insurance does not like the idea of a fci facility for her and would prefer for her to undergo acute inpatient rehabilitation. Patient will not likely be able to be independent with mobility until she is able to weight-bear on her left lower extremity and will not be able to go home independently until the antibiotics are complete which is scheduled for 06/19/2021. We will take the patient on and continue to work with her for transfers, wound care, ADLs and mobility in order to improve her ability to transition home once IV antibiotics are complete. Interval History: Patient is participating in therapy and making reasonable progress. Taking rest breaks as needed. +BM. Denies palpitations, dyspnea, cough, N/V. Advanced to weightbearing as tolerated. Patient continues to have safety awareness issues. Infection of left hip status post explant of IM nail: Continue IV antibiotics through 06/19. No drainage seen from the superior aspect of the incision. Advance to weightbearing as tolerated. Anemia: Improved and normalized currently. Continue to monitor and transfuse for hemoglobin less than 7. Stable currently. PTSD: Continue medications. Monitor for any episodes Pain: Continue to monitor for functional pain control and adjust as needed with the goal of weaning down medications. Typically taking pain medications 3 times a day, discussed with the patient that we need to wean this down over the next several weeks. Pain seems to be worse with weightbearing and fairly tolerable when the patient is just sitting or lying in bed. Fibromyalgia: Continue medications and monitor for any worsening symptoms Insomnia: Seems improved on current medications. Continue to monitor and adjust medications as needed. Hypotension: Continue medications, blood pressure within reasonable range currently. All records, vitals, labs and medications were reviewed. No other issues per patient, nursing or therapy. Objective - Exam Narrative Exam: MUSCULOSKELETAL SPECIALTY EXAM CONSTITUTIONAL: Well developed, well nourished, appropriately groomed, obese RESPIRATORY: Clear to auscultation bilaterally, no increased work of breathing CARDIOVASCULAR: Regular Rate/ Rhythm, no swelling, edema or tenderness in BUE or BLE. All extremities warm. GI: + bowel sounds, soft, NTTP, nondistended. INTEGUMENTARY: Surgical wounds on left lower extremity, no drainage noted at the superior incision. Otherwise, normal, no lesion, rash, masses or bruising noted in extremities. MUSCULOSKELETAL: BUE and BLE normal without defect, crepitus, subluxation, effusion, arthritic changes or TTP. BUE 4+/5, good ROM, with normal tone. RLE 4-/5 good ROM, with normal tone. Left lower extremity weak with decreased range of motion, 4-/5 NEURO: CN 2-12 grossly intact. Sensation intact in all extremities. Coordination intact in BUE. No tremor noted in 4 extremities. POSTURE and GAIT: Sitting posture good. PSYCH: Alert, oriented x3, affect appears blunted. Insight appears intact. - Constitutional Vitals: Vital Signs - 12hr 06/04/21 06/04/21 06/04/21 05:05 08:05 12:10 Temperature 97.4 F L 97.2 F L 98.0 F Pulse Rate 55 L 54 L 65 Respiratory 16 18 18 Rate Blood Pressure 137/49 140/55 Blood Pressure 136/53 [Right] O2 Sat by Pulse 93 93 95 Oximetry - Allied health notes Allied health notes reviewed: nursing, PT, OT FIMS assessment as documented by PT/OT/ST: Grooming Patient cleans teeth/dentures: Yes Patient wall/brushes hair: Yes Patient washes, rinses and Yes dries face: Patient washes, rinses and Yes dries hands: Patient performs (no make-up/ 4/4 (100%) shaving): Grooming FIM Score 5. Supervision ([place] applies toothpaste or opens containers.) Toileting Toileting Device Commode over Toilet Patient able to: Adjust clothes before,Clean self Patient able to perform: 2/3 (67%) Toileting FIM Score 4. Minimal Assistance (Patient = 75% or more. Needs touching.) Social interaction/Memory/Problem solving Social Interaction FIM Score 6. Mod. [place] (Mostly appropriate. May need meds. No supv.) Memory FIM Score 6. Modified [place](Mild difficulty remembering people/routines.) Problem Solving FIM Score 5. Supervision (Needs cueing <10% to solve routine problems.) Transfers Mode of Locomotion: Wheelchair Bed/Chair/Wheelchair Transfers 4. Minimal Assistance (Patient = 75% or more. FIM Score Needs touching.) Toilet Transfers FIM Score 4. Minimal Assistance (Patient = 75% or more. Needs touching.) Locomotion- walk/wheelchair Ambulation Distance 4 Eating Eating FIM Score 5. Supervision/Set-Up (Needs help w/ containe rs, cutting meat, etc.) Dressing-Upper body Patient retrieves clothing Yes items: Upper Body Dressing FIM Score 6. Modified [place] (Needs equipment, velcro or pros./orth.) Dressing-lower body Lower Body Dressing Device Waiter/Waitress Head/Stick,Sock Aid Patient retrieves clothing Yes items: Patient applies/removes LE No: n/a prosthesis or orthosis: Lower Body Dressing FIM Score 4. Minimal Assistance (Patient = 75% or more. Needs touching.) - Labs CBC & Chem 7: 05/31/21 06:56 06/03/21 15:57 Labs: Laboratory Results - last 72 hr 06/03/21 06/03/21 15:57 15:57 Sodium 141 Potassium 4.2 Chloride 104.4 Carbon Dioxide 30 Anion Gap 11 BUN 21 H Creatinine 0.8 Estimated GFR > 60 BUN/Creatinine Ratio 26 Glucose 98 Calcium 9.0 Vancomycin Trough 79.7 H Assessment and Plan Infection of left hip IM nail status post explant: Continue IV antibiotics. Patient is advanced to weightbearing as tolerated. Wound care for continued monitoring of wound and appropriate dressing changes. Anemia: Postoperative, continue to monitor for improvement. Transfuse for hemoglobin less than 7. PTSD: Combined with aspects of anxiety as well. Patient is on several medications including buspirone, clonazepam, hydroxyzine, Zyprexa. Continue current medications and monitor patient for any further issues. Known issue from patient's previous stay with us. Pain: Postsurgical, fairly well controlled on current medications. Will wean down oral opioids. Monitor and adjust as needed for functional pain control Fibromyalgia: Continue gabapentin and citalopram. Monitor Insomnia: Continue trazodone, monitor for effectiveness. Patient is currently on max dose of effective use of trazodone for insomnia. Hypotension: Continue midodrine and monitor for improvement in blood pressure. ADL dysfunction: OT will work on improving ability to perform ADLs (including assistive devices) to increase independence and decrease caregiver burden and i mprove functional transfers and mobility training. Difficulty walking: PT will work on gait training and proper use of assistive devices and advance as appropriate to use of stairs and outside ambulation on uneven surfaces. Unsteadiness on feet: PT will work on improving static and dynamic sitting and standing balance as well as proper use of assistive devices to decrease risk of falls. Abnormality of gait: PT will work to improve safety and efficiency of gait through neuromotor training and gait training along with instruction on proper use of assistive devices. Muscle weakness: PT & OT will work on strengthening exercises to improve functional strength including mixture of closed and open kinetic chain exercises. Debility: PT & OT will work on improving overall functional status to improve participation with ADLs, mobility and social involvement. Fatigue: PT & OT will work on improving endurance through aerobic exercises and therapeutic activity while monitoring patients tolerance for activity and vital signs as needed. Decreased safety awareness: Continue to give patient reminders for following safety precautions. DVT ppx: Lovenox Pain: Continue physical modalities in therapy and pain medications as needed to achieve functional pain control. Sleep: Monitor and address as needed. Bowel: Monitor and address as needed. Appetite: Monitor and address as needed. Discharge planning: Pending therapy progress and care plan meeting. Will continue discussion with therapy team, SW, patient and family. Restrictions/ Precautions: Falls, infection WB status: Weightbearing as tolerated left lower extremity Functional Hx: ADLs: Independent Cognition: Independent Mobility: RW Barriers to Discharge: Decreased mobility and ability to perform self care, balance deficits, weakness Estimated Length of Stay: 1418 days or longer depending on insurance companies desire for us to keep the patient throughout her needed antibiotics course. Last date for antibiotics is 06/19/2021 Discharge Destination: Home
[2021-06-04] MEDS: VANCOMYCIN 1,250 MG in SODIUM CHLORIDE 0.9% 250ML 250 ML IV SCH (16:12)
[2021-06-04] MEDS: traZODone 100 MG TAB PO SCH (21:40)
[2021-06-05] MEDS: oxyCODONE /ACETAMINOPHEN 5-325MG TAB PO PRN ×3 (04:23→18:40)
[2021-06-05] MEDS: GABAPENTIN 300 MG CAP PO SCH ×3 (05:29→21:24)
[2021-06-05] MEDS: CEFEPIME/NS 2 GM/100 ML 2 GM/100 ML BAG IV SCH ×2 (08:08→21:45)
[2021-06-05] MEDS: MIDODRINE 5 MG TAB PO SCH ×3 (08:08→15:11)
[2021-06-05] MEDS: CITALOPRAM 20 MG TAB PO SCH (08:09)
[2021-06-05] MEDS: busPIRone 10 MG TAB PO SCH (09:17)
[2021-06-05] MEDS: ENOXAPARIN 40 MG/0.4 ML INJ SUB-Q SCH (09:17)
[2021-06-05] MEDS: VANCOMYCIN 1,250 MG in SODIUM CHLORIDE 0.9% 250ML 250 ML IV SCH (15:12)
[2021-06-05] MEDS: traZODone 100 MG TAB PO SCH (21:24)
[2021-06-06] MEDS: GABAPENTIN 300 MG CAP PO SCH ×3 (06:00→21:51)
[2021-06-06] MEDS: oxyCODONE /ACETAMINOPHEN 5-325MG TAB PO PRN ×3 (06:36→18:18)
[2021-06-06] MEDS: CITALOPRAM 20 MG TAB PO SCH (08:40)
[2021-06-06] MEDS: CEFEPIME/NS 2 GM/100 ML 2 GM/100 ML BAG IV SCH ×2 (08:40→21:57)
[2021-06-06] MEDS: MIDODRINE 5 MG TAB PO SCH ×3 (08:40→15:46)
[2021-06-06] MEDS: ENOXAPARIN 40 MG/0.4 ML INJ SUB-Q SCH (09:16)
[2021-06-06] MEDS: busPIRone 10 MG TAB PO SCH (09:17)
[2021-06-06] MEDS: VANCOMYCIN 1,250 MG in SODIUM CHLORIDE 0.9% 250ML 250 ML IV SCH (15:46)
[2021-06-06] MEDS ORDERED: ALTEPLASE 2 MG INJ IV ONE (18:00)
[2021-06-06] MEDS: traZODone 100 MG TAB PO SCH (21:50)
[2021-06-07] MEDS: GABAPENTIN 300 MG CAP PO SCH ×3 (06:21→21:18)
[2021-06-07] MEDS: MIDODRINE 5 MG TAB PO SCH ×3 (08:11→17:48)
[2021-06-07] MEDS: CITALOPRAM 20 MG TAB PO SCH (08:11)
[2021-06-07] MEDS: CEFEPIME/NS 2 GM/100 ML 2 GM/100 ML BAG IV SCH ×2 (08:11→22:08)
[2021-06-07] MEDS: oxyCODONE /ACETAMINOPHEN 5-325MG TAB PO PRN ×3 (08:11→21:17)
[2021-06-07] MEDS: ENOXAPARIN 40 MG/0.4 ML INJ SUB-Q SCH ×2 (08:11→10:17)
[2021-06-07] MEDS: busPIRone 10 MG TAB PO SCH ×2 (08:11→10:17)
[2021-06-07 08:15] LABS: Hematocrit 34.3 % (30.3-42.9); Hemoglobin 11.1 gm/dl (10.1-14.3); Mean Corpuscular HGB Conc 32 % (30-34); Mean Corpuscular Volume 86 fl (79-97); Platelet Count 176 K/mm3 (140-440); Red Blood Count 3.99 M/mm3 (3.65-5.03); Red Cell Distribution Width 19.1 % (13.2-15.2)
[2021-06-07 08:27] LABS: Blood Urea Nitrogen 18 mg/dL (7-17); Calcium 9.6 mg/dL (8.4-10.2); Hemolysis Index 5
[2021-06-07 08:46] LABS: BUN/Creatinine Ratio 30
--- NOTE | 2021-06-07 09:33 | Progress Note ---
Subjective Date of service: 06/07/21 Principal diagnosis: Infection of IM nail at left hip Interval history: 60-year-old female with a previous history of left IM nail with noted drainage and poor wound healing. Patient was admitted for further treatment and underwent explant of a previously placed IM nail. Patient tolerated procedure well. Infectious disease was consulted and placed the patient on IV antibiotics for approximately 6 weeks ending on 06/19. Patient is nonweightbearing at this time on the left lower extremity. Will need to clarify length of time with orthopedics. On examination, patient still has slight drainage at the proximal incision site of the left hip. I have alerted nursing. Patient was seen previously for the original hip fracture. We were initially asked to consider her for acute inpatient rehab however due to the prolonged period of time of nonweightbearing we opted to allow the primary team to pursue custodial facility. Apparently her insurance does not like the idea of a custodial facility for her and would prefer for her to undergo acute inpatient rehabilitation. Patient will not likely be able to be independent with mobility until she is able to weight-bear on her left lower extremity and will not be able to go home independently until the antibiotics are complete which is scheduled for 06/19/2021. We will take the patient on and continue to work with her for transfers, wound care, ADLs and mobility in order to improve her ability to transition home once IV antibiotics are complete. Interval History: Patient is participating in therapy and making reasonable progress. Taking rest breaks as needed. +BM. Denies palpitations, dyspnea, cough, N/V. Advanced to weightbearing as tolerated. Patient continues to have safety awareness issues. Patient does have an apparent leg length discrepancy Infection of left hip status post explant of IM nail: Continue IV antibiotics through 06/19. No drainage seen from the superior aspect of the incision. Advance to weightbearing as tolerated. Leg length discrepancy: Left lower extremity is approximately 1-1/2 to 2 inches shorter than the right lower extremity. Looking back over the postoperative hip x-rays, it looks as though there is an angulation at the proximal aspect of the left hip which could account for this discrepancy Anemia: Improved and normalized currently. Continue to monitor and transfuse for hemoglobin less than 7. Stable currently. PTSD: Continue medications. Monitor for any episodes Pain: Continue to monitor for functional pain control and adjust as needed with the goal of weaning down medications. Typically taking pain medications 3 times a day, discussed with the patient that we need to wean this down over the next several weeks. Pain seems to be worse with weightbearing and fairly tolerable when the patient is just sitting or lying in bed. Fibromyalgia: Continue medications and monitor for any worsening symptoms Insomnia: Seems improved on current medications. Continue to monitor and adjust medications as needed. Hypotension: Continue medications, blood pressure within reasonable range currently. All records, vitals, labs and medications were reviewed. No other issues per patient, nursing or therapy. Objective - Exam Narrative Exam: MUSCULOSKELETAL SPECIALTY EXAM CONSTITUTIONAL: Well developed, well nourished, appropriately groomed, obese RESPIRATORY: Clear to auscultation bilaterally, no increased work of breathing CARDIOVASCULAR: Regular Rate/ Rhythm, no swelling, edema or tenderness in BUE or BLE. All extremities warm. GI: + bowel sounds, soft, NTTP, nondistended. INTEGUMENTARY: Surgical wounds on left lower extremity, no drainage noted at the superior incision. Otherwise, normal, no lesion, rash, masses or bruising noted in extremities. MUSCULOSKELETAL: BUE and BLE normal without defect, crepitus, subluxation, effusion, arthritic changes or TTP. Apparent leg length discrepancy of 1/2 to 2 inches with the left lower extremity being shorter than the right BUE 4+/5, good ROM, with normal tone. RLE 4-/5 good ROM, with normal tone. Left lower extremity weak with decreased range of motion, 4-/5 NEURO: CN 2-12 grossly intact. Sensation intact in all extremities. Coordination intact in BUE. No tremor noted in 4 extremities. POSTURE and GAIT: Sitting posture good. PSYCH: Alert, oriented x3, affect appears blunted. Insight appears intact. - Constitutional Vitals: Vital Signs - 12hr 06/07/21 07:36 Temperature 98.4 F Pulse Rate 52 L Respiratory 18 Rate Blood Pressure 109/52 O2 Sat by Pulse 93 Oximetry - Allied health notes Allied health notes reviewed: nursing, PT, OT FIMS assessment as documented by PT/OT/ST: Grooming Patient cleans teeth/dentures: Yes Patient wall/brushes hair: Yes Patient washes, rinses and Yes dries face: Patient washes, rinses and Yes dries hands: Patient performs (no make-up/ 4/4 (100%) shaving): Grooming FIM Score 5. Supervision ([place] applies toothpaste or opens containers.) Toileting Toileting Device Commode over Toilet Patient able to: Adjust clothes before,Clean self Patient able to perform: 2/3 (67%) Toileting FIM Score 4. Minimal Assistance (Patient = 75% or more. Needs touching.) Social interaction/Memory/Problem solving Social Interaction FIM Score 6. Mod. [place] (Mostly appropriate. May need meds. No supv.) Memory FIM Score 6. Modified [place](Mild difficulty remembering people/routines.) Problem Solving FIM Score 6. Mod. [place] (Mild difficulty or needs more time w/ complex.) Transfers Mode of Locomotion: Wheelchair Bed/Chair/Wheelchair Transfers 5. Supervision (Needs supv. or set-up for FIM Score sliding board, foot rests.) Toilet Transfers FIM Score 4. Minimal Assistance (Patient = 75% or more. Needs touching.) Locomotion- walk/wheelchair Ambulation Distance 4 Eating Eating FIM Score 5. Supervision/Set-Up (Needs help w/ containers, cutting meat, etc.) Dressing-Upper body Patient retrieves clothing Yes items: Upper Body Dressing FIM Score 6. Modified [place] (Needs equipment, velcro or pros./orth.) Dressing-lower body Lower Body Dressing Device Aluminum Welder/Stick,Sock Aid Patient retrieves clothing Yes items: Patient applies/removes LE No: n/a prosthesis or orthosis: Lower Body Dressing FIM Score 4. Minimal Assistance (Patient = 75% or more. Needs touching.) - Labs CBC & Chem 7: 06/07/21 07:51 06/07/21 07:51 Labs: Laboratory Results - last 72 hr 06/04/21 06/07/21 06/07/21 12:28 07:51 07:51 WBC 4.4 L RBC 3.99 Hgb 11.1 Hct 34.3 MCV 86 MCH 28 MCHC 32 RDW 19.1 H Plt Count 176 Sodium 139 Potassium 3.9 Chloride 102.4 Carbon Dioxide 30 Anion Gap 11 BUN 18 H Creatinine 0.6 Estimated GFR > 60 BUN/Creatinine Ratio 30 Glucose 83 Calcium 9.6 Vancomycin Trough 15.6 Assessment and Plan Infection of left hip IM nail status post explant: Continue IV antibiotics. Patient is advanced to weightbearing as tolerated. Wound care for continued monitoring of wound and appropriate dressing changes. Leg length discrepancy: Will look into built-up shoes for the patient from local box lid[place]. Anemia: Postoperative, continue to monitor for improvement. Transfuse for hemoglobin less than 7. PTSD: Combined with aspects of anxiety as well. Patient is on several medications including buspirone, clonazepam, hydroxyzine, Zyprexa. Continue current medications and monitor patient for any further issues. Known issue from patient's previous stay with us. Pain: Postsurgical, fairly well controlled on current medications. Will wean down oral opioids. Monitor and adjust as needed for functional pain control Fibromyalgia: Continue gabapentin and citalopram. Monitor Insomnia: Continue trazodone, monitor for effectiveness. Patient is currently on max dose of effective use of trazodone for insomnia. Hypotension: Continue midodrine and monitor for improvement in blood pressure. ADL dysfunction: OT will work on improving ability to perform ADLs (including assistive devices) to increase independence and decrease caregiver burden and i mprove functional transfers and mobility training. Difficulty walking: PT will work on gait training and proper use of assistive devices and advance as appropriate to use of stairs and outside ambulation on uneven surfaces. Unsteadiness on feet: PT will work on improving static and dynamic sitting and standing balance as well as proper use of assistive devices to decrease risk of falls. Abnormality of gait: PT will work to improve safety and efficiency of gait through neuromotor training and gait training along with instruction on proper use of assistive devices. Muscle weakness: PT & OT will work on strengthening exercises to improve functional strength including mixture of closed and open kinetic chain exercises. Debility: PT & OT will work on improving overall functional status to improve participation with ADLs, mobility and social involvement. Fatigue: PT & OT will work on improving endurance through aerobic exercises and therapeutic activity while monitoring patients tolerance for activity and vital signs as needed. Decreased safety awareness: Continue to give patient reminders for following safety precautions. DVT ppx: Lovenox Pain: Continue physical modalities in therapy and pain medications as needed to achieve functional pain control. Sleep: Monitor and address as needed. Bowel: Monitor and address as needed. Appetite: Monitor and address as needed. Discharge planning: Pending therapy progress and care plan meeting. Will continue discussion with therapy team, SW, patient and family. Restrictions/ Precautions: Falls, infection WB status: Weightbearing as tolerated left lower extremity Functional Hx: ADLs: Independent Cognition: Independent Mobility: RW Barriers to Discharge: Decreased mobility and ability to perform self care, balance deficits, weakness Estimated Length of Stay: 1418 days or longer depending on insurance companies desire for us to keep the patient throughout her needed antibiotics course. Last date for antibiotics is 06/19/2021 Discharge Destination: Home
[2021-06-07] MEDS: VANCOMYCIN 1,250 MG in SODIUM CHLORIDE 0.9% 250ML 250 ML IV SCH (14:07)
[2021-06-07] MEDS: traZODone 100 MG TAB PO SCH (21:18)
[2021-06-08] MEDS: GABAPENTIN 300 MG CAP PO SCH ×3 (06:16→21:41)
--- NOTE | 2021-06-08 10:26 | Progress Note ---
Subjective Date of service: 06/08/21 Principal diagnosis: Infection of IM nail at left hip Interval history: 60-year-old female with a previous history of left IM nail with noted drainage and poor wound healing. Patient was admitted for further treatment and underwent explant of a previously placed IM nail. Patient tolerated procedure well. Infectious disease was consulted and placed the patient on IV antibiotics for approximately 6 weeks ending on 06/19. Patient is nonweightbearing at this time on the left lower extremity. Will need to clarify length of time with orthopedics. On examination, patient still has slight drainage at the proximal incision site of the left hip. I have alerted nursing. Patient was seen previously for the original hip fracture. We were initially asked to consider her for acute inpatient rehab however due to the prolonged period of time of nonweightbearing we opted to allow the primary team to pursue penitentiary facility. Apparently her insurance does not like the idea of a penitentiary facility for her and would prefer for her to undergo acute inpatient rehabilitation. Patient will not likely be able to be independent with mobility until she is able to weight-bear on her left lower extremity and will not be able to go home independently until the antibiotics are complete which is scheduled for 06/19/2021. We will take the patient on and continue to work with her for transfers, wound care, ADLs and mobility in order to improve her ability to transition home once IV antibiotics are complete. Interval History: Patient is participating in therapy and making reasonable progress. Taking rest breaks as needed. +BM. Denies palpitations, dyspnea, cough, N/V. Advanced to weightbearing as tolerated. Patient continues to have safety awareness issues. Patient does have an apparent leg length discrepancy, patient does state that Dr. Coughlin is looking to perform a hip replacement surgery at some point in the future. We will see if we can find a short-term solution for a shoe lift until then. Infection of left hip status post explant of IM nail: Continue IV antibiotics through 06/19. No drainage from the incision. Weightbearing as tolerated. Leg length discrepancy: Left lower extremity is approximately 1-1/2 to 2 inches shorter than the right lower extremity. Looking back over the postoperative hip x-rays, it looks as though there is an angulation at the proximal aspect of the left hip which would account for this discrepancy. Patient believes that Dr. Coughlin is looking to perform a hip replacement surgery in the future, will attempt to confirm this with him and will try to find a short-term solution for the discrepancy utilizing a shoe lift. Anemia: Improved and normalized currently. Continue to monitor and transfuse for hemoglobin less than 7. Stable currently. PTSD: Continue medications. Monitor for any episodes Pain: Continue to monitor for functional pain control and adjust as needed with the goal of weaning down medications. Typically taking pain medications 3 times a day, discussed with the patient that we need to wean this down over the next several weeks. Pain seems to be worse with weightbearing and fairly tolerable when the patient is just sitting or lying in bed. Fibromyalgia: Continue medications and monitor for any worsening symptoms Insomnia: Seems improved on current medications. Continue to monitor and adjust medications as needed. Hypotension: Continue medications, blood pressure within reasonable range currently. All records, vitals, labs and medications were reviewed. No other issues per patient, nursing or therapy. Patient discussed during team conference. Making fairly reasonable progress with physical therapy and is walking approximately 50 to 60 feet with a contact- guard and rolling walker. Patient is mostly modified independent with occupati onal therapy. Primarily keeping the patient for IV antibiotics. Will attempt to confirm with the insurance company, she does not have coverage for penitentiary facility which would have been a more appropriate admission and insurance company opted to have us treat and manage her in the acute rehab environment. We will see if they want us to continue working with her with perhaps reduced time each day in order to continue the IV antibiotics until completed Objective - Exam Narrative Exam: MUSCULOSKELETAL SPECIALTY EXAM CONSTITUTIONAL: Well developed, well nourished, appropriately groomed, obese RESPIRATORY: Clear to auscultation bilaterally, no increased work of breathing CARDIOVASCULAR: Regular Rate/ Rhythm, no swelling, edema or tenderness in BUE or BLE. All extremities warm. GI: + bowel sounds, soft, NTTP, nondistended. INTEGUMENTARY: Surgical wounds on left lower extremity, no drainage noted. Otherwise, normal, no lesion, rash, masses or bruising noted in extremities. MUSCULOSKELETAL: BUE and BLE normal without defect, crepitus, subluxation, effusion, arthritic changes or TTP. Apparent leg length discrepancy of 1/2 to 2 inches with the left lower extremity being shorter than the right BUE 4+/5, good ROM, with normal tone. RLE 4-/5 good ROM, with normal tone. Left lower extremity weak with decreased range of motion, 4-/5 NEURO: Sensation intact in all extremities. No tremor noted in 4 extremities. POSTURE and GAIT: Sitting posture good. PSYCH: Alert, oriented x3, affect appears blunted. Insight appears intact. - Constitutional Vitals: Vital Signs - 12hr 06/08/21 06/08/21 05:35 07:28 Temperature 97.9 F 97.6 F Pulse Rate 57 L 60 Respiratory 16 16 Rate Blood Pressure 124/48 128/42 O2 Sat by Pulse 95 93 Oximetry - Allied health notes Allied health notes reviewed: nursing, PT, OT FIMS assessment as documented by PT/OT/ST: Grooming Patient cleans teeth/dentures: Yes Patient wall/brushes hair: Yes Patient washes, rinses and Yes dries face: Patient washes, rinses and Yes dries hands: Patient performs (no make-up/ / (100%) shaving): Grooming FIM Score 5. Supervision ([place] applies toothpaste or opens containers.) Toileting Toileting Device Commode over Toilet Patient able to: Adjust clothes before,Clean self,Adjust clothes after Patient able to perform: 3/3 (100%) Toileting FIM Score 6. Modified [place] (Needs equip. or prosth ./orth.) Social interaction/Memory/Problem solving Social Interaction FIM Score 6. Mod. [place] (Mostly appropriate. May need meds. No supv.) Memory FIM Score 6. Modified [place](Mild difficulty remembering people/routines.) Problem Solving FIM Score 6. Mod. [place] (Mild difficulty or needs more time w/ complex.) Transfers Mode of Locomotion: Wheelchair Bed/Chair/Wheelchair Transfers 5. Supervision (Needs supv. or set-up for FIM Score sliding board, foot rests.) Toilet Transfers FIM Score 4. Minimal Assistance (Patient = 75% or more. Needs touching.) Locomotion- walk/wheelchair Ambulation Distance 4 Eating Eating FIM Score 6. Modified [place] (Special consistency or uses device.) Dressing-Upper body Patient retrieves clothing Yes items: Upper Body Dressing FIM Score 6. Modified [place] (Needs equipment, velcro or pros./orth.) Dressing-lower body Lower Body Dressing Device Respiratory Support Technician/Stick,Sock Aid Patient retrieves clothing Yes items: Patient applies/removes LE No: n/a prosthesis or orthosis: Lower Body Dressing FIM Score 6. Modified [place] (Needs equipment, velcro or pros./orth.) - Labs CBC & Chem 7: 06/07/21 07:51 06/07/21 07:51 Labs: Laboratory Results - last 72 hr 06/07/21 06/07/21 07:51 07:51 WBC 4.4 L RBC 3.99 Hgb 11.1 Hct 34.3 MCV 86 MCH 28 MCHC 32 RDW 19.1 H Plt Count 176 Sodium 139 Potassium 3.9 Chloride 102.4 Carbon Dioxide 30 Anion Gap 11 BUN 18 H Creatinine 0.6 Estimated GFR > 60 BUN/Creatinine Ratio 30 Glucose 83 Calcium 9.6 Assessment and Plan Infection of left hip IM nail status post explant: Continue IV antibiotics. Patient is advanced to weightbearing as tolerated. Wound care for continued monitoring of wound and appropriate dressing changes. Leg length discrepancy: Will look into built-up shoes for the patient from local painter set or some other possible option if Dr. Coughlin is looking to perform a hip replacement in the near future. Anemia: Postoperative, continue to monitor for improvement. Transfuse for hemoglobin less than 7. PTSD: Combined with aspects of anxiety as well. Patient is on several medications including buspirone, clonazepam, hydroxyzine, Zyprexa. Continue current medications and monitor patient for any further issues. Known issue from patient's previous stay with us. Pain: Postsurgical, fairly well controlled on current medications. Will wean down oral opioids. Monitor and adjust as needed for functional pain control Fibromyalgia: Continue gabapentin and citalopram. Monitor Insomnia: Continue trazodone, monitor for effectiveness. Patient is currently on max dose of effective use of trazodone for insomnia. Hypotension: Continue midodrine and monitor for improvement in blood pressure. ADL dysfunction: OT will work on improving ability to perform ADLs (including assistive devices) to increase independence and decrease caregiver burden and improve functional transfers and mobility training. Difficulty walking: PT will work on gait training and proper use of assistive devices and advance as appropriate to use of stairs and outside ambulation on uneven surfaces. Unsteadiness on feet: PT will work on improving static and dynamic sitting and standing balance as well as proper use of assistive devices to decrease risk of falls. Abnormality of gait: PT will work to improve safety and efficiency of gait through neuromotor training and gait training along with instruction on proper use of assistive devices. Muscle weakness: PT & OT will work on strengthening exercises to improve functional strength including mixture of closed and open kinetic chain exercises. Debility: PT & OT will work on improving overall functional status to improve participation with ADLs, mobility and social involvement. Fatigue: PT & OT will work on improving endurance through aerobic exercises and therapeutic activity while monitoring patients tolerance for activity and vital signs as needed. Decreased safety awareness: Continue to give patient reminders for following safety precautions. DVT ppx: Lovenox Pain: Continue physical modalities in therapy and pain medications as needed to achieve functional pain control. Sleep: Monitor and address as needed. Bowel: Monitor and address as needed. Appetite: Monitor and address as needed. Discharge planning: Pending therapy progress and care plan meeting. Will contin ue discussion with therapy team, SW, patient and family. Restrictions/ Precautions: Falls, infection WB status: Weightbearing as tolerated left lower extremity Functional Hx: ADLs: Independent Cognition: Independent Mobility: RW Barriers to Discharge: Decreased mobility and ability to perform self care, balance deficits, weakness Estimated Length of Stay: 1418 days or longer depending on insurance companies desire for us to keep the patient throughout her needed antibiotics course. Last date for antibiotics is 06/19/2021 Discharge Destination: Home
[2021-06-08] MEDS: ENOXAPARIN 40 MG/0.4 ML INJ SUB-Q SCH (11:19)
[2021-06-08] MEDS: CEFEPIME/NS 2 GM/100 ML 2 GM/100 ML BAG IV SCH ×2 (11:19→21:49)
[2021-06-08] MEDS: busPIRone 10 MG TAB PO SCH (11:20)
[2021-06-08] MEDS: CITALOPRAM 20 MG TAB PO SCH (11:20)
[2021-06-08] MEDS: oxyCODONE /ACETAMINOPHEN 5-325MG TAB PO PRN ×3 (11:20→23:49)
[2021-06-08] MEDS: MIDODRINE 5 MG TAB PO SCH ×3 (11:21→18:04)
[2021-06-08] MEDS: VANCOMYCIN 1,250 MG in SODIUM CHLORIDE 0.9% 250ML 250 ML IV SCH (15:14)
[2021-06-08] MEDS: traZODone 100 MG TAB PO SCH (21:41)
[2021-06-09] MEDS: GABAPENTIN 300 MG CAP PO SCH ×4 (06:02→23:12)
[2021-06-09] MEDS: oxyCODONE /ACETAMINOPHEN 5-325MG TAB PO PRN ×3 (06:49→20:34)
--- NOTE | 2021-06-09 08:10 | Progress Note ---
Subjective Date of service: 06/09/21 Principal diagnosis: Infection of IM nail at left hip Interval history: 60-year-old female with a previous history of left IM nail with noted drainage and poor wound healing. Patient was admitted for further treatment and underwent explant of a previously placed IM nail. Patient tolerated procedure well. Infectious disease was consulted and placed the patient on IV antibiotics for approximately 6 weeks ending on 06/19. Patient is nonweightbearing at this time on the left lower extremity. Will need to clarify length of time with orthopedics. On examination, patient still has slight drainage at the proximal incision site of the left hip. I have alerted nursing. Patient was seen previously for the original hip fracture. We were initially asked to consider her for acute inpatient rehab however due to the prolonged period of time of nonweightbearing we opted to allow the primary team to pursue assisted facility. Apparently her insurance does not like the idea of a assisted facility for her and would prefer for her to undergo acute inpatient rehabilitation. Patient will not likely be able to be independent with mobility until she is able to weight-bear on her left lower extremity and will not be able to go home independently until the antibiotics are complete which is scheduled for 06/19/2021. We will take the patient on and continue to work with her for transfers, wound care, ADLs and mobility in order to improve her ability to transition home once IV antibiotics are complete. Interval History: Patient is participating in therapy and making reasonable progress. Taking rest breaks as needed. +BM. Denies palpitations, dyspnea, cough, N/V. Advanced to weightbearing as tolerated. Patient continues to have safety awareness issues. No acute events overnight, patient making slow progress with therapy. Awaiting further information from insurance company as to their desired length of stay. Infection of left hip status post explant of IM nail: Continue IV antibiotics through 06/19. No drainage from the incision. Weightbearing as tolerated. Leg length discrepancy: Left lower extremity is approximately 1-1/2 to 2 inches shorter than the right lower extremity. Looking back over the postoperative hip x-rays, it looks as though there is an angulation at the proximal aspect of the left hip which would account for this discrepancy. Patient believes that Dr. Coughlin is looking to perform a hip replacement surgery in the future, will attempt to confirm this with him and will try to find a short-term solution for the discrepancy utilizing a shoe lift. Anemia: Improved and normalized currently. Continue to monitor and transfuse for hemoglobin less than 7. Stable currently. PTSD: Continue medications. Monitor for any episodes Pain: Continue to monitor for functional pain control and adjust as needed with the goal of weaning down medications. Typically taking pain medications 3 times a day, discussed with the patient that we need to wean this down over the next several weeks. Pain seems to be worse with weightbearing and fairly tolerable when the patient is just sitting or lying in bed. Fibromyalgia: Continue medications and monitor for any worsening symptoms Insomnia: Seems improved on current medications. Continue to monitor and adjust medications as needed. Hypotension: Continue medications, blood pressure within reasonable range currently. All records, vitals, labs and medications were reviewed. No other issues per patient, nursing or therapy. Objective - Exam Narrative Exam: MUSCULOSKELETAL SPECIALTY EXAM CONSTITUTIONAL: Well developed, well nourished, appropriately groomed, obese RESPIRATORY: Clear to auscultation bilaterally, no increased work of breathing CARDIOVASCULAR: Regular Rate/ Rhythm, no swelling, edema or tenderness in BUE or BLE. All extremities warm. GI: + bowel sounds, soft, NTTP, nondistended. INTEGUMENTARY: Surgical wounds on left lower extremity, no drainage noted. Otherwise, normal, no lesion, rash, masses or bruising noted in extremities. MUSCULOSKELETAL: BUE and BLE normal without defect, crepitus, subluxation, effusion, arthritic changes or TTP. Apparent leg length discrepancy of 1/2 to 2 inches with the left lower extremity being shorter than the right BUE 4+/5, good ROM, with normal tone. RLE 4-/5 good ROM, with normal tone. Left lower extremity weak with decreased range of motion, 4-/5 NEURO: Sensation intact in all extremities. No tremor noted in 4 extremities. POSTURE and GAIT: Sitting posture good. PSYCH: Alert, oriented x3, affect appears blunted. Insight appears intact. - Constitutional Vitals: Vital Signs - 12hr 06/09/21 06/09/21 05:00 06:56 Temperature 97.2 F L 97.9 F Pulse Rate 71 61 Respiratory 16 18 Rate Blood Pressure 143/54 Blood Pressure 136/64 [Left] O2 Sat by Pulse 97 96 Oximetry - Allied health notes Allied health notes reviewed: nursing, PT, OT FIMS assessment as documented by PT/OT/ST: Grooming Patient cleans teeth/dentures: Yes Patient wall/brushes hair: Yes Patient washes, rinses and Yes dries face: Patient washes, rinses and Yes dries hands: Patient performs (no make-up/ 02/21 (100%) shaving): Grooming FIM Score 5. Supervision ([place] applies toothpaste or opens containers.) Toileting Toileting Device Commode over Toilet Patient able to: Adjust clothes before,Clean self,Adjust clothes after Patient able to perform: 3/3 (100%) Toileting FIM Score 6. Modified [place] (Needs equip. or prosth ./orth.) Social interaction/Memory/Problem solving Social Interaction FIM Score 6. Mod. [place] (Mostly appropriate. May need meds. No supv.) Memory FIM Score 6. Modified [place](Mild difficulty remembering people/routines.) Problem Solving FIM Score 6. Mod. [place] (Mild difficulty or needs more time w/ complex.) Transfers Mode of Locomotion: Wheelchair Bed/Chair/Wheelchair Transfers 5. [place] (Needs supv. or set-up for FIM Score sliding board, foot rests.) Toilet Transfers FIM Score 4. Minimal Assistance (Patient = 75% or more. Needs touching.) Locomotion- walk/wheelchair Ambulation Distance 4 Eating Eating FIM Score 6. Modified [place] (Special consistency or uses device.) Dressing-Upper body Patient retrieves clothing Yes items: Upper Body Dressing FIM Score 6. Modified [place] (Needs equipment, velcro or pros./orth.) Dressing-lower body Lower Body Dressing Device Intensive Care Medicine Specialist/Stick,Sock Aid Patient retrieves clothing Yes items: Patient applies/removes LE No: n/a prosthesis or orthosis: Lower Body Dressing FIM Score 6. Modified [place] (Needs equipment, velcro or pros./orth.) - Labs CBC & Chem 7: 06/07/21 07:51 06/07/21 07:51 Labs: Laboratory Results - last 72 hr 06/07/21 06/07/21 07:51 07:51 WBC 4.4 L RBC 3.99 Hgb 11.1 Hct 34.3 MCV 86 MCH 28 MCHC 32 RDW 19.1 H Plt Count 176 Sodium 139 Potassium 3.9 Chloride 102.4 Carbon Dioxide 30 Anion Gap 11 BUN 18 H Creatinine 0.6 Estimated GFR > 60 BUN/Creatinine Ratio 30 Glucose 83 Calcium 9.6 Assessment and Plan Infection of left hip IM nail status post explant: Continue IV antibiotics. Patient is advanced to weightbearing as tolerated. Wound care for continued monitoring of wound and appropriate dressing changes. Leg length discrepancy: Will look into built-up shoes for the patient from local supervisor publications or some other possible option if Dr. Coughlin is looking to perform a hip replacement in the near future. Anemia: Postoperative, continue to monitor for improvement. Transfuse for hemoglobin less than 7. PTSD: Combined with aspects of anxiety as well. Patient is on several medications including buspirone, clonazepam, hydroxyzine, Zyprexa. Continue current medications and monitor patient for any further issues. Known issue from patient's previous stay with us. Pain: Postsurgical, fairly well controlled on current medications. Will wean down oral opioids. Monitor and adjust as needed for functional pain control Fibromyalgia: Continue gabapentin and citalopram. Monitor Insomnia: Continue trazodone, monitor for effectiveness. Patient is currently on max dose of effective use of trazodone for insomnia. Hypotension: Continue midodrine and monitor for improvement in blood pressure. ADL dysfunction: OT will work on improving ability to perform ADLs (including assistive devices) to increase independence and decrease caregiver burden and improve functional transfers and mobility training. Difficulty walking: PT will work on gait training and proper use of assistive devices and advance as appropriate to use of stairs and outside ambulation on uneven surfaces. Unsteadiness on feet: PT will work on improving static and dynamic sitting and standing balance as well as proper use of assistive devices to decrease risk of falls. Abnormality of gait: PT will work to improve safety and efficiency of gait through neuromotor training and gait training along with instruction on proper use of assistive devices. Muscle weakness: PT & OT will work on strengthening exercises to improve functional strength including mixture of closed and open kinetic chain exercises. Debility: PT & OT will work on improving overall functional status to improve participation with ADLs, mobility and social involvement. Fatigue: PT & OT will work on improving endurance through aerobic exercises and therapeutic activity while monitoring patients tolerance for activity and vital signs as needed. Decreased safety awareness: Continue to give patient reminders for following safety precautions. DVT ppx: Lovenox Pain: Continue physical modalities in therapy and pain medications as needed to achieve functional pain control. Sleep: Monitor and address as needed. Bowel: Monitor and address as needed. Appetite: Monitor and address as needed. Discharge planning: Pending therapy progress and care plan meeting. Will continue discussion with therapy team, SW, patient and family. Restrictions/ Precautions: Falls, infection WB status: Weightbearing as tolerated left lower extremity Functional Hx: ADLs: Independent Cognition: Independent Mobility: RW Barriers to Discharge: Decreased mobility and ability to perform self care, balance deficits, weakness Estimated Length of Stay: 1418 days or longer depending on insurance companies desire for us to keep the patient throughout her needed antibiotics course. Last date for antibiotics is 06/19/2021 Discharge Destination: Home
[2021-06-09] MEDS: CITALOPRAM 20 MG TAB PO SCH (08:30)
[2021-06-09] MEDS: busPIRone 10 MG TAB PO SCH ×2 (08:30→10:00)
[2021-06-09] MEDS: MIDODRINE 5 MG TAB PO SCH ×3 (08:30→16:01)
[2021-06-09] MEDS: ENOXAPARIN 40 MG/0.4 ML INJ SUB-Q SCH ×2 (08:44→10:00)
[2021-06-09] MEDS: CEFEPIME/NS 2 GM/100 ML 2 GM/100 ML BAG IV SCH ×2 (09:54→20:36)
[2021-06-09] MEDS: VANCOMYCIN 1,250 MG in SODIUM CHLORIDE 0.9% 250ML 250 ML IV SCH (13:30)
[2021-06-09] MEDS: traZODone 100 MG TAB PO SCH (20:37)
[2021-06-10] MEDS: GABAPENTIN 300 MG CAP PO SCH ×3 (05:38→22:45)
[2021-06-10] MEDS: oxyCODONE /ACETAMINOPHEN 5-325MG TAB PO PRN ×3 (05:38→18:54)
[2021-06-10] MEDS: CITALOPRAM 20 MG TAB PO SCH (08:06)
[2021-06-10] MEDS: MIDODRINE 5 MG TAB PO SCH ×3 (08:06→15:49)
[2021-06-10] MEDS: CEFEPIME/NS 2 GM/100 ML 2 GM/100 ML BAG IV SCH ×2 (10:01→22:06)
[2021-06-10] MEDS: busPIRone 10 MG TAB PO SCH (10:01)
[2021-06-10] MEDS: ENOXAPARIN 40 MG/0.4 ML INJ SUB-Q SCH (10:01)
--- NOTE | 2021-06-10 10:38 | Progress Note ---
Subjective Date of service: 06/10/21 Principal diagnosis: Infection of IM nail at left hip Interval history: 60-year-old female with a previous history of left IM nail with noted drainage and poor wound healing. Patient was admitted for further treatment and underwent explant of a previously placed IM nail. Patient tolerated procedure well. Infectious disease was consulted and placed the patient on IV antibiotics for approximately 6 weeks ending on 06/19. Patient is nonweightbearing at this time on the left lower extremity. Will need to clarify length of time with orthopedics. On examination, patient still has slight drainage at the proximal incision site of the left hip. I have alerted nursing. Patient was seen previously for the original hip fracture. We were initially asked to consider her for acute inpatient rehab however due to the prolonged period of time of nonweightbearing we opted to allow the primary team to [facility]. Apparently her insurance does not like the idea of a [facility] facility for her and would prefer for her to undergo acute inpatient rehabilitation. Patient will not likely be able to be independent with mobility until she is able to weight-bear on her left lower extremity and will not be able to go home independently until the antibiotics are complete which is scheduled for 06/19/2021. We will take the patient on and continue to work with her for transfers, wound care, ADLs and mobility in order to improve her ability to transition home once IV antibiotics are complete. Interval History: Patient is participating in therapy and making reasonable progress. Taking rest breaks as needed. +BM. Denies palpitations, dyspnea, cough, N/V. Advanced to weightbearing as tolerated. Patient continues to have safety awareness issues. No acute events overnight, patient making slow progress with therapy. Awaiting further information from insurance company as to their desired length of stay. Infection of left hip status post explant of IM nail: Continue IV antibiotics through 06/19. No drainage from the incision. Weightbearing as tolerated. Leg length discrepancy: Left lower extremity is approximately 1-1/2 to 2 inches shorter than the right lower extremity. Looking back over the postoperative hip x-rays, it looks as though there is an angulation at the proximal aspect of the left hip which would account for this discrepancy. Patient believes that Dr. Coughlin is looking to perform a hip replacement surgery in the future, will attempt to confirm this with him and will try to find a short-term solution for the discrepancy utilizing a shoe lift. Anemia: Improved and normalized currently. Continue to monitor and transfuse for hemoglobin less than 7. Stable currently. PTSD: Continue medications. Monitor for any episodes Pain: Continue to monitor for functional pain control and adjust as needed with the goal of weaning down medications. Typically taking pain medications 3 times a day, discussed with the patient that we need to wean this down over the next several weeks. Pain seems to be worse with weightbearing and fairly tolerable when the patient is just sitting or lying in bed. Fibromyalgia: Continue medications and monitor for any worsening symptoms Insomnia: Seems improved on current medications. Continue to monitor and adjust medications as needed. Hypotension: Continue medications, blood pressure within reasonable range currently. All records, vitals, labs and medications were reviewed. No other issues per patient, nursing or therapy. Objective - Exam Narrative Exam: MUSCULOSKELETAL SPECIALTY EXAM CONSTITUTIONAL: Well developed, well nourished, appropriately groomed, obese RESPIRATORY: Clear to auscultation bilaterally, no increased work of breathing CARDIOVASCULAR: Regular Rate/ Rhythm, no swelling, edema or tenderness in BUE or BLE. All extremities warm. GI: + bowel sounds, soft, NTTP, nondistended. INTEGUMENTARY: Surgical wounds on left lower extremity, no drainage noted. Otherwise, normal, no lesion, rash, masses or bruising noted in extremities. MUSCULOSKELETAL: BUE and BLE normal without defect, crepitus, subluxation, effusion, arthritic changes or TTP. Apparent leg length discrepancy of 1/2 to 2 inches with the left lower extremity being shorter than the right BUE 4+/5, good ROM, with normal tone. RLE 4-/5 good ROM, with normal tone. Left lower extremity weak with decreased range of motion, 4-/5 NEURO: Sensation intact in all extremities. No tremor noted in 4 extremities. POSTURE and GAIT: Sitting posture good. PSYCH: Alert, oriented x3, affect appears blunted. Insight appears intact. - Constitutional Vitals: Vital Signs - 12hr 06/10/21 06/10/21 06/10/21 05:07 06:54 10:00 Temperature 97.6 F 98.9 F Pulse Rate 54 L 54 L Respiratory 18 18 Rate Respiratory 18 Rate [Left Leg] Blood Pressure 136/59 120/47 O2 Sat by Pulse 94 93 Oximetry - Allied health notes Allied health notes reviewed: nursing, PT, OT FIMS assessment as documented by PT/OT/ST: Grooming Patient cleans teeth/dentures: Yes Patient wall/brushes hair: Yes Patient washes, rinses and Yes dries face: Patient washes, rinses and Yes dries hands: Patient performs (no make-up/ 4/4 (100%) shaving): Grooming FIM Score 5. Supervision ([place] applies toothpaste or opens containers.) Toileting Toileting Device Commode over Toilet Patient able to: Adjust clothes before,Clean self,Adjust clothes after Patient able to perform: 3/3 (100%) Toileting FIM Score 5. Supv./Set-Up (Needs stand-by, set-up, applying prosth/orth.) Social interaction/Memory/Problem solving Social Interaction FIM Score 6. Mod. [place] (Mostly appropriate. May need meds. No supv.) Memory FIM Score 6. Modified [place](Mild difficulty remembering people/routines.) Problem Solving FIM Score 6. Mod. [place] (Mild difficulty or needs more time w/ complex.) Transfers Mode of Locomotion: Wheelchair Bed/Chair/Wheelchair Transfers 5. Supervision (Needs supv. or set-up for FIM Score sliding board, foot rests.) Toilet Transfers FIM Score 4. Minimal Assistance (Patient = 75% or more. Needs touching.) Locomotion- walk/wheelchair Ambulation Distance 4 Eating Eating FIM Score 6. Modified [place] (Special consistency or uses device.) Dressing-Upper body Patient retrieves clothing Yes items: Upper Body Dressing FIM Score 6. Modified [place] (Needs equipment, velcro or pros./orth.) Dressing-lower body Lower Body Dressing Device Ceramic Painter/Stick,Sock Aid Patient retrieves clothing Yes items: Patient applies/removes LE No: n/a prosthesis or orthosis: Lower Body Dressing FIM Score 6. Modified [place] (Needs equipment, velcro or pros./orth.) - Labs CBC & Chem 7: 06/07/21 07:51 06/07/21 07:51 Assessment and Plan Infection of left hip IM nail status post explant: Continue IV antibiotics. Patient is advanced to weightbearing as tolerated. Wound care for continued monitoring of wound and appropriate dressing changes. Leg length discrepancy: Will look into built-up shoes for the patient from local casing trimmer or some other possible option if Dr. Coughlin is looking to perform a hip replacement in the near future. Anemia: Postoperative, continue to monitor for improvement. Transfuse for hemog lobin less than 7. PTSD: Combined with aspects of anxiety as well. Patient is on several medicat ions including buspirone, clonazepam, hydroxyzine, Zyprexa. Continue current medications and monitor patient for any further issues. Known issue from patient's previous stay with us. Pain: Postsurgical, fairly well controlled on current medications. Will wean down oral opioids. Monitor and adjust as needed for functional pain control Fibromyalgia: Continue gabapentin and citalopram. Monitor Insomnia: Continue trazodone, monitor for effectiveness. Patient is currently on max dose of effective use of trazodone for insomnia. Hypotension: Continue midodrine and monitor for improvement in blood pressure. ADL dysfunction: OT will work on improving ability to perform ADLs (including assistive devices) to increase independence and decrease caregiver burden and improve functional transfers and mobility training. Difficulty walking: PT will work on gait training and proper use of assistive devices and advance as appropriate to use of stairs and outside ambulation on uneven surfaces. Unsteadiness on feet: PT will work on improving static and dynamic sitting and standing balance as well as proper use of assistive devices to decrease risk of falls. Abnormality of gait: PT will work to improve safety and efficiency of gait through neuromotor training and gait training along with instruction on proper use of assistive devices. Muscle weakness: PT & OT will work on strengthening exercises to improve functional strength including mixture of closed and open kinetic chain exercis es. Debility: PT & OT will work on improving overall functional status to improve participation with ADLs, mobility and social involvement. Fatigue: PT & OT will work on improving endurance through aerobic exercises and therapeutic activity while monitoring patients tolerance for activity and vital signs as needed. Decreased safety awareness: Continue to give patient reminders for following sa fety precautions. DVT ppx: Lovenox Pain: Continue physical modalities in therapy and pain medications as needed to achieve functional pain control. Sleep: Monitor and address as needed. Bowel: Monitor and address as needed. Appetite: Monitor and address as needed. Discharge planning: Pending therapy progress and care plan meeting. Will continue discussion with therapy team, SW, patient and family. Restrictions/ Precautions: Falls, infection WB status: Weightbearing as tolerated left lower extremity Functional Hx: ADLs: Independent Cognition: Independent Mobility: RW Barriers to Discharge: Decreased mobility and ability to perform self care, balance deficits, weakness Estimated Length of Stay: 1418 days or longer depending on insurance companies desire for us to keep the patient throughout her needed antibiotics course. Last date for antibiotics is 06/19/2021 Discharge Destination: Home
[2021-06-10] MEDS: VANCOMYCIN 1,250 MG in SODIUM CHLORIDE 0.9% 250ML 250 ML IV SCH (15:50)
[2021-06-10] MEDS: traZODone 100 MG TAB PO SCH (22:06)
[2021-06-11] MEDS: GABAPENTIN 300 MG CAP PO SCH ×3 (05:59→23:22)
[2021-06-11] MEDS: oxyCODONE /ACETAMINOPHEN 5-325MG TAB PO PRN ×3 (06:01→19:26)
--- NOTE | 2021-06-11 08:11 | Progress Note ---
Subjective Date of service: 06/11/21 Principal diagnosis: Infection of IM nail at left hip Interval history: 60-year-old female with a previous history of left IM nail with noted drainage and poor wound healing. Patient was admitted for further treatment and underwent explant of a previously placed IM nail. Patient tolerated procedure well. Infectious disease was consulted and placed the patient on IV antibiotics for approximately 6 weeks ending on 06/19. Patient is nonweightbearing at this time on the left lower extremity. Will need to clarify length of time with orthopedics. On examination, patient still has slight drainage at the proximal incision site of the left hip. I have alerted nursing. Patient was seen previously for the original hip fracture. We were initially asked to consider her for acute inpatient rehab however due to the prolonged period of time of nonweightbearing we opted to allow the primary team to pursue [facility] facility. Apparently her insurance does not like the idea of a [facility] facility for her and would prefer for her to undergo acute inpatient rehabilitation. Patient will not likely be able to be independent with mobility until she is able to weight-bear on her left lower extremity and will not be able to go home independently until the antibiotics are complete which is scheduled for 06/19/2021. We will take the patient on and continue to work with her for transfers, wound care, ADLs and mobility in order to improve her ability to transition home once IV antibiotics are complete. Interval History: Patient is participating in therapy and making reasonable progress. Taking rest breaks as needed. +BM. Denies palpitations, dyspnea, cough, N/V. Advanced to weightbearing as tolerated. Patient continues to have safety awareness issues. No acute events overnight, patient making slow progress with therapy. Awaiting further information from insurance company as to their desired length of stay. Infection of left hip status post explant of IM nail: Continue IV antibiotics through 06/19. No drainage from the incision. Weightbearing as tolerated. Leg length discrepancy: Left lower extremity is approximately 1-1/2 to 2 inches shorter than the right lower extremity. Looking back over the postoperative hip x-rays, it looks as though there is an angulation at the proximal aspect of the left hip which would account for this discrepancy. Patient believes that Dr. Coughlin is looking to perform a hip replacement surgery in the future, will attempt to confirm this with him and will try to find a short-term solution for the discrepancy utilizing a shoe lift. Anemia: Improved and normalized currently. Continue to monitor and transfuse for hemoglobin less than 7. Stable currently. PTSD: Continue medications. Monitor for any episodes Pain: Continue to monitor for functional pain control and adjust as needed with the goal of weaning down medications. Typically taking pain medications 3 times a day, discussed with the patient that we need to wean this down over the next several weeks. Pain seems to be worse with weightbearing and fairly tolerable when the patient is just sitting or lying in bed. Fibromyalgia: Continue medications and monitor for any worsening symptoms Insomnia: Seems improved on current medications. Continue to monitor and adjust medications as needed. Hypotension: Continue medications, blood pressure within reasonable range currently. All records, vitals, labs and medications were reviewed. No other issues per patient, nursing or therapy. Objective - Exam Narrative Exam: MUSCULOSKELETAL SPECIALTY EXAM CONSTITUTIONAL: Well developed, well nourished, appropriately groomed, obese RESPIRATORY: Clear to auscultation bilaterally, no increased work of breathing CARDIOVASCULAR: Regular Rate/ Rhythm, no swelling, edema or tenderness in BUE or BLE. All extremities warm. GI: + bowel sounds, soft, NTTP, nondistended. INTEGUMENTARY: Surgical wounds on left lower extremity, no drainage noted. Otherwise, normal, no lesion, rash, masses or bruising noted in extremities. MUSCULOSKELETAL: BUE and BLE normal without defect, crepitus, subluxation, effusion, arthritic changes or TTP. Apparent leg length discrepancy of 1/2 to 2 inches with the left lower extremity being shorter than the right BUE 4+/5, good ROM, with normal tone. RLE 4-/5 good ROM, with normal tone. Left lower extremity weak with decreased range of motion, 4-/5 NEURO: Sensation intact in all extremities. No tremor noted in 4 extremities. POSTURE and GAIT: Sitting posture good. PSYCH: Alert, oriented x3, affect appears blunted. Insight appears intact. - Constitutional Vitals: Vital Signs - 12hr 06/10/21 06/10/21 06/11/21 20:52 20:56 05:12 Temperature 97.8 F Pulse Rate 53 L Respiratory 17 16 Rate Respiratory 17 Rate [Left Hip] Blood Pressure 121/54 O2 Sat by Pulse 93 Oximetry 06/11/21 06/11/21 06/11/21 06:01 07:01 07:30 Temperature 97.7 F Pulse Rate 61 Respiratory 17 17 19 Rate Respiratory Rate [Left Hip] Blood Pressure 104/47 O2 Sat by Pulse 93 Oximetry - Allied health notes Allied health notes reviewed: nursing, PT, OT FIMS assessment as documented by PT/OT/ST: Grooming Patient cleans teeth/dentures: Yes Patient wall/brushes hair: Yes Patient washes, rinses and Yes dries face: Patient washes, rinses and Yes dries hands: Patient performs (no make-up/ /4 (100%) shaving): Grooming FIM Score 5. Supervision ([place] applies toothpaste or opens containers.) Toileting Toileting Device Commode over Toilet Patient able to: Adjust clothes before,Clean self,Adjust clothes after Patient able to perform: 3/3 (100%) Toileting FIM Score 6. Modified [place] (Needs equip. or prosth ./orth.) Social interaction/Memory/Problem solving Social Interaction FIM Score 6. Mod. [place] (Mostly appropriate. May need meds. No supv.) Memory FIM Score 7. Complete [place] (Remembers people and routines.) Problem Solving FIM Score 6. Mod. [place] (Mild difficulty or needs more time w/ complex.) Transfers Mode of Locomotion: Wheelchair Bed/Chair/Wheelchair Transfers 6. Modified [place] (Uses device, sliding FIM Score board, prosth./orth.) Toilet Transfers FIM Score 4. Minimal Assistance (Patient = 75% or more. Needs touching.) Locomotion- walk/wheelchair Ambulation Distance 4 Eating Eating FIM Score 6. Modified [place] (Special consistency or uses device.) Dressing-Upper body Patient retrieves clothing Yes items: Upper Body Dressing FIM Score 6. Modified [place] (Needs equipment, velcro or pros./orth.) Dressing-lower body Lower Body Dressing Device Bead Stringer/Stick,Sock Aid Patient retrieves clothing Yes items: Patient applies/removes LE No: n/a prosthesis or orthosis: Lower Body Dressing FIM Score 6. Modified [place] (Needs equipment, velcro or pros./orth.) - Labs CBC & Chem 7: 06/07/21 07:51 06/10/21 14:57 Labs: Laboratory Results - last 72 hr 06/10/21 06/10/21 06/11/21 14:57 14:57 07:32 Creatinine 0.7 Estimated GFR > 60 POC Glucose 87 Vancomycin Trough 11.7 Assessment and Plan Infection of left hip IM nail status post explant: Continue IV antibiotics. Patient is advanced to weightbearing as tolerated. Wound care for continued monitoring of wound and appropriate dressing changes. Leg length discrepancy: Will look into built-up shoes for the patient from local project eng or some other possible option if Dr. Coughlin is looking to perform a hip replacement in the near future. Anemia: Postoperative, continue to monitor for improvement. Transfuse for hemo globin less than 7. PTSD: Combined with aspects of anxiety as well. Patient is on several medica tions including buspirone, clonazepam, hydroxyzine, Zyprexa. Continue current medications and monitor patient for any further issues. Known issue from patient's previous stay with us. Pain: Postsurgical, fairly well controlled on current medications. Will wean down oral opioids. Monitor and adjust as needed for functional pain control Fibromyalgia: Continue gabapentin and citalopram. Monitor Insomnia: Continue trazodone, monitor for effectiveness. Patient is currently on max dose of effective use of trazodone for insomnia. Hypotension: Continue midodrine and monitor for improvement in blood pressure. ADL dysfunction: OT will work on improving ability to perform ADLs (including assistive devices) to increase independence and decrease caregiver burden and improve functional transfers and mobility training. Difficulty walking: PT will work on gait training and proper use of assistive devices and advance as appropriate to use of stairs and outside ambulation on uneven surfaces. Unsteadiness on feet: PT will work on improving static and dynamic sitting and standing balance as well as proper use of assistive devices to decrease risk of falls. Abnormality of gait: PT will work to improve safety and efficiency of gait through neuromotor training and gait training along with instruction on proper use of assistive devices. Muscle weakness: PT & OT will work on strengthening exercises to improve functional strength including mixture of closed and open kinetic chain exerci ses. Debility: PT & OT will work on improving overall functional status to improve participation with ADLs, mobility and social involvement. Fatigue: PT & OT will work on improving endurance through aerobic exercises and therapeutic activity while monitoring patients tolerance for activity and vital signs as needed. Decreased safety awareness: Continue to give patient reminders for following s afety precautions. DVT ppx: Lovenox Pain: Continue physical modalities in therapy and pain medications as needed to achieve functional pain control. Sleep: Monitor and address as needed. Bowel: Monitor and address as needed. Appetite: Monitor and address as needed. Discharge planning: Pending therapy progress and care plan meeting. Will continue discussion with therapy team, SW, patient and family. Restrictions/ Precautions: Falls, infection WB status: Weightbearing as tolerated left lower extremity Functional Hx: ADLs: Independent Cognition: Independent Mobility: RW Barriers to Discharge: Decreased mobility and ability to perform self care, balance deficits, weakness Estimated Length of Stay: 1418 days or longer depending on insurance companies desire for us to keep the patient throughout her needed antibiotics course. Last date for antibiotics is 06/19/2021 Discharge Destination: Home
[2021-06-11] MEDS: busPIRone 10 MG TAB PO SCH (10:40)
[2021-06-11] MEDS: CITALOPRAM 20 MG TAB PO SCH (10:41)
[2021-06-11] MEDS: MIDODRINE 5 MG TAB PO SCH ×3 (10:41→17:45)
[2021-06-11] MEDS: ENOXAPARIN 40 MG/0.4 ML INJ SUB-Q SCH (10:42)
[2021-06-11] MEDS: CEFEPIME/NS 2 GM/100 ML 2 GM/100 ML BAG IV SCH ×2 (10:45→23:45)
[2021-06-11] MEDS: VANCOMYCIN 1,250 MG in SODIUM CHLORIDE 0.9% 250ML 250 ML IV SCH (17:00)
[2021-06-11] MEDS: traZODone 100 MG TAB PO SCH (23:22)
[2021-06-12] MEDS: GABAPENTIN 300 MG CAP PO SCH ×3 (06:08→22:03)
[2021-06-12] MEDS: CEFEPIME/NS 2 GM/100 ML 2 GM/100 ML BAG IV SCH ×2 (08:31→20:43)
[2021-06-12] MEDS: ENOXAPARIN 40 MG/0.4 ML INJ SUB-Q SCH ×2 (08:32→11:42)
[2021-06-12] MEDS: MIDODRINE 5 MG TAB PO SCH ×3 (08:33→17:20)
[2021-06-12] MEDS: CITALOPRAM 20 MG TAB PO SCH (08:33)
[2021-06-12] MEDS: busPIRone 10 MG TAB PO SCH ×2 (08:33→11:41)
[2021-06-12] MEDS: oxyCODONE /ACETAMINOPHEN 5-325MG TAB PO PRN ×2 (10:48→17:28)
[2021-06-12] MEDS: VANCOMYCIN 1,250 MG in SODIUM CHLORIDE 0.9% 250ML 250 ML IV SCH (14:35)
[2021-06-12] MEDS: traZODone 100 MG TAB PO SCH (20:38)
[2021-06-13] MEDS: oxyCODONE /ACETAMINOPHEN 5-325MG TAB PO PRN ×3 (05:46→17:48)
[2021-06-13] MEDS: GABAPENTIN 300 MG CAP PO SCH ×3 (05:46→21:42)
[2021-06-13] MEDS: CITALOPRAM 20 MG TAB PO SCH (08:21)
[2021-06-13] MEDS: CEFEPIME/NS 2 GM/100 ML 2 GM/100 ML BAG IV SCH ×2 (08:21→22:08)
[2021-06-13] MEDS: ENOXAPARIN 40 MG/0.4 ML INJ SUB-Q SCH ×2 (08:21→10:00)
[2021-06-13] MEDS: MIDODRINE 5 MG TAB PO SCH ×3 (08:22→15:56)
[2021-06-13] MEDS: busPIRone 10 MG TAB PO SCH (11:44)
[2021-06-13] MEDS: VANCOMYCIN 1,250 MG in SODIUM CHLORIDE 0.9% 250ML 250 ML IV SCH (14:12)
[2021-06-13] MEDS: traZODone 100 MG TAB PO SCH (21:42)
[2021-06-14] MEDS: GABAPENTIN 300 MG CAP PO SCH ×3 (05:47→22:49)
[2021-06-14] MEDS: oxyCODONE /ACETAMINOPHEN 5-325MG TAB PO PRN ×3 (05:47→18:42)
--- NOTE | 2021-06-14 09:09 | Progress Note ---
Subjective Date of service: 06/14/21 Principal diagnosis: Infection of IM nail at left hip Interval history: 60-year-old female with a previous history of left IM nail with noted drainage and poor wound healing. Patient was admitted for further treatment and underwent explant of a previously placed IM nail. Patient tolerated procedure well. Infectious disease was consulted and placed the patient on IV antibiotics for approximately 6 weeks ending on 06/19. Patient is nonweightbearing at this time on the left lower extremity. Will need to clarify length of time with orthopedics. On examination, patient still has slight drainage at the proximal incision site of the left hip. I have alerted nursing. Patient was seen previously for the original hip fracture. We were initially asked to consider her for acute inpatient rehab however due to the prolonged period of time of nonweightbearing we opted to allow the primary team to pursue group home facility. Apparently her insurance does not like the idea of a group home facility for her and would prefer for her to undergo acute inpatient rehabilitation. Patient will not likely be able to be independent with mobility until she is able to weight-bear on her left lower extremity and will not be able to go home independently until the antibiotics are complete which is scheduled for 06/19/2021. We will take the patient on and continue to work with her for transfers, wound care, ADLs and mobility in order to improve her ability to transition home once IV antibiotics are complete. Interval History: Patient is participating in therapy and making reasonable progress. Taking rest breaks as needed. +BM. Denies palpitations, dyspnea, cough, N/V. Advanced to weightbearing as tolerated. Patient continues to have safety awareness issues. No acute events overnight, patient making slow progress with therapy. Awaiting further information from insurance company as to their desired length of stay. Patient will likely be able to go home after antibiotics are complete. Attempting to find elevated shoe for leg length discrepancy. Contacted O&P Infection of left hip status post explant of IM nail: Continue IV antibiotics through 06/19. No drainage from the incision. Weightbearing as tolerated. Leg length discrepancy: Left lower extremity is approximately 1-1/2 to 2 inches shorter than the right lower extremity. Looking back over the postoperative hip x-rays, it looks as though there is an angulation at the proximal aspect of the left hip which would account for this discrepancy. Patient believes that Dr. Coughlin is looking to perform a hip replacement surgery in the future, will attempt to confirm this with him and will try to find a short-term solution for the discrepancy utilizing a shoe lift. Anemia: Improved and normalized currently. Continue to monitor and transfuse for hemoglobin less than 7. Stable currently. PTSD: Continue medications. Monitor for any episodes Pain: Continue to monitor for functional pain control and adjust as needed with the goal of weaning down medications. Typically taking pain medications 3 times a day, discussed with the patient that we need to wean this down over the next several weeks. Pain seems to be worse with weightbearing and fairly tolerable when the patient is just sitting or lying in bed. Fibromyalgia: Continue medications and monitor for any worsening symptoms Insomnia: Seems improved on current medications. Continue to monitor and adjust medications as needed. Hypotension: Continue medications, blood pressure within reasonable range currently. All records, vitals, labs and medications were reviewed. No other issues per maryjane jonesnt, nursing or therapy. Objective - Exam Narrative Exam: MUSCULOSKELETAL SPECIALTY EXAM CONSTITUTIONAL: Well developed, well nourished, appropriately groomed, obese RESPIRATORY: Clear to auscultation bilaterally, no increased work of breathing CARDIOVASCULAR: Regular Rate/ Rhythm, no swelling, edema or tenderness in BUE or BLE. All extremities warm. GI: + bowel sounds, soft, NTTP, nondistended. INTEGUMENTARY: Surgical wounds on left lower extremity, no drainage noted. Otherwise, normal, no lesion, rash, masses or bruising noted in extremities. MUSCULOSKELETAL: BUE and BLE normal without defect, crepitus, subluxation, effusion, arthritic changes or TTP. Apparent leg length discrepancy of 1/2 to 2 inches with the left lower extremity being shorter than the right BUE 4+/5, good ROM, with normal tone. RLE 4-/5 good ROM, with normal tone. Left lower extremity weak with decreased range of motion, 4-/5 NEURO: Sensation intact in all extremities. No tremor noted in 4 extremities. POSTURE and GAIT: Sitting posture good. PSYCH: Alert, oriented x3, affect appears blunted. Insight appears intact. - Constitutional Vitals: Vital Signs - 12hr 06/14/21 06/14/21 04:54 07:17 Temperature 97.5 F L Pulse Rate 51 L 51 L Respiratory 16 Rate Blood Pressure 133/59 O2 Sat by Pulse 95 94 Oximetry - Allied health notes Allied health notes reviewed: nursing, PT, OT FIMS assessment as documented by PT/OT/ST: Grooming Patient cleans teeth/dentures: Yes Patient wall/brushes hair: Yes Patient washes, rinses and Yes dries face: Patient washes, rinses and Yes dries hands: Patient performs (no make-up/ 02/21 (100%) shaving): Grooming FIM Score 6. Modified [place] (Needs equipmen t/device . Extra time.) Toileting Toileting Device Commode over Toilet Patient able to: Adjust clothes before,Clean self,Adjust clothes after Patient able to perform: 3/3 (100%) Toileting FIM Score 6. Modified [place] (Needs equip. or prost h ./orth.) Social interaction/Memory/Problem solving Social Interaction FIM Score 7. Complete [place] (Interacts appropriately. Controls temper.) Memory FIM Score 7. Complete [place] (Remembers people and routines.) Problem Solving FIM Score 6. Mod. [place] (Mild difficulty or needs more time w/ complex.) Transfers Mode of Locomotion: Wheelchair Bed/Chair/Wheelchair Transfers 6. Modified [place] (Uses device, sliding FIM Score board, prosth./orth.) Toilet Transfers FIM Score 4. Minimal Assistance (Patient = 75% or more. Needs touching.) Locomotion- walk/wheelchair Ambulation Distance 4 Eating Eating FIM Score 6. Modified [place] (Special consistency or uses device.) Dressing-Upper body Patient retrieves clothing Yes items: Upper Body Dressing FIM Score 7. Complete [place] (Dresses self. Gets own clothes.) Dressing-lower body Lower Body Dressing Device Visualization Developer/Stick,Sock Aid Patient retrieves clothing Yes items: Patient applies/removes LE No: n/a prosthesis or orthosis: Lower Body Dressing FIM Score 6. Modified [place] (Needs equipment, velcro or pros./orth.) - Labs CBC & Chem 7: 06/07/21 07:51 06/10/21 14:57 Assessment and Plan Infection of left hip IM nail status post explant: Continue IV antibiotics. Patient is advanced to weightbearing as tolerated. Wound care for continued monitoring of wound and appropriate dressing changes. Leg length discrepancy: Will look into built-up shoes for the patient from local pediatrician or some other possible option if Dr. Coughlin is looking to perform a hip replacement in the near future. Have contacted O&P Anemia: Postoperative, continue to monitor for improvement. Transfuse for hemoglobin less than 7. PTSD: Combined with aspects of anxiety as well. Patient is on several medications including buspirone, clonazepam, hydroxyzine, Zyprexa. Continue current medications and monitor patient for any further issues. Known issue from patient's previous stay with us. Pain: Postsurgical, fairly well controlled on current medications. Will wean down oral opioids. Monitor and adjust as needed for functional pain control Fibromyalgia: Continue gabapentin and citalopram. Monitor Insomnia: Continue trazodone, monitor for effectiveness. Patient is currently on max dose of effective use of trazodone for insomnia. Hypotension: Continue midodrine and monitor for improvement in blood pressure. ADL dysfunction: OT will work on improving ability to perform ADLs (including assistive devices) to increase independence and decrease caregiver burden and improve functional transfers and mobility training. Difficulty walking: PT will work on gait training and proper use of assistive devices and advance as appropriate to use of stairs and outside ambulation on uneven surfaces. Unsteadiness on feet: PT will work on improving static and dynamic sitting and standing balance as well as proper use of assistive devices to decrease risk of falls. Abnormality of gait: PT will work to improve safety and efficiency of gait through neuromotor training and gait training along with instruction on proper use of assistive devices. Muscle weakness: PT & OT will work on strengthening exercises to improve functio nal strength including mixture of closed and open kinetic chain exercises. Debility: PT & OT will work on improving overall functional status to improve participation with ADLs, mobility and social involvement. Fatigue: PT & OT will work on improving endurance through aerobic exercises and therapeutic activity while monitoring patients tolerance for activity and vital signs as needed. Decreased safety awareness: Continue to give patient reminders for following safety precautions. DVT ppx: Lovenox Pain: Continue physical modalities in therapy and pain medications as needed to achieve functional pain control. Sleep: Monitor and address as needed. Bowel: Monitor and address as needed. Appetite: Monitor and address as needed. Discharge planning: Pending therapy progress and care plan meeting. Will continue discussion with therapy team, SW, patient and family. Restrictions/ Precautions: Falls, infection WB status: Weightbearing as tolerated left lower extremity Functional Hx: ADLs: Independent Cognition: Independent Mobility: RW Barriers to Discharge: Decreased mobility and ability to perform self care, balance deficits, weakness Estimated Length of Stay: 1418 days or longer depending on insurance companies desire for us to keep the patient throughout her needed antibiotics course. Last date for antibiotics is 06/19/2021 Discharge Destination: Home
[2021-06-14] MEDS: MIDODRINE 5 MG TAB PO SCH ×3 (10:16→18:43)
[2021-06-14] MEDS: CITALOPRAM 20 MG TAB PO SCH (10:16)
[2021-06-14] MEDS: ENOXAPARIN 40 MG/0.4 ML INJ SUB-Q SCH (10:16)
[2021-06-14] MEDS: busPIRone 10 MG TAB PO SCH (10:16)
[2021-06-14] MEDS: VANCOMYCIN 1,250 MG in SODIUM CHLORIDE 0.9% 250ML 250 ML IV SCH (14:41)
[2021-06-14] MEDS: CEFEPIME/NS 2 GM/100 ML 2 GM/100 ML BAG IV SCH ×2 (14:41→22:49)
[2021-06-14] MEDS: traZODone 100 MG TAB PO SCH (22:48)
[2021-06-15] MEDS: GABAPENTIN 300 MG CAP PO SCH ×3 (06:49→21:40)
--- NOTE | 2021-06-15 08:12 | Progress Note ---
Subjective Date of service: 06/15/21 Principal diagnosis: Infection of IM nail at left hip Interval history: 60-year-old female with a previous history of left IM nail with noted drainage and poor wound healing. Patient was admitted for further treatment and underwent explant of a previously placed IM nail. Patient tolerated procedure well. Infectious disease was consulted and placed the patient on IV antibiotics for approximately 6 weeks ending on 06/19. Patient is nonweightbearing at this time on the left lower extremity. Will need to clarify length of time with orthopedics. On examination, patient still has slight drainage at the proximal incision site of the left hip. I have alerted nursing. Patient was seen previously for the original hip fracture. We were initially asked to consider her for acute inpatient rehab however due to the prolonged period of time of nonweightbearing we opted to allow the primary team to pursue snf facility. Apparently her insurance does not like the idea of a snf facility for her and would prefer for her to undergo acute inpatient rehabilitation. Patient will not likely be able to be independent with mobility until she is able to weight-bear on her left lower extremity and will not be able to go home independently until the antibiotics are complete which is scheduled for 06/19/2021. We will take the patient on and continue to work with her for transfers, wound care, ADLs and mobility in order to improve her ability to transition home once IV antibiotics are complete. Interval History: Patient is participating in therapy and making reasonable progress. Taking rest breaks as needed. +BM. Denies palpitations, dyspnea, cough, N/V. Advanced to weightbearing as tolerated. Patient continues to have safety awareness issues. No acute events overnight, patient making slow progress with therapy. Awaiting further information from insurance company as to their desired length of stay. Patient will likely be able to go home after antibiotics are complete. Attempting to find elevated shoe for leg length discrepancy. Contacted O&P, will attempt to get shoe from assisted today in order to have it built up. Infection of left hip status post explant of IM nail: Continue IV antibiotics through 06/19. No drainage from the incision. Weightbearing as tolerated. Leg length discrepancy: Left lower extremity is approximately 1-1/2 to 2 inches shorter than the right lower extremity. Looking back over the postoperative hip x-rays, it looks as though there is an angulation at the proximal aspect of the left hip which would account for this discrepancy. Patient believes that Dr. Coughlin is looking to perform a hip replacement surgery in the future, will attempt to confirm this with him and will try to find a short-term solution for the discrepancy utilizing a shoe lift. Anemia: Improved and normalized currently. Continue to monitor and transfuse for hemoglobin less than 7. Stable currently. PTSD: Continue medications. Monitor for any episodes Pain: Continue to monitor for functional pain control and adjust as needed with the goal of weaning down medications. Typically taking pain medications 3 times a day, discussed with the patient that we need to wean this down over the next several weeks. Pain seems to be worse with weightbearing and fairly tolerable when the patient is just sitting or lying in bed. Fibromyalgia: Continue medications and monitor for any worsening symptoms Insomnia: Seems improved on current medications. Continue to monitor and adjust medications as needed. Hypotension: Continue medications, blood pressure within reasonable range currently. All records, vitals, labs and medications were reviewed. No other issues per patient, nursing or therapy. Patient discussed during team conference. We are attempting to find out what her assisted will allow her to utilize on the premises. Patient does state that she has a shower chair and that her roommate is the one who assist her with putting it in and removing it from the shower. She states that there are no grab bars in the bathroom and that the assisted will not allow for raised toilet seat over the toilet. We will contact the assisted to find out any possible solutions and may need to consider snf facility at discharge. Patient may actually have snf facility benefits based on latest conversations with the insurance company. Antibiotics are completed on 06/19. We will look to discharge patient home on 06/21. Patient will get therapy over the weekend. Would recommend that she is discharged with a rolling walker, shower chair (already on) and elevated toilet seat. Objective - Exam Narrative Exam: MUSCULOSKELETAL SPECIALTY EXAM CONSTITUTIONAL: Well developed, well nourished, appropriately groomed, obese RESPIRATORY: Clear to auscultation bilaterally, no increased work of breathing CARDIOVASCULAR: Regular Rate/ Rhythm, no swelling, edema or tenderness in BUE or BLE. All extremities warm. GI: + bowel sounds, soft, NTTP, nondistended. INTEGUMENTARY: Surgical wounds on left lower extremity, no drainage noted. Otherwise, normal, no lesion, rash, masses or bruising noted in extremities. MUSCULOSKELETAL: BUE and BLE normal without defect, crepitus, subluxation, effusion, arthritic changes or TTP. Apparent leg length discrepancy of 1/2 to 2 inches with the left lower extremity being shorter than the right BUE 4+/5, good ROM, with normal tone. RLE 4-/5 good ROM, with normal tone. Left lower extremity weak with decreased range of motion, 4-/5 NEURO: Sensation intact in all extremities. No tremor noted in 4 extremities. POSTURE and GAIT: Sitting posture good. PSYCH: Alert, oriented x3, affect appears blunted. Insight appears intact. - Constitutional Vitals: Vital Signs - 12hr 06/14/21 21:00 O2 Sat by Pulse 93 Oximetry - Allied health notes Allied health notes reviewed: nursing, PT, OT FIMS assessment as documented by PT/OT/ST: Grooming Patient cleans teeth/dentures: Yes Patient wall/brushes hair: Yes Patient washes, rinses and Yes dries face: Patient washes, rinses and Yes dries hands: Patient performs (no make-up/ / (100%) shaving): Grooming FIM Score 6. Modified [place] (Needs equipment/device . Extra time.) Toileting Toileting Device Commode over Toilet Patient able to: Adjust clothes before,Clean self,Adjust clothes after Patient able to perform: 3/3 (100%) Toileting FIM Score 6. Modified [place] (Needs equip. or prosth ./orth.) Social interaction/Memory/Problem solving Social Interaction FIM Score 7. Complete [place] (Interacts appropriately. Controls temper.) Memory FIM Score 7. Complete [place] (Remembers people and routines.) Problem Solving FIM Score 7. Complete [place] (Solves complex problems. Self corrects.) Transfers Mode of Locomotion: Wheelchair Bed/Chair/Wheelchair Transfers 6. Modified [place] (Uses device, sliding FIM Score board, prosth./orth.) Toilet Transfers FIM Score 6. Modified [place] (Uses device, special seat or more time.) Locomotion- walk/wheelchair Ambulation Distance 4 Eating Eating FIM Score 7. Complete [place] (Cuts meat, opens containers, regular diet.) Dressing-Upper body Patient retrieves clothing Yes items: Upper Body Dressing FIM Score 7. Complete [place] (Dresses self. Gets own clothes.) Dressing-lower body Lower Body Dressing Device Superintendent [employer]/Stick,Sock Aid Patient retrieves clothing Yes items: Patient applies/removes LE No: n/a prosthesis or orthosis: Lower Body Dressing FIM Score 6. Modified [place] (Needs equipment, velcro or pros./orth.) - Labs CBC & Chem 7: 06/07/21 07:51 06/10/21 14:57 Assessment and Plan Infection of left hip IM nail status post explant: Continue IV antibiotics. Patient is advanced to weightbearing as tolerated. Wound care for continued monitoring of wound and appropriate dressing changes. Leg length discrepancy: Will look into built-up shoes for the patient from local commercial loan manager or some other possible option if Dr. Coughlin is looking to perform a hip replacement in the near future. Have contacted O&P Anemia: Postoperative, continue to monitor for improvement. Transfuse for hemoglobin less than 7. PTSD: Combined with aspects of anxiety as well. Patient is on several medications including buspirone, clonazepam, hydroxyzine, Zyprexa. Continue current medications and monitor patient for any further issues. Known issue from patient's previous stay with us. Pain: Postsurgical, fairly well controlled on current medications. Will wean down oral opioids. Monitor and adjust as needed for functional pain control Fibromyalgia: Continue gabapentin and citalopram. Monitor Insomnia: Continue trazodone, monitor for effectiveness. Patient is currently on max dose of effective use of trazodone for insomnia. Hypotension: Continue midodrine and monitor for improvement in blood pressure. ADL dysfunction: OT will work on improving ability to perform ADLs (including assistive devices) to increase independence and decrease caregiver burden and improve functional transfers and mobility training. Difficulty walking: PT will work on gait training and proper use of assistive devices and advance as appropriate to use of stairs and outside ambulation on uneven surfaces. Unsteadiness on feet: PT will work on improving static and dynamic sitting and standing balance as well as proper use of assistive devices to decrease risk of falls. Abnormality of gait: PT will work to improve safety and efficiency of gait through neuromotor training and gait training along with instruction on proper use of assistive devices. Muscle weakness: PT & OT will work on strengthening exercises to improve functional strength including mixture of closed and open kinetic chain exercises. Debility: PT & OT will work on improving overall functional status to improve participation with ADLs, mobility and social involvement. Fatigue: PT & OT will work on improving endurance through aerobic exercises and therapeutic activity while monitoring patients tolerance for activity and vital signs as needed. Decreased safety awareness: Continue to give patient reminders for following safety precautions. DVT ppx: Lovenox Pain: Continue physical modalities in therapy and pain medications as needed to achieve functional pain control. Sleep: Monitor and address as needed. Bowel: Monitor and address as needed. Appetite: Monitor and address as needed. Discharge planning: Pending therapy progress and care plan meeting. Will continue discussion with therapy team, SW, patient. Look to discharge home on 06/21 or possibly to a SNF depending on restrictions at assisted. Restrictions/ Precautions: Falls, infection WB status: Weightbearing as tolerated left lower extremity Functional Hx: ADLs: Independent Cognition: Independent Mobility: RW Barriers to Discharge: Decreased mobility and ability to perform self care, balance deficits, weakness Estimated Length of Stay: 1418 days or longer depending on insurance companies desire for us to keep the patient throughout her needed antibiotics course. Last date for antibiotics is 06/19/2021 Discharge Destination: Home
[2021-06-15] MEDS: oxyCODONE /ACETAMINOPHEN 5-325MG TAB PO PRN ×2 (09:03→15:10)
[2021-06-15] MEDS: CITALOPRAM 20 MG TAB PO SCH (09:03)
[2021-06-15] MEDS: busPIRone 10 MG TAB PO SCH (09:03)
[2021-06-15] MEDS: MIDODRINE 5 MG TAB PO SCH ×3 (09:03→15:11)
[2021-06-15] MEDS: ENOXAPARIN 40 MG/0.4 ML INJ SUB-Q SCH (09:03)
[2021-06-15] MEDS: CEFEPIME/NS 2 GM/100 ML 2 GM/100 ML BAG IV SCH ×2 (09:04→21:52)
[2021-06-15] MEDS: VANCOMYCIN 1,250 MG in SODIUM CHLORIDE 0.9% 250ML 250 ML IV SCH (16:00)
[2021-06-15] MEDS: traZODone 100 MG TAB PO SCH (21:41)
[2021-06-15] MEDS: IBUPROFEN 400 MG TAB PO PRN (21:41)
[2021-06-16] MEDS: oxyCODONE /ACETAMINOPHEN 5-325MG TAB PO PRN ×3 (06:05→17:51)
[2021-06-16] MEDS: GABAPENTIN 300 MG CAP PO SCH ×3 (06:05→22:58)
[2021-06-16 07:15] LABS: Hematocrit 34.5 % (30.3-42.9); Hemoglobin 11.2 gm/dl (10.1-14.3); Mean Corpuscular HGB Conc 32 % (30-34); Mean Corpuscular Volume 87 fl (79-97); Platelet Count 124 K/mm3 (140-440); Red Blood Count 3.95 M/mm3 (3.65-5.03); Red Cell Distribution Width 18.4 % (13.2-15.2)
[2021-06-16 07:34] LABS: Blood Urea Nitrogen 17 mg/dL (7-17); Calcium 9.4 mg/dL (8.4-10.2); Hemolysis Index 3
[2021-06-16 07:43] LABS: BUN/Creatinine Ratio 28
[2021-06-16] MEDS: MIDODRINE 5 MG TAB PO SCH ×3 (08:29→17:51)
--- NOTE | 2021-06-16 09:02 | Progress Note ---
Subjective Date of service: 06/16/21 Principal diagnosis: Infection of IM nail at left hip Interval history: 60-year-old female with a previous history of left IM nail with noted drainage and poor wound healing. Patient was admitted for further treatment and underwent explant of a previously placed IM nail. Patient tolerated procedure well. Infectious disease was consulted and placed the patient on IV antibiotics for approximately 6 weeks ending on 06/19. Patient is nonweightbearing at this time on the left lower extremity. Will need to clarify length of time with orthopedics. On examination, patient still has slight drainage at the proximal incision site of the left hip. I have alerted nursing. Patient was seen previously for the original hip fracture. We were initially asked to consider her for acute inpatient rehab however due to the prolonged period of time of nonweightbearing we opted to allow the primary team to pursue assisted facility. Apparently her insurance does not like the idea of a assisted facility for her and would prefer for her to undergo acute inpatient rehabilitation. Patient will not likely be able to be independent with mobility until she is able to weight-bear on her left lower extremity and will not be able to go home independently until the antibiotics are complete which is scheduled for 06/19/2021. We will take the patient on and continue to work with her for transfers, wound care, ADLs and mobility in order to improve her ability to transition home once IV antibiotics are complete. Interval History: Patient is participating in therapy and making reasonable progress. Taking rest breaks as needed. +BM. Denies palpitations, dyspnea, cough, N/V. No acute events overnight, patient making slow progress with therapy. Awaiting further information from insurance company as to their desired length of stay. Patient will likely be able to go home after antibiotics are complete. We were able to utilize a postsurgical shoe and foam to improvise a built-up shoe for the patient's that she will needed for a short time period. Safety awareness is improving. Infection of left hip status post explant of IM nail: Continue IV antibiotics through 06/19. No drainage from the incision. Weightbearing as tolerated. Leg length discrepancy: Left lower extremity is approximately 1-1/2 to 2 inches shorter than the right lower extremity. Patient believes that Dr. Coughlin is looking to perform a hip replacement surgery in the future. Postsurgical shoe with foam elevation being utilized without a problem for patient to ambulate more effectively. Anemia: Improved and normalized currently. Continue to monitor and transfuse for hemoglobin less than 7. Stable currently. PTSD: Continue medications. Monitor for any episodes Pain: Continue to monitor for functional pain control and adjust as needed with the goal of weaning down medications. Typically taking pain medications 3 times a day, discussed with the patient that we need to wean this down over the next several weeks. Pain seems to be worse with weightbearing and fairly tolerable when the patient is just sitting or lying in bed. Fibromyalgia: Continue medications and monitor for any worsening symptoms Insomnia: Seems improved on current medications. Continue to monitor and adjust medications as needed. Hypotension: Continue medications, blood pressure within reasonable range currently. All records, vitals, labs and medications were reviewed. No other issues per patient, nursing or therapy. Objective - Exam Narrative Exam: MUSCULOSKELETAL SPECIALTY EXAM CONSTITUTIONAL: Well developed, well nourished, appropriately groomed, obese RESPIRATORY: Clear to auscultation bilaterally, no increased work of breathing CARDIOVASCULAR: Regular Rate/ Rhythm, no swelling, edema or tenderness in BUE or BLE. All extremities warm. GI: + bowel sounds, soft, NTTP, nondistended. INTEGUMENTARY: Surgical wounds on left lower extremity, no drainage noted. Otherwise, normal, no lesion, rash, masses or bruising noted in extremities. MUSCULOSKELETAL: BUE and BLE normal without defect, crepitus, subluxation, effusion, arthritic changes or TTP. Apparent leg length discrepancy of 1/2 to 2 inches with the left lower extremity being shorter than the right BUE 4+/5, good ROM, with normal tone. RLE 4-/5 good ROM, with normal tone. Left lower extremity weak with decreased range of motion, 4-/5 NEURO: Sensation intact in all extremities. No tremor noted in 4 extremities. POSTURE and GAIT: Sitting posture good. PSYCH: Alert, oriented x3, affect appears blunted. Insight appears intact. - Constitutional Vitals: Vital Signs - 12hr 06/15/21 06/16/21 06/16/21 21:41 06:05 07:43 Temperature 97.4 F L Pulse Rate 51 L Respiratory 20 20 18 Rate Blood Pressure 148/64 O2 Sat by Pulse 97 Oximetry - Allied health notes Allied health notes reviewed: nursing, PT, OT FIMS assessment as documented by PT/OT/ST: Grooming Patient cleans teeth/dentures: Yes Patient wall/brushes hair: Yes Patient washes, rinses and Yes dries face: Patient washes, rinses and Yes dries hands: Patient performs (no make-up/ / (100%) shaving): Grooming FIM Score 6. Modified [place] (Needs equipment/device . Extra time.) Toileting Toileting Device Commode over Toilet Patient able to: Adjust clothes before,Clean self,Adjust clothes after Patient able to perform: 3/3 (100%) Toileting FIM Score 5. Supv./Set-Up (Needs stand-by, set-up, applying prosth/orth.) Social interaction/Memory/Problem solving Social Interaction FIM Score 7. Complete [place] (Interacts appropriately. Controls temper.) Memory FIM Score 7. Complete [place] (Remembers people and routines.) Problem Solving FIM Score 7. Complete [place] (Solves complex problems. Self corrects.) Transfers Mode of Locomotion: Wheelchair Bed/Chair/Wheelchair Transfers 6. Modified [place] (Uses device, sliding FIM Score board, prosth./orth.) Toilet Transfers FIM Score 6. Modified [place] (Uses device, special seat or more time.) Locomotion- walk/wheelchair Ambulation Distance 4 Eating Eating FIM Score 7. Complete [place] (Cuts meat, opens containers, regular diet.) Dressing-Upper body Patient retrieves clothing Yes items: Upper Body Dressing FIM Score 7. Complete [place] (Dresses self. Gets own clothes.) Dressing-lower body Lower Body Dressing Device Automobile Mechanic/Stick,Sock Aid Patient retrieves clothing No items: Patient applies/removes LE No: n/a prosthesis or orthosis: Lower Body Dressing FIM Score 4. Minimal Assistance (Patient = 75% or more. Needs touching.) - Labs CBC & Chem 7: 06/16/21 06:57 06/16/21 06:57 Labs: Laboratory Results - last 72 hr 06/16/21 06/16/21 06:57 06:57 WBC 3.2 L RBC 3.95 Hgb 11.2 Hct 34.5 MCV 87 MCH 28 MCHC 32 RDW 18.4 H Plt Count 124 L Sodium 140 Potassium 3.8 Chloride 104.6 Carbon Dioxide 26 Anion Gap 13 BUN 17 Creatinine 0.6 Estimated GFR > 60 BUN/Creatinine Ratio 28 Glucose 84 Calcium 9.4 Assessment and Plan Infection of left hip IM nail status post explant: Continue IV antibiotics. Patient has advanced to weightbearing as tolerated. Wound care for continued monitoring of wound and appropriate dressing changes. Leg length discrepancy: Built up postsurgical shoe being utilized to compensate for leg length discrepancy. Patient will need to follow-up with Dr. Coughlin after discharge for further planning of KATTY. Anemia: Postoperative, seems resolved. Transfuse for hemoglobin less than 7. PTSD: Combined with aspects of anxiety as well. Patient is on several medications including buspirone, clonazepam, hydroxyzine, Zyprexa. Continue current medications and monitor patient for any further issues. Known issue from patient's previous stay with us. Pain: Postsurgical, fairly well controlled on current medications. Will wean down oral opioids. Monitor and adjust as needed for functional pain control Fibromyalgia: Continue gabapentin and citalopram. Monitor Insomnia: Continue trazodone, monitor for effectiveness. Patient is currently on max dose of effective use of trazodone for insomnia. Hypotension: Continue midodrine and monitor for improvement in blood pressure. ADL dysfunction: OT will work on improving ability to perform ADLs (including assistive devices) to increase independence and decrease caregiver burden and improve functional transfers and mobility training. Difficulty walking: PT will work on gait training and proper use of assistive devices and advance as appropriate to use of stairs and outside ambulation on uneven surfaces. Unsteadiness on feet: PT will work on improving static and dynamic sitting and standing balance as well as proper use of assistive devices to decrease risk of falls. Abnormality of gait: PT will work to improve safety and efficiency of gait through neuromotor training and gait training along with instruction on proper use of assistive devices. Muscle weakness: PT & OT will work on strengthening exercises to improve functional strength including mixture of closed and open kinetic chain exercises. Debility: PT & OT will work on improving overall functional status to improve participation with ADLs, mobility and social involvement. Fatigue: PT & OT will work on improving endurance through aerobic exercises and therapeutic activity while monitoring patients tolerance for activity and vital signs as needed. Decreased safety awareness: Continue to give patient reminders for following safety precautions. DVT ppx: Lovenox Pain: Continue physical modalities in therapy and pain medications as needed to achieve functional pain control. Sleep: Monitor and address as needed. Bowel: Monitor and address as needed. Appetite: Monitor and address as needed. Discharge planning: Pending therapy progress and care plan meeting. Will continue discussion with therapy team, SW, patient. Look to discharge home on 06/21 or possibly to a SNF depending on restrictions at alf. Restrictions/ Precautions: Falls, infection WB status: Weightbearing as tolerated left lower extremity Functional Hx: ADLs: Independent Cognition: Independent Mobility: RW Barriers to Discharge: Decreased mobility and ability to perform self care, balance deficits, weakness Estimated Length of Stay: 1418 days or longer depending on insurance companies desire for us to keep the patient throughout her needed antibiotics course. Last date for antibiotics is 06/19/2021 Discharge Destination: Home
[2021-06-16] MEDS: CEFEPIME/NS 2 GM/100 ML 2 GM/100 ML BAG IV SCH ×2 (09:31→21:30)
[2021-06-16] MEDS: CITALOPRAM 20 MG TAB PO SCH (10:28)
[2021-06-16] MEDS: busPIRone 10 MG TAB PO SCH (10:28)
[2021-06-16] MEDS: ENOXAPARIN 40 MG/0.4 ML INJ SUB-Q SCH (12:27)
[2021-06-16] MEDS: VANCOMYCIN 1,750 MG in SODIUM CHLORIDE 0.9% 500 ML 500 ML IV SCH (17:50)
[2021-06-16] MEDS: hydrOXYzine HCL 25 MG TAB PO PRN (20:47)
[2021-06-16] MEDS: traZODone 100 MG TAB PO SCH (20:49)
[2021-06-17] MEDS: oxyCODONE /ACETAMINOPHEN 5-325MG TAB PO PRN ×3 (06:00→18:54)
[2021-06-17] MEDS: GABAPENTIN 300 MG CAP PO SCH ×3 (06:01→21:56)
[2021-06-17] MEDS: MIDODRINE 5 MG TAB PO SCH ×3 (08:10→16:12)
--- NOTE | 2021-06-17 10:56 | Progress Note ---
Subjective Date of service: 06/17/21 Principal diagnosis: Infection of IM nail at left hip Interval history: 60-year-old female with a previous history of left IM nail with noted drainage and poor wound healing. Patient was admitted for further treatment and underwent explant of a previously placed IM nail. Patient tolerated procedure well. Infectious disease was consulted and placed the patient on IV antibiotics for approximately 6 weeks ending on 06/19. Patient is nonweightbearing at this time on the left lower extremity. Will need to clarify length of time with orthopedics. On examination, patient still has slight drainage at the proximal incision site of the left hip. I have alerted nursing. Patient was seen previously for the original hip fracture. We were initially asked to consider her for acute inpatient rehab however due to the prolonged period of time of nonweightbearing we opted to allow the primary team to pursue group home facility. Apparently her insurance does not like the idea of a group home facility for her and would prefer for her to undergo acute inpatient rehabilitation. Patient will not likely be able to be independent with mobility until she is able to weight-bear on her left lower extremity and will not be able to go home independently until the antibiotics are complete which is scheduled for 06/19/2021. We will take the patient on and continue to work with her for transfers, wound care, ADLs and mobility in order to improve her ability to transition home once IV antibiotics are complete. Interval History: Patient is participating in therapy and making reasonable progress. Taking rest breaks as needed. +BM. Denies palpitations, dyspnea, cough, N/V. No acute events overnight, patient making slow progress with therapy. Patient's manager wound came by yesterday to observe the patient's progress. She stated th at the patient would be welcome to come back. She does have grab bars available for the [facility] however they have not been installed as of yet. Today the patient was having a difficult time performing transfers which she has done before and stated that she was just being pushed too hard. We called the outside sales manager of the [facility] and again requested a in person review of the patient's bathroom which was granted this time. We should head out in the next 20 minutes or so to look at the bathroom and patient's living conditions to make sure that she is a safe discharge to the [facility]. In total, greater than 60 minutes was invested in patient care today including time to monitor the patient during therapy, speak with the manager wound, go out and visit the [facility] for suitability obviously with greater than 50% of that time being spent counseling and coordinating care. Infection of left hip status post explant of IM nail: Continue IV antibiotics through 06/19. No drainage from the incision. Weightbearing as tolerated. Leg length discrepancy: Left lower extremity is approximately 1-1/2 to 2 inches shorter than the right lower extremity. Patient believes that Dr. Coughlin is looking to perform a hip replacement surgery in the future. Postsurgical shoe with foam elevation being utilized without a problem for patient to ambulate more effectively. Anemia: Improved and normalized currently. Continue to monitor and transfuse for hemoglobin less than 7. Stable currently. PTSD: Continue medications. Monitor for any episodes Pain: Continue to monitor for functional pain control and adjust as needed with the goal of weaning down medications. Typically taking pain medications 3 times a day, discussed with the patient that we need to wean this down over the next several weeks. Pain seems to be worse with weightbearing and fairly tolerable when the patient is just sitting or lying in bed. Fibromyalgia: Continue medications and monitor for any worsening symptoms Insomnia: Seems improved on current medications. Continue to monitor and adjust medications as needed. Hypotension: Continue medications, blood pressure within reasonable range currently. All records, vitals, labs and medications were reviewed. No other issues per patient, nursing or therapy. Objective - Exam Narrative Exam: MUSCULOSKELETAL SPECIALTY EXAM CONSTITUTIONAL: Well developed, well nourished, appropriately groomed, obese RESPIRATORY: Clear to auscultation bilaterally, no increased work of breathing CARDIOVASCULAR: Regular Rate/ Rhythm, no swelling, edema or tenderness in BUE or BLE. All extremities warm. GI: + bowel sounds, soft, NTTP, nondistended. INTEGUMENTARY: Surgical wounds on left lower extremity, no drainage noted. Otherwise, normal, no lesion, rash, masses or bruising noted in extremities. MUSCULOSKELETAL: BUE and BLE normal without defect, crepitus, subluxation, effusion, arthritic changes or TTP. Apparent leg length discrepancy of 1/2 to 2 inches with the left lower extremity being shorter than the right BUE 4+/5, good ROM, with normal tone. RLE 4-/5 good ROM, with normal tone. Left lower extremity weak with decreased range of motion, 4-/5 NEURO: Sensation intact in all extremities. No tremor noted in 4 extremities. POSTURE and GAIT: Sitting posture good. PSYCH: Alert, oriented x3, affect appears blunted. Insight appears intact. - Constitutional Vitals: Vital Signs - 12hr 06/17/21 06/17/21 06/17/21 03:33 04:19 07:57 Temperature 98.2 F 97.7 F Pulse Rate 54 L 50 L Respiratory 16 16 Rate Blood Pressure 110/45 122/48 O2 Sat by Pulse 98 93 96 Oximetry - Allied health notes Allied health notes reviewed: nursing, PT, OT FIMS assessment as documented by PT/OT/ST: Grooming Patient cleans teeth/dentures: Yes Patient wall/brushes hair: Yes Patient washes, rinses and Yes dries face: Patient washes, rinses and Yes dries hands: Patient performs (no make-up/ / (100%) shaving): Grooming FIM Score 6. Modified [place] (Needs equipment/device . Extra time.) Toileting Toileting Device Commode over Toilet Patient able to: Adjust clothes before,Clean self,Adjust clothes after Patient able to perform: 3/3 (100%) Toileting FIM Score 6. Modified [place] (Needs equip. or prosth ./orth.) Social interaction/Memory/Problem solving Social Interaction FIM Score 7. Complete [place] (Interacts appropriately. Controls temper.) Memory FIM Score 7. Complete [place] (Remembers people and routines.) Problem Solving FIM Score 7. Complete [place] (Solves complex problems. Self corrects.) Transfers Mode of Locomotion: Wheelchair Bed/Chair/Wheelchair Transfers 6. Modified [place] (Uses device, sliding FIM Score board, prosth./orth.) Toilet Transfers FIM Score 6. Modified [place] (Uses device, special seat or more time.) Locomotion- walk/wheelchair Ambulation Distance 4 Eating Eating FIM Score 6. Modified [place] (Special consistency or uses device.) Dressing-Upper body Patient retrieves clothing Yes items: Upper Body Dressing FIM Score 7. Complete [place] (Dresses self. Gets own clothes.) Dressing-lower body Lower Body Dressing Device Watch Assembler/Stick,Sock Aid Patient retrieves clothing Yes items: Patient applies/removes LE No: n/a prosthesis or orthosis: Lower Body Dressing FIM Score 6. Modified [place] (Needs equipment, velcro or pros./orth.) - Labs CBC & Chem 7: 07/28/21 06:57 06/16/21 06:57 Labs: Laboratory Results - last 72 hr 06/16/21 06/16/21 06/16/21 06:57 06:57 13:06 WBC 3.2 L RBC 3.95 Hgb 11.2 Hct 34.5 MCV 87 MCH 28 MCHC 32 RDW 18.4 H Plt Count 124 L Sodium 140 Potassium 3.8 Chloride 104.6 Carbon Dioxide 26 Anion Gap 13 BUN 17 Creatinine 0.6 Estimated GFR > 60 BUN/Creatinine Ratio 28 Glucose 84 Calcium 9.4 Vancomycin Trough 6.5 Assessment and Plan Infection of left hip IM nail status post explant: Continue IV antibiotics. Patient has advanced to weightbearing as tolerated. Wound care for continued monitoring of wound and appropriate dressing changes. Leg length discrepancy: Built up postsurgical shoe being utilized to compensate for leg length discrepancy. Patient will need to follow-up with Dr. Coughlin after discharge for further planning of KATTY. Anemia: Postoperative, seems resolved. Transfuse for hemoglobin less than 7. PTSD: Combined with aspects of anxiety as well. Patient is on several medications including buspirone, clonazepam, hydroxyzine, Zyprexa. Continue current medications and monitor patient for any further issues. Known issue from patient's previous stay with us. Pain: Postsurgical, fairly well controlled on current medications. Will wean down oral opioids. Monitor and adjust as needed for functional pain control Fibromyalgia: Continue gabapentin and citalopram. Monitor Insomnia: Continue trazodone, monitor for effectiveness. Patient is currently on max dose of effective use of trazodone for insomnia. Hypotension: Continue midodrine and monitor for improvement in blood pressure. ADL dysfunction: OT will work on improving ability to perform ADLs (including assistive devices) to increase independence and decrease caregiver burden and improve functional transfers and mobility training. Difficulty walking: PT will work on gait training and proper use of assistive devices and advance as appropriate to use of stairs and outside ambulation on uneven surfaces. Unsteadiness on feet: PT will work on improving static and dynamic sitting and standing balance as well as proper use of assistive devices to decrease risk of falls. Abnormality of gait: PT will work to improve safety and efficiency of gait through neuromotor training and gait training along with instruction on proper use of assistive devices. Muscle weakness: PT & OT will work on strengthening exercises to improve functional strength including mixture of closed and open kinetic chain exercises. Debility: PT & OT will work on improving overall functional status to improve participation with ADLs, mobility and social involvement. Fatigue: PT & OT will work on improving endurance through aerobic exercises and therapeutic activity while monitoring patients tolerance for activity and vital signs as needed. Decreased safety awareness: Continue to give patient reminders for following safety precautions. DVT ppx: Lovenox Pain: Continue physical modalities in therapy and pain medications as needed to achieve functional pain control. Sleep: Monitor and address as needed. Bowel: Monitor and address as needed. Appetite: Monitor and address as needed. Discharge planning: Pending therapy progress and care plan meeting. Will continue discussion with therapy team, SW, patient. Look to discharge home on 06/21 or possibly to a SNF depending on restrictions at [facility]. Restrictions/ Precautions: Falls, infection WB status: Weightbearing as tolerated left lower extremity Functional Hx: ADLs: Independent Cognition: Independent Mobility: RW Barriers to Discharge: Decreased mobility and ability to perform self care, balance deficits, weakness Estimated Length of Stay: 1418 days or longer depending on insurance companies desire for us to keep the patient throughout her needed antibiotics course. Last date for antibiotics is 06/19/2021 Discharge Destination: Home
[2021-06-17] MEDS: busPIRone 10 MG TAB PO SCH (12:55)
[2021-06-17] MEDS: CITALOPRAM 20 MG TAB PO SCH (12:56)
[2021-06-17] MEDS: ENOXAPARIN 40 MG/0.4 ML INJ SUB-Q SCH (12:56)
[2021-06-17] MEDS: CEFEPIME/NS 2 GM/100 ML 2 GM/100 ML BAG IV SCH ×2 (12:57→21:53)
[2021-06-17] MEDS: VANCOMYCIN 1,750 MG in SODIUM CHLORIDE 0.9% 500 ML 500 ML IV SCH (16:12)
[2021-06-17] MEDS: hydrOXYzine HCL 25 MG TAB PO PRN (18:54)
[2021-06-17] MEDS: traZODone 100 MG TAB PO SCH (21:53)
[2021-06-18] MEDS: GABAPENTIN 300 MG CAP PO SCH ×3 (06:27→22:18)
[2021-06-18] MEDS: oxyCODONE /ACETAMINOPHEN 5-325MG TAB PO PRN ×3 (06:39→19:02)
[2021-06-18] MEDS: MIDODRINE 5 MG TAB PO SCH ×3 (10:58→18:10)
--- NOTE | 2021-06-18 11:51 | Progress Note ---
Subjective Date of service: 06/18/21 Principal diagnosis: Infection of IM nail at left hip Interval history: 60-year-old female with a previous history of left IM nail with noted drainage and poor wound healing. Patient was admitted for further treatment and underwent explant of a previously placed IM nail. Patient tolerated procedure well. Infectious disease was consulted and placed the patient on IV antibiotics for approximately 6 weeks ending on 06/19. Patient is nonweightbearing at this time on the left lower extremity. Will need to clarify length of time with orthopedics. On examination, patient still has slight drainage at the proximal incision site of the left hip. I have alerted nursing. Patient was seen previously for the original hip fracture. We were initially asked to consider her for acute inpatient rehab however due to the prolonged period of time of nonweightbearing we opted to allow the primary team to pursue retirement facility. Apparently her insurance does not like the idea of a retirement facility for her and would prefer for her to undergo acute inpatient rehabilitation. Patient will not likely be able to be independent with mobility until she is able to weight-bear on her left lower extremity and will not be able to go home independently until the antibiotics are complete which is scheduled for 06/19/2021. We will take the patient on and continue to work with her for transfers, wound care, ADLs and mobility in order to improve her ability to transition home once IV antibiotics are complete. Interval History: Patient is participating in therapy and making reasonable progress. Taking rest breaks as needed. +BM. Denies palpitations, dyspnea, cough, N/V. No acute events overnight, patient making slow progress with therapy. Visit to patient's longterm yesterday was productive and she will be okay to go back to that en vironment. Talked with the longtermschool psychometrist she will have grab bars installed in the bathroom. Patient today is doing much better with therapy and is doing much better with transitions as well. Utilizing the walking shoe that is elevated and is fairly mobile. Last antibiotics will be given tomorrow. Plan to discharge on Monday Infection of left hip status post explant of IM nail: Continue IV antibiotics through 06/19. No drainage from the incision. Weightbearing as tolerated. Last remaining Zipline was removed today. Well-healed at all sites. Will contact Dr. Coughlin to inform him the patient will be discharging on Monday and she will follow up with him after discharge unless he wants to see her prior to discharge for wound check and to discuss possible pending hip replacement. Leg length discrepancy: Left lower extremity is approximately 1-1/2 to 2 inches shorter than the right lower extremity. Patient believes that Dr. Coughlin is looking to perform a hip replacement surgery in the future. Postsurgical shoe with foam elevation being utilized without a problem for patient to ambulate more effectively. Anemia: Improved and normalized currently. Continue to monitor and transfuse for hemoglobin less than 7. Stable currently. PTSD: Continue medications. Monitor for any episodes Pain: Continue to monitor for functional pain control and adjust as needed with the goal of weaning down medications. Typically taking pain medications 3 times a day, discussed with the patient that we need to wean this down over the next several weeks. Pain seems to be worse with weightbearing and fairly tolerable when the patient is just sitting or lying in bed. Fibromyalgia: Continue medications and monitor for any worsening symptoms Insomnia: Seems improved on current medications. Continue to monitor and adjust medications as needed. Hypotension: Continue medications, blood pressure within reasonable range currently. All records, vitals, labs and medications were reviewed. No other issues per patient, nursing or therapy. Objective - Exam Narrative Exam: MUSCULOSKELETAL SPECIALTY EXAM CONSTITUTIONAL: Well developed, well nourished, appropriately groomed, obese RESPIRATORY: Clear to auscultation bilaterally, no increased work of breathing CARDIOVASCULAR: Regular Rate/ Rhythm, no swelling, edema or tenderness in BUE or BLE. All extremities warm. GI: + bowel sounds, soft, NTTP, nondistended. INTEGUMENTARY: Surgical wounds on left lower extremity, no drainage noted, healing well. Otherwise, normal, no lesion, rash, masses or bruising noted in extremities. MUSCULOSKELETAL: BUE and BLE normal without defect, crepitus, subluxation, effusion, arthritic changes or TTP. Apparent leg length discrepancy of 1/2 to 2 inches with the left lower extremity being shorter than the right BUE 4+/5, good ROM, with normal tone. RLE 4-/5 good ROM, with normal tone. Left lower extremity weak with decreased range of motion, 4-/5 NEURO: Sensation intact in all extremities. No tremor noted in 4 extremities. POSTURE and GAIT: Sitting posture good. PSYCH: Alert, oriented x3, affect appears blunted. Insight appears intact. - Constitutional Vitals: Vital Signs - 12hr 07/30/21 07/30/21 06:29 08:05 Temperature 97.8 F 97.6 F Pulse Rate 68 56 L Respiratory 18 18 Rate Blood Pressure 146/68 112/49 O2 Sat by Pulse 94 93 Oximetry - Allied health notes Allied health notes reviewed: nursing, PT, OT FIMS assessment as documented by PT/OT/ST: Grooming Patient cleans teeth/dentures: Yes Patient wall/brushes hair: Yes Patient washes, rinses and Yes dries face: Patient washes, rinses and Yes dries hands: Patient performs (no make-up/ 02/21 (100%) shaving): Grooming FIM Score 6. Modified [place] (Needs equipment/device . Extra time.) Toileting Toileting Device Commode over Toilet Patient able to: Adjust clothes before,Clean self,Adjust clothes after Patient able to perform: 3/3 (100%) Toileting FIM Score 6. Modified [place] (Needs equip. or prosth ./orth.) Social interaction/Memory/Problem solving Social Interaction FIM Score 7. Complete [place] (Interacts appropriately. Controls temper.) Memory FIM Score 7. Complete [place] (Remembers people and routines.) Problem Solving FIM Score 7. Complete [place] (Solves complex problems. Self corrects.) Transfers Mode of Locomotion: Wheelchair Bed/Chair/Wheelchair Transfers 5. Supervision (Needs supv. or set-up for FIM Score sliding board, foot rests.) Toilet Transfers FIM Score 5. Supervision (Needs supervision or cueing.) Locomotion- walk/wheelchair Ambulation Distance 4 Eating Eating FIM Score 6. Modified [place] (Special consistency or uses device.) Dressing-Upper body Patient retrieves clothing Yes items: Upper Body Dressing FIM Score 6. Modified [place] (Needs equipment, velcro or pros./orth.) Dressing-lower body Lower Body Dressing Device Plastic Extruding Machine Operator/Stick,Sock Aid Patient retrieves clothing Yes items: Patient applies/removes LE No: n/a prosthesis or orthosis: Lower Body Dressing FIM Score 6. Modified [place] (Needs equipment, velcro or pros./orth.) - Labs CBC & Chem 7: 06/16/21 06:57 06/16/21 06:57 Labs: Laboratory Results - last 72 hr 06/16/21 06/16/21 06/16/21 06:57 06:57 13:06 WBC 3.2 L RBC 3.95 Hgb 11.2 Hct 34.5 MCV 87 MCH 28 MCHC 32 RDW 18.4 H Plt Count 124 L Sodium 140 Potassium 3.8 Chloride 104.6 Carbon Dioxide 26 Anion Gap 13 BUN 17 Creatinine 0.6 Estimated GFR > 60 BUN/Creatinine Ratio 28 Glucose 84 Calcium 9.4 Vancomycin Trough 6.5 Assessment and Plan Infection of left hip IM nail status post explant: Continue IV antibiotics. Patient has advanced to weightbearing as tolerated. Wound open to air, well healed, no drainage Leg length discrepancy: Built up postsurgical shoe being utilized to compensate for leg length discrepancy. Patient will need to follow-up with Dr. Coughlin af ter discharge for further planning of possible KATTY. Anemia: Postoperative, seems resolved. Transfuse for hemoglobin less than 7. PTSD: Combined with aspects of anxiety as well. Patient is on several medications including buspirone, clonazepam, hydroxyzine, Zyprexa. Continue current medications and monitor patient for any further issues. Known issue from patient's previous stay with us. Pain: Postsurgical, fairly well controlled on current medications. Will wean down oral opioids. Monitor and adjust as needed for functional pain control Fibromyalgia: Continue gabapentin and citalopram. Monitor Insomnia: Continue trazodone, monitor for effectiveness. Patient is currently on max dose of effective use of trazodone for insomnia. Hypotension: Continue midodrine and monitor for improvement in blood pressure. ADL dysfunction: OT will work on improving ability to perform ADLs (including assistive devices) to increase independence and decrease caregiver burden and improve functional transfers and mobility training. Difficulty walking: PT will work on gait training and proper use of assistive devices and advance as appropriate to use of stairs and outside ambulation on uneven surfaces. Unsteadiness on feet: PT will work on improving static and dynamic sitting and standing balance as well as proper use of assistive devices to decrease risk of falls. Abnormality of gait: PT will work to improve safety and efficiency of gait through neuromotor training and gait training along with instruction on proper use of assistive devices. Muscle weakness: PT & OT will work on strengthening exercises to improve functional strength including mixture of closed and open kinetic chain exercises. Debility: PT & OT will work on improving overall functional status to improve participation with ADLs, mobility and social involvement. Fatigue: PT & OT will work on improving endurance through aerobic exercises and therapeutic activity while monitoring patients tolerance for activity and vital signs as needed. Decreased safety awareness: Continue to give patient reminders for following safety precautions. DVT ppx: Lovenox Pain: Continue physical modalities in therapy and pain medications as needed to achieve functional pain control. Sleep: Monitor and address as needed. Bowel: Monitor and address as needed. Appetite: Monitor and address as needed. Discharge planning: Pending therapy progress and care plan meeting. Will continue discussion with therapy team, SW, patient. Look to discharge home on 06/21 or possibly to a SNF depending on restrictions at shelter. Restrictions/ Precautions: Falls, infection WB status: Weightbearing as tolerated left lower extremity Functional Hx: ADLs: Independent Cognition: Independent Mobility: RW Barriers to Discharge: Decreased mobility and ability to perform self care, balance deficits, weakness Estimated Length of Stay: 1418 days or longer depending on insurance companies desire for us to keep the patient throughout her needed antibiotics course. Last date for antibiotics is 06/19/2021 Discharge Destination: Home
[2021-06-18] MEDS: ENOXAPARIN 40 MG/0.4 ML INJ SUB-Q SCH (12:00)
[2021-06-18] MEDS: busPIRone 10 MG TAB PO SCH (12:01)
[2021-06-18] MEDS: CITALOPRAM 20 MG TAB PO SCH (12:01)
[2021-06-18] MEDS: CEFEPIME/NS 2 GM/100 ML 2 GM/100 ML BAG IV SCH ×2 (12:02→22:19)
[2021-06-18] MEDS: VANCOMYCIN 1,750 MG in SODIUM CHLORIDE 0.9% 500 ML 500 ML IV SCH (16:39)
[2021-06-18] MEDS: hydrOXYzine HCL 25 MG TAB PO PRN (19:01)
[2021-06-18] MEDS: traZODone 100 MG TAB PO SCH (22:18)
[2021-06-19] MEDS: GABAPENTIN 300 MG CAP PO SCH ×3 (06:08→22:15)
[2021-06-19] MEDS: oxyCODONE /ACETAMINOPHEN 5-325MG TAB PO PRN ×3 (08:45→20:33)
[2021-06-19] MEDS: CITALOPRAM 20 MG TAB PO SCH (08:45)
[2021-06-19] MEDS: MIDODRINE 5 MG TAB PO SCH ×3 (08:46→19:46)
[2021-06-19] MEDS: CEFEPIME/NS 2 GM/100 ML 2 GM/100 ML BAG IV SCH ×2 (08:46→22:15)
[2021-06-19] MEDS: ENOXAPARIN 40 MG/0.4 ML INJ SUB-Q SCH (09:52)
[2021-06-19] MEDS: busPIRone 10 MG TAB PO SCH (09:52)
[2021-06-19] MEDS: VANCOMYCIN 1,750 MG in SODIUM CHLORIDE 0.9% 500 ML 500 ML IV SCH (19:47)
[2021-06-19] MEDS: traZODone 100 MG TAB PO SCH (22:14)
[2021-06-20] MEDS: GABAPENTIN 300 MG CAP PO SCH ×3 (07:13→21:09)
[2021-06-20] MEDS: CITALOPRAM 20 MG TAB PO SCH (09:04)
[2021-06-20] MEDS: oxyCODONE /ACETAMINOPHEN 5-325MG TAB PO PRN ×3 (09:04→22:16)
[2021-06-20] MEDS: ENOXAPARIN 40 MG/0.4 ML INJ SUB-Q SCH (09:04)
[2021-06-20] MEDS: busPIRone 10 MG TAB PO SCH (09:06)
[2021-06-20] MEDS: MIDODRINE 5 MG TAB PO SCH ×3 (09:07→16:13)
[2021-06-20 15:38] LABS: Blood Urea Nitrogen 12 mg/dL (7-17); Calcium 9.5 mg/dL (8.4-10.2); Hemolysis Index 33
[2021-06-20 15:44] LABS: BUN/Creatinine Ratio 17
[2021-06-20 15:55] LABS: Hematocrit 36.9 % (30.3-42.9); Hemoglobin 12.3 gm/dl (10.1-14.3); Mean Corpuscular HGB Conc 33 % (30-34); Mean Corpuscular Volume 86 fl (79-97); Platelet Count 136 K/mm3 (140-440); Red Blood Count 4.29 M/mm3 (3.65-5.03); Red Cell Distribution Width 18.3 % (13.2-15.2)
[2021-06-20] MEDS: traZODone 100 MG TAB PO SCH (21:08)
[2021-06-21] MEDS: oxyCODONE /ACETAMINOPHEN 5-325MG TAB PO PRN ×2 (06:32→12:16)
[2021-06-21] MEDS: GABAPENTIN 300 MG CAP PO SCH (06:32)
[2021-06-21 07:50] VITALS: BP 140/58
[2021-06-21] MEDS: CITALOPRAM 20 MG TAB PO SCH (07:54)
[2021-06-21] MEDS: ENOXAPARIN 40 MG/0.4 ML INJ SUB-Q SCH ×2 (07:54→10:00)
[2021-06-21] MEDS: MIDODRINE 5 MG TAB PO SCH ×2 (07:54→12:17)
[2021-06-21] MEDS: busPIRone 10 MG TAB PO SCH ×2 (07:55→10:00)
--- NOTE | 2021-06-21 09:28 | Discharge Summary ---
Providers - Providers Date of Admission: 05/21/21 11:00 Date of discharge: 06/21/21 Attending physician: MARY TOMAS III, MD 05/21/21 09:20 Occupational Therapy Evaluate and Treat [CONS] Routine Comment: Reason For Exam: ADL dysfunction Physical Therapy Evaluation and Treat [CONS] Routine Comment: Reason For Exam: Mobility Dysfunction Primary care physician: MEDICAL OPERATIONS SUPERVISOR Hospitalization Reason for admission: Left hip infection s/p IM explant Condition: Good Hospital course: 60-year-old female with a previous history of left IM nail with noted drainage and poor wound healing. Patient was admitted for further treatment and underwent explant of a previously placed IM nail. Patient tolerated procedure well. Infectious disease was consulted and placed the patient on IV antibiotics for approximately 6 weeks ending on 06/19. Patient is nonweightbearing at this time on the left lower extremity. Will need to clarify length of time with orthopedics. On examination, patient still has slight drainage at the proximal incision site of the left hip. I have alerted nursing. Patient was seen pr eviously for the original hip fracture. We were initially asked to consider her for acute inpatient rehab however due to the prolonged period of time of nonweightbearing we opted to allow the primary team to pursue correction facility. Apparently her insurance does not like the idea of a correction facility for her and would prefer for her to undergo acute inpatient rehabilitation. Patient will not likely be able to be independent with mobility until she is able to weight-bear on her left lower extremity and will not be able to go home independently until the antibiotics are complete which is scheduled for 06/19/2021. We will take the patient on and continue to work with her for transfers, wound care, ADLs and mobility in order to improve her ability to transition home once IV antibiotics are complete. Infection of left hip status post explant of IM nail: Antibiotics completed on 06/19. No drainage from the incision. Weightbearing as tolerated. Incision sites are well-healed at all sites. Dr. Coughlin will follow up with the patient and consider further intervention based on wound healing/infection clearing. Leg length discrepancy: Left lower extremity is approximately 1-1/2 to 2 inches shorter than the right lower extremity. Postsurgical shoe with foam elevation being utilized without a problem for patient to ambulate more effectively. Possible left KATTY in the future to correct leg length discrepancy. Anemia: Improved and normalized currently. Continue to monitor and transfuse for hemoglobin less than 7. Stable currently. PTSD: Continue medications. Monitor for any episodes Pain: Continue to monitor for functional pain control and adjust as needed with the goal of weaning down medications. Typically taking pain medications 3 times a day, discussed with the patient that we need to wean this down over the next several weeks. Pain seems to be worse with weightbearing and fairly tolerable when the patient is just sitting or lying in bed. Will discharge home with short-term supply of Percocet for continued use during therapy at home. Fibromyalgia: Continue medications and monitor for any worsening symptoms Insomnia: Seems improved on current medications. Continue to monitor and adjust medications as needed. Hypotension: Continue medications, blood pressure within reasonable range currently. Currently the patient is modified independent/supervision with ADLs. She is ambulating greater than 100 feet with a rolling walker and a left-sided built-up Ortho shoe and is modified independent with this as well. Patient will discharge home with home health nursing, physical therapy, and Occupational Therapy. Myself and 2 therapist did go out and reviewed the patient's chcf and it does appear that she will be able to move around the home safely and perform ADLs in a safe manner. Disposition: [id number]/[id number] HOME UNDER HOME [facility] Final Discharge Diagnosis (Prints w/discharge instructions): Left hip infection status post IM nail explant, leg length discrepancy, ADL dysfunction, mobility dysfunction, PTSD, anxiety Time spent for discharge: >30 mins Core Measure Documentation - Palliative Care Palliative Care/ Comfort Measures: Not Applicable - Core Measures Any of the following diagnoses?: none Exam - Physical Exam Narrative exam: MUSCULOSKELETAL SPECIALTY EXAM CONSTITUTIONAL: Well developed, well nourished, appropriately groomed, obese RESPIRATORY: Clear to auscultation bilaterally, no increased work of breathing CARDIOVASCULAR: Regular Rate/ Rhythm, no swelling, edema or tenderness in BUE or BLE. All extremities warm. GI: + bowel sounds, soft, NTTP, nondistended. INTEGUMENTARY: Surgical wounds on left lower extremity, no drainage noted, healing well. O therwise, normal, no lesion, rash, masses or bruising noted in extremities. MUSCULOSKELETAL: BUE and BLE normal without defect, crepitus, subluxation, effusion, arthritic changes or TTP. Apparent leg length discrepancy of 1 1/2 to 2 inches with the left lower extremity being shorter than the right BUE 4+/5, good ROM, with normal tone. RLE 4-/5 good ROM, with normal tone. Left lower extremity weak with decreased range of motion, 4-/5 NEURO: Sensation intact in all extremities. No tremor noted in 4 extremities. POSTURE and GAIT: Sitting posture good. PSYCH: Alert, oriented x3, affect appears normal. Insight appears intact. - Constitutional Vitals: Temp Pulse Resp BP Pulse Ox 98.1 F 60 16 140/58 95 06/21/21 07:47 06/21/21 07:47 06/21/21 07:47 06/21/21 07:47 06/21/21 07:47 - Allied Health Allied health notes reviewed: nursing, PT, OT Plan Activity: advance as tolerated, fall precautions Weight Bearing Status: Weight Bear as Tolerated Diet: regular Wound: open to air Special Instructions: record daily BP diary, physical therapy, occupational therapy, home health RN Care Plan Goals: Patient will need to follow-up with PCP for further monitoring of chronic medical conditions. Patient will need to follow-up with Dr. Lydia Coughlin for further consideration of surgical intervention. If no surgery is planned after the patient is considered to be clear of infection, would need to reconsider obtaining long- term shoes to compensate for leg length discrepancy on the left. At this point, since intervention is likely, will send the patient home with temporary postsurgical shoe which has been modified and built up to allow compensation for the leg length discrepancy currently. Patient has all durable medical equipment at home at the personal chcf. We will discharge the patient with a short-term supply of Percocet for pain. PDMP was checked prior to prescription for controlled medications but did not show any activity despite checking multiple spellings of first name and even just initials. At any rate, patient will need to follow-up with primary care for further controlled substance medications. Several of the patient's home medications flagged for being nonformulary for her insurance. These medications were previously prescribed for the patient prior to hospitalization and she will be sent home with the same medications. PCP may opt to adjust medications to meet formulary requirements if they so desire. Labs obtained day prior to discharge include WBCs 4.3, hemoglobin 12.3, platelets 136, sodium 139, potassium 4.3, chloride 105.4, carbon dioxide 25, BUN 12, creatinine 0.7, glucose 98, C-reactive protein 0.40. Follow up with: ULICES LEVY MD [Primary Care Provider] - 7 Days LYDIA COUGHLIN MD [Staff Physician] - 6 Weeks (Patient will need to contact Dr. Coughlin for follow-up in the next 4-[address] Coughlin's preference on timing.) Prescriptions: traZODone [Desyrel] 200 mg PO QHS #60 tablet clonazePAM [KlonoPIN] 2 mg PO QHS #30 OLANzapine [ZyPREXA] 5 mg PO QHS #30 tablet busPIRone [Buspar] 10 mg PO DAILY #30 tablet Citalopram [Celexa] 40 mg PO QDAY #60 tablet Gabapentin 300 mg PO Q8HR #90 capsule oxyCODONE /ACETAMINOPHEN [Percocet 5/325 mg] 1 tab PO BID PRN #30 tablet PRN Reason: Pain, Moderate (4-6) Midodrine [Proamatine] 5 mg PO TID@0800,1200,1600 #90 tablet
== END 2021-06-21 15:25 | disposition home health service (06) | DRG 556 ==
LOC: UNDOADMIN 08:58 → 3A 08:58 → INR 11:00 → 3B-SURG 11:17 → 3B 05-22 08:00
PROVIDERS: ADMIT Physical Medicine & Rehabilitation; ATTEND Physical Medicine & Rehabilitation
DX: R26.2 Difficulty in walking, not elsewhere classified (principal); T84.621A Infection and inflammatory reaction due to internal fixation device of left femur, initial encounter; R53.81 Other malaise; D64.9 Anemia, unspecified; M79.7 Fibromyalgia; G47.00 Insomnia, unspecified; R26.9 Unspecified abnormalities of gait and mobility; I95.9 Hypotension, unspecified; Y83.8 Other surgical procedures as the cause of abnormal reaction of the patient, or of later complication, without mention of misadventure at the time of the procedure; F32.9 Major depressive disorder, single episode, unspecified; M41.9 Scoliosis, unspecified; Z82.49 Family history of ischemic heart disease and other diseases of the circulatory system; Z80.9 Family history of malignant neoplasm, unspecified; Z90.710 Acquired absence of both cervix and uterus; Z90.49 Acquired absence of other specified parts of digestive tract; Z88.8 Allergy status to other drugs, medicaments and biological substances; Y92.098 Other place in other non-institutional residence as the place of occurrence of the external cause; F43.10 Post-traumatic stress disorder, unspecified; R53.83 Other fatigue; F41.9 Anxiety disorder, unspecified; Z73.6 Limitation of activities due to disability
CPT/HCPCS: 36415; 80048; 80053; 80202; 82565; 82962; 85025; 85027; 86140; 94640; G0378; J0692; J1650; J2997; J3370; J7040; J7050